=== PATIENT | female | born 1985 | race Caucasian/White ===

== ENCOUNTER 2022-03-19 14:58 | Emergency (ER) | payer BC, MEDICAID, SELFPAY ==
[2022-03-19 15:10] VITALS: BP 125/85; PULSE 89; RESP 18; TEMP 37.1; O2SAT 99; BMI 22.9
[2022-03-19 15:15] VITALS: BP 115/85
[2022-03-19 15:31] VITALS: BP 118/73
[2022-03-19 15:39] LABS: Appearance Urine Cloudy (Clear); Bilirubin Urine 1+ (Negative); Blood Urine 3+ (Negative); Color Urine Brown (Yellow); Glucose Urine Negative (Negative); Ketones Urine 1+ (Negative); Leukocyte Esterase Urine 3+ (Negative); Nitrite Urine Positive (Negative); Protein Urine 3+ (Negative); Specific Gravity Urine >= 1.030 (1.000-1.030)
[2022-03-19 15:59] LABS: RBC Urine >100 (0-2); WBC Urine >100 (0-5)
[2022-03-19 16:00] LABS: Bacteria Urine Few
[2022-03-19 16:01] VITALS: BP 114/78; PULSE 82; O2SAT 99
--- NOTE | 2022-03-19 16:11 | ED.GENADULT ---
HPI - General Adult General Date Seen: 03/19/22 Chief complaint: Urogenital Problems, Female Stated complaint: UTI Time Seen by Provider: 03/19/22 15:05 Source: patient Mode of arrival: ambulatory Limitations: no limitations History of Present Illness HPI narrative: Patient is a 36-year-old woman who reports a history of multiple UTIs previously, who presents with symptoms reminiscent of former UTI. She has had dysuria, frequency, urgency which started about a week and half ago. She has been treating herself symptomatically but symptoms have not improved. She denies new sexual partners or concerns about exposure to STIs. She has not had fever, vomiting, flank pain. No hematuria. Related Data Home Medications Medication Instructions Recorded Confirmed cholecalciferol (vitamin D3) 25 1,000 unit PO 12/09/21 01/18/22 mcg (1,000 unit) tablet clonidine HCl 0.1 mg tablet 0.1 mg PO 12/09/21 01/18/22 dextroamphetamine-amphetamine 20 10 mg PO 12/09/21 01/18/22 mg tablet fluticasone propionate 220 g inhalation 12/09/21 01/18/22 mcg/actuation HFA aerosol inhaler (Flovent HFA) ibuprofen 800 mg tablet 800 mg PO 12/09/21 01/18/22 lamotrigine 200 mg tablet 200 mg PO 12/09/21 01/18/22 tramadol 50 mg tablet 50 mg PO 12/09/21 01/18/22 trazodone 100 mg tablet 100 mg PO 12/09/21 01/18/22 ocrelizumab IV 03/19/22 pregabalin 100 mg capsule mg 03/19/22 Allergies Allergy/AdvReac Type Severity Reaction Status Date / Time glatiramer (copolymer 1) Allergy Severe Anaphylaxis Verified 03/19/22 15:29 [From Copaxone] Review of Systems Status of ROS: Reports: 6 or more systems reviewed and unremarkable except as noted in History and below PFSH PFSH Social History Smoking Status: Heavy tobacco smoker What tobacco products do you use: cigarettes Years smoked: 15 Do you use any of these nicotine containing products: None Second hand tobacco smoke exposure: No How often do you have a drink containing alcohol: 2-3 times a week AUDIT-C Alcohol total score: 3 Non-prescribed substance use: denies use Exam Narrative: Exam Narrative: Vital signs as noted above. In general, an alert, well-appearing patient. Head: Normocephalic, atraumatic. Eyes: Pupils are equal reactive. Extraocular movements are full. Conjunctivae are normal. ENT: Mucous membranes are moist. Neck: Supple Abdomen: Soft and nontender. Extremities: Well perfused. No edema. No calf tenderness. Pulses intact. Neurologic: Patient is alert and oriented to person and place. Speech is fluent. Face is symmetric. Moves all extremities equally. Affect: Normal. Skin: Warm and dry. Well perfused. Const: Vital Signs, click to edit/add: Vital Signs - 24 hr 03/19/22 15:10 03/19/22 15:15 03/19/22 15:31 Temperature 98.8 F Pulse Rate [Pulse Oximeter] 89 Respiratory Rate 18 Blood Pressure 115/85 118/73 Blood Pressure [Ri ght Upper Arm] 125/85 Pulse Oximetry 99 Oxygen Delivery Me thod Room Air Room Air Documenting provider has reviewed patient's vital signs: yes Course Course Hospital Course: Urinalysis is strongly suggestive of urinary tract infection with greater than 100 red cells, greater than 100 white cells, positive nitrites. Culture is pending. Will treat for now with Macrobid, Pyridium for symptoms. Return for worsening symptoms such as fever, vomiting, flank pain. Vital Signs Vital signs: Initial Vital Signs Temperature 98.8 F 03/19/22 15:10 Temperature Source Temporal Artery Scan 03/19/22 15:10 Pulse Rate 89 03/19/22 15:10 Respiratory Rate 18 03/19/22 15:10 Blood Pressure 125/85 03/19/22 15:10 Blood Pressure Mean 98 03/19/22 15:10 Blood Pressure Position Sitting 03/19/22 15:10 Pulse Oximetry 99 03/19/22 15:10 Oxygen Delivery Method 03/19/22 15:10 Vital Signs Temperature 98.8 F 03/19/22 15:10 Pulse Rate 89 03/19/22 15:10 Respiratory Rate 18 03/19/22 15:10 Blood Pressure 125/85 03/19/22 15:10 Pulse Oximetry 99 03/19/22 15:10 Oxygen Delivery Method 03/19/22 15:10 Temperature 98.8 F 03/19/22 15:10 Pulse Rate 89 03/19/22 15:10 Respiratory Rate 18 03/19/22 15:10 Blood Pressure 118/73 03/19/22 15:31 Pulse Oximetry 99 03/19/22 15:10 Oxygen Delivery Method 03/19/22 15:15 Medical Decision Making Lab Data Labs: Lab Results 03/19/22 Range/Units 15:20 Urine Color Brown A (Yellow) Urine Appearance Cloudy A (Clear) Urine pH 6.0 (5.0-8.5) Ur Specific [place] >= 1.030 (1.000-1.030) Urine Protein 3+ A (Negative) Urine Glucose (UA) Negative (Negative) Urine Ketones 1+ A (Negative) Urine Blood 3+ A (Negative) Urine Nitrite Positive A (Negative) Urine Bilirubin 1+ A (Negative) Urine Urobilinogen 1.0 (0.2-1.0) Ur Leukocyte Esterase 3+ A (Negative) Urine RBC >100 A (0-2) Urine WBC >100 A (0-5) Ur Squamous Epith Cells None (None-Few) Urine Bacteria Few A (None) Discharge Plan Discharge Clinical Impression: Urinary tract infection Patient Disposition: Home, Self-Care Condition: Stable Instructions: Urinary Tract Infection in Women (DC) Additional Instructions: Antibiotic as prescribed. Pyridium as needed to help with symptoms over the next 24 hours, after that antibiotics should have kicked in and you should be feeling better. Urine culture is pending, if we need to change your antibiotic based on sensitivities, we will call you. Return for worsening symptoms such as fever, vomiting, flank pain. Prescriptions: No Action clonidine HCl 0.1 mg tablet 0.1 mg PO trazodone 100 mg tablet 100 mg PO lamotrigine 200 mg tablet 200 mg PO ibuprofen 800 mg tablet 800 mg PO Label Comments: TAKE ONE TABLET EVERY 8 HOURS FOR PAIN fluticasone propionate [Flovent HFA] 220 mcg/actuation HFA aerosol inhaler inhalation tramadol 50 mg tablet 50 mg PO Label Comments: take 1-2 tablets by mouth every 6 hours as needed cholecalciferol (vitamin D3) 25 mcg (1,000 unit) tablet 1,000 unit PO Label Comments: Take 1 tablet (1,000 units) by mouth daily dextroamphetamine-amphetamine 20 mg tablet 10 mg PO Label Comments: TAKE 1 TABLET BY MOUTH IN THE MORNING AND AT NOON AND 1/2 OR 1 TABLET AT 4 PM. ocrelizumab [Ocrevus] IV pregabalin 100 mg capsule Follow Up/Referrals: Provider,Not a Local [Primary Care Provider] - Stand Alone Forms: [employer] Info Instructions
== END 2022-03-19 16:23 | disposition home or self-care (01) ==
PROVIDERS: Emergency Provider Emergency Medicine
DX: N39.0 Urinary tract infection, site not specified (principal)
CPT/HCPCS: 81001; 87086; 87186; 99283

== ENCOUNTER 2022-03-31 06:49 | Emergency (ER) | payer BC, MEDICAID, SELFPAY ==
[2022-03-31 06:58] VITALS: BP 122/80; PULSE 75; RESP 16; TEMP 36.2; O2SAT 100
--- NOTE | 2022-03-31 07:41 | CRLHL7_ITS ---
For Patients: As a result of the Century Cures Act, medical imaging exams and procedure reports are released immediately into your electronic medical record. You may view this report before your referring provider. If you have questions, please contact your health care provider. HISTORY: Back pain. TECHNIQUE: AP and lateral lumbosacral spine, 3 views. COMPARISON: None. FINDINGS: There are 5 lumbar type vertebrae. Alignment is normal. Vertebral body height is preserved. Disc space narrowing and vacuum phenomenon are present at L5-S1. There is endplate sclerosis mild vertebral spurring at L5 and S1. No spondylolysis is present. Pedicles are intact. IMPRESSION: Degenerative disc disease at L5-S1. Dictated by Miller Soler MD @ 03/31/2022 7:58:13 AM (Electronically Signed)
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
== END 2022-03-31 08:08 | disposition home or self-care (01) ==
LOC: ED 07:56
PROVIDERS: Emergency Provider Family Medicine; PCP Family Medicine
DX: S39.012A Strain of muscle, fascia and tendon of lower back, initial encounter (principal); V09.9XXA Pedestrian injured in unspecified transport accident, initial encounter; Y92.524 Gas station as the place of occurrence of the external cause
CPT/HCPCS: 72100; 99282; 99283; 99284

== ENCOUNTER 2022-07-20 22:35 | Outpatient (CLI) | payer MEDICAID, SELFPAY | END 2022-07-20 22:36 | disposition home or self-care (01) | LOC: AMB 07-26 09:43 | PROVIDERS: PCP Family Medicine; Visit Provider Family Medicine | DX: R05.9 Cough, unspecified (principal); R06.09 Other forms of dyspnea | CPT/HCPCS: A0425; A0429 ==

== ENCOUNTER 2022-07-20 23:02 | Emergency (ER) | payer MEDICAID, SELFPAY ==
[2022-07-20 23:05] VITALS: BP 108/72; PULSE 82; RESP 18; TEMP 36.6; O2SAT 95
--- NOTE | 2022-07-20 23:24 | CRLHL7_ITS ---
For Patients: As a result of the Cures Act, medical imaging exams and procedure reports are released immediately into your electronic medical record. You may view this report before your referring provider. If you have questions, please contact your health care provider. INDICATION: Dyspnea. COMPARISON: None available. FINDINGS: PA and lateral views of the chest were obtained. There is mild patchy infiltrate in the right medial lower lung, seen to be in the anterior basilar segment of the right lower lobe on the lateral view, consistent with mild right lower lobe pneumonia. There is mild linear density in the right superior perihilar lung, probably scarring from previous inflammatory disease. There is mild linear atelectasis in the posterior-medial retrocardiac left lower lobe. The rest of the chest is clear. The heart is normal in size. The mediastinum is normal in appearance. The osseous structures are normal in appearance for the patient`s age. IMPRESSION: Mild patchy pneumonia in the anterior basilar segment of the right lower lobe. Mild linear atelectasis versus scarring in the right superior perihilar right upper lobe and in the medial retrocardiac left lower lobe. Dictated by Cristhian Ramirez MD @ 07/21/2022 12:41:17 AM (Electronically Signed)
--- NOTE | 2022-07-20 23:27 | ED.SOB ---
HPI - SOB/Dyspnea General Chief Complaint: Shortness of Breath/Dyspnea Stated Complaint: Difficulty Breathing Time Seen by Provider: 07/20/22 23:14 Source: patient, family and EMS Mode of arrival: EMS History of Present Illness HPI Narrative: 36-year-old female with a history mold allergy presents to the emergency department with a 2 month history of ongoing shortness of breath. Sounds like she was evaluated in the emergency department at [place] [facility] 1 week ago, had a chest x-ray. Per her, it looked like there was a pneumonia and she was started on doxycycline. She says that it is causing some timing upset and increased sunburn. 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 Admits that her symptoms have worsened over the last couple of weeks. She says that it was likely started when she was working around some [employer] post. She has not been on steroids. She tried her inhaler this evening and did not help, she felt very short of breath so she called EMS. She reports that she was given an albuterol inhaler which did seem to temporarily help. She is feeling much better currently. She notes no fever. She has no history of DVT or PE. She does have a history of MS, denies any progressive type symptoms related to this. No hemoptysis, no cardiac changes. No new trauma or injury. Cough is nonproductive. Past medical history notable for ADHD, MS. Allergies are to Wellbutrin Copaxone and mold. Current home medications clonidine, Adderall, lamotrigine, trazodone. Reports no recent changes other than the new doxycycline. I reviewed this and see that she appropriately has about 3 days left. Socially, she is a smoker. ROS is notable for the respiratory symptoms as above, otherwise states that all other medical conditions and systems are stable times 12 systems. Related Data Home Medications Medication Instructions Recorded Confirmed cholecalciferol (vitamin D3) 25 1,000 unit PO 12/09/21 06/01/22 mcg (1,000 unit) tablet clonidine HCl 0.1 mg tablet 0.1 mg PO 12/09/21 06/01/22 dextroamphetamine-amphetamine 20 10 mg PO 12/09/21 06/01/22 mg tablet fluticasone propionate 220 g inhalation 12/09/21 06/01/22 mcg/actuation HFA aerosol inhaler (Flovent HFA) ibuprofen 800 mg tablet 800 mg PO 12/09/21 06/01/22 lamotrigine 200 mg tablet 200 mg PO 12/09/21 06/01/22 tramadol 50 mg tablet 50 mg PO 12/09/21 06/01/22 trazodone 100 mg tablet 100 mg PO 12/09/21 06/01/22 ocrelizumab IV 03/19/22 06/01/22 pregabalin 100 mg capsule mg 03/19/22 06/01/22 Previous Rx's Medication Instructions Recorded oxycodone 5 mg tablet 5 mg PO Q6H PRN pain #15 tabs 03/31/22 benzonatate 100 mg capsule 100 mg PO TID PRN cough #30 caps 06/01/22 montelukast 10 mg tablet 10 mg PO QHS #30 tabs 07/21/22 (Singulair) Allergies Allergy/AdvReac Type Severity Reaction Status Date / Time glatiramer (copolymer 1) Allergy Severe Anaphylaxis Verified 06/01/22 15:10 [From Copaxone] bupropion [From Wellbutrin] Allergy Verified 06/01/22 15:10 PFSH PFS Medical History (Updated 07/21/22 @ 00:21 by Yenny Scruggs MD) ADHD, predominantly inattentive type ?F90.0 - Attention-deficit hyperactivity disorder, predominantly inattentive type (ICD-10) Multiple sclerosis, primary progressive ?G35 - Multiple sclerosis (ICD-10) Social History (Updated 03/31/22 @ 07:46 by Cali Lemon MD) 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, 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 Smoking Status: Current some day smoker What tobacco products do you use: cigarettes Years smoked: 15 Do you use any of these nicotine containing products: None Second hand tobacco smoke exposure: No How often do you have a drink containing alcohol: 2-3 times a week How many standard drinks containing alcohol do you have on a typical day: 1 or 2 How often do you have six or more drinks on one occasion: Never AUDIT-C Alcohol total score: 3 Non-prescribed substance use: denies use Exam Const: Vital Signs, click to edit/add: Vital Signs - 24 hr 07/20/22 23:05 Temperature 97.9 F Pulse Rate [Left P ulse Oximeter] 82 Respiratory Rate 18 Blood Pressure [Le ft Upper Arm] 108/72 Pulse Oximetry 95 Oxygen Delivery Me thod Room Air Documenting provider has reviewed patient's vital signs: yes Common normals: no apparent distress General appearance: cooperative Other: Nonproductive cough noted. HENMT: Common normals: normocephalic and head/scalp atraumatic Head and scalp: normocephalic and atraumatic Face and sinus: normal facial exam Mouth: oral and palatal mucosa normal Throat: posterior oropharynx normal Eye: Common normals: conjunctivae normal General eye: normal appearance of both eyes Conjunctiva: conjunctiva(e) normal Neck & C-Spine: Common normals: full ROM and no lymphadenopathy Resp: Other: Mildly tachypneic. No wheeze. Overall poor air movement though. Expiration is not prolonged. No crackles. Cardio: Common normals: regular rate, regular rhythm, S1 normal heart sound, S2 normal heart sound and no murmurs Rate: regular rate Rhythm: regular rhythm Heart sounds: S1 normal and S2 normal GI: Common normals: Normal to inspection, nondistended, normoactive bowel sounds present and no masses Extremity: Common normals: normal to inspection, normal capillary refill and no pedal edema Neuro: Speech: speech normal Motor exam: no movement abnormalities noted Psych: Common normals: thought process normal Appearance: grossly normal Thought process: normal thought process Skin: Common normals: no rashes or lesions noted General skin exam: no rashes or lesions noted Course Course Hospital Course: Differential diagnosis including DVT, asthma, chronic lung disease, COPD, pneumonia, croup, among others. Poor air movement suggestive of inflammatory process. Recommended chest x-ray, basic labs including D-dimer. The albuterol was helpful, this is good to know. She is not currently wheezing so I do not think that more this will be more benefit at the moment. Will start with 40 mg of prednisone and some Singulair and re-evaluate after labs and x-ray are back. She was agreeable to this plan. Reevaluation(s) Time of Reevaluation #1: 00:21 Reevaluation #1: Reviewed findings with patient. She is moving air much better now, still no wheezing. She does feel quite a bit better. Discussed prednisone, starting some Singulair, use of the albuterol inhaler and completion of her antibiotics. Reviewed alarm symptoms that would warrant repeat ED presentation and she verbalizes understanding and agreement. Reassuring labs. Vital Signs Vital signs: Initial Vital Signs Temperature 97.9 F 07/20/22 23:05 Temperature Source Temporal Artery Scan 07/20/22 23:05 Pulse Rate 82 07/20/22 23:05 Pulse Rhythm Regular 07/20/22 23:05 Respiratory Rate 18 07/20/22 23:05 Blood Pressure 108/72 07/20/22 23:05 Blood Pressure Mean 84 07/20/22 23:05 Blood Pressure Position Semi-Fowlers 07/20/22 23:05 Pulse Oximetry 95 07/20/22 23:05 Oxygen Delivery Method Room Air 07/20/22 23:05 Vital Signs Temperature 97.9 F 07/20/22 23:05 Pulse Rate 82 07/20/22 23:05 Respiratory Rate 18 07/20/22 23:05 Blood Pressure 108/72 07/20/22 23:05 Pulse Oximetry 95 07/20/22 23:05 Oxygen Delivery Method Room Air 07/20/22 23:05 Temperature 97.9 F 07/20/22 23:05 Pulse Rate 82 07/20/22 23:05 Respiratory Rate 18 07/20/22 23:05 Blood Pressure 108/72 07/20/22 23:05 Pulse Oximetry 95 07/20/22 23:05 Oxygen Delivery Method Room Air 07/20/22 23:05 MDM - SOB/Dyspnea Lab Data Attestation: I reviewed the patient's lab results. Lab results narrative: Mildly elevated white blood cell count and CRP. Normal D-dimer. Normal electrolytes and kidney function. Labs: Lab Results 07/20/22 Range/Units 23:35 WBC 14.69 H (4.50-11.00) K/uL RBC 4.46 (4.00-5.20) m/uL Hgb 14.1 (12.0-16.0) gm/dL Hct 42.0 (33.0-51.0) % MCV 94 (80-100) fL MCH 32 (26-34) pg MCHC 34 (32-36) gm/dL RDW Coeff of Aditi 12.3 (11.5-15.5) % Plt Count 426 (140-440) K/uL Neut % (Auto) 74.1 H (42.0-72.0) % Lymph % (Auto) 15.5 L (20-44) % [place] % (Auto) 6.9 (0.0-11.0) % Eos % (Auto) 3.0 (0.0-7.0) % Baso % (Auto) 0.2 (0.0-3.0) % Neut # (Auto) 10.90 H (1.7-7.0) K/uL Lymph # (Auto) 2.30 (0.90-2.90) K/uL [place] # (Auto) 1.00 H (0.00-0.90) K/UL Eos # (Auto) 0.40 (0.00-0.50) K/uL Baso # (Auto) 0.00 (0.00-0.30) K/uL D-Dimer Quant (PE/DVT) 0.48 (0.00-0.50) ug/ml Sodium 141 (135-149) mmol/L Potassium 3.5 L (3.6-5.1) mmol/L Chloride 102 (96-114) mmol/L Carbon Dioxide 26 (20-32) mmol/L BUN 6 (5-24) mg/dL Creatinine 0.6 (0.5-1.5) mg/dL Estimated GFR 118 ml/min Glucose 87 (60-115) mg/dL Calcium 9.2 (8.4-10.6) mg/dL C-Reactive Protein 7.8 H (0.5-1.0) mg/dL Discharge Plan Discharge Clinical Impression: Pneumonitis Patient Disposition: Home w/ Parent or Adult Condition: Improved Additional Instructions: As we discussed, I think there is a combination of an inflammatory process and a pneumonia in your lungs. I agree with the antibiotic that was chosen by the other emergency department. I would like you to go ahead and finish your last few days of this. I am adding prednisone, a steroid. As we discussed, you will take this twice daily for the next 5 days. If you have significant side effects from it, you may decrease it to once daily after the 1st 2 days. Continue using her albuterol inhaler. As we discussed you can use thus far more often than it says on the packaging. But, if it is not working in you get as short of breath as you were tonight, you need to come back to the ED. I do think that your having a chronic inflammation in your lungs from occupational exposures. There are specialist that can test you for this but in the meantime, I would like to start you on some Singulair 1 pill daily preferably at bedtime. I would like for you to follow-up with primary care provider in 1-2 weeks to see how things are going with this and decide on long-term treatment and if referral to a track broom operator or nightclub manager would be useful. There are more advanced treatments than what I am proposing. Activity Level: Activity as Tolerated Discharge Diet: Regular Prescriptions: New montelukast [Singulair] 10 mg tablet 10 mg PO QHS Qty: 30 1RF No Action clonidine HCl 0.1 mg tablet 0.1 mg PO trazodone 100 mg tablet 100 mg PO lamotrigine 200 mg tablet 200 mg PO ibuprofen 800 mg tablet 800 mg PO Patient Comments: TAKE ONE TABLET EVERY 8 HOURS FOR PAIN fluticasone propionate [Flovent HFA] 220 mcg/actuation HFA aerosol inhaler inhalation tramadol 50 mg tablet 50 mg PO Patient Comments: take 1-2 tablets by mouth every 6 hours as needed cholecalciferol (vitamin D3) 25 mcg (1,000 unit) tablet 1,000 unit PO Patient Comments: Take 1 tablet (1,000 units) by mouth daily dextroamphetamine-amphetamine 20 mg tablet 10 mg PO Patient Comments: TAKE 1 TABLET BY MOUTH IN THE MORNING AND AT NOON AND 1/2 OR 1 TABLET AT 4 PM. benzonatate 100 mg capsule 100 mg PO TID PRN (Reason: cough) Qty: 30 1RF ocrelizumab [Ocrevus] IV pregabalin 100 mg capsule oxycodone 5 mg tablet 5 mg PO Q6H PRN (Reason: pain) Qty: 15 0RF Follow Up/Referrals: Willard Shahid MD [Primary Care Provider] - Stand Alone Forms: [employer] Info Instructions
[2022-07-20 23:44] LABS: Basophils Percent Auto 0.2 % (0.0-3.0); Hemoglobin* 14.1 gm/dL (12.0-16.0); Immature Granulocytes Pct Auto 0.3 %; Lymphocytes Percent Auto 15.5 % (20-44); Mean Corpuscular HGB Conc 34 gm/dL (32-36); Mean Corpuscular Hemoglobin 32 pg (26-34); Mean Corpuscular Volume 94 fL (80-100); Monocytes Percent Auto 6.9 % (0.0-11.0); Neutrophils Percent Auto 74.1 % (42.0-72.0); Platelet Count* 426 K/uL (140-440); RDW Coefficient of Variation % 12.3 % (11.5-15.5); Red Blood Count 4.46 m/uL (4.00-5.20); Slide Review Reflex No; White Blood Count* 14.69 K/uL (4.50-11.00)
[2022-07-20] MEDS: MONTELUKAST 10 MG TABLET PO (23:45)
[2022-07-20] MEDS: predniSONE 20 MG TABLET 40 MG PO (23:45)
[2022-07-20 23:55] LABS: Chloride* 102 mmol/L (96-114); Potassium* 3.5 mmol/L (3.6-5.1); Sodium* 141 mmol/L (135-149)
[2022-07-20 23:58] LABS: Creatinine* 0.6 mg/dL (0.5-1.5); Estimated Glomerular Filt Rate 118 ml/min
[2022-07-20 23:59] LABS: Blood Urea Nitrogen* 6 mg/dL (5-24); Calcium* 9.2 mg/dL (8.4-10.6); Carbon Dioxide* 26 mmol/L (20-32); Glucose* 87 mg/dL (60-115)
[2022-07-21 00:01] LABS: C Reactive Protein* 7.8 mg/dL (0.5-1.0); D Dimer Quantitative* 0.48 ug/ml (0.00-0.50)
== END 2022-07-21 00:25 | disposition home or self-care (01) ==
PROVIDERS: Emergency Provider Family Medicine; PCP Family Medicine
DX: J18.9 Pneumonia, unspecified organism (principal)
CPT/HCPCS: 36415; 71046; 80048; 85025; 85379; 86140; 99284; A9270; J7512

== ENCOUNTER 2022-08-31 16:53 | Emergency (ER) | payer MEDICAID, SELFPAY ==
[2022-08-31] VITALS (11 sets, daily range): BP systolic 106–108; BP diastolic 73–77; PULSE 92–98; RESP 18–24; TEMP 36.4; O2SAT 93–100; BMI 23.6
--- NOTE | 2022-08-31 17:27 | CRLHL7_ITS ---
For Patients: As a result of the Century Cures Act, medical imaging exams and procedure reports are released immediately into your electronic medical record. You may view this report before your referring provider. If you have questions, please contact your health care provider. INDICATION: Cough TECHNIQUE: CT chest without contrast. COMPARISON: None FINDINGS: Cardiovascular structures: Heart size is normal. Thoracic aorta and main pulmonary artery are normal in caliber. Mediastinum and allison: No sign of mass or adenopathy. Lungs: Diffuse right upper lobe is patchy centrilobular opacities and patchy consolidation in the right upper right middle lobe. Irregular centrilobular opacities in the lower lobes as well with bronchial wall thickening bilaterally. Pleura and pericardium: Small pericardial effusion. Chest wall and axilla: No mass or adenopathy. Bones: No significant findings. Upper abdomen: Unremarkable. IMPRESSION: 1. Right upper and middle lobe patchy centrilobular opacities and patchy consolidation . Irregular centrilobular opacities in the lower lobes as well with bronchial wall thickening. Findings probably infectious to include bronchopneumonia. Please note that all CT scans at this facility use dose modulation, iterative reconstruction, and/or weight-based dosing when appropriate to reduce radiation dose to as low as reasonably achievable. Dictated by Janice Bojorquez MD @ 08/31/2022 6:56:13 PM (Electronically Signed)
--- NOTE | 2022-08-31 17:36 | ED.GENADULT ---
HPI - General Adult General Time Seen by Provider: 17:36 Date Seen: 08/31/22 Chief complaint: Cough Stated complaint: Coughing, short of breath Time Seen by Provider: 08/31/22 16:54 Source: patient Mode of arrival: ambulatory Limitations: no limitations History of Present Illness HPI narrative: Patient is a 37-year-old female with a history of multiple sclerosis currently receiving transfusions, bronchitis presenting to the emergency department for a cough. She states the past 2 months he has been having this cough nonstop. She has been seen multiple times in the past for this scheduled to see a specialist for her cough next week. They state the cough seem to be getting worse today and she was having difficulty breathing because of the cough. She states when she isn't coughing she feels fine is in the eat and drink and breathe without any of the issues but states the cough is working her up multiple times throughout the night and she says these daily she will have posttussive emesis. She also states the cough feels like it is nonstop throughout the day. She does admit to smoking cigarettes and states she has cut down to only a fever today since the cough started and states she mostly just hold them of of habit. She believes her symptoms are related to mold. 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 She has had issues with mold in the past. She does not know if she is vaccinated for pertussis. Last time patient was here she was given albuterol inhaler which she says does not help but does state the albuterol breathing treatment she received did help. Steroids not seen improvement symptoms. She has been on 2 different antibiotics with most recent being doxycycline. Denies fevers, chills, chest pain, abdominal pain, diarrhea, constipation, headache, vision changes, weakness, numbness, nausea. Related Data Home Medications Medication Instructions Recorded Confirmed cholecalciferol (vitamin D3) 25 1,000 unit PO 12/09/21 06/01/22 mcg (1,000 unit) tablet clonidine HCl 0.1 mg tablet 0.1 mg PO 12/09/21 06/01/22 dextroamphetamine-amphetamine 20 10 mg PO 12/09/21 06/01/22 mg tablet fluticasone propionate 220 g inhalation 12/09/21 06/01/22 mcg/actuation HFA aerosol inhaler (Flovent HFA) ibuprofen 800 mg tablet 800 mg PO 12/09/21 06/01/22 lamotrigine 200 mg tablet 200 mg PO 12/09/21 06/01/22 tramadol 50 mg tablet 50 mg PO 12/09/21 06/01/22 trazodone 100 mg tablet 100 mg PO 12/09/21 06/01/22 ocrelizumab IV 03/19/22 06/01/22 pregabalin 100 mg capsule mg 03/19/22 06/01/22 Previous Rx's Medication Instructions Recorded oxycodone 5 mg tablet 5 mg PO Q6H PRN pain #15 tabs 03/31/22 benzonatate 100 mg capsule 100 mg PO TID PRN cough #30 caps 06/01/22 montelukast 10 mg tablet 10 mg PO QHS #30 tabs 07/21/22 (Singulair) albuterol sulfate 5 mg/mL(0.5 %) 2.5 mg (0.5 mL) inhalation Q4H 08/31/22 solution for nebulization #100 mL albuterol sulfate 90 mcg/actuation 2 puff inhalation Q6H PRN 08/31/22 aerosol inhaler (Ventolin HFA) shortness of breath or wheezing #6.7 grams amoxicillin 875 mg-potassium 1 tab PO Q12H #14 tabs 08/31/22 clavulanate 125 mg tablet azithromycin 250 mg tablet See Rx Instructions PO .COMPLEX #6 08/31/22 tabs Allergies Allergy/AdvReac Type Severity Reaction Status Date / Time glatiramer (copolymer 1) Allergy Severe Anaphylaxis Verified 06/01/22 15:10 [From Copaxone] mold Allergy Unknown Anaphylaxis Verified 08/31/22 17:03 bupropion [From Wellbutrin] Allergy Verified 06/01/22 15:10 Review of Systems Status of ROS: Reports: 10 or more systems reviewed and unremarkable except as noted in History and below [facility] Medical History (Updated 08/31/22 @ 19:19 by Ruslan Rodriguez DO) ADHD, predominantly inattentive type ?F90.0 - Attention-deficit hyperactivity disorder, predominantly inattentive type (ICD-10) Multiple sclerosis, primary progressive ?G35 - Multiple sclerosis (ICD-10) Social History (Updated 03/31/22 @ 07:46 by Cali Lemon MD) 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, 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 Smoking Status: Current some day smoker What tobacco products do you use: cigarettes Years smoked: 15 Do you use any of these nicotine containing products: None Second hand tobacco smoke exposure: No How often do you have a drink containing alcohol: 2-3 times a week How many standard drinks containing alcohol do you have on a typical day: 1 or 2 How often do you have six or more drinks on one occasion: Never AUDIT-C Alcohol total score: 3 Non-prescribed substance use: denies use Exam Narrative: Exam Narrative: Const: Well-nourished, Well-developed, in moderate distress Eyes: PERRL, no conjunctival injection, and symmetrical lids ENMT: Atraumatic external nose and ears. Moist mucous membranes. Neck: Symmetric, trachea midline, No thyromegaly. CVS: RRR, No murmurs or gallops. Peripheral pulses 2+ and equal in all extremities RESP: Clear to auscultation bilaterally, loud notable cough while at rest GI: Nontender/Nondistended, No rebound or guarding. MSK:Extremities w/o deformity, Normal Active ROM Skin: Warm, Dry. No rashes or lesions. Neuro: Normal Muscle tone, No focal neurological deficits. Psych: Awake, Alert, & Oriented x3. Appropriate mood and affect. Const: Vital Signs, click to edit/add: Vital Signs - 24 hr 08/31/22 16:58 08/31/22 17:08 08/31/22 17:30 Temperature 97.6 F Pulse Rate 92 94 Pulse Rate [Pulse Oximeter] 98 Respiratory Rate 22 24 Blood Pressure 108/77 Blood Pressure [Ri ght Upper Arm] 106/73 Pulse Oximetry 95 93 95 Oxygen Delivery Me thod Room Air 08/31/22 17:56 08/31/22 18:30 08/31/22 18:35 Temperature Pulse Rate 92 93 95 Pulse Rate [Pulse Oximeter] Respiratory Rate 18 Blood Pressure Blood Pressure [Ri ght Upper Arm] Pulse Oximetry 99 100 97 Oxygen Delivery Me thod 08/31/22 18:45 08/31/22 19:00 08/31/22 19:05 Temperature Pulse Rate 92 95 94 Pulse Rate [Pulse Oximeter] Respiratory Rate Blood Pressure Blood Pressure [Ri ght Upper Arm] Pulse Oximetry 97 97 [facility] 08[facility]22 19:15 08/31/22 19:29 Temperature 97.6 F Pulse Rate 93 Pulse Rate [Pulse Oximeter] 98 Respiratory Rate 18 Blood Pressure Blood Pressure [Ri ght Upper Arm] 106/73 Pulse Oximetry 97 Oxygen Delivery Me thod Course Vital Signs Vital signs: Initial Vital Signs Temperature 97.6 F 08/31/22 16:58 Temperature Source Temporal Artery Scan 08/31/22 16:58 Pulse Rate 98 08/31/22 16:58 Pulse Rhythm Regular 08/31/22 16:58 Respiratory Rate 22 08/31/22 16:58 Blood Pressure 106/73 08/31/22 16:58 Blood Pressure Mean 84 08/31/22 16:58 Blood Pressure Position Sitting 08/31/22 16:58 Pulse Oximetry 95 08/31/22 16:58 Oxygen Delivery Method Room Air 08/31/22 16:58 Vital Signs Temperature 97.6 F 08/31/22 16:58 Pulse Rate 98 08/31/22 16:58 Respiratory Rate 22 08/31/22 16:58 Blood Pressure 106/73 08/31/22 16:58 Pulse Oximetry 95 08/31/22 16:58 Oxygen Delivery Method Room Air 08/31/22 16:58 Temperature 97.6 F 08/31/22 19:29 Pulse Rate 98 08/31/22 19:29 Respiratory Rate 18 08/31/22 19:29 Blood Pressure 106/73 08/31/22 19:29 Pulse Oximetry 97 08/31/22 19:15 Oxygen Delivery Method Room Air 08/31/22 16:58 Medical Decision Making [facility] Narrative Medical decision making narrative: Patient is a 37-year-old female presenting emergency department for a chronic cough and a going on for over 2 months. She has been on doxycycline and amoxicillin in the past. She states the cough is not getting better and she is concerned could be mold related because the cough started soon after she was switched to the, post area of her job. She is scheduled to see a lung specialist next week. They are concerned because the cough is waking her up multiple times for nits and became worse department today to see if we could do anything to help her. Concern along symptoms have been going on she is having some post-tussive emesis I will check her for pertussis. She does not know her vaccinations status. Also do CT scan of the chest to better evaluation she has only had x-rays in the past. Cbc and and BMP were ordered. After the patient received an albuterol treatment her cough improved significantly. She states she does not have COPD or asthma she is aware of what of her inhaler she has been using are several years old and she is not using a spacer. This could be why they are not helping. She does have a white count 17. Unclear now this is infectious related or stress day of from all her coughing. She has had elevated white counts have asked couple visits according to the patient. CT scan results that show signs of pneumonia. This is unexpected considering she has been on 2 different antibiotics. While she is typically healthy we will give her Augmentin and azithromycin to treat her pneumonia due to how long it has been occurring. I gave the patient prescription for appear old treatments through a nebulizer and inhaler with a spacer. I informed going to try the inhaler 1st with the spacer. They state they understand. Patient be discharged home with a copy of her CT scan to bring to her lung specialist. Lab Data Labs: Lab Results 08/31/22 08/31/22 Range/Units 15:38 17:38 WBC 17.67 H (4.50-11.00) K/uL RBC 4.47 (4.00-5.20) m/uL Hgb 13.5 (12.0-16.0) gm/dL Hct 40.6 (33.0-51.0) % MCV 91 (80-100) fL MCH 30 (26-34) pg MCHC 33 (32-36) gm/dL RDW Coeff of Aditi 13.3 (11.5-15.5) % Plt Count 463 H (140-440) K/uL Neut % (Auto) 80.6 H (42.0-72.0) % Lymph % (Auto) 10.2 L (20-44) % Alfalfa % (Auto) 5.7 (0.0-11.0) % Eos % (Auto) 3.1 (0.0-7.0) % Baso % (Auto) 0.2 (0.0-3.0) % Neut # (Auto) 14.20 H (1.7-7.0) K/uL Lymph # (Auto) 1.80 (0.90-2.90) K/uL Alfalfa # (Auto) 1.00 H (0.00-0.90) K/UL Eos # (Auto) 0.50 (0.00-0.50) K/uL Baso # (Auto) 0.00 (0.00-0.30) K/uL Abs Immat Gran (auto) 0.00 (0.00-0.30) K/uL Imm/Tot Granulo (auto) 0.2 % Sodium 138 (135-149) mmol/L Potassium 4.0 (3.6-5.1) mmol/L Chloride 106 (96-114) mmol/L Carbon Dioxide 21 (20-32) mmol/L BUN 7 (5-24) mg/dL Creatinine 0.5 (0.5-1.5) mg/dL Estimated Creat Clear 157.87 Estimated GFR 122 ml/min Glucose 78 (60-115) mg/dL Calcium 8.9 (8.4-10.6) mg/dL HCG, Qual Negative (Negative) Lab Acknowledgement Test Added Discharge Plan Discharge Clinical Impression: Pneumonia Qualifiers: Pneumonia type: due to unspecified organism Laterality: right Lung location: unspecified part of lung Qualified Code(s): J18.9 - Pneumonia, unspecified organism Patient Disposition: Home, Self-Care Condition: Improved Instructions: Pneumonia (ED) Additional Instructions: Your CT scan shows you have pneumonia and due to this I started you on antibiotics. Keep your previously scheduled appointment with a lung specialist. We are sending a copy of your CT scan to bring to your appointment. I am also giving you an albuterol inhaler with the spacer. You can get a better spacer from the pharmacy and gave the written prescription for that. If this is not helping with the cough I also gave you a written prescription for a nebulizer and sent a nebulizer albuterol solution to your pharmacy. Return for new or worsening symptoms. Your pertussis test results will return in 1-4 days Prescriptions: New albuterol sulfate 5 mg/mL solution for nebulization 2.5 mg inhalation Q4H Qty: 100 3RF amoxicillin-pot clavulanate 875-125 mg tablet 1 tab PO Q12H Qty: 14 0RF azithromycin 250 mg tablet See Rx Instructions .ROUTE .COMPLEX Qty: 6 0RF Rx Instructions: For 250 mg dose pack: take 500 mg today (day 1), then 250 mg for 4 days (days 2-5) albuterol sulfate [Ventolin HFA] 90 mcg/actuation HFA aerosol inhaler 2 puff inhalation Q6H PRN (Reason: shortness of breath or wheezing) Qty: 6.7 0RF No Action clonidine HCl 0.1 mg tablet 0.1 mg PO trazodone 100 mg tablet 100 mg PO lamotrigine 200 mg tablet 200 mg PO ibuprofen 800 mg tablet 800 mg PO Patient Comments: TAKE ONE TABLET EVERY 8 HOURS FOR PAIN fluticasone propionate [Flovent HFA] 220 mcg/actuation HFA aerosol inhaler inhalation tramadol 50 mg tablet 50 mg PO Patient Comments: take 1-2 tablets by mouth every 6 hours as needed cholecalciferol (vitamin D3) 25 mcg (1,000 unit) tablet 1,000 unit PO Patient Comments: Take 1 tablet (1,000 units) by mouth daily dextroamphetamine-amphetamine 20 mg tablet 10 mg PO Patient Comments: TAKE 1 TABLET BY MOUTH IN THE MORNING AND AT NOON AND 1/2 OR 1 TABLET AT 4 PM. benzonatate 100 mg capsule 100 mg PO TID PRN (Reason: cough) Qty: 30 1RF ocrelizumab [Ocrevus] IV pregabalin 100 mg capsule oxycodone 5 mg tablet 5 mg PO Q6H PRN (Reason: pain) Qty: 15 0RF montelukast [Singulair] 10 mg tablet 10 mg PO QHS Qty: 30 1RF Follow Up/Referrals: Willard Shahid MD [Primary Care Provider] - Stand Alone Forms: [facility] ([facility]) Info Instructions
[2022-08-31 17:46] LABS: Basophils Percent Auto 0.2 % (0.0-3.0); Eosinophils Percent Auto 3.1 % (0.0-7.0); Hematocrit 40.6 % (33.0-51.0); Hemoglobin* 13.5 gm/dL (12.0-16.0); Immature Granulocytes Pct Auto 0.2 %; Lymphocytes Percent Auto 10.2 % (20-44); Mean Corpuscular HGB Conc 33 gm/dL (32-36); Mean Corpuscular Hemoglobin 30 pg (26-34); Mean Corpuscular Volume 91 fL (80-100); Monocytes Percent Auto 5.7 % (0.0-11.0); Neutrophils Percent Auto 80.6 % (42.0-72.0); Platelet Count* 463 K/uL (140-440); RDW Coefficient of Variation % 13.3 % (11.5-15.5); Red Blood Count 4.47 m/uL (4.00-5.20); White Blood Count* 17.67 K/uL (4.50-11.00)
[2022-08-31] MEDS: ALBUTEROL SULFATE 2.5 MG/3 ML VIAL.NEB NEB (17:46)
[2022-08-31 17:51] LABS: Slide Review Reflex No
[2022-08-31 17:58] LABS: Chloride* 106 mmol/L (96-114); Sodium* 138 mmol/L (135-149)
[2022-08-31 18:01] LABS: Blood Urea Nitrogen* 7 mg/dL (5-24); Carbon Dioxide* 21 mmol/L (20-32); Creatinine* 0.5 mg/dL (0.5-1.5); Est. Creatinine Clearance* 157.87; Estimated Glomerular Filt Rate 122 ml/min; Glucose* 78 mg/dL (60-115)
[2022-08-31 18:02] LABS: Calcium* 8.9 mg/dL (8.4-10.6)
[2022-08-31 18:16] LABS: HCG Qualitative Serum* Negative (Negative)
[2022-08-31] MEDS: AZITHROMYCIN 250 MG TABLET 500 MG PO (19:17)
[2022-08-31] MEDS: AMOXICILLIN/CLAVULANATE 875 mg/125 mg TABLET PO (19:17)
--- NOTE | 2022-08-31 19:20 | ED.NURSE ---
Spacer provided with education on inhaler and proper usage. ABX given, Pt tolerated well. Pt reports significant improvement after neb and Aerobika.
[2022-09-04 04:55] LABS: B. pertussis/parapertus Source Not Provided; Bordetella parapertussis PCR Not Detected; Bordetella pertussis by PCR Not Detected
== END 2022-08-31 19:31 | disposition home or self-care (01) ==
PROVIDERS: Emergency Provider Student in an Organized Health Care Education/Training Program; PCP Family Medicine
DX: J18.9 Pneumonia, unspecified organism (principal)
CPT/HCPCS: 36415; 71250; 80048; 84703; 85025; 87081; 94640; 99283; 99284; A9270

== ENCOUNTER 2023-01-16 14:30 | Outpatient (CLI) | payer BC, MEDICAID, SELFPAY ==
--- NOTE | 2023-01-16 15:00 | CRLHL7_ITS ---
For Patients: As a result of the Century Cures Act, medical imaging exams and procedure reports are released immediately into your electronic medical record. You may view this report before your referring provider. If you have questions, please contact your health care provider. Indication: Pneumonia Technique: Noncontrast enhanced CT chest Please note that all CT scans at this facility use dose modulation, iterative reconstruction, and/or weight-based dosing when appropriate to reduce radiation dose to as low as reasonably achievable. Comparison: 08/31/2022 Findings: A trace left pleural effusion is present. Bilateral breast implants are intact. Mildly prominent mediastinal lymph nodes have slightly decreased in size since the prior exam. Nodular density within the medial aspect of the right upper lobe measuring 5.9 millimeters, 04/30. Persistent consolidative densities within the right upper lobe inferiorly with associated air bronchograms. Increased subpleural density within the anterior right upper lobe. Improved appearance of the right upper lobe at the posterior lateral aspect compared to the prior study. Residual patchy ill-defined densities within the right lower lobe which have improved. Increased consolidation within the lingula containing air bronchograms. Increased airspace opacities within the posterior left lower lobe along with persistent densities along the left lower lobe bronchovascular bundle. Increased consolidative opacities within the left upper lobe with air bronchograms. Mild spurring in the upper thoracic spine. Interval development of a right lateral 7th rib fracture with partial healing. No vertebral body compression fracture. Impression: Bilateral infiltrates. Left-sided infiltrates have increased in the interim along with development of a small left pleural effusion. Improved infiltrates in the right upper lobe and right lower lobe although persistent densities within the right upper lobe anteriorly are present. New subpleural density anterior right upper lobe and new 5.9 millimeter nodule right upper lobe. Interval development of a nondisplaced subacute right lateral 7th rib fracture. Please note that all CT scans at this facility use dose modulation, iterative reconstruction, and/or weight-based dosing when appropriate to reduce radiation dose to as low as reasonably achievable. Dictated by Cali Galan MD @ 01/17/2023 12:45:22 PM (Electronically Signed)
== END 2023-01-16 14:31 | disposition home or self-care (01) ==
LOC: CT 14:31
PROVIDERS: PCP Family Medicine; Visit Provider Internal Medicine
DX: J18.9 Pneumonia, unspecified organism (principal); J90 Pleural effusion, not elsewhere classified; R91.8 Other nonspecific abnormal finding of lung field; S22.31XA Fracture of one rib, right side, initial encounter for closed fracture; Z77.120 Contact with and (suspected) exposure to mold (toxic)
CPT/HCPCS: 71250

== ENCOUNTER 2023-01-29 15:23 | Emergency (ER) | payer BC, MEDICAID, SELFPAY ==
[2023-01-29 15:45] VITALS: BP 106/70; PULSE 100; RESP 20; TEMP 37.4; O2SAT 97; BMI 21.4
--- NOTE | 2023-01-29 16:07 | CRLHL7_ITS ---
For Patients: As a result of the Century Cures Act, medical imaging exams and procedure reports are released immediately into your electronic medical record. You may view this report before your referring provider. If you have questions, please contact your health care provider. INDICATION: Left-sided chest wall pain. TECHNIQUE: Multiplanar CT examination of the chest was performed without intravenous contrast. COMPARISON: CT chest 01/16/2023. FINDINGS: Visualized lower neck: Unremarkable thyroid gland. Lungs: Persistent irregular tree-in-bud nodularity and airspace consolidation involving the bilateral upper, right middle and left lower lobes, as well as the lingular segment, not significantly changed since prior examination. Linear bandlike opacifications of the lung bases likely due to subsegmental atelectasis and/or scarring. Airways: Trachea remains patent and midline. Mild diffuse peribronchial wall thickening. Pleura: Trace left pleural effusion. No right pleural effusion or pneumothorax. Cardiovascular: Heart size is normal. Thoracic aorta and pulmonary artery are normal in caliber. Mediastinum: Evaluation of hilar lymphadenopathy is limited without the use of intravenous contrast. Prominent mediastinal lymph nodes, likely reactive. Chest wall: Bilateral breast prosthesis. Upper abdomen: Unremarkable. Bones: Recent right lateral 7th rib fracture with bony callus formation suggestive normal interval healing. No new fractures identified. IMPRESSION: 1. Grossly unchanged tree-in-bud nodularity and airspace consolidation involving the both lungs, likely infectious in etiology. 2. Trace left-sided pleural effusion. 3. Re-demonstrated recent right lateral 7th rib fracture. No new fractures identified. Please note that all CT scans at this facility use dose modulation, iterative reconstruction, and/or weight-based dosing when appropriate to reduce radiation dose to as low as reasonably achievable. Dictated by Franco Larsen MD @ 01/29/2023 5:02:37 PM (Electronically Signed)
--- NOTE | 2023-01-29 16:08 | ED.GENADULT ---
HPI - General Adult General Chief complaint: Rib Pain Stated complaint: Cough, rib pain Time Seen by Provider: 01/29/23 15:56 History of Present Illness HPI narrative: Patient is a 37-year-old woman who has chronic pneumonia dating back several months. She has had 2 [address] scan showing persistence of her pneumonia. Today she had severe coughing and now has pain in the anterior and mid axillary line on the left. She has no hemoptysis no fevers no chills no night sweats no shortness of breath. Her oxygen saturation upon arrival on room air is 97%. Case is complicated by chronic medical issues in the form of multiple sclerosis. Pain is 7/10 and sharp. No radiculopathy or radiation noted. Related Data Home Medications Medication Instructions Recorded Confirmed cholecalciferol (vitamin D3) 25 1,000 unit PO DAILY 12/09/21 01/29/23 mcg (1,000 unit) tablet fluticasone propionate 220 1 inh inhalation BID 12/21/22 01/29/23 mcg/actuation HFA aerosol inhaler (Flovent HFA) ocrelizumab 30 mg/mL intravenous 300 mg IV [id number] 12/21/22 01/29/23 solution Previous Rx's Medication Instructions Recorded montelukast 10 mg tablet 10 mg PO QHS #30 tabs 07/21/22 (Singulair) albuterol sulfate 5 mg/mL(0.5 %) 2.5 mg (0.5 mL) inhalation Q4H 08/31/22 solution for nebulization #100 mL albuterol sulfate 90 mcg/actuation 2 puff inhalation Q6H PRN 08/31/22 aerosol inhaler (Ventolin HFA) shortness of breath or wheezing #6.7 grams clonidine HCl 0.1 mg tablet 0.1 mg PO QHS #30 tabs 12/21/22 lamotrigine 200 mg tablet 200 mg PO QHS #30 tabs 12/21/22 pregabalin 100 mg capsule 100 mg PO QHS #30 caps 12/21/22 trazodone 100 mg tablet 100 mg PO QHS #30 tabs 12/21/22 dextroamphetamine-amphetamine 30 30 mg PO BID #60 tabs 01/03/23 mg tablet (Adderall) Allergies Allergy/AdvReac Type Severity Reaction Status Date / Time glatiramer (copolymer 1) Allergy Severe Anaphylaxis Verified 01/29/23 15:43 [From Copaxone] mannitol Allergy Severe Anaphylaxis Verified 01/29/23 15:43 azithromycin [From Zithromax] Allergy Mild Vomiting Verified 01/29/23 15:43 mold Allergy Unknown Hives, Verified 01/29/23 15:43 Congestion, Sneezing, Cough bupropion [From Wellbutrin] Allergy Verified 01/29/23 15:43 Review of Systems Status of ROS: Reports: 10 or more systems reviewed and unremarkable except as noted in History and below PFSH [facility] Medical History Ulcerative proctitis (2007) ?K51.20 - Ulcerative (chronic) proctitis without complications (ICD-10) Nocturnal enuresis ?N39.44 - Nocturnal enuresis (ICD-10) Cobalamin deficiency ?E53.8 - Deficiency of other specified B group vitamins (ICD-10) Accidental ingestion of potentially harmful entity Surgical History History of breast augmentation (07/2021) ?Z98.82 - Breast implant status (ICD-10) History of stem cell transplant ?Z94.84 - Stem cells transplant status (ICD-10) History of mastoidectomy ?Z90.89 - Acquired absence of other organs (ICD-10) History of hysterectomy (2008) ?Z90.710 - Acquired absence of both cervix and uterus (ICD-10) History of colonoscopy (04/03/15) ?Z98.890 - Other specified postprocedural states (ICD-10) Family History Father High blood pressure Mother Depression Alcohol dependence 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, 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 Smoking Status: Current some day smoker Do you use any of these nicotine containing products: Smokeless Tobacco Second hand tobacco smoke exposure: No How often do you have a drink containing alcohol: 2-4 times a month How many standard drinks containing alcohol do you have on a typical day: 1 or 2 How often do you have six or more drinks on one occasion: Never AUDIT-C Alcohol total score: 2 Non-prescribed substance use: denies use Little interest or pleasure in doing things: not at all Feeling down, depressed, or hopeless: several days service: No Exam Narrative: Exam Narrative: EXAM GENERAL: Patient appears comfortable and well. EYES: No scleral icterus. LYMPH: No supraclavicular or cervical lymphadenopathy. SKIN: Visible skin seen during exam normal or with benign process only. EXT: No dependent lower extremity pedal edema. HEART: Regular rate and rhythm with no murmurs, rubs, or gallops. LUNGS: Clear to auscultation bilaterally with no crackles or wheezes. Decreased breath sounds bilaterally. ABD: Soft, non tender, non distended. PSYCH: Good eye contact, speech is not pressured. Const: Vital Signs, click to edit/add: Vital Signs - 24 hr 01/29/23 15:45 Temperature 99.4 F Pulse Rate [Pulse Oximeter] 100 Respiratory Rate 20 Blood Pressure [Ri ght Upper Arm] 106/70 Pulse Oximetry 97 Oxygen Delivery Me thod Room Air Course Course ED Course: I am concerned about the chronicity of her symptoms in the severity of today symptoms. I will proceed initially with CT of her chest without contrast. Vital Signs Vital signs: Initial Vital Signs Temperature 99.4 F 01/29/23 15:45 Temperature Source Temporal Artery Scan 01/29/23 15:45 Pulse Rate 100 01/29/23 15:45 Pulse Rhythm Regular 01/29/23 15:45 Pulse Strength 3+ Normal 01/29/23 15:45 Respiratory Rate 20 01/29/23 15:45 Blood Pressure 106/70 01/29/23 15:45 Blood Pressure Mean 82 01/29/23 15:45 Blood Pressure Position Sitting 01/29/23 15:45 Pulse Oximetry 97 01/29/23 15:45 Oxygen Delivery Method Room Air 01/29/23 15:45 Vital Signs Temperature 99.4 F 01/29/23 15:45 Pulse Rate 100 01/29/23 15:45 Respiratory Rate 20 01/29/23 15:45 Blood Pressure 106/70 01/29/23 15:45 Pulse Oximetry 97 01/29/23 15:45 Oxygen Delivery Method Room Air 01/29/23 15:45 Temperature 99.4 F 01/29/23 15:45 Pulse Rate 100 01/29/23 15:45 Respiratory Rate 20 01/29/23 15:45 Blood Pressure 106/70 01/29/23 15:45 Pulse Oximetry 97 01/29/23 15:45 Oxygen Delivery Method Room Air 01/29/23 15:45 Medical Decision Making MDM Narrative Medical decision making narrative: Patient is a 37-year-old woman with a very complex respiratory history of chronic pneumonia as well as right lateral 7th rib fracture and small left pleural effusion who presents after excessive coughing today. I did review her previous 2 CT scans. I also reviewed her records overall. Repeat CT scan shows chronic consolidation unchanged from previous as well as left pleural effusion right lateral 7th rib fracture as previously seen. Reassurance is offered patient would like to continue her Naprosyn which I think is reasonable. Patient does see pulmonology will be having a bronchoscopy in approximately 4 days. Differential Diagnosis Differential Diagnosis: Pneumothorax pneumonia rib fracture vascular injury Medical Records Medical records reviewed: Yes I reviewed the patient's medical records Discharge Plan Discharge Clinical Impression: Chest wall pain Patient Disposition: Home, Self-Care Condition: Stable Instructions: Chest Wall Pain (ED) Additional Instructions: Ice Tylenol Motrin Aleve Rest Follow Up with your doctor as needed. Activity Level: No Restrictions Discharge Diet: Regular Prescriptions: No Action cholecalciferol (vitamin D3) 25 mcg (1,000 unit) tablet 1,000 unit PO DAILY Patient Comments: Take 1 tablet (1,000 units) by mouth daily fluticasone propionate [Flovent HFA] 220 mcg/actuation HFA aerosol inhaler 1 inh inhalation BID ocrelizumab 30 mg/mL solution 300 mg IV [id number] trazodone 100 mg tablet 100 mg PO QHS Qty: 30 0RF pregabalin 100 mg capsule 100 mg PO QHS Qty: 30 0RF clonidine HCl 0.1 mg tablet 0.1 mg PO QHS Qty: 30 0RF lamotrigine 200 mg tablet 200 mg PO QHS Qty: 30 0RF albuterol sulfate 5 mg/mL solution for nebulization 2.5 mg inhalation Q4H Qty: 100 3RF albuterol sulfate [Ventolin HFA] 90 mcg/actuation HFA aerosol inhaler 2 puff inhalation Q6H PRN (Reason: shortness of breath or wheezing) Qty: 6.7 0RF montelukast [Singulair] 10 mg tablet 10 mg PO QHS Qty: 30 1RF dextroamphetamine-amphetamine [Adderall] 30 mg tablet 30 mg PO BID Qty: 60 0RF Follow Up/Referrals: Willard Shahid MD [Primary Care Provider] - Stand Alone Forms: [employer] Info Instructions
[2023-01-29 17:41] VITALS: BP 116/82; PULSE 90; RESP 18; O2SAT 93
== END 2023-01-29 17:42 | disposition home or self-care (01) ==
PROVIDERS: Emergency Provider Internal Medicine; PCP Family Medicine
DX: R07.89 Other chest pain (principal)
CPT/HCPCS: 71250; 99283

== ENCOUNTER 2023-02-13 16:00 | Outpatient (CLI) | payer BC, SELFPAY ==
--- OUTSIDE RECORDS SUMMARY | 2023-02-13 16:04 | XMS_ITS | Clinical Summary ---
Author Name Unknown Organization [place] Address [facility] [place] [address] Care Team Providers Care Director Medicare Sales Name Role Phone [facility], [facility] Primary Care Provider [phone] Allergies Active Allergy Reactions Criticality Noted Date Comments Glatiramer Anaphylaxis,Unknown High 09/20/2016 Bupropion 07/28/2016 Medications Medication Sig Dispensed Refills Start Date End Date Status CLONAZEPAM PO Take 2 mg by mouth 0 Active amphetamine-dextroamp hetamine (ADDERALL XR) 10 MG per 24 hr capsule Take 10 mg by mouth daily 0 Active LAMOTRIGINE PO Take 100 mg by mouth 0 Active VENLAFAXINE HCL PO Take 425 mg by mouth 0 Active TRAZODONE HCL PO Take 200 mg by mouth 0 Active GABAPENTIN PO Take 300 mg by mouth 3 times daily 0 Active ETODOLAC PO Take 300 mg by mouth 0 Active OXYBUTYNIN CHLORIDE PO Take 5 mg by mouth 0 Active promethazine (PHENERGAN) 25 MG tablet Take 1 tablet (25 mg) by mouth every 6 hours as needed for nausea 15 tablet 0 08/26/2016 Active Social History Tobacco Use Types Packs/Day Years Used Date Smoking Tobacco: Every Day Smokeless Tobacco: Never Alcohol Use Standard Drinks/Week Comments Yes 0 (1 standard drink = 0.6 oz pur e alcohol) SOCIALLY Sex and Gender Information Value Date Recorded Sex Assigned at Not on file Gender Identity Not on file Sexual Orientation Not on file Last Filed Vital Signs Vital Sign Reading Time Taken Comments Blood Pressure 110/64 2018 9:19 AM CDT Pulse 78 2018 9:19 AM CDT Temperature 36.8 ??C (98.3 ??F) 2018 9:19 AM CD T Respiratory Rate 18 2018 9:19 AM CDT Oxygen Saturation 98% 2018 9:19 AM CDT Inhaled Oxygen Concentration - - Weight 83.9 kg (185 lb) 08/26/2016 9:38 AM CDT Height 175.3 cm (5' 9) 08/26/2016 9:38 AM CDT Body Mass Index 27.32 08/26/2016 9:38 AM CDT Plan of Treatment Not on file Care Teams Director Medicare Sales Relationship Specialty Start Date End Date [facility], [facility] [address] [place], [place] [id number] PCP - General 07/28/16
--- OUTSIDE RECORDS SUMMARY | 2023-02-13 16:04 | XMS_ITS | Clinical Summary ---
Author Name Unknown Organization [facility] Address [address] [place] [address] Care Team Providers Care Cnc Set Up Operator Name Role Phone Jamal Butt M.D. Primary Care Provider [phone] Source Comments Patient records contain information from all sites at [facility]. For routine questions regarding patient records, call [phone] during business hours, M-F 8:00 AM - 5:00 PM Central Time. Record requests for emergency care only can be directed to [phone] at any time.[facility] Allergies Active Allergy Reactions Criticality Noted Date Comments Glatiramer (Copolymer 1) Anaphylaxis High 03/04/2017 Glatiramer Acetate Anaphylaxis High 09/20/2016 Mold Anaphylaxis High 08/31/2022 Bupropion Hcl Other (see comments) Low 03/04/2017 Burning sensation. Intolerance. Medications Medication Sig Dispensed Refills Start Date End Date Status traZODone (for_DESYREL) 100 mg tablet Take 200 mg by mouth at bedtime. 0 Active riTUXimab in NaCl solution IVPB (for_RITUXAN) Infuse 1,000 mg into a venous catheter every 6 (six) months. 0 05/31/2016 Active METHYLPREDNISOLONE ACETATE INJ Inject as directed as directed. Dose: 125 mg IVP, premed for Rituxan infusion. Every 6-months 0 09/13/2016 Active diphenhydrAMINE (BENADRYL) 25 mg capsule Take 1 capsule by mouth as directed. Premed for Rituxan infusion. 0 09/13/2016 Active beclomethasone (for_QVAR) 40 mcg/actuation inhaler Inhale 2 puffs as needed. 0 11/02/2016 Active albuterol (for_PROVENTIL HFA,VENTOLIN HFA) 90 mcg/actuation inhaler Inhale 1-2 puffs every other day. 0 11/02/2016 Active dextroamphetamine-a mphetamine (ADDERALL) 30 mg tablet Take 1 tablet (30 mg total) by mouth daily. 30 tablet 0 07/04/2017 Active Additional Information Patient taking differently:30 mg oral Daily,30 mg in am, 15 mg in the afternoon and 15 mg at night, Informant: Self, Reported on 06/29/2022 clonazePAM (KlonoPIN) 1 mg tablet Take 1 mg by mouth 2 (two) times a day as needed for anxiety. States she takes it as needed. 0 Active acetaminophen (TYLENOL) 500 mg tablet Take 1,000 mg by mouth as directed. Premed for Rituxan. 0 Active cloNIDine (CATAPRES) 0.1 mg tablet Take 0.1 mg by mouth as needed. 3 11/27/2018 Active FLOVENT HFA 110 mcg/actuation inhaler Inhale 1 puff as needed. 3 11/27/2018 Active fluconazole (DIFLUCAN) 200 mg tablet Take 200 mg by mouth at bedtime. 0 01/14/2019 Active ketoconazole (NIZORAL) 2 % cream at bedtime. 0 01/14/2019 Acti ve montelukast (SINGULAIR) 10 mg tablet Take 10 mg by mouth at bedtime. 0 01/14/2019 Active B complex-vitamins (BALANCE B-50) tablet Take 1 tablet by mouth daily. 0 Active ascorbic acid, vitamin C, (VITAMIN C) 250 mg tablet Take 250 mg by mouth daily. 0 Active ferrous sulfate 325 mg (65 mg iron) DR tablet Take 65 mg of iron by mouth daily. Iron 0 Active zinc gluconate 50 mg tablet Take 50 mg by mouth daily with breakfast. Zinc 0 Active pregabalin (LYRICA) 100 mg capsule 2 (two) times a day. 0 07/25/2019 Active cyanocobalamin (VITAMIN B12) 1,000 mcg tablet Take 1,000 mcg by mouth daily. 0 06/09/2019 Active riTUXimab (RITUXAN) 10 mg/mL injection every 6 (six) months. 0 Active fluticasone propionate (FLONASE) 50 mcg/actuation nasal spray Administer 2 sprays into each nostril 2 (two) times a day. 0 Active dextroamphetamine-a mphetamine (ADDERALL) 20 mg tablet Take 3 tablets by mouth 3 (three) times a day. 0 10/13/2020 Active cholecalciferol, vitamin D3, 25 mcg (1,000 Unit) tablet Take 1 tablet (1,000 units) by mouth daily 0 02/28/2022 Active lamoTRIgine (LaMICtaL) 200 mg tablet 0 02/27/2022 Active lamoTRIgine (LaMICtaL) 25 mg tablet 0 02/27/2022 Active Active Problems Problem Noted Date Diagnosed Date Usp Current Use Of Immunosuppressive Biolo gic 09/26/2022 Chronic Migraine 03/09/2022 Insomnia 05/16/2017 Tobacco Use 05/09/2017 Attention Deficit With Hyperactivity Disorder Overview: Receiving Adderall from [facility]. Colitis Ulcerative Proctitis 05/09/2017 Overview: With consitpation Depression Major Recurrent 07/11/2016 Generalized anxiety disorder 07/11/2016 Deficiency Vitamin B12 07/11/2016 Multiple Sclerosis 05/26/2016 Overview: History of stem cell transplant. Currently on rituximab. Resolved Problems Problem Noted Date Diagnosed Date Resolved Date Depression Major Recurrent Moderate 08/07/2016 05/09/2017 Personal History Of Other Sp ecified Conditions 07/11/2016 05/09/2017 Overview: Sober for 10 years, ecstasy and cocaine Encounters Date Type Department Care Team Description 02/13/2023 Orders Only Department of Neurology in [address] [phone] Patel Martell M.B., Ch.B. 02/08/2023 Clinical Communication Department of Neurology in [address] [phone] Patel Martell M.B., Ch.B. 01/19/2023 9:45 AM CUSTOM STOCK MAKER Procedure visit Department of Neurology in [address] [phone] Genevieve Kingston APRN, C.N.P., M.S.N. Chronic Migraine Discharge Disposition: Home or Self Care 01/11/2023 1:45 PM CUSTOM STOCK MAKER Office Visit Department of Neurology in [address] [phone] Genevieve Kingston APRN, C.N.P., M.S.N. Chronic Migraine (Primary Dx) Discharge Disposition: Home or Self Care 11/28/2022 Nurse Triage Department of Family Medicine in [place], [place] [address] [place] [address] Anna Marie Samaniego RCasandra Shortness of Breath 11/27/2022 9:07 AM CDT - 11/27/2022 11:59 PM CDT Hospital Encounter Department of Radiology, [facility], in [address] [phone] Patel Martell M.B., Ch.B. Multiple Sclerosis (HCC) Discharge Disposition: Home or Self Care from Last 3 Months Immunizations Name Administration Dates Next Due Influenza Split 12/13/2015,12/13/2015 PPSV23 05/09/2017 SARS-COV-2 (COVID-19) - PFIZER (12 years or olde r) 07/14/2020,06/10/2020 Tdap 05/09/2017 Family History Medical History Relation Name Comments Lupus Father ADD Mother xavier zuniga Alcohol abuse Mother xavier zuniga Anxiety disorder Mother xavier zuniga Depression Mother xavier zuniga Migraines Mother xavier zuniga Psychiatric Mother xavier zuniga Seizures Mother xavier zuniga Suicide Attempts Mother xavier zuniga No Known Problems Sister Relation Name Status Comments Father Alive Mother xavier zuniga Alive Sister Alive Social History Tobacco Use Types Packs/Day Years Used Date Smoking Tobacco: Light Smoker Cigarettes 0.5 5 Started: 07/25/1998 Smokeless Tobacco: Never Tobacco Cessation:Ready to Q uit: Not Asked; Counseling Given: Not Answered Alcohol Use Standard Drinks/Week Comments Yes 3 (1 standard drink = 0.6 oz pur e alcohol) beer socially Social Connection and Isolat ion Panel [NHANES] Answer Date Recorded In a typical week, how many times do you talk on the phone with family, friends, or neighbors? More than three times a week 10/28/2020 How often do you get togethe r with friends or relatives? Patient declined 10/28/2020 How often do you attend chur or alevism services? Patient declined 10/28/2020 Do you belong to any clubs o r organizations such as mormon groups, unions, fraternal or athletic groups, or school groups? No 10/28/2020 How often do you attend meet ings of the clubs or organizations you belong to? Patient declined 10/28/2020 Are you , , di vorced, , never , or living with a partner? Living with partner 10/28/2020 AUDIT-C Answer Date Recorded Q1: How often do you have a drink containing alc ohol? Patient declined 10/28/2020 Average Number of Drinks Not on file 021 Frequency of Binge Drinking Not on file 10/07 Overall Financial Resource Strain (CARDIA) Answe r Date Recorded How hard is it for you to pa y for the very basics like food, housing, medical care, and heating? Hard 10/28/2020 PHQ-2 Answer Date Recorded PHQ-2 Score 1 [facility] - Occupational Stress Questionnaire Answer Date Recorded Do you feel stress - tense, restless, nervous, or anxious, or unable to sleep at night because your mind is troubled all the time - these days? Only a little 10/28/2020 Exercise Vital Sign Answer Date Recorde d On average, how many days pe r week do you engage in moderate to strenuous exercise (like a brisk walk)? 3 days 10/28/2020 On average, how many minutes do you engage in exercise at this level? 50 min 10/28/2020 Hunger Vital Sign Answer Date Recorded Within the past 12 months, y ou worried that your food would run out before you got the money to buy more. Patient declined Within the past 12 months, t he food you bought just didn't last and you didn't have money to get more. Patient declined PRAPARE - Transportation Answer Date Re corded In the past 12 months, has l ack of transportation kept you from medical appointments or from getting medications? No 10/07 In the past 12 months, has l ack of transportation kept you from meetings, work, or from getting things needed for daily living? No 10/28/2020 Housing Stability Vital Sign Answer Anup e Recorded In the last 12 months, was t here a time when you were not able to pay the mortgage or rent on time? No 10/28/2020 In the last 12 months, how many places have you lived? 1 10/28/2020 In the last 12 months, was t here a time when you did not have a steady place to sleep or slept in a detention (including now)? No 10/28/2020 Depression Answer Date Recor ded PHQ-9 Total Score (max 27) 2 11/30 Nutrition Answer Date Recorded Nutrition: EVOO Fat Source No 10/28 On average, how many serving s of fruits and vegetables do you eat per day (serving size is equal to 1 cup or approximately the size of a tennis ball)? 2-3 10/28/2020 Dental Answer Date Recorded Dental: Regular Dentist No 02/03/20 22 Employment Answer Date Recorded Employment status Unemployed/not in th e paid workforce but seeking employment 10/28/2020 Education Answer Date Recorded What is the highest level of school you have completed or the highest degree you have received? Associate degree: occupational, technical, or vocational program 12/01/2019 Sex and Gender Information Value Date Recorded Sex Assigned at Female 03/06/2017 10:16 AM CUSTOM STOCK MAKER Gender Identity Female 03/06/2017 10:16 AM CUSTOM STOCK MAKER Sexual Orientation Straight 03/06/2017 10 :16 AM CUSTOM STOCK MAKER Last Filed Vital Signs Vital Sign Reading Time Taken Comments Blood Pressure 98/65 01/11/2023 12:59 PM CUSTOM STOCK MAKER Pulse 111 01/11/2023 12:59 PM CUSTOM STOCK MAKER Temperature 36.6 ??C (97.9 ??F) 08/28/2022 9:03 AM CD T Respiratory Rate 16 08/28/2022 9:03 AM CDT Oxygen Saturation 96% 08/28/2022 9:03 AM CDT Inhaled Oxygen Concentration - - Weight 67 kg (147 lb 11.3 oz) 01/11/2023 12:59 P M CUSTOM STOCK MAKER Height 175.3 cm (5' 9) 07/06/2022 7:02 PM CDT Body Mass Index 21.81 07/06/2022 7:02 PM CDT Plan of Treatment Upcoming Encounters Date Type Department Care Team (Late st Contact Info) Description 04/26/2023 10:00 AM CDT Office Visit Department of Neurology in [place], [place] [address] [place] [phone] Patel Martell M.B., Ch.B. [address] [place] [phone] Discharge Disposition: Home or Self Care Health Maintenance Due Date Last Done Comments Depression Monitoring (PHQ-9) 1983 HIV Screening 1983 Hepatitis B Vaccines (1 of 3 - 3-dose series) 1983 Hepatitis C Screening 1983 Lipid (Cholesterol) Screening 1983 Tobacco Cessation counseling 1983 Zoster Vaccines (1 of 2) 08/04/2002 Pneumococcal vaccine (0-64 years) (2 of 2 - PCV) 05/09/2018 05/09/2017 COVID-19 Vaccine (3 - Pfizer risk series) 08/11/2020 07/14/2020, 06/10/2020 Influenza Vaccine (#1) 2022 9, 12/13/2015, 12/13/2015 DTaP,Tdap,and Td Vaccines (2 - Td or Tdap) 05/10/2027 05/09/2017, 07/17/2016 HPV Vaccines Aged Out No longer eligi ble based on patient's age to complete this topic Procedures Procedure Name Priority Date/Time Associated Diagnosis Comments LA CHEMODENERV FACIAL TRIGEM BARBARA Routine 01/19/2023 9:45 AM CUSTOM STOCK MAKER Chronic Migraine MR BRAIN WITHOUT AND WITH IV CONTRAST RAD - Routine (most inpatients and all outpatients) 11/27/2022 10:08 AM CDT Multiple Sclerosis (HCC) from Last 3 Months Results * LA CHEMODENERV FACIAL TRIGEM BARBARA (01/19/2023 9:45 AM CUSTOM STOCK MAKER) Narrative [facility] - 01/19/2023 9:45 AM CUSTOM STOCK MAKER Genevieve Kingston APRN, C.N.PMert, M.S.N. ? 01/19/2023 ??9:42 AM Botox for Chronic Migraine Performed by: Genevieve Kingston APRN, C.N.PMert, M.S.N. Authorized by: Genevieve Kingston APRN, C.N.PMert, M.S.N. ?? Care team members present 1. Genevieve Kingston APRN, C.N.P., M.S.N. 2. Yari Levy L.PAline. PROCEDURE DETAILS ?? Pre-procedure pain score: 8/10 Injection of: ??100 Units onabotulinumtoxinA 100 unit; 50 Units onabotulinumtoxinA 100 unit Needle gauge: 30 Needle length: 0.5 in Injection site details Medical Staff Assistant / Procerus muscle(s): 5 units into the left siphoner muscle, 5 units into the right siphoner muscle ??and 5 units into the procerus muscle ??(15 units total). Superior Frontalis muscle(s): 5 units into the left superior frontalis muscle and 5 units into the right superior frontalis muscle ?(2 injection sites per muscle) (10 units total). Temporalis muscle(s): 12.5 units into the left temporalis muscle and 12.5 units into the right temporalis muscle ?(2 injection sites per muscle) ?? (25 units total). Splenius Capitis muscle(s): 12.5 units into the left splenius capitis muscle and 12.5 units into the right splenius capitis muscle ?(2 injection sites per muscle) ??(25 units total). Occipitalis muscle(s): 12.5 units into the left occipitalis muscle and 12.5 units into the right occipitalis muscle ?? (2 injection sites per muscle) ??(25 units total). Trapezius muscle(s): 25 units into the left trapezius muscle and 25 units into the right trapezius muscle ?? (3 injection sites per muscle) ??(50 units total). Total units wasted: 0 Total units injected: 150 CONSENT Consent obtained: written (Risks, benefits and alternatives were discussed and a written Informed Consent was obtained. Please see Informed Consent form for further details.) UNIVERSAL PROTOCOL All relevant documentation and testing were reviewed and available. All required blood products, implants, devices and or special equipment were made available as applicable. Pre-procedure verification was conducted and the correct site was marked if required. A fire risk assessment was done as applicable. The procedural time-out to verify correct patient, correct side/site, and procedure was conducted prior to performing the procedure and confirmed in a procedural pause. PRE-PROCEDURE DETAILS ?? Reason for injections: chronic migraine Appropriate hand hygiene, gown, cap, mask, protective eyewear, sterile gloves, skin preparation, sterile drape, and strict aseptic technique were utilized as applicable for the procedure: yes Site preparation: alcohol Clinical history: Patient was made aware that they may be responsible for any and all costs associated with injection of Botulinum Toxin Type A that is not covered by a third alliance party. ?? Prior to treatment with Botox, the frequency of headaches was greater than 30 days per month and with significant impairment in the quality of life. ?? Please see the initial Botox injection note and Headache consultation note regarding specific details of the headache history prior to the start of treatment. Any other daily migraine prophylactic treatments taken over the last 3 months: ??None Headache frequency when Botox is most effective (middle month in between rounds). Current headache days per month: 0 days Current severe headache days per month: 0 days Wearing off phenomenon prior to this round of Botox: yes Duration: 3 weeks Patient finds Botox treatment helpful and wants to repeat the treatment? yes Patient had migraine headache frequency reduction by at least 30 days per month compared to pretreatment level. ?? POST-PROCEDURE DETAILS ?? Procedure completed successfully: yes ?? Complications: no apparent complications Comments Prior to Botox how many days per month did you miss work/school due to migraines? 5 Prior to Botox how many days per month did you miss out on family functions or home activities due to migraines? 15 Prior to Botox did severe migraines cause symptoms that impacted your quality of life and ability to care for yourself? If yes, what symptoms?yes vomiting sensitive to light/sound-dizzy spells With Botox how many days per month do you miss work/school due to migraines? 0 With Botox how many days per month do you miss out on family functions or home activities due to migraines? 0 How has Botox impacted your quality of life; are you able to do more at work/school or home? yes ?? What migraine symptoms have you noted an improvement on since starting Botox? All of the above ?? Malachi Christina APRNNBriseida, M.S.N. NEURO LOGY ORDERABLES MMODAL NA * MR Brain without and with IV Contrast (11/27/2022 10:08 AM CDT) Anatomical Region Laterality Modality Head, Brain, Neuroradiology RST LOS, Neuroradiology ARZ LOS, Neuroradiology FLA LOS N/A Magnetic Resonance 11/27/2022 10:4 1 AM CDT Impressions 11/27/2022 10:44 AM CDT Stable findings since a study of 07/12/2020. Narrative 11/27/2022 10:44 AM CDT EXAM: MR BRAIN WITHOUT AND WITH IV CONTRAST COMPARISON:10/12/2021, 07/12/2020 FINDINGS: Several T2 hyperintense lesions are again identified in the periventricular white matter bilaterally, consistent with the patient's known history of MS. These have not increased in size/number since studies dating back to 07/12/2020, and there is no enhancement of any of the lesions on post gadolinium imaging. The ventricles remain normal in size, shape and position for the patient's age, with no midline shift or other mass effect. The visualized aspects of the orbits including the optic nerves appear normal. There are normal flow-voids within the internal carotid and vertebral basilar arterial systems bilaterally. The midline structures are intact. Procedure Note Elijah Monsalve M.D. - 11/27/2022 EXAM: MR BRAIN WITHOUT AND WITH IV CONTRAST COMPARISON:10/12/2021, 07/12/2020 FINDINGS: Several T2 hyperintense lesions are again identified in theperiventricular white matter bilaterally, consistent with the patient's known history of MS. These havenot increased in size/number since studies dating back to 07/12/2020, and there is noenhancement of any of the lesions on post gadolinium imaging. The ventricles remain normal in size, shape and position for the patient'aj, with no midline shift or other mass effect. The visualized aspects of the orbits includingthe optic nerves appear normal. There are normal flow-voids within the internal carotid andvertebral basilar arterial systems bilaterally. The midline structures are intact. IMPRESSION: Stable findings since a study of 07/12/2020. Patel Pardon, Tiesha IMG MRI PROC EDURES from Last 3 Months Additional Health Concerns Infection Onset Date Last Indicated Protective Environment 06/07/2022 3 Advance Directives For more information, please contact: [phone] Documents on File Type Date Recorded Patient Gambreler Helper Expl anation Advance Directives 03/19/2019 4:22 PM [facility]al th Care Directive Latest Code Status on File Code Status Date Activated Date Inactivated Comments Full Code 03/05/2017 12:19 AM 03/05/2017 7:23 PM Question Answer Comments Full Code: Not Discussed Due to: Not medically appropriate Healthcare Agents on File Name [facility] Kofi Light Health Care Agent Kay Alexander Sister [facility] Car e Agent Care Teams Cnc Set Up Operator Relationship Specialty Start Date End Date Jamal [place] [phone] PCP - General Family Medicine 05/21/17
--- OUTSIDE RECORDS SUMMARY | 2023-02-13 16:04 | XMS_ITS | Encounter Summary ---
Author Name Unknown Organization [facility] Address [address] [place] [address] Care Team Providers Care Field Automobile Adjuster Name Role Phone Jamal Butt M.D. Primary Care Provider [phone] Reason for Visit * Reason Comments Botulinum Toxin Injection 150 units * Outpatient (Routine) - Authorized Specialty Diagnoses / Procedures Referred By Contac t Referred To Contact Diagnoses Chronic Migraine Procedures Botox for Chronic Migraine Genevieve Kingston APRN C.N.P., M.S.N. [address] [place] [phone] [facility] Region Referral ID Status Reason Start Date Expiration Date V isits Requested Visits Authorized [id number] Authorized 06/29/2022 06/29/2023 4 4 Encounter Details Date Type Department Care Team (Latest Contact Info) Description 01/19/2023 9:45 AM CHECK EXAMINER Procedure visit Department of Neurology in [place], [place] [address] [place] [phone] Genevieve Kingston APRN, C.N.P., M.S.N. [address] [place] [phone] Chronic Migraine Discharge Disposition: Home or Self Care Social History Tobacco Use Types Packs/Day Years Used Date Smoking Tobacco: Light Smoker Cigarettes 0.5 5 Started: 07/25/1998 Smokeless Tobacco: Never Alcohol Use Standard Drinks/Week Comments Yes 3 [...] How often do you attend chur or congregational services? Patient declined 10/28/2020 Do you belong to any clubs o r organizations such as jew groups, unions, fraternal or athletic groups, or [...] Answer Date Recorded PHQ-2 Score 1 12/01/2019 [facility] Occupat ional [facility] - Occupational Stress Questionnaire Answer Date Recorded [...] place to sleep or slept in a long term (including now)? No 10/28/2020 Depression Answer Date [...] Sex Assigned at Female 03/06/2017 10:16 AM CHECK EXAMINER Gender Identity Female 03/06/2017 10:16 AM CHECK EXAMINER Sexual Orientation Straight 03/06/2017 10 :16 AM CHECK EXAMINER documented as of this encounter Procedure Notes * Genevieve Kingston APRN, C.N.P., M.S.N. - 01/19/2023 9:45 AM CSTAssociated Order(s): Botox for Chronic Migraine Pre-Procedure Diagnose(s): Chronic Migraine Post-Procedure Diagnose(s): Chronic Migraine Botox for Chronic Migraine Performed by: Genevieve Kingston APRN, C.N.PMert, M.S.N. Authorized by: Genevieve Kingston APRN, C.N.PMert, M.S.N. Care team members present 1. Genevieve Kingston APRN, C.N.P., M.S.N. 2. Yari Levy L.P.N. PROCEDURE DETAILS Pre-procedure pain score: 8/10 Injection of: 100 Units onabotulinumtoxinA 100 unit; 50 Units onabotulinumtoxinA 100 unit Needle gauge: 30 Needle length: 0.5 in Injection site details Molding Fitter / Procerus muscle(s): 5 units into the left internal communications specialist muscle, 5 units into the right internal communications specialist muscle and 5 units into the procerus muscle (15 units total). Superior Frontalis muscle(s): 5 units into the left superior frontalis muscle and 5 units into the right superior frontalis muscle (2 injection sites per muscle) (10 units total). Temporalis muscle(s): 12.5 units into the left temporalis muscle and 12.5 units into the right temporalis muscle (2 injection sites per muscle) (25 units total). Splenius Capitis muscle(s): 12.5 units into the left splenius capitis muscle and 12.5 units into the right splenius capitis muscle (2 injection sites per muscle) (25 units total). Occipitalis muscle(s): 12.5 units into the left occipitalis muscle and 12.5 units into the right occipitalis muscle (2 injection sites per muscle) (25 units total). Trapezius muscle(s): 25 units into the left trapezius muscle and 25 units into the right trapezius muscle (3 injection sites per muscle) (50 units total). Total units wasted: 0 Total [...] confirmed in a procedural pause. PRE-PROCEDURE DETAILS Reason for injections: chronic migraine Appropriate hand [...] that is not covered by a third democrat. Prior to treatment with Botox, the frequency of headaches was greater than 30 days per month and with significant impairment in the quality of life. Please see the initial Botox injection note and Headache consultation note regarding specific details of the headache history prior to the start of treatment. Any other daily migraine prophylactic treatments taken over the last 3 months: None Headache frequency when Botox is most effective [...] days per month compared to pretreatment level. POST-PROCEDURE DETAILS Procedure completed successfully: yes Complications: no apparent complications Comments Prior to [...] do more at work/school or home? yes What migraine symptoms have you noted an improvement on since starting Botox? All of the above K EXAMINER documented in this encounter Plan of Treatment Upcoming Encounters Date Type Department Care Team (Late st Contact Info) Description 04/26/2023 10:00 AM CDT Office Visit Department of Neurology in [place], [place] [address] [place] [phone] Patel Martell M.B., .B. [address] [place] [phone] Discharge Disposition: Home or Self Care documented as of this encounter Procedures Procedure Name Priority Date/Time Associated Diagnosis Comments OR CHEMODENERV FACIAL TRIGEM BARBARA Routine 01/19/2023 9:45 AM CHECK EXAMINER Chronic Migraine documented in this encounter Results * OR CHEMODENERV FACIAL TRIGEM BARBARA (01/19/2023 9:45 AM CHECK EXAMINER) Narrative MMODAL - 01/19/2023 9:45 AM CHECK EXAMINER Genevieve Kingston APRN C.N.P., M.S.N. ? 01/19/2023 ??9:42 AM Botox for Chronic Migraine Performed by: Genevieve Kingston APRN C.N.P., M.S.N. Authorized by: Genevieve Kingston APRN, C.N.P., M.S.N. ?? Care team members present 1. Genevieve Kingston APRN, C.N.P., M.S.N. 2. Yari Levy L.PCasandra PROCEDURE DETAILS ?? Pre-procedure pain score: 8/10 Injection of: ??100 Units onabotulinumtoxinA 100 unit; 50 Units onabotulinumtoxinA 100 unit Needle gauge: 30 Needle length: 0.5 in Injection site details Molding Fitter / Procerus muscle(s): 5 units into the left internal communications specialist muscle, 5 units into the right internal communications specialist muscle ??and 5 units into the procerus [...] that is not covered by a third democrat. ?? Prior to treatment with Botox, the [...] starting Botox? All of the above ?? Genevieve Kingston APRN C.N.P., M.S.N. NEURO LOGY ORDERABLES MMODAL NA documented in this encounter Visit Diagnoses Diagnosis Chronic Migraine documented in this encounter Administered Medications Inactive Administered Medications - up to 3 most recent administrations Medication Order MAR Action Action Date Dose Rate Site onabotulinumtoxinA injection 100 Units (BOTOX) 100 Units, injection, One-Time Injection, Starting on Sun01/19/23 at 0945, For 1 dose Given 01/19/2023 9:45 AM CHECK EXAMINER 100 Units onabotulinumtoxinA injection 50 Units (BOTOX) 50 Units, injection, One-Time Injection, Starting on Sun01/19/23 at 0945, For 1 dose Given 01/19/2023 9:45 AM CHECK EXAMINER 50 Units documented in this encounter Additional Health Concerns Infection Onset Date Last Indicated Resolved Time Protective Environment 06/07/2022 06/07/2022 Assessment Noted Time PHQ-9 Depression Total Score: 2 12/01/19 20 6:54 AM CDT documented as of this encounter Care Teams Field Automobile Adjuster Relationship Specialty Start Date End Date Jamal Butt [place] [phone] PCP - General Family Medicine 05/21/17 documented as of this encounter
--- OUTSIDE RECORDS SUMMARY | 2023-02-13 16:04 | XMS_ITS | Clinical Summary ---
Author Name Unknown [facility] Address [address] [address] Care Team Providers Care General Utility Maintenance Repairer Name Role Phone Estella Kamara APRN, MAJOR ACCOUNT REPRESENTATIVE Primary Care Provider Source Comments You are receiving this document as you are listed as the primary care provider,follow-up provider, or the patient has been referred to you for consultation.This is in compliance with the Medicare and[facility] Health Systemcaid EHR Incentive Program,which states Providers who transition their patient to another setting of careor provider of care or refers their patient to another provider of care shouldprovide summary care record for each transition of care or referral. [facility] Allergies Active Allergy Reactions Criticality Noted Date Comments Glatiramer Acetate Anaphylaxis High 09/20/2016 Bupropion 07/11/2016 ineffective Medications Medication Sig Dispensed Refills Start Date End Date Status etodolac (LODINE) 300 MG capsule Take 300 mg by mouth every 8 hours. 0 Active riTUXimab (RITUXAN) injection Administer intravenously once. 0 Active oxybutynin (DITROPAN) 5 MG tablet Take 5 mg by mouth daily. 0 Active clonazePAM (KLONOPIN) 2 MG tabletIndications:G AD (generalized anxiety disorder) (HRC) Take 1 Tab by mouth two times daily as needed for Anxiety. 30 Tab 0 07/11/2016 Active lamoTRIgine (LAMICTAL) 100 MG tabletIndications:S evere single current episode of major depressive disorder, without psychotic features (HRC),TIM (generalized anxiety disorder) (HRC) Take 1 Tab by mouth daily. 30 Tab 11 07/11/2016 Active Additional Information Patient taking differently:100 mg OralBID, Reported on 10/04/2016 lamoTRIgine (LAMICTAL) 25 MG tabletIndications:Barbara frazier single current episode of major depressive disorder, without psychotic features (HRC),TIM (generalized anxiety disorder) (HRC) Take 2 pills daily for two weeks. This will be taken in addition to 100 mg tablet to total 150 mg daily. After two weeks, increase total daily dose to 200 mg daily, so patient will be taking four 25 mg tablets daily in addition to 100 mg tablet. 120 Tab 1 07/11/2016 Active gabapentin (NEURONTIN) 300 MG capsule Take 1 Cap by mouth three times a day. 270 Cap 3 09/11/2016 Active lamoTRIgine (LAMICTAL) 25 MG tabletIndications:Barbara frazier episode of recurrent major depressive disorder, without psychotic features (HRC) Weeks 1 and 2: 25 mg once daily; Weeks 3 and 4: 50 mg once daily; Week 5: 100 mg once daily; Week 6 and maintenance: 200 mg once daily 28 Tab 0 09/20/2016 Active amphetamine-dextroa mphetamine (ADDERALLXR) 30 MG 24 hour release capsuleIndications: Multiple sclerosis (HRC) Take 1 Cap by mouth daily. 30 Cap 0 10/18/2016 Active benzonatate (TESSALON) 200 MG capsuleIndications: Acute bronchitis, unspecified organism Take 1 Cap by mouth three times a day as needed for Cough. 30 Cap 0 11/02/2016 Active guaifenesin-codeine (ROBITUSSINAC) 100-10 MG/5ML solutionIndications :Acute bronchitis, unspecified organism Take 5 mL by mouth every 4 hours as needed. 120 mL 0 11/02/2016 Active beclomethasone (QVAR) 40 MCG/ACT inhalerIndications: Acute bronchitis, unspecified organism Inhale 2 Puffs two times a day for 14 days. Rinse mouth/gargle after use 8.7 g 0 11/02/2016 Active ALBUterol sulfate HFA 108 (90 BASE) MCG/ACT inhalerIndications: Acute bronchitis, unspecified organism Inhale 1-2 Puffs every 4 hours as needed for Wheezing. 8.5 g 0 11/02/2016 Active traZODone (DESYREL) 100 MG tabletIndications:C hronic insomnia Take 2 Tabs by mouth daily at bedtime. Taking 200 mg 180 Tab 3 11/14/2016 Active Active Problems Problem Noted Date Diagnosed Date Controlled substance agreement signed 09/20/2016 Overview: For adderall rx on 09/20/16 Depression, major, recurrent 07/11/2016 Overview: Manic depressive. No known history of bipolar disorder History of drug abuse 07/11/2016 Overview: Sober for 10 years, ecstasy and cocaine Multiple sclerosis 07/11/2016 Overview: Primary progressive. Formerly on Rituxan. Is seen at the [facility] by neurology TIM (generalized anxiety disorder) 07/11/2016 Vitamin B12 deficiency 07/11/2016 Resolved Problems Problem Noted Date Diagnosed Date Resolved Date Anxiety 07/11/2016 07/11/2016 Social History Tobacco Use Types Packs/Day Years Used Date Smoking Tobacco: Every Day Cigarettes Smokeless Tobacco: Former Chew Alcohol Use Standard Drinks/Week Comments Yes 3 (1 standard drink = 0.6 oz pur e alcohol) weekends Sex and Gender Information Value Date Recorded Sex Assigned at Not on file Gender Identity Not on file Sexual Orientation Not on file Last Filed Vital Signs Vital Sign Reading Time Taken Comments Blood Pressure 122/78 11/02/2016 12:55 PM CDT Pulse 88 11/02/2016 12:55 PM CDT Temperature 36.7 ??C (98 ??F) 11/02/2016 12:55 PM CDT Respiratory Rate 12 09/22/2016 8:24 AM CDT Oxygen Saturation - - Inhaled Oxygen Concentration - - Weight 81.2 kg (179 lb) 11/02/2016 12:55 PM CDT Height - - Body Mass Index - - Plan of Treatment Health Maintenance Due Date Last Done Comments Cervical Cancer Screening Due 1983 Hep C Screening (Preventive Services) 1985 HepB (1) 1983 COVID-19 Vaccine (#1) 02/04/1984 HIV Screening (Preventive Services) 1999 Adult Preventive Visit 08/04/2001 DTaP/Tdap/Td (1 - Tdap) 08/04/2002 Influenza (#1) 2022 Zoster/Shingles (1 of 2) 08/04/2033 HPV Vaccine Aged Out No longer eligi ble based on patient's age to complete this topic HepA Aged Out No longer eligi ble based on patient's age to complete this topic Hib Aged Out No longer eligi ble based on patient's age to complete this topic IPV (Polio) Aged Out No longer eligi ble based on patient's age to complete this topic MCV4 Aged Out No longer eligi ble based on patient's age to complete this topic Pneumococcal Aged Out No longer eligi ble based on patient's age to complete this topic Care Teams General Utility Maintenance Repairer Relationship Specialty Start Date End Date Estella Kamara, CURATOR, MAJOR ACCOUNT REPRESENTATIVE [id number] [place] [address] PCP - General Nurse Practitioner 09/07/16
--- OUTSIDE RECORDS SUMMARY | 2023-02-13 16:04 | XMS_ITS | Referral Summary ---
Author Name Unknown Organization [facility] Address [address] [place] [address] Care Team Providers Care Screen Printing Loader Unloader Name Role Phone Jamal Butt M.D. Primary Care Provider [phone] Source Comments Patient records contain information from all sites at [facility]. For routine questions regarding patient records, call [phone] during business hours, M-F 8:00 AM - 5:00 PM Central Time. Record requests for emergency care only can be directed to [phone] at any time.[facility] Encounters Date Type Department Care Team Description 02/13/2023 Orders Only Department of Neurology in [address] [phone] Patel Martell M.B., Ch.B. 02/08/2023 Clinical Communication Department of Neurology in [address] [phone] Patel Martell M.B., Ch.B. 01/19/2023 9:45 AM DIRECTOR OF ACQUISITIONS Procedure visit Department of Neurology in [address] [phone] Genevieve Kingston APRN, C.N.P., M.S.N. Chronic Migraine Discharge Disposition: Home or Self Care 01/11/2023 1:45 PM DIRECTOR OF ACQUISITIONS Office Visit Department of Neurology in [address] [phone] Genevieve Kingston, CRISTOPHER, C.N.P., M.S.N. Chronic Migraine (Primary Dx) Discharge Disposition: Home or Self Care 11/28/2022 Nurse Triage Department of Family Medicine in [place], [place] [address] [place] [address] Anna Marie Samaniego R.N. Shortness of Breath 11/27/2022 9:07 AM CDT - 11/27/2022 11:59 PM CDT Hospital Encounter Department of Radiology, [facility], in [address] [phone] Patel Martell M.B., Ch.B. 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 Patient declined 10/28/2020 Do you belong to any clubs o r organizations such as moravian groups, unions, fraternal or athletic groups, or [...] Answer Date Recorded PHQ-2 Score 1 12/01/2019 [facility] of Occupat ional Health - Occupational Stress [...] place to sleep or slept in a fpc (including now)? No 10/28/2020 Depression Answer Date [...] Sex Assigned at Female 03/06/2017 10:16 AM DIRECTOR OF ACQUISITIONS Gender Identity Female 03/06/2017 10:16 AM DIRECTOR OF ACQUISITIONS Sexual Orientation Straight 03/06/2017 10 :16 AM DIRECTOR OF ACQUISITIONS Last Filed Vital Signs Vital Sign Reading Time Taken Comments Blood Pressure 98/65 01/11/2023 12:59 PM DIRECTOR OF ACQUISITIONS Pulse 111 01/11/2023 12:59 PM DIRECTOR OF ACQUISITIONS Temperature 36.6 ??C (97.9 ??F) 08/28/2022 9:03 AM CD T Respiratory Rate 16 08/28/2022 9:03 AM CDT Oxygen Saturation 96% 08/28/2022 9:03 AM CDT Inhaled Oxygen Concentration - - Weight 67 kg (147 lb 11.3 oz) 01/11/2023 12:59 P M DIRECTOR OF ACQUISITIONS Height 175.3 cm (5' 9) 07/06/2022 7:02 PM CDT Body Mass Index 21.81 07/06/2022 7:02 PM CDT Plan of Treatment Upcoming Encounters Date Type Department Care Team (Late st Contact Info) Description 04/26/2023 10:00 AM CDT Office Visit Department of Neurology in [place], [place] [address] [place] [address] Patel Martell M.B., Ch.B. [address] [place] [phone] Discharge Disposition: Home or Self Care Procedures Procedure Name Priority Date/Time Associated Diagnosis Comments [place] CHEMODENERV FACIAL TRIGEM BARBARA Routine 01/19/2023 9:45 AM DIRECTOR OF ACQUISITIONS Chronic Migraine MR BRAIN WITHOUT AND WITH IV CONTRAST RAD - Routine (most inpatients and all outpatients) 11/27/2022 10:08 AM CDT Multiple Sclerosis (HCC) from Last 3 Months Results * [place] CHEMODENERV FACIAL TRIGEM BARBARA (01/19/2023 9:45 AM DIRECTOR OF ACQUISITIONS) Narrative MMODAL - 01/19/2023 9:45 AM DIRECTOR OF ACQUISITIONS Genevieve Kingston APRN C.N.P., M.S.N. ? 01/19/2023 ??9:42 AM Botox for Chronic Migraine Performed by: Genevieve Kingston APRN, C.N.P., M.S.N. Authorized by: Genevieve Kingston APRN, C.N.P., M.S.N. ?? Care team members present 1. Genevieve Kingston APRN C.N.P., M.S.N. 2. Yari Levy L.PCasandra PROCEDURE DETAILS ?? Pre-procedure pain score: 8/10 Injection of: ??100 Units onabotulinumtoxinA 100 unit; 50 Units onabotulinumtoxinA 100 unit Needle gauge: 30 Needle length: 0.5 in Injection site details Learning And Development Intern / Procerus muscle(s): 5 units into the left program research specialist muscle, 5 units into the right program research specialist muscle ??and 5 units into the [...] that is not covered by a third libertarian. ?? Prior to treatment with Botox, the [...] C.N.P., M.S.N. NEURO LOGY ORDERABLES MMODAL NA * [...] findings since a study of 07/12/2020. Patel Padron, BMert [facility] PROC EDURES from Last 3 Months Additional Health Concerns Infection Onset Date Last Indicated Protective Environment 06/07/2022 3 Advance Directives For more information, please contact: [phone] Documents on File Type Date Recorded Patient Plug Maker Expl anation Advance Directives 03/19/2019 4:22 PM [facility]al [facility] Care Directive Latest Code Status on File Code Status Date Activated Date Inactivated Comments Full Code 03/05/2017 12:19 AM 03/05/2017 7:23 PM Question Answer Comments Full Code: Not Discussed Due to: Not medically appropriate Healthcare Agents on File Name Relationship Healthcare Agent Relationshi p Communication Kofi Alexander Father Health Care Agent Kay Alexander Sister [employer] Alternate Health Car e Agent Care Teams Screen Printing Loader Unloader Relationship Specialty Start Date End Date Jamal Butt M.D. [address] [place] [phone] PCP - General Family Medicine 05/21/17
--- OUTSIDE RECORDS SUMMARY | 2023-02-13 16:04 | XMS_ITS ---
Author Name Unknown Organization [facility] Address [address] [place] [address] Care Team Providers Care Batching Operator Name Role Phone Unavailable Unavailable Unavailable Surgery Details Not on file Complications Check Surgery Details section. Procedure Estimated Blood Loss Check Surgery Details section. Procedure Findings Check Surgery Details section. Procedure Specimens Taken Check Surgery Details section.
--- OUTSIDE RECORDS SUMMARY | 2023-02-13 16:04 | XMS_ITS | Encounter Summary ---
Author Name Unknown Organization [facility] Address [address] [place] [address] Care Team Providers Care Safety Trainer Name Role Phone Jamal Butt M.D. Primary Care Provider [phone] Encounter Details Date Type Department Care Team (Late st Contact Info) Description 02/08/2023 Clinical Communication Department of Neurology in [place], [place] [address] [place] [phone] Patel Martell M.B., Ch.B. [address] [place] [phone] Social History Tobacco Use Types Packs/Day Years [...] declined 10/28/2020 How often do you attend [facility] or rastafari services? Patient declined 10/28/2020 Do you belong to any clubs o r organizations such as quaker groups, unions, fraternal or athletic groups, or [...] Answer Date Recorded PHQ-2 Score 1 12/01/2019 [facility] of Occupat ional Health - Occupational [...] place to sleep or slept in a [place] health care facility (including now)? No 10/28/2020 Depression Answer Date [...] Sex Assigned at Female 03/06/2017 10:16 AM CLERK GENERAL Gender Identity Female 03/06/2017 10:16 AM CLERK GENERAL Sexual Orientation Straight 03/06/2017 10 :16 AM CLERK GENERAL documented as of this encounter Miscellaneous Notes * Telephone Encounter - Patel Martell M.B., Ch.B. - 02/13/2023 8:34 AM CLERK GENERAL Had extensive discussion with her pulmonology, patient has severe Haemophilus influenzae pneumonia,and difficulty clearing her infections, would recommend off the Ocrevus for now, would re-evaluate before her next Ocrevus infusion, if stable, would hold off the Ocrevus infusion, and continue to observe, and restart disease modifying therapy, if she has any sign off recurrence or progression. Patient was called and case discussed, please schedule for follow- up visit in April K GENERAL * Telephone Encounter - Sally Moraes - 02/08/2023 9:[address] Cierra Lora, a Pulmonology doctor from [facility], is calling and requestingto have Dr Martell call her back. Her call back number is [phone] and states she can be reachedanytime on Sunday after 3pm. 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 Please call the provider back when able. Thank you! K GENERAL documented in this encounter Plan of Treatment Upcoming Encounters Date Type Department Care Team (Late st Contact Info) Description 04/26/2023 10:00 AM CDT Office Visit Department of Neurology in [address] [phone] Patel Martell M.B., Ch.B. [address] [place] [phone] Discharge Disposition: Home or Self Care documented as of this encounter Visit Diagnoses Not on filedocumented in this encounter Additional Health Concerns Infection Onset Date Last Indicated Resolved Time Protective Environment 06/07/2022 06/07/2022 Assessment Noted Time PHQ-9 Depression Total Score: 2 12/01/19 20 6:54 AM CDT documented as of this encounter Care Teams Safety Trainer Relationship Specialty Start Date End Date Jamal Butt M.D. [address] [place] [phone] PCP - General Family Medicine 05/21/17 documented as of this encounter
--- OUTSIDE RECORDS SUMMARY | 2023-02-13 16:04 | XMS_ITS | Encounter Summary ---
Author Name Unknown Organization [facility] Address [address] [place] [address] Care Team Providers Care Bottle Washer Name Role Phone Jamal Butt M.D. Primary Care Provider [phone] Reason for Referral * Outpatient (Routine) - Authorized Specialty Diagnoses / Procedures Referred By Campbell t Referred To Contact Neurology Patel Martell M.B., Ch.B. [address] [place] [phone] [facility] Referral ID Status Reason Start Date Expiration Date V isits Requested Visits Authorized [id number] Authorized 02/13/2023 02/12/2026 1 1 CAL DIRECTOR OCCUPATIONAL HEALTH Encounter Details Date Type Department Care Team (Late st Contact Info) Description 02/13/2023 Orders Only Department of Neurology in [place], [place] [address] [place] [phone] Patel Martell M.B., Ch.B. [address] [place] [phone] Social History Tobacco Use Types Packs/Day Years [...] How often do you attend chur or judaism services? Patient declined 10/28/2020 Do you belong to any clubs o r organizations such as islam groups, unions, fraternal or athletic groups, or [...] Answer Date Recorded PHQ-2 Score 1 [facility] Answer Date [...] place to sleep or slept in a mcc (including now)? No 10/28/2020 Depression Answer Date [...] Sex Assigned at Female 03/06/2017 10:16 AM MEDICAL DIRECTOR OCCUPATIONAL HEALTH Gender Identity Female 03/06/2017 10:16 AM MEDICAL DIRECTOR OCCUPATIONAL HEALTH Sexual Orientation Straight 03/06/2017 10 :16 AM MEDICAL DIRECTOR OCCUPATIONAL HEALTH documented as of this encounter Plan of Treatment Upcoming Encounters Date Type Department Care Team (Late st Contact Info) Description 04/26/2023 10:00 AM CDT Office Visit Department of Neurology in [address] [phone] Patel Martell M.B., Ch.B. [address] [place], [place] [phone] Discharge Disposition: Home or Self Care Scheduled Referrals Name Type Priority Associated Diagnoses Orde r Schedule Neurology office visit (clinic) Outpatient Referral Routine Expected: 04/25/2023 (Approximate), Expires: 05/14/2024 documented as of this encounter Visit Diagnoses Not on filedocumented in this encounter Additional Health Concerns Infection Onset Date Last Indicated Resolved Time Protective Environment 06/07/2022 06/07/2022 Assessment Noted Time PHQ-9 Depression Total Score: 2 12/01/19 20 6:54 AM CDT documented as of this encounter Care Teams Bottle Washer Relationship Specialty Start Date End [place] [phone] PCP - General Family Medicine 05/21/17 documented as of this encounter
--- OUTSIDE RECORDS SUMMARY | 2023-02-13 16:04 | XMS_ITS | Referral Summary ---
Author Name Unknown Organization [facility] Address [facility] [place] [address] Care Team Providers Care School Bus Driver/Teacher Assistant Name Role Phone [facility] Primary Care Provider [phone] Allergies Active Allergy Reactions Criticality Noted Date [...] of Treatment Not on file Care Teams School Bus Driver/Teacher Assistant Relationship Specialty Start Date End Date [facility], [facility] [address] [place], [place] [address] PCP - General 07/28/16
--- OUTSIDE RECORDS SUMMARY | 2023-02-13 16:04 | XMS_ITS | Referral Summary ---
Author Name Unknown Organization [facility] Address [address] [place] [address] Care Team Providers Care Brass Cleaner Name Role Phone Stanton, Primary Care Provider Unavailabl e None, Unavailable Unavailable Allergies Active Allergy Reactions Criticality Noted Date Comments Bupropion Hcl 03/04/2017 Other reaction(s): Other (see comments) Burning sensation. ??Intolerance. Other reaction(s): Intolerance-Can't Take Glatiramer Acetate Anaphylaxis High 09/20/2016 Medications Medication Sig Dispensed Refills Start Date End Date Status dextroamphetamine-a mphetamine (ADDERALL) 30 mg oral tablet Take 1 tablet (30 mg total) by mouth daily. 0 07/04/2017 Active acetaminophen (TYLENOL) 500 mg oral tablet Take 1,000 mg by mouth as directed. Premed for Rituxan. 0 Active traMADol (ULTRAM) 50 mg oral tablet Take 1-2 tablets (50-100 mg total) by mouth every 6 (six) hours as needed for pain. 0 09/07/2017 Active riTUXimab (RITUXAN) 10 mg/mL IV Conc Administer intravenously once. 0 Active clonazePAM (KLONOPIN) 1 mg oral tablet Take 1 mg by mouth 2 (two) times a day. States she takes it as needed. 0 Active gabapentin (NEURONTIN) 300 mg oral capsule Take 1 capsule (300 mg total) by mouth 3 (three) times a day. 0 06/15/2017 Active lamoTRIgine (LAMICTAL) 25 mg oral tablet Weeks 1 and 2: 25 mg once daily; Weeks 3 and 4: 50 mg once daily; Week 5: 100 mg once daily; Week 6 and maintenance: 200 mg once daily 0 09/20/2016 Active diphenhydrAMINE (BENADRYL) 25 mg oral capsule Take 1 capsule by mouth as directed. Premed for Rituxan infusion. 0 09/13/2016 Active albuterol HFA (PROVENTIL;VENTOLIN HFA) 90 mcg/actuation Inhl inhaler Inhale 1-2 puffs. 0 11/02/2016 Active beclomethasone dipropionate 40mcg/puff (QVAR) 40 mcg/actuation Inhl Aerosol inhaler Inhale 2 puffs. 0 11/02/2016 Active traZODone (DESYREL) 100 mg oral tablet Take 200 mg by mouth at bedtime. 0 Active venlafaxine (EFFEXOR) 37.5 mg oral tablet Take 37.5 mg by mouth daily. 0 Active METHYLPREDNISOLONE ACETATE INJECTION Inject as directed as directed. Dose: 125 mg IVP, premed for Rituxan infusion. 0 09/13/2016 Active cyclobenzaprine (FLEXERIL) 5 mg oral tabletIndications:T ear of right biceps muscle, initial encounter Take 1-2 tablets (5-10 mg) by mouth three times a day as needed. 30 tablet 0 11/11/2017 Active Social History Tobacco Use Types Packs/Day Years Used Date Smoking Tobacco: Every Day Cigarettes 0.5 Smokeless Tobacco: Never Alcohol Use Standard Drinks/Week Comments Yes 0 (1 standard drink = 0.6 oz pur e alcohol) Sex and Gender Information Value Date Recorded Sex Assigned at Not on file Gender Identity Not on file Sexual Orientation Not on file Last Filed Vital Signs Vital Sign Reading Time Taken Comments Blood Pressure 132/83 11/11/2017 6:59 PM CDT Pulse 86 11/11/2017 6:59 PM CDT Temperature 37 ??C (98.6 ??F) 11/11/2017 6:59 PM CDT Respiratory Rate 18 11/11/2017 6:59 PM CDT Oxygen Saturation 98% 11/11/2017 6:59 PM CDT Inhaled Oxygen Concentration - - Weight 72.6 kg (160 lb) 11/11/2017 6:59 PM CDT Height 170.2 cm (5' 7) 11/11/2017 6:59 PM CDT Body Mass Index 25.06 11/11/2017 6:59 PM CDT Plan of Treatment Not on file Care Teams Brass Cleaner Relationship Specialty Start Date End Date None, PCP - General 11/11/17 None, PCP - Primary Care Clinic 11/11/17
--- OUTSIDE RECORDS SUMMARY | 2023-02-13 16:04 | XMS_ITS | Clinical Summary ---
Author Name Unknown Organization [facility] Address [address] [place] [address] Care Team Providers Care Director Of Aviation Name Role Phone Stanton, Primary Care Provider [...] 11/11/2017 6:59 PM CDT Plan of Treatment Health Maintenance Due Date Last Done Comments Hepatitis C Screening 1985 Pap Smear 1983 COVID-19 Vaccine (#1) 02/04/1984 Anxiety Screening (TIM-2) 08/04/1984 Depression Assessment (PHQ-2) 08/04/1984 Influenza Vaccine (#1) 2022 12/13/2015 Adult Tetanus Booster 05/10/2027 05/09/2017 Pneumococcal <65 Aged Out 05/09/2017 No longer e ligible based on patient's age to complete this topic Care Teams Director Of Aviation Relationship Specialty Start Date End Date None, PCP - General 11/11/17 None, PCP - Primary Care Clinic 11/11/17
--- OUTSIDE RECORDS SUMMARY | 2023-02-13 16:05 | XMS_ITS | Encounter Summary ---
Author Name Unknown Organization [facility] Address [address] [place] [address] Care Team Providers Care Space Systems Operations Craftsman Name Role Phone Jamal Butt M.D. Primary Care Provider [phone] Reason for Referral * MRI/CAT/PET Scan (Routine) - Closed Specialty Diagnoses / Procedures Referred By Contac t Referred To Contact Radiology Diagnoses Multiple Sclerosis (HCC) Procedures MR Brain without and with IV Contrast Patel Martell M.B., Ch.B. [address] [place] [phone] [facility] Referral ID Status Reason Start Date Expiration Date Visits Re quested Visits Authorized [id number] Closed 09/26/2022 09/26/2023 1 1 Reason for Visit * MRI/CAT/PET Scan (Routine) - Closed Specialty Diagnoses / Procedures Referred By Contac t Referred To Contact Radiology Diagnoses Multiple Sclerosis (HCC) Procedures MR Brain without and with IV Contrast Patel Martell M.B., Ch.B. [address] [place] [phone] [facility] Referral ID Status Reason Start Date Expiration Date Visits Re quested Visits Authorized [id number] Closed 09/26/2022 09/26/2023 1 1 Encounter Details Date Type Department Care Team (Latest Contact Info) Description 11/27/2022 9:07 AM CDT - 11/27/2022 11:59 PM CDT Hospital Encounter Department of Radiology, [facility], in [place], [place] [address] [place] [phone] Patel Martell M.B., .B. [address] [place] [phone] Multiple Sclerosis (HCC) Discharge Disposition: Home or Self Care Social [...] any clubs o r organizations such as christian groups, unions, fraternal or athletic groups, or [...] Answer Date Recorded PHQ-2 Score 1 12/01/2019 [facility] - Occupational Stress Questionnaire Answer Date [...] place to sleep or slept in a fdc (including now)? No 10/28/2020 Depression Answer Date [...] Sex Assigned at Female 03/06/2017 10:16 AM HIP HOP DANCER Gender Identity Female 03/06/2017 10:16 AM HIP HOP DANCER Sexual Orientation Straight 03/06/2017 10 :16 AM HIP HOP DANCER documented as of this encounter Medications at Time of Discharge Medication Sig Dispensed Refills Start Date End Date acetaminophen (TYLENOL) 500 mg tablet Take 1,000 mg by mouth as directed. Premed for Rituxan. 0 albuterol (for_PROVENTIL HFA,VENTOLIN HFA) 90 mcg/actuation inhaler Inhale 1-2 puffs every other day. 0 11/02/2016 ascorbic acid, vitamin C, (VITAMIN C) 250 mg tablet Take 250 mg by mouth daily. 0 B complex-vitamins (BALANCE B-50) tablet Take 1 tablet by mouth daily. 0 beclomethasone (for_QVAR) 40 mcg/actuation inhaler Inhale 2 puffs as needed. 0 11/02/2016 cholecalciferol, vitamin D3, 25 mcg (1,000 Unit) tablet Take 1 tablet (1,000 units) by mouth daily 0 02/28/2022 clonazePAM (KlonoPIN) 1 mg tablet Take 1 mg by mouth 2 (two) times a day as needed for anxiety. States she takes it as needed. 0 cloNIDine (CATAPRES) 0.1 mg tablet Take 0.1 mg by mouth as needed. 3 11/27/2018 cyanocobalamin (VITAMIN B12) 1,000 mcg tablet Take 1,000 mcg by mouth daily. 0 06/09/2019 dextroamphetamine-amphe tamine (ADDERALL) 20 mg tablet Take 3 tablets by mouth 3 (three) times a day. 0 10/13/2020 dextroamphetamine-amphe tamine (ADDERALL) 30 mg tablet Take 1 tablet (30 mg total) by mouth daily. 30 tablet 0 07/04/2017 diphenhydrAMINE (BENADRYL) 25 mg capsule Take 1 capsule by mouth as directed. Premed for Rituxan infusion. 0 09/13/2016 ferrous sulfate 325 mg (65 mg iron) DR tablet Take 65 mg of iron by mouth daily. Iron 0 FLOVENT HFA 110 mcg/actuation inhaler Inhale 1 puff as needed. 3 11/27/2018 fluconazole (DIFLUCAN) 200 mg tablet Take 200 mg by mouth at bedtime. 0 01/14/2019 fluticasone propionate (FLONASE) 50 mcg/actuation nasal spray Administer 2 sprays into each nostril 2 (two) times a day. 0 ketoconazole (NIZORAL) 2 % cream at bedtime. 0 01/14/2019 lamoTRIgine (LaMICtaL) 200 mg tablet 0 02/27/2022 lamoTRIgine (LaMICtaL) 25 mg tablet 0 02/27/2022 montelukast (SINGULAIR) 10 mg tablet Take 10 mg by mouth at bedtime. 0 01/14/2019 pregabalin (LYRICA) 100 mg capsule 2 (two) times a day. 0 07/25/2019 traZODone (for_DESYREL) 100 mg tablet Take 200 mg by mouth at bedtime. 0 zinc gluconate 50 mg tablet Take 50 mg by mouth daily with breakfast. Zinc 0 METHYLPREDNISOLONE ACETATE INJ Inject as directed as directed. Dose: 125 mg IVP, premed for Rituxan infusion. Every 6-months 0 09/13/2016 riTUXimab (RITUXAN) 10 mg/mL injection every 6 (six) months. 0 riTUXimab in NaCl solution IVPB (for_RITUXAN) Infuse 1,000 mg into a venous catheter every 6 (six) months. 0 05/31/2016 documented as of this encounter Plan of Treatment Upcoming Encounters Date Type Department Care Team (Late st Contact Info) Description 04/26/2023 10:00 AM CDT Office Visit Department of Neurology in [place], [place] [address] [place] [phone] Patel Martell M.B., Ch.B. [address] [place] [phone] Discharge Disposition: Home or Self Care documented as of this encounter Procedures Procedure Name Priority Date/Time Associated Diagnosis Comments MR BRAIN WITHOUT AND WITH IV CONTRAST RAD - Routine (most inpatients and all outpatients) 11/27/2022 10:08 AM CDT Multiple Sclerosis (HCC) documented in this encounter Results * MR Brain without and with IV [...] findings since a study of 07/12/2020. Patel Padron Ch.B. IM MRI PROC EDURES documented in this encounter Visit Diagnoses Diagnosis Multiple Sclerosis (HCC) documented in this encounter Administered Medications Inactive Administered Medications - up to 3 most recent administrations Medication Order MAR Action Action Date Dose Rate Site gadobutrol injection 0.01-30 mL (GADAVIST) 0.01-30 mL, intravenous, Once in imaging, contrast, Starting on 11/27/22 at 1010, For 1 dose, Imaging Protocol Orders, Dose per Radiant Medication Guidelines Intrathecal doses greater than 0.25 mL not recommended. Given 11/27/2022 10:10 AM CDT 7 mL documented in this encounter Additional Health Concerns Infection Onset Date Last Indicated Resolved Time Protective Environment 06/07/2022 06/07/2022 Assessment Noted Time PHQ-9 Depression Total Score: 2 12/01/19 20 6:54 AM CDT documented as of this encounter Care Teams Space Systems Operations Craftsman Relationship Specialty Start Date End Date Jamal Butt M.D. [address] [place] [phone] PCP - General Family Medicine 05/21/17 documented as of this encounter
--- OUTSIDE RECORDS SUMMARY | 2023-02-13 16:05 | XMS_ITS | Encounter Summary ---
Author Name Unknown Organization [facility] Address [address] [place] [address] Care Team Providers Care Supervisory Examiner Name Role Phone Jamal Butt M.D. Primary Care Provider [phone] Reason for Referral * Outpatient (Routine) - Authorized Specialty Diagnoses / Procedures Referred By Campbell estrada Referred To Contact Diagnoses Chronic Migraine Procedures Botox for Chronic Migraine Genevieve Kingston APRN, C.N.Randi., M.S.N. [address] [place] [address] [facility] Referral ID Status Reason Start Date Expiration Date V isits Requested Visits Authorized [id number] Authorized 06/29/2022 06/29/2023 4 4 Reason for Visit * Reason Comments Procedure Botox 150 units * Outpatient (Routine) - Closed Specialty Diagnoses / Procedures Referred By Contac t Referred To Contact Diagnoses Chronic Migraine Procedures Botox for Chronic Migraine SC CHEMODENERV FACIAL TRIGEM BARBARA SC INJECTION,ONABOTULINUMTOXINA Justin Lovell M.D., M.P.H. [address] [place] [address] [facility] [place] [facility] Referral ID Status Reason Start Date Expiration Date Visits Re quested Visits Authorized [id number] Closed 06/26/2022 06/26/2023 1 1 Encounter Details Date Type Department Care Team (Latest Contact Info) Description 06/29/2022 3:45 PM CDT Procedure visit Department of Neurology in [place], [place] [address] [place] [phone] Genevieve Kingston APRN, C.N.P., M.S.N. [address] [place] [phone] Chronic Migraine Discharge Disposition: Home or Self [...] often do you attend chur ch or orthodox services? Patient declined 10/28/2020 Do you belong to any clubs o r organizations such as episcopalian groups, unions, fraternal or athletic groups, or [...] Answer Date Recorded PHQ-2 Score 1 12/01/2019 [facility] - Occupational Stress Questionnaire Answer Date [...] place to sleep or slept in a correction (including now)? No 10/28/2020 Depression Answer Date [...] Date Recorded Dental: Regular Dentist No 02/03/20 Employment Answer Date Recorded Employment status Unemployed/not in th e paid workforce but seeking employment 10/28/2020 Education Answer Date Recorded What is the highest level of school you have completed or the highest degree you have received? Associate degree: occupational, technical, or vocational program 12/01/2019 Sex and Gender Information Value Date Recorded Sex Assigned at Female 03/06/2017 10:16 AM DIVER PUMPER Gender Identity Female 03/06/2017 10:16 AM DIVER PUMPER Sexual Orientation Straight 03/06/2017 10 :16 AM DIVER PUMPER documented as of this encounter Procedure Notes * Genevieve Kingston APRN, C.N.P., M.S.N. - 06/29/2022 3:45 PM CDTAssociated Order(s): Botox for Chronic Migraine Pre-Procedure Diagnose(s): Chronic Migraine Post-Procedure Diagnose(s): Chronic Migraine Botox for Chronic Migraine Performed by: Genevieve Kingston APRN, C.N.P., M.S.N. Authorized by: Justin Lovell M.D., M.P.H. Care team members present 1. Genevieve Kingston APRN, C.N.P., M.S.N. 2. Cecily Ascencio RCasandra PROCEDURE DETAILS Pre-procedure pain score: 7/10 Injection of: 100 Units onabotulinumtoxinA 100 unit; 50 Units onabotulinumtoxinA 100 unit Needle gauge: 30 Needle length: 0.5 in Injection site details Spinner Hydraulic / Procerus muscle(s): 5 units into the left art objects salesperson muscle, 5 units into the right art objects salesperson muscle and 5 units into the procerus [...] the frequency of headaches was greater than 14 days per month and with significant impairment in the quality of life. Please see the initial Botox injection note and Headache consultation note regarding specific details of the headache history prior to the start of treatment. Any other daily migraine prophylactic treatments taken over the last 3 months: Pregabalin (Lyrica) Headache frequency when Botox is most effective (middle month in between rounds). Current headache days per month: 0 days Current severe headache days per month: 0 days Wearing off phenomenon prior to this round of Botox: no Patient finds Botox treatment helpful and wants to repeat the treatment? yes Patient had migraine headache frequency reduction by at least 14 days per month compared to pretreatment level. POST-PROCEDURE DETAILS Procedure completed successfully: yes Complications: no apparent complications documented in this encounter Plan of Treatment Upcoming Encounters Date Type Department Care Team (Late st Contact Info) Description 04/26/2023 10:00 AM CDT Office Visit Department of Neurology in [place], [place] [address] [place] [phone] Patel Martell M.B., .B. [address] [place] [phone] Discharge Disposition: Home or Self Care Scheduled Orders Name Type Priority Associated Diagnoses Orde r Schedule Botox for Chronic Migraine Procedures Routine Migraine Headache Chronic 12 for 4 Occurrences starting 06/29/2022 until 09/30/2023, 2 completed documented as of this encounter Procedures Procedure Name Priority Date/Time Associated Diagnosis Comments SC CHEMODENERV FACIAL TRIGEM BARBARA Routine 06/29/2022 3:45 PM CDT Chronic Migraine documented in this encounter Results * SC CHEMODENERV FACIAL TRIGEM BARBARA (01/19/2023 9:45 AM DIVER PUMPER) Narrative [facility] - 01/19/2023 9:45 AM DIVER PUMPER Genevieve Kingston APRN C.N.P., M.S.N. ? 01/19/2023 ??9:42 AM Botox for Chronic Migraine Performed by: Genevieve Kingston APRN, C.N.P., M.S.N. Authorized by: Genevieve Kingston APRN C.N.P., M.S.N. ?? Care team members present 1. Genevieve Kingston APRN C.N.P., M.S.N. 2. Yari Levy L.PCasandra PROCEDURE DETAILS ?? Pre-procedure pain score: 8/10 Injection of: ??100 Units onabotulinumtoxinA 100 unit; 50 Units onabotulinumtoxinA 100 unit Needle gauge: 30 Needle length: 0.5 in Injection site details Spinner Hydraulic / Procerus muscle(s): 5 units into the left art objects salesperson muscle, 5 units into the right art objects salesperson muscle ??and 5 units into the procerus [...] All of the above ?? Genevieve Kingston APRN, C.N.P., M.S.N. NEURO LOGY ORDERABLES Performing Organization Address City/State/[facility] Co mi Phone Number [facility] NA * SC CHEMODENERV FACIAL TRIGEM BARBARA (09/26/2022 9:30 AM CDT) Narrative [facility] - 09/26/2022 9:30 AM CDT Patel Martell M.B., Ch.B. ? 09/26/2022 10:16 AM Botox for Chronic Migraine Performed by: Patel Martell M.B., Ch.B. Authorized by: Genevieve Kingston APRN C.N.P., M.S.N. ?? Care team members present 1. Patel Martell M.B., Ch.B. 2. Maria R Maynard L.P.N. PROCEDURE DETAILS ?? Pre-procedure pain score: 0/10 Injection of: ??100 Units onabotulinumtoxinA 100 unit; 50 Units onabotulinumtoxinA 100 unit Needle gauge: 30 Needle length: 0.5 in Injection site details Spinner Hydraulic / Procerus muscle(s): 5 units into the left art objects salesperson muscle, 5 units into the right art objects salesperson muscle ??and 5 units into the procerus [...] the frequency of headaches was greater than 15 days per month and with significant impairment [...] to this round of Botox: yes Duration: 1 weeks Patient finds Botox treatment helpful and wants to repeat the treatment? yes Patient had migraine headache frequency reduction by at least 15 days per month compared to pretreatment level. ?? POST-PROCEDURE DETAILS ?? Procedure completed successfully: yes ?? Complications: no apparent complications Genevieve Kingston APRN, C.N.P., M.S.N. NEURO LOGY ORDERABLES Performing Organization Address City/State/[facility] Co de Phone Number [facility] NA * SC CHEMODENERV FACIAL TRIGEM BARBARA (06/29/2022 3:45 PM CDT) Narrative [facility] - 06/29/2022 3:45 PM CDT Genevieve Kingston APRN, C.N.PMert, M.S.N. ? 06/29/2022 ??3:38 PM Botox for Chronic Migraine Performed by: Genevieve Kingston APRN, C.N.PMert, M.S.N. Authorized by: Justin Lovell M.D., M.P.H. ?? Care team members present 1. Genevieve Kingston APRN, C.N.PMert, M.S.N. 2. Cecily Ascencio R.N. PROCEDURE DETAILS ?? Pre-procedure pain score: 7/10 Injection of: ??100 Units onabotulinumtoxinA 100 unit; 50 Units onabotulinumtoxinA 100 unit Needle gauge: 30 Needle length: 0.5 in Injection site details Spinner Hydraulic / Procerus muscle(s): 5 units into the left art objects salesperson muscle, 5 units into the right art objects salesperson muscle ??and 5 units into the procerus [...] the frequency of headaches was greater than 14 days per month and with significant impairment in the quality of life. ?? Please see the initial Botox injection note and Headache consultation note regarding specific details of the headache history prior to the start of treatment. Any other daily migraine prophylactic treatments taken over the last 3 months: ??Pregabalin (Lyrica) Headache frequency when Botox is most effective (middle month in between rounds). Current headache days per month: 0 days Current severe headache days per month: 0 days Wearing off phenomenon prior to this round of Botox: no Patient finds Botox treatment helpful and wants to repeat the treatment? yes Patient had migraine headache frequency reduction by at least 14 days per month compared to pretreatment level. ?? POST-PROCEDURE DETAILS ?? Procedure completed successfully: yes ?? Complications: no apparent complications Justin Lovell M.D., M.P.H. NEUROLOGY ORDERABL ES [facility] NA documented in this encounter Visit Diagnoses Diagnosis Chronic Migraine Chronic Migraine Chronic Migraine documented in this encounter Administered Medications Inactive Administered Medications - up to 3 most recent administrations Medication Order MAR Action Action Date Dose Rate Site onabotulinumtoxinA injection 100 Units (BOTOX) 100 Units, injection, One-Time Injection, Starting on Angelique 06/29/22 at 1545, For 1 dose Given 06/29/2022 3:45 PM CDT 100 Units onabotulinumtoxinA injection 50 Units (BOTOX) 50 Units, injection, One-Time Injection, Starting on Angelique 06/29/22 at 1545, For 1 dose Given 06/29/2022 3:45 PM CDT 50 Units documented in this encounter Additional Health Concerns Infection Onset Date Last Indicated Resolved Time Protective Environment 06/07/2022 06/07/2022 Assessment Noted Time PHQ-9 Depression Total Score: 2 12/01/19 20 6:54 AM CDT documented as of this encounter Care Teams Supervisory Examiner Relationship Specialty Start Date End Date Jam[place] [phone] PCP - General Family Medicine 05/21/17 documented as of this encounter
--- OUTSIDE RECORDS SUMMARY | 2023-02-13 16:05 | XMS_ITS | Encounter Summary ---
Author Name Unknown Organization [facility] Address [address] [place] [address] Care Team Providers Care Jig Bore Tool Maker Name Role Phone Jamal Butt M.D. Primary Care Provider [phone] Reason for Referral * Outpatient (Routine) - Closed Specialty Diagnoses / Procedures Referred By Campbell estrada Referred To Contact Diagnoses Chronic Migraine Procedures Botox for Chronic Migraine MS CHEMODENERV FACIAL TRIGEM BARBARA MS INJECTION,ONABOTULINUMTOXINA Justin Lovell M.D., M.P.H. [address] [place] [phone] [facility] Region Referral ID Status Reason Start Date Expiration Date Visits Re quested Visits Authorized [id number] Closed 06/26/2022 06/26/2023 1 1 Encounter Details Date Type Department Care Team (Late st Contact Info) Description 06/26/2022 Orders Only Department of Neurology in [place], [place] [address] [place] [phone] Justin Lovell M.D., M.P.H. [address] [place] [phone] Chronic Migraine (Primary Dx) Social History Tobacco Use Types Packs/Day Years [...] often do you attend chur ch or episcopalian services? Patient declined 10/28/2020 Do you belong to any clubs o r organizations such as yarsani groups, unions, fraternal or athletic groups, or [...] Average Number of Drinks Not on file Frequency of Binge Drinking Not on file 10/07 Overall Financial Resource Strain (CARDIA) Answe r Date Recorded How hard is it for you to pa y for the very basics like food, housing, medical care, and heating? Hard 10/28/2020 PHQ-2 Answer Date Recorded PHQ-2 Score 1 12/01/2019 [facility] - Occupational [...] place to sleep or slept in a assisted (including now)? No 10/28/2020 Depression Answer Date [...] Sex Assigned at Female 03/06/2017 10:16 AM PROMOTION WRITER Gender Identity Female 03/06/2017 10:16 AM PROMOTION WRITER Sexual Orientation Straight 03/06/2017 10 :16 AM PROMOTION WRITER documented as of this encounter Plan of Treatment Upcoming Encounters Date Type Department Care Team (Late st Contact Info) Description 04/26/2023 10:00 AM CDT Office Visit Department of Neurology in [address] [phone] Patel Martell M.B., .B. [address] [place] [phone] Discharge Disposition: Home or Self Care documented as of this encounter Results * MS CHEMODENERV FACIAL TRIGEM BARBARA (06/29/2022 3:45 PM CDT) Narrative [facility] - 06/29/2022 3:45 PM CDT Genevieve Kingston APRN, C.N.P., M.S.N. ? 06/29/2022 ??3:38 PM Botox for Chronic Migraine Performed by: Genevieve Kingston APRN, C.N.Randi., M.S.N. Authorized by: Justin Lovell M.D., M.P.H. ?? Care team members present 1. Genevieve Kingston APRN, C.NBriseida, M.S.N. 2. Cecily Ascencio RCasandra PROCEDURE DETAILS ?? Pre-procedure pain score: 7/10 Injection of: ??100 Units onabotulinumtoxinA 100 unit; 50 Units onabotulinumtoxinA 100 unit Needle gauge: 30 Needle length: 0.5 in Injection site details Bloom Conveyor Operator / Procerus muscle(s): 5 units into the left service station helper muscle, 5 units into the right service station helper muscle ??and 5 units into the procerus [...] that is not covered by a third republican. ?? Prior to treatment with Botox, the [...] in this encounter Visit Diagnoses Diagnosis Chronic Migraine- Primary Chronic Migraine documented in this encounter Additional Health Concerns Infection Onset Date Last Indicated Resolved Time Protective Environment 06/07/2022 06/07/2022 Assessment Noted Time PHQ-9 Depression Total Score: 2 12/01/19 20 6:54 AM CDT documented as of this encounter Care Teams Jig Bore Tool Maker Relationship Specialty Start Date End Date Jamal Butt M.D. NPJunior: [phone] [address] [place] [phone] PCP - General Family Medicine 05/21/17 documented as of this encounter
--- OUTSIDE RECORDS SUMMARY | 2023-02-13 16:05 | XMS_ITS | Encounter Summary ---
Author Name Unknown Organization [facility] Address [address] [place] [address] Care Team Providers Care Stator Tester Name Role Phone Jamal Butt M.D. Primary Care Provider [phone] Reason for Visit * Reason Onset Date Comments Shortness of Breath 11/28/2022 Encounter Details Date Type Department Care Team (Late st Contact Info) Description 11/28/2022 Nurse Triage Department of Family Medicine in [place], [place] [address] [place] [phone] Anna Marie Samaniego RCasandra [address] [place] [phone] Shortness of Breath Social History Tobacco Use Types Packs/Day Years [...] declined 10/28/2020 How often do you attend [facility] or temple services? Patient declined 10/28/2020 Do you belong to any clubs o r organizations such as religious groups, unions, fraternal or athletic groups, or [...] Answer Date Recorded PHQ-2 Score 1 12/01/2019 [facility] - Occupational Stress Questionnaire Answer Date [...] Sex Assigned at Female 03/06/2017 10:16 AM IRRIGATION FLUME LAYER Gender Identity Female 03/06/2017 10:16 AM IRRIGATION FLUME LAYER Sexual Orientation Straight 03/06/2017 10 :16 AM IRRIGATION FLUME LAYER documented as of this encounter Miscellaneous Notes * Telephone Encounter - Anna Marie Samaniego R.N. - 11/28/2022 12:08 AM CDT Chief Complaint / Reason for Call Patient is a 37 y.o. female calling regarding Shortness of Breath. Assessment Concern: Patient is frustrated because she has had a cough and URI symptoms for several months. Shehas had several scans, procedures, and medications prescribed and she doesn't feel like they are helping. Patient is focused on all the things that have not helped in her treatment plan, tried multiple time to initiate triage, patient disconnected. documented in this encounter Plan of Treatment Upcoming Encounters Date Type Department Care Team (Late st Contact Info) Description 04/26/2023 10:00 AM CDT Office Visit Department of Neurology in [place], [place] [address] [place] [phone] Patel Martell M.B., Ch.B. [address] [place] [phone] Discharge Disposition: Home or Self Care documented as of this encounter Visit Diagnoses Not on filedocumented in this encounter Additional Health Concerns Infection Onset Date Last Indicated Resolved Time Protective Environment 06/07/2022 06/07/2022 Assessment Noted Time PHQ-9 Depression Total Score: 2 12/01/19 20 6:54 AM CDT documented as of this encounter Care Teams Stator Tester Relationship Specialty Start Date End Date Jamal Butt M.D. [address] [place] [phone] PCP - General Family Medicine 05/21/17 documented as of this encounter
--- OUTSIDE RECORDS SUMMARY | 2023-02-13 16:05 | XMS_ITS | Encounter Summary ---
Author Name Unknown Organization [facility] Address [address] [place] [address] Care Team Providers Care Manager Paper Name Role Phone Jamal Butt M.D. Primary Care Provider [phone] Reason for Visit * Reason Comments Allergic Reaction Patient is coming in for allergies to mold. She started a new job roughly 4 months ago and has been exposed to mold and in the last couple days has developed this congestion, troubles breathing and body aches. Has attempted taking allergy medications but no relief. Encounter Details Date Type Department Care Team ([facility] st Contact Info) Description 07/06/2022 7:25 PM CDT - 07/06/2022 9:40 PM CDT Emergency [place] [address] [place] [phone] Joan Swanson D.O. [address] [place] [phone] Pneumonia (Primary Dx) Discharge Disposition: Home or Self Care Social [...] often do you attend chur ch or moravian services? Patient declined 10/28/2020 Do you belong to any clubs o r organizations such as gnosticism groups, unions, fraternal or athletic groups, or [...] Answer Date Recorded PHQ-2 Score 1 12/01/2019 [facility] - Occupational Stress Questionnaire Answer Date [...] place to sleep or slept in a prison (including now)? 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 - 07/06/2022 9:25 PM CDT Take the doxycycline twice a day for 10 days. Take your Tessalon every 8 hours, if needed for cough. Follow up with primary care in 7-10 days for reevaluation of your symptoms. You will need a repeat chest xray to ensure your chest XR is normal after treatment. * Attachments The following attachments cannot be sent through Care Everywhere. * Community-Acquired Pneumonia Adult [id number] (Luxembourger) documented in this encounter Medications at Time of Discharge [...] 1,000 mcg by mouth daily. 0 06/09/2019 dextroamphetamine-amph etamine (ADDERALL) 20 mg tablet Take 3 tablets by mouth 3 (three) times a day. 0 10/13/2020 dextroamphetamine-amph etamine (ADDERALL) 30 mg tablet Take 1 tablet [...] catheter every 6 (six) months. 0 05/31/2016 doxycycline monohydrate (MONODOX) 100 mg capsule Take 1 capsule (100 mg total) by mouth 2 (two) times a day for 10 days. 20 capsule 0 07/06/2022 07/16/2022 documented as of this encounter ED Notes * Joan Swanson D.O. - 07/06/2022 9:28 PM CDT [facility] EMERGENCY DEPARTMENT ENCOUNTER Patient Name: Jessy Vega Birthdate 1985 Date of evaluation: 07/06/2022 Provider: Joan Swanson D.O. PCP: Jamal Butt M.D. SUBJECTIVE CHIEF COMPLAINT/REASON FOR VISIT Allergic Reaction (Patient is coming in for allergies to mold. She started a new job roughly 4 months ago and has been exposed to mold and in the last couple days has developed this congestion, troubles breathing and body aches. Has attempted taking allergy medications but no relief.) HISTORY OF PRESENT ILLNESS Jessy Vega is a 36 y.o. female with a history of anxiety, tobacco abuse, multiple sclerosiswho presents to the emergency department for evaluation of cough and body aches. Patient reports 2 months of URI symptoms, but they have been worse the last 4 days. 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 She saw her imposer last week and reports she was prescribed an EpiPen for her symptoms. She is not currently on steroids. She has triedBenadryl, Claritin, Afrin without significant improvement. She takes albuterol and Flovent. She does smoke but has not smoked in about a week. No noted fevers, but she has had severe myalgias for thelast 4 days, so she comes to the ED for re-evaluation. 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 PHYSICAL EXAMINATION: Constitutional: Nursing note and vitals reviewed. Vital signs are normal. She is active. She does not have a sickly appearance. She appears ill. No distress. Eyes: Conjunctivae are normal. Neck: Neck supple. Cardiovascular: Normal rate, regular rhythm and normal heart sounds. Capillary refill: takes less than 3 seconds Pulmonary/Chest: Effort normal and breath sounds normal. There is normal air entry. No tachypnea. No respiratory distress. Musculoskeletal: General: No edema. Cervical back: Neck supple. Neurological: Alert and oriented to person, place, and time. Skin: Skin is warm and dry. Psychiatric: She has a normal mood and affect. Behavior is normal. DIAGNOSTICS LABS: Labs Reviewed CBC WITH DIFFERENTIAL, B - Abnormal Result Value Hemoglobin 13.2 Hematocrit 40.0 Erythrocytes 4.20 MCV 95.2 RBC Distrib Width 13.0 Platelet Count 400 (*) Leukocytes 19.3 (*) Neutrophils 16.15 (*) Lymphocytes 1.40 Monocytes 1.47 (*) Eosinophils 0.22 Basophils 0.03 COMPREHENSIVE METABOLIC PANEL, S/P - Abnormal Potassium, P 4.3 Sodium, P 136 Chloride, P 99 Bicarbonate, P 24 Anion Gap, P 13 BUN (Blood Urea Nitrogen), P 5 (*) Creatinine 0.60 Estimated GFR (eGFR) >90 Calcium, Total, P 9.4 Glucose, P 91 Protein, Total, P 7.0 Albumin, P 4.3 Aspartate Aminotransferase (AST), P 27 Alkaline Phosphatase, P 113 (*) Alanine Aminotransferase (ALT), P 17 Bilirubin, Total, P 0.4 SARS CORONAVIRUS 2, PCR RAPID, V SARS CoV-2, PCR, Rapid, V Undetected CREATINE KINASE (CK), S Creatine Kinase, P 126 INFLUENZA A, B, RSV, PCR, POCT Influenza A, POCT Negative Influenza B, POCT Negative Resp Syncytial Virus, POCT Negative RADIOLOGY: DX Chest AP or PA and Lateral 2 Views Final Result Comparison chest x-ray 10/03/2017. New moderate sized area of dense masslike opacity likely related to consolidation and dense infiltrate involving the anterior right upper lobe in the perihilar region measures 6.2 x 2.8 cm. New ill-defined dense and somewhat platelike areas of infiltrate and/or atelectasis has developed in the lower lobes bilaterally and medially. Findings consistent with pneumonia especially in the perihilar right upper lobe. Recommend follow-up chest x-ray after treatment to ensure complete resolution of the areas of opacity without residual mass. Platelike atelectasis or scarring in the right mid and upper lung. Mild peribronchial cuffing in the infrahilar regions bilaterally likely related to bronchial inflammation. Heart size normal. Chest otherwise negative. EMERGENCY DEPARTMENT COURSE and DIFFERENTIAL DIAGNOSIS/MDM: Patient was given the following medications: Medications doxycycline monohydrate tablet 100 mg (ADOXA) (100 mg oral Given 07/06/222130) MDM: IMPRESSION AND PLAN Patient preference with 4 days of severe body aches conjunction with URI symptoms which she reportshas been ongoing for months. Her vital signs are normal. She is slightly ill-appearing, but nontoxic. Her lungs are normal to auscultation. Very rare cough noted in the ED. With patient's prolonged symptoms we discussed further workup, she has not had a chest x-ray or labs since it started. She wason amoxicillin 2 weeks ago for sinusitis, but her respiratory symptoms did not improve. Patient's labs are remarkable for a significant leukocytosis with a neutrophil predominance, raising confirm for an underlying bacterial infection causing her symptoms. CPK ordered due to myalgias toevaluate for a myositis, which is normal. COVID, RSV, and influenza are negative. Patient's chest x-ray shows a new moderate size area of dense masslike opacity, likely due to pneumonia. Also atelectasis or infiltrate in the bilateral lower lobes. I discussed with patient that she is a very definedarea of infection, likely why it was not auscultated by myself or previous providers. With her recent amoxicillin use, I will start her on 10 days of doxycycline. We discussed that she will need close follow-up with primary care and should have repeat chest imaging after resolution of her symptoms to ensure the right upper lung density resolves with antibiotic therapy, as she is a smoker and underlying malignancy can not be completely excluded. Patient voiced understanding. She has Tessalon at home to take for the cough. I personally reviewed the lab result(s) and my interpretation is documented in ED Course and abnormal. I personally reviewed the radiology image(s) and reviewed the radiology report(s). The Radiology exam interpretation(s) is/are abnormal. FINAL IMPRESSION: Final diagnoses: [J18.9] Pneumonia ED DISCHARGE MEDS: ED Prescriptions Medication Sig Dispense Start Date End Date Auth. Provider doxycycline monohydrate (MONODOX) 100 mg capsule Take 1 capsule (100 mg total) by mouth 2 (two) times a day for 10 days. 20 capsule 07/06/2022 07/16/2022 Joan Swanson D.O. FOLLOW UP: Contact Information for Follow-ups Jamal Butt M.D. Specialty: Family Medicine, Emergency Medicine Relationship: PCP - General [address] [place] [phone] Next Steps: Follow up Instructions: Follow up in 7-10 days for reevaluation. Yovana Covarrubias Sarah, D.O. 07/07/22 0037 documented in this encounter Plan of Treatment Upcoming Encounters Date Type Department Care Team (Late st Contact Info) Description 04/26/2023 10:00 AM CDT Office Visit Department of Neurology in [address] [phone] Patel Martell M.B., [facility] [place] [phone] Discharge Disposition: Home or Self Care documented as of this encounter Procedures Procedure Name Priority Date/Time Associated Diagnosis Comments DX CHEST AP OR PA AND LATERAL 2 VIEWS RAD - Semiurgent (Fast; most ED patients; some inpatients) 07/06/2022 8:32 PM CDT INFLUENZA A, B, RSV, PCR, POCT Routine 07/06/2022 8:09 PM CDT SARS CORONAVIRUS 2, PCR RAPID, V STAT 07/06/2022 7:53 PM CDT INFLUENZA A, B, RSV, PCR, POCT STAT 07/06/2022 7:53 PM CDT CBC WITH DIFFERENTIAL, B STAT 07/06/2022 7:23 PM CDT CREATINE KINASE (CK), S STAT 07/06/2022 7:23 PM CDT COMPREHENSIVE METABOLIC PANEL, S/P STAT 07/06/2022 7:23 PM CDT documented in this encounter Results * DX Chest AP or PA and Lateral 2 Views (07/06/2022 8:32 PM CDT) Anatomical Region Laterality Modality Chest, Thoracic RST LOS, Tho racic ARZ LOS, Thoracic FLA LOS N/A Digital Radiography 07/06/2022 8:40 PM CDT Impressions 07/06/2022 8:44 PM CDT Comparison chest x-ray 10/03/2017. New moderate sized area of dense masslike opacity likely related to consolidation and dense infiltrate involving the anterior right upper lobe in the perihilar region measures 6.2 x 2.8 cm. New ill-defined dense and somewhat platelike areas of infiltrate and/or atelectasis has developed in the lower lobes bilaterally and medially. Findings consistent with pneumonia especially in the perihilar right upper lobe. Recommend follow-up chest x-ray after treatment to ensure complete resolution of the areas of opacity without residual mass. Platelike atelectasis or scarring in the right mid and upper lung. Mild peribronchial cuffing in the infrahilar regions bilaterally likely related to bronchial inflammation. Heart size normal. Chest otherwise negative. Narrative 07/06/2022 8:44 PM CDT EXAM: DX CHEST AP OR PA AND LATERAL 2 VIEWS Procedure Note Johnnie Wallace M.D. - 07/06/2022 EXAM: DX CHEST AP OR PA AND LATERAL 2 VIEWS IMPRESSION: Comparison chest x-ray 10/03/2017. New moderate sized area of densemasslike opacity likely related to consolidation and dense infiltrate involving theanterior right upper lobe in the perihilar region measures 6.2 x 2.8 cm. New ill-defined dense and somewhatplatelike areas of infiltrate and/or atelectasis has developed in the lower lobes bilaterallyand medially. Findings consistent with pneumonia especially in the perihilar right upper lobe.Recommend follow-up chest x-ray after treatment to ensure complete resolution of the areas ofopacity without residual mass. Platelike atelectasis or scarring in the right mid and upper lung. Mildperibronchial cuffing in the infrahilar regions bilaterally likely related to bronchial inflammation.Heart size normal. Chest otherwise negative. Joan Swanson D.O. IMG DIAGNOSTIC IMAGI NG PROCEDURES * Influenza A/B and RSV, PCR, Point of Care (07/06/2022 8:09 PM CDT) Influenza A, POCT Negative Negative 07/06/2022 8:09 PM CDT [facility] Influenza B, POCT Negative Negative 07/06/2022 8:09 PM CDT [facility] Resp Syncytial Virus, POCT Negative Negative 07/06/2022 8:09 PM CDT [facility] 07/06/2022 8:09 PM CDT 07/06/2022 8:29 PM CDT [facility] POCT ORDERABLES - DEVICE Performing Organization Address City/[facility]/ZIP Co de Phone Number [facility] [address] [place] [id number], [facility] NPRG [address] [address] * Influenza A/B and RSV, PCR, Point of Care (07/06/2022 7:53 PM CDT) Influenza A, B, RSV, PCR, POCT Collected DEFAULT 07/06/2022 8:04 PM CDT [facility] Swab (Nasopharynx) 07/06/2022 7:53 PM CDT 07/06/2022 8:04 PM CDT Joan Swanson D.O. LAB POCT ORDERABLES - DEVICE Performing Organization Address City/[facility]/ZIP Co de Phone Number [facility] [address] [place] [address], [facility] NPRG [address] [address] * SARS Coronavirus 2, PCR Rapid, V Symptomatic (07/06/2022 7:53 PM CDT) SARS CoV-2, PCR, Rapid, V Undetected Undetected 07/06/2022 8:28 PM CDT [facility] Comment: ----ADDITIONAL INFORMATION---- This RT-PCR test was performed using the [employer] SARS-CoV-2 and Influenza A/B Reagent assay from [employer], which has received Emergency Use Authorization(EUA) by the U.S. Food and Drug Administration. Fact sheets for this Emergency Use Authorization (EUA) assay can be found at the following links: For Healthcare Providers: https://www.fda.gov/media/634476/download For Patients: https://www.fda.gov/media/189565/download SARS Coronavirus 2, Source, Rapid Swab, Nasopharynx 07/06/2022 8:04 PM CDT [facility] Swab (Nasopharynx) 07/06/2022 7:53 PM CDT 07/06/2022 8:04 PM CDT Joan Swanson D.O. LAB MICROBIOLOGY - G ENERAL ORDERABLES [facility] [address] [place] [address], [facility] [address] [address] * CK (Creatine Kinase) (07/06/2022 7:23 PM CDT) Creatine Kinase, P 126 26 - 192 U/L 07/06/2022 8:06 PM CDT [facility] Blood (Blood, Venous) 07/06/2022 7:23 PM CDT 07/06/2022 7:42 PM CDT Joan Swanson D.O. LAB BLOOD ADD-ON [facility] [address] [place] [address], [facility] [address] [place] [address] * (ABNORMAL) Comprehensive Metabolic Panel (07/06/2022 7:23 PM CDT) Potassium, P 4.3 3.6 - 5.2 mmol/L 07/06/2022 8:06 PM CDT [facility] Sodium, P 136 135 - 145 mmol/L 07/06/2022 8:06 PM CDT [facility] Chloride, P 99 98 - 107 mmol/L 07/06/2022 8:06 PM CDT [facility] Bicarbonate, P 24 22 - 29 mmol/L 07/06/2022 8:06 PM CDT [facility] Anion Gap, P 13 7 - 15 07/06/2022 8:06 PM CDT [facility] BUN (Blood Urea Nitrogen), P 5(L) 6 - 21 mg/dL 07/06/2022 8:06 PM CDT [facility] Creatinine 0.60 0.59 - 1.04 mg/dL 07/06/2022 8:06 PM CDT [facility] Estimated GFR (eGFR) >90 >=60 mL/min/BS A 07/06/2022 8:06 PM CDT [facility] Comment: Estimated GFR calculated using the 2020 CKD_EPI creatinine equation. Calcium, Total, P 9.4 8.6 - 10.0 mg/dL 07/06/2022 8:06 PM CDT [facility] Glucose, P 91 70 - 140 mg/dL 07/06/2022 8:06 PM CDT [facility] Protein, Total, P 7.0 6.3 - 7.9 g/dL 07/06/2022 8:06 PM CDT [facility] Albumin, P 4.3 3.5 - 5.0 g/dL 07/06/2022 8:06 PM CDT [facility] Aspartate Aminotransferase (AST), P 27 8 - 43 U/L 07/06/2022 8:06 PM CDT [facility] Alkaline Phosphatase, P 113(H) 35 - 104 U/L 07/06/2022 8:06 PM CDT [facility] Alanine Aminotransferase (ALT), P 17 7 - 45 U/L 07/06/2022 8:06 PM CDT [facility] Bilirubin, Total, P 0.4 <=1.2 mg/dL 07/06/2022 8:06 PM CDT [facility] Blood (Blood, Venous) 07/06/2022 7:23 PM CDT 07/06/2022 7:42 PM CDT Joan Swanson D.O. LAB BLOOD ADD-ON [facility] [address] [place] [address], [facility] NPRG [facility] [address] [place] [address] * (ABNORMAL) CBC with Differential, Blood (07/06/2022 7:23 PM CDT) Hemoglobin 13.2 11.6 - 15.0 g/dL 07/06/2022 7:50 PM CDT [facility] Hematocrit 40.0 35.5 - 44.9 % 07/06/2022 7:50 PM CDT [facility] Erythrocytes 4.20 3.92 - 5.13 x10(12)/L 07/06/2022 7:50 PM CDT [facility] MCV 95.2 78.2 - 97.9 fL 07/06/2022 7:50 PM CDT [facility] RBC Distrib Width 13.0 12.2 - 16.1 % 07/06/2022 7:50 PM CDT [facility] Platelet Count 400(H) 157 - 371 x10(9)/L 07/06/2022 7:50 PM CDT [facility] Leukocytes 19.3(H) 3.4 - 9.6 x10(9)/L 07/06/2022 7:50 PM CDT [facility] Neutrophils 16.15(H) 1.56 - 6.45 x10(9)/L 07/06/2022 7:50 PM CDT [facility] Lymphocytes 1.40 0.95 - 3.07 x10(9)/L 07/06/2022 7:50 PM CDT [facility] Monocytes 1.47(H) 0.26 - 0.81 x10(9)/L 07/06/2022 7:50 PM CDT [facility] Eosinophils 0.22 0.03 - 0.48 x10(9)/L 07/06/2022 7:50 PM CDT [facility] Basophils 0.03 0.01 - 0.08 x10(9)/L 07/06/2022 7:50 PM CDT [facility] Blood (Blood, Venous) 07/06/2022 7:23 PM CDT 07/06/2022 7:42 PM CDT Joan Swanson D.O. LAB BLOOD ADD-ON [facility] [address] [place] [address], [facility] NPRG [facility] [address] [place] [address] documented in this encounter Visit Diagnoses Diagnosis Pneumonia- Primary documented in this encounter Administered Medications Inactive Administered Medications - up to 3 most recent administrations Medication Order MAR Action Action Date Dose Rate Site doxycycline monohydrate tablet 100 mg (ADOXA) 100 mg, oral, Once, On Angelique 07/06/22 at 2125, For 1 dose, Administer 2 hours before or 6 hours after taking magnesium, aluminum (antacids, laxatives) or calcium and iron supplements (multivitamins). Ensure patient remains upright for 30 minutes post-dose., Indications: Respiratory tract infection, community acquired Given 07/06/2022 9:31 PM CDT 100 mg documented in this encounter Active and Recently Administered Medications Times are shown in CDT. Scheduled Medication Order 07/04/2022 07/05/2022 07/06/2022 doxycycline monohydrate tablet 100 mg (ADOXA) (COMPLETED) 100 mg, oral, Once, On Angelique 07/06/22 at 2125, For 1 dose, Administer 2 hours before or 6 hours after taking magnesium, aluminum (antacids, laxatives) or calcium and iron supplements (multivitamins). Ensure patient remains upright for 30 minutes post-dose., Indications: Respiratory tract infection, community acquired 2130 (Given - Provid er: Joan Amador R.N.) documented in this encounter Additional Health Concerns Infection Onset Date Last Indicated Resolved Time Protective Environment 06/07/2022 06/07/2022 COVID19 Pending 07/06/2022 07/06/2022 07/06/2022 8 :28 PM CDT Assessment Noted Time PHQ-9 Depression Total Score: 2 12/01/19 20 6:54 AM CDT documented as of this encounter Care Teams Manager Paper Relationship Specialty Start Date End Date Jamal Butt M.D. [facility] [phone] PCP - General Family Medicine 05/21/17 documented as of this encounter
--- OUTSIDE RECORDS SUMMARY | 2023-02-13 16:05 | XMS_ITS | Encounter Summary ---
Author Name Unknown Organization [facility] Address [address] [place] [address] Care Team Providers Care Executive Search Consultant Name Role Phone Jamal Butt M.D. Primary Care Provider [phone] Reason for Visit * Reason Comments Headache * Outpatient (Routine) - Authorized Specialty Diagnoses / Procedures Referred By Contac t Referred To Contact Diagnoses Chronic Migraine Procedures Botox for Chronic Migraine Genevieve Kingston APRN C.N.P., M.S.N. [address] [place] [phone] [facility] Region Referral ID Status Reason Start Date Expiration Date V isits Requested Visits Authorized [id number] Authorized 06/29/2022 06/29/2023 4 4 Encounter Details Date Type Department Care Team (Latest Contact Info) Description 09/26/2022 9:30 AM CDT Procedure visit Department of Neurology in [place], [place] [address] [place] [phone] Patel Martell M.B., Ch.B. [address] [place] [phone] Chronic Migraine Discharge Disposition: Home or [...] How often do you attend chur or baptism services? Patient declined 10/28/2020 Do you belong to any clubs o r organizations such as congregation groups, unions, fraternal or athletic groups, or [...] Answer Date Recorded PHQ-2 Score 1 12/01/2019 [facility] - Occupational Stress Questionnaire Answer Date Recorded [...] place to sleep or slept in a half-way (including now)? No 10/28/2020 Depression Answer Date [...] Sex Assigned at Female 03/06/2017 10:16 AM GLOVE FINISHER Gender Identity Female 03/06/2017 10:16 AM GLOVE FINISHER Sexual Orientation Straight 03/06/2017 10 :16 AM GLOVE FINISHER documented as of this encounter Procedure Notes * Patel Martell M.B., Ch.B. - 09/26/2022 9:30 AM CDTAssociated Order(s): Botox for Chronic Migraine Pre-Procedure Diagnose(s): Chronic Migraine Post-Procedure Diagnose(s): Chronic Migraine Botox for Chronic Migraine Performed by: Patel Martell M.B., ChMertB. Authorized by: Genevieve Kingston APRN, C.N.P., M.S.N. Care team members present 1. Patel Martell M.B., Ch.B. 2. Maria R Maynard L.P.N. PROCEDURE DETAILS Pre-procedure pain score: 0/10 Injection of: 100 Units onabotulinumtoxinA 100 unit; 50 Units onabotulinumtoxinA 100 unit Needle gauge: 30 Needle length: 0.5 in Injection site details Coil Cutter / Procerus muscle(s): 5 units into the left endoscope technician muscle, 5 units into the right endoscope technician muscle and 5 units into the procerus [...] not covered by a third alliance party. Prior to treatment with Botox, the frequency [...] completed successfully: yes Complications: no apparent complications Nereida Hernandez, Ch.B. Board Certified Neurologist Neuro-Polisher Apprentice 09/26/22 10:15 AM CDT documented in this encounter Plan of Treatment Upcoming Encounters Date Type Department Care Team (Late st Contact Info) Description 04/26/2023 10:00 AM CDT Office Visit Department of Neurology in [address] [phone] Patel Martell M.B., Ch.B. [address] [place] [phone] Discharge Disposition: Home or Self Care documented as of this encounter Procedures Procedure Name Priority Date/Time Associated Diagnosis Comments UT CHEMODENERV FACIAL TRIGEM BARBARA Routine 09/26/2022 9:30 AM CDT Chronic Migraine documented in this encounter Results * UT CHEMODENERV FACIAL TRIGEM BARBARA (09/26/2022 9:30 AM CDT) Narrative MMODAL - 09/26/2022 9:30 AM CDT Patel Martell M.B., Ch.B. ? 09/26/2022 10:16 AM Botox for Chronic Migraine Performed by: Patel Martell M.B., Ch.B. Authorized by: Genevieve Kingston APRN, C.N.P., M.S.N. ?? Care team members present 1. Patel Martell M.B., Ch.B. 2. Maria R Maynard L.PCasandra PROCEDURE DETAILS ?? Pre-procedure pain score: 0/10 Injection of: ??100 Units onabotulinumtoxinA 100 unit; 50 Units onabotulinumtoxinA 100 unit Needle gauge: 30 Needle length: 0.5 in Injection site details Coil Cutter / Procerus muscle(s): 5 units into the left endoscope technician muscle, 5 units into the right endoscope technician muscle ??and 5 units into the procerus [...] Kingston APRN, C.N.P., M.S.N. NEURO LOGY ORDERABLES MMODAL NA documented in this encounter Visit Diagnoses Diagnosis Chronic Migraine documented in this encounter Administered Medications Inactive Administered Medications - up to 3 most recent administrations Medication Order MAR Action Action Date Dose Rate Site onabotulinumtoxinA injection 100 Units (BOTOX) 100 Units, injection, One-Time Injection, Starting on Sun09/26/22 at 0930, For 1 dose Given 09/26/2022 9:30 AM CDT 100 Units onabotulinumtoxinA injection 50 Units (BOTOX) 50 Units, injection, One-Time Injection, Starting on Sun09/26/22 at 0930, For 1 dose Given 09/26/2022 9:30 AM CDT 50 Units documented in this encounter Additional Health Concerns Infection Onset Date Last Indicated Resolved Time Protective Environment 06/07/2022 06/07/2022 Assessment Noted Time PHQ-9 Depression Total Score: 2 12/01/19 20 6:54 AM CDT documented as of this encounter Care Teams Executive Search Consultant Relationship Specialty Start Date End Date Jamal Butt M.D. NPJunior: [id number] [place] [facility] [place] [phone] PCP - General Family Medicine 05/21/17 documented as of this encounter
--- OUTSIDE RECORDS SUMMARY | 2023-02-13 16:05 | XMS_ITS | Encounter Summary ---
Author Name Unknown Organization [facility] Address [address] [place] [address] Care Team Providers Care Spinning Mule Tender Name Role Phone Jamal Butt M.D. Primary Care Provider [phone] Reason for Visit * Reason Comments Outpatient Infusion * Episode Based Medications (Routine) - Authorized Specialty Diagnoses / Procedures Referred By Contac t Referred To Contact Diagnoses Multiple Sclerosis (HCC) Procedures MO OCRELIZUMAB 1 MG INJ Patel Martell M.B., Ch.B. [address] [place] [phone] [facility] Region Referral ID Status Reason Start Date Expiration Date V isits Requested Visits Authorized [id number] Authorized 02/16/2022 08/24/2023 3 3 Encounter Details Date Type Department Care Team (Late st Contact Info) Description 08/28/2022 9:00 AM CDT Infusion Department of Infusion Therapy in [place], [place] [address] [place] [phone] Patel Martell M.B., Ch.B. [address] [place] [phone] Multiple Sclerosis (HCC) (Primary Dx) Social History Tobacco Use Types [...] How often do you attend chur or sikhism services? Patient declined 10/28/2020 Do you belong to any clubs o r organizations such as anabaptist groups, unions, fraternal or athletic groups, or [...] Answer Date Recorded PHQ-2 Score 1 12/01/2019 [facility] - Occupational [...] place to sleep or slept in a chcf (including now)? 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 Gender Identity Female 03/06/2017 10:16 AM SPENT GRAIN DRYER Sexual Orientation Straight 03/06/2017 10 :16 AM SPENT GRAIN DRYER documented as of this encounter Last Filed Vital Signs Vital Sign Reading Time Taken Comments Blood Pressure 108/76 08/28/2022 9:03 AM CDT Pulse 78 08/28/2022 9:03 AM CDT Temperature 36.6 ??C (97.9 ??F) 08/28/2022 9:03 AM CD T Respiratory Rate 16 08/28/2022 9:03 AM CDT Oxygen Saturation 96% 08/28/2022 9:03 AM CDT Inhaled Oxygen Concentration - - Weight - - Height - - Body Mass Index - - documented in this encounter Plan of Treatment Upcoming Encounters Date Type Department Care Team (Late st Janessa Pires) Description 04/26/2023 10:00 AM CDT Office Visit Department of Neurology in [place], [place] [address] [place] [phone] Patel Martell M.B., Ch.B. [address] [place] [phone] Discharge Disposition: Home or Self Care documented as of this encounter Visit Diagnoses Diagnosis Multiple Sclerosis (HCC)- Primary documented in this encounter Administered Medications Inactive Administered Medications - up to 3 most recent administrations Medication Order MAR Action Action Date Dose Rate Site acetaminophen tablet 650 mg (TYLENOL) 650 mg, oral, Once, On Sun08/28/22 at 0900, For 1 dose Given 08/28/2022 8:58 AM CDT 650 mg diphenhydrAMINE capsule 25 mg (BENADRYL) 25 mg, oral, Once, On Sun08/28/22 at 0900, For 1 dose Given 08/28/2022 8:58 AM CDT 25 mg methylPREDNISolone sod succinate (PF) injection 100 mg (SOLU-Medrol) 100 mg, intravenous, Once, On Sun08/28/22 at 0900, For 1 dose, Activate vial to a final concentration of 62.5 mg/mL Given 08/28/2022 8:58 AM CDT 100 mg ocrelizumab 600 mg in NaCl 0.9% IVPB (OCREVUS) 600 mg, intravenous, Once, On Sun08/28/22 at 0900, For 1 dose, Accelerated Infusion (NO previous serious infusion reactions to ocrelizumab): Begin infusion at 100 mL/hour for first 15 minutes; increase to 200 mL/hour for the next 15 minutes; increase to 250 mL/hour for the next 30 minutes; increase to 300 mL/hour for the remaining 60 minutes. ?? Conventional Infusion (history of previous serious infusion reactions to ocrelizumab): Begin infusion at 40 mL/hour; increase by 40 mL/hour every 30 minutes to a maximum rate of 200 mL/hour. Handle with care. Do not shake or tube. Administer via 0.2 micron in-line filter., Infusion rate adjustment: If patient has NO previous serious infusion reactions, accelerated infusion authorized. Rate/Dose Change 08/28/2022 10:25 AM CDT 300 mL/hr Rate/Dose Change 08/28/2022 9:55 AM CDT 250 mL/ hr Rate/Dose Change 08/28/2022 9:40 AM CDT 200 mL/ hr documented in this encounter Additional Health Concerns Infection Onset Date Last Indicated Resolved Time Protective Environment 06/07/2022 06/07/2022 Assessment Noted Time PHQ-9 Depression Total Score: 2 12/01/19 20 6:54 AM CDT documented as of this encounter Care Teams Spinning Mule Tender Relationship Specialty Start Date End Date Jamal Butt M.D. [address] [place] [phone] PCP - General Family Medicine 05/21/17 documented as of this encounter
--- OUTSIDE RECORDS SUMMARY | 2023-02-13 16:05 | XMS_ITS | Encounter Summary ---
Author Name Unknown Organization [facility] Address [address] [place] [address] Care Team Providers Care Leather Staker Name Role Phone Jamal Butt M.D. Primary Care Provider [phone] Reason for Visit * Reason Comments Multiple Sclerosis Migraine F/U Encounter Details Date Type Department Care Team (Late st Contact Info) Description 01/11/2023 1:45 PM BINDER CUTTER Office Visit Department of Neurology in [place], [place] [address] [place] [phone] Genevieve Kingston, CRISTOPHER, C.N.P., M.S.N. [address] [place] [phone] Chronic Migraine (Primary Dx) Discharge Disposition: Home [...] often do you attend chur ch or anabaptism services? Patient declined 10/28/2020 Do you belong to any clubs o r organizations such as scientologist groups, unions, fraternal or athletic groups, or [...] Answer Date Recorded PHQ-2 Score 1 12/01/2019 [facility] - Occupational [...] Sex Assigned at Female 03/06/2017 10:16 AM BINDER CUTTER Gender Identity Female 03/06/2017 10:16 AM BINDER CUTTER Sexual Orientation Straight 03/06/2017 10 :16 AM BINDER CUTTER documented as of this encounter Last Filed Vital Signs Vital Sign Reading Time Taken Comments Blood Pressure 98/65 01/11/2023 12:59 PM BINDER CUTTER Pulse 111 01/11/2023 12:59 PM BINDER CUTTER Temperature - - Respiratory Rate - - Oxygen Saturation - - Inhaled Oxygen Concentration - - Weight 67 kg (147 lb 11.3 oz) 01/11/2023 12:59 P M BINDER CUTTER Height - - Body Mass Index 21.81 07/06/2022 7:02 PM CDT documented in this encounter Progress Notes * Genevieve Kingston APRN, C.N.P., M.S.N. - 01/11/2023 1:45 PM CST SUBJECTIVE REFERRAL No ref. provider found CHIEF COMPLAINT / REASON FOR VISIT: Ms. Vega presents today in follow-up of chronic migraines and associated care plan. HISTORY OF PRESENT ILLNESS: Ms. Vega is a 37 y.o. female with past medical history of multiple sclerosis (follows with Dr. Martell) and migraines. Ms. Vega returns today for subsequent evaluation and assessment of the effectiveness of treatments suggested at her previous visit on 09/26/22. Ms. Vega was last seen and evaluated by Dr. Martell. At the time of her last evaluation she was maintained on the preventative therapy of Botox injections, 150 units every 12 weeks -- her last round of injections were completed on 09/26/22. On presentation today Ms. Vega reports an increase in the frequency and intensity of headaches since last evaluation. Since last evaluation Ms. Vega has been maintained on the prophylactic therapy of Botox, 150 units every 12 weeks. Patient states that over the past 2 weeks, her migraines have increased in both the frequency and intensity. Currently, she is treating her migraines with naproxen which has minimal benefit for her. As noted, she is about 3-4 weeks behind on her Botox injections. Patient was hoping to be able to get her injections completed today, unfortunately, we will have her schedule out a couple of weeks to ensure that her insurance approves the injections. Usually, Botox injections have been very helpful for both the frequency and intensity of her migraines. We will not make changes to her plan of care at this time. Current headache regimen: - Botox, 150 units every 12 weeks Past headache medications (reason for discontinuation): - Propranolol - Metoprolol - Gabapentin - Topiramate - Amitriptyline - Nortriptyline - Verapamil - Divalproex OBJECTIVE Vitals: 01/11/23 1259 BP: 98/65 Pulse: (!) 111 Results for orders placed or performed during the hospital encounter of 11/27/22 MR Brain without and with IV Contrast Narrative EXAM: MR BRAIN WITHOUT AND WITH IV [...] systems bilaterally. The midline structures are intact. Impression Stable findings since a study of 07/12/2020. ASSESSMENT #1 Chronic migraine #2 Multiple Sclerosis PLAN Continue with Botox, 150 units every 12 weeks for migraine prophylaxis -- can schedule your next appointment today DISCUSSION Ms. Vega is a 37-year-old, female who is presenting to the neurology clinic today for follow-up in regard to established diagnosis of chronic migraines and associated care plan. As noted above, patient will continue with Botox injections. I did encourage her to stay on an every 12 week basis with her injections to prevent overall worsening migraines that are not responsive to the use of medication. She will come back to the neurology clinic with her next round of Botox injections. However, if thepatient has any questions or concerns before then she can reach me via the portal, by calling the clinic, or by coming back into the neurology clinic to be evaluated. Patient verbalizes understandingand is in agreement with this plan. RECOMMENDATIONS 1. Preventive therapy: Botox, 150 units every 12 weeks 2. For acute treatment of severe headaches or headache that are unresponsive to the above treatment, I recommend naproxen as needed, but limit the use to no more than 9 days per month. A successful preventive will be one that decreases the headache frequency by at least 50%. Recommend lifestyle modifications including the SEEDS for success in headache management. Includingsleep hygiene, exercising regularly, eating healthy and regular meals, drinking water maintaining aheadache diary, and stress reduction. Patient education: The patient was ready to learn and had no apparent learning barriers. Their learning preferences includes listening. The diagnosis and treatment plans were explained and the patient expressed understanding of the content. ER CUTTER documented in this encounter Plan of Treatment Upcoming Encounters Date Type Department Care Team (Late st Contact Info) Description 04/26/2023 10:00 AM CDT Office Visit Department of Neurology in [address] [phone] Patel Matrell M.B., .B. [address] [place] [phone] Discharge Disposition: Home or Self Care documented as of this encounter Visit Diagnoses Diagnosis Chronic Migraine- Primary documented in this encounter Additional Health Concerns Infection Onset Date Last Indicated Resolved Time Protective Environment 06/07/2022 06/07/2022 Assessment Noted Time PHQ-9 Depression Total Score: 2 12/01/19 20 6:54 AM CDT documented as of this encounter Care Teams Leather Staker Relationship Specialty Start Date End Date Jamal Butt M.D. [address] [place] [phone] PCP - General Family Medicine 05/21/17 documented as of this encounter
--- OUTSIDE RECORDS SUMMARY | 2023-02-13 16:05 | XMS_ITS | Encounter Summary ---
Author Name Unknown Organization [facility] Address [address] [place] [address] Care Team Providers Care Veterinary Anatomist Name Role Phone Jamal Butt M.D. Primary Care Provider [phone] Reason for Referral * Outpatient (Routine) - Authorized Specialty Diagnoses / Procedures Referred By Contac t Referred To Contact Neurology Patel Martell M.B., Ch.B. [facility] [place] [address] [facility] Referral ID Status Reason Start Date Expiration Date V isits Requested Visits Authorized [id number] Authorized 09/26/2022 09/25/2025 1 1 * MRI/CAT/PET Scan (Routine) - Closed Specialty Diagnoses / Procedures Referred By Contayla t Referred To Contact Radiology Diagnoses Multiple Sclerosis (HCC) Procedures MR Brain without and with IV Contrast Patel Martell M.B., Ch.B. [address] [place] [address] [facility] Region Referral ID Status Reason Start Date Expiration Date Visits Re quested Visits Authorized [id number] Closed 09/26/2022 09/26/2023 1 1 Reason for Visit * Reason Comments Headache * Appointment Request (Routine) - Closed Specialty Diagnoses / Procedures Referred By Campbell estrada Referred To Contact Neurology Referral ID Status Reason Start Date Expiration Date Visits Re quested Visits Authorized [id number] Closed 06/21/2022 06/21/2023 1 1 Encounter Details Date Type Department Care Team (Latest Contact Info) Description 09/26/2022 10:00 AM CDT Office Visit Department of Neurology in [address] [address] Patel Martell M.B., Ch.B. [address] [place] [phone] Multiple Sclerosis (HCC) (Primary Dx); Chronic Migraine; Senior Living Current Use Of Immunosuppressive Biologic Social History Tobacco Use Types Packs/Day Years [...] declined 10/28/2020 How often do you attend [facility] or congregational services? Patient declined 10/28/2020 Do [...] Answer Date Recorded PHQ-2 Score 1 12/01/2019 [facility] - Occupational Stress [...] place to sleep or slept in a fci (including now)? No 10/28/2020 Depression Answer Date [...] Sex Assigned at Female 03/06/2017 10:16 AM BATCHING OPERATOR Gender Identity Female 03/06/2017 10:16 AM BATCHING OPERATOR Sexual Orientation Straight 03/06/2017 10 :16 AM BATCHING OPERATOR documented as of this encounter Last Filed Vital Signs Vital Sign Reading Time Taken Comments Blood Pressure 113/70 09/26/2022 9:27 AM CDT Pulse 85 09/26/2022 9:27 AM CDT Temperature - - Respiratory Rate - - Oxygen Saturation - - Inhaled Oxygen Concentration - - Weight 67 kg (147 lb 11.3 oz) 09/26/2022 9:27 AM CDT Height - - Body Mass Index 21.81 07/06/2022 7:02 PM CDT documented in this encounter Consult Notes * Patel Martell M.B., Ch.B. - 09/26/2022 10:00 AM CDT SUBJECTIVE Referring Provider: No ref. provider found CHIEF COMPLAINT / REASON FOR VISIT Jessy Vega is a 37 y.o. female who presents for evaluation of Consults HISTORY OF PRESENT ILLNESS Jessy Vega is a 37 y.o. female with medical history significant for multiple sclerosis, andchronic migraine headaches who, presented at the [facility] on 09/26/2022 for neurological evaluation. Jessy presents as a follow-up evaluation for multiple sclerosis, and chronic migraine headaches, since her last visit she has remained stable, she has no new signs or symptoms concerning for MS relapse, or exacerbation, her last infusion was in August 2022, this was well tolerated with no concerns. With regards to headaches these have been adequately well controlled with her Botox injections, sheis presently getting only about 1-2 headaches per month, this usually responds well to her naproxen. MRI brain 10/12/2021: No change when compared to previous 2020 study: Multiple bilateral unchanged [id number] lesions within the periventricular white matter consistent with the patient's known MS. The brainstem, cerebellum and visualized optic nerves remain free of disease process, and there are no newly identified lesions. There is no enhancement of any of the lesions on the current study. Prior history: Initial evaluation 11/04/2020, Jessy presented for establishment of care with [place] [facility], she was initially seen by [place] [facility], she carries a diagnosis of multiple sclerosis diagnosed 01/31/2012, after bout of optic neuritis involving the right eye, she was diagnosed in [place], and chronic headaches. She states she was diagnosed with multiple sclerosis after she developed optic neuritis involving the right eye, at that time she had steroids and subsequently recovered, she was then started on Rebif, but states she was still getting relapses which she has difficulty walking for a few days, she was switched to Copaxone and the had relapses with it, it was also associated with fainting spells. She states symptoms were mainly that of fatigue. She switched to Copaxone in 2013 and remained on that for two months, but this apparently caused some type of allergic reaction. She would become short of breath and nauseous within minutes of each injection. She discontinued this medication in 2014 and began rituximab, which she used to receive every 6 months, this was later changed to Ocrevus in 2019, when she transferred her care from [place] to [place]. In 2013 she underwent a stem cell transplant. In terms of symptomatology, she describes episodic lower extremity weakness. She generally gets intravenous methylprednisolone or steroid injections for this, and generally, these help within one day. She underwent evaluation in July of 2015 for weak legs. She thinks that this was her last attack. She has multiple panic attacks and multiple visits to the emergency room. She also gets weekly panic attacks but only attends the emergency room on approximately a once monthly basis. Her panic attacks are characterized by crying, shaking, and vomiting. She has been tried on a multitude of medications. She does see a psychiatrist. Generally, when these attacks get worse, he increases her Effexor and clonazepam. This is presently being controlled by psychiatry. She does not have any limitations in her walking ability; however, due to significant problems due to her MS?, she states that this limits her activities. She states that she generally has very little energy nearly every day. She states that these symptoms make it very difficult for her to work. 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 She also has a longstanding history of migraine headaches onset n her early 20s. These initially were about 5-6 days per month. These gradually worsened over time. Although they are under fairly goodcontrol between 2005 and 2006 about 1-2 days per month with headache. Shortly after her diagnosis of multiple sclerosis in 2012 and after starting treatments her headaches seemed to worsen and she was having essentially daily headache Her headaches tend to initiate over the bilateral frontal region and may progress in a holocephalicnature. Her average intensity of pain currently is about a 7-8/10 with her most severe headaches being rated 10/10 in intensity. She does endorse some visual blurriness which comes and goes throughout her severe headaches that last minutes per episode. She was has been on several medications in the past for headaches, including Propranolol, Metoprolol, Amitriptyline, Nortriptyline, Verapamil, Divalproex, Gabapentin, Topiramate, Fluoxetine, and Sertraline, which were not helpful, until she started the Botox. She was then started on Botox was having very good control of her headaches with essentially no headaches while on Botox, this was started mid 2013 which she has been on ever since. She is on Botox 150 units every 12 weeks which helped with her migraine attacks, when she is on theBotox she does not get any headaches. She states when she is off the Botox the headaches come back,and it did not respond to any treatment, including [id number]-[id number] pain med and triptans. On today's presentation, she is reestablishing care, she was initially seen as [place] but due toproximity effect would preferred to seen in [place], she is due for her Botox injections, she is also due for Ocrevus infusion, of note she is having difficulty with having the Ocrevus approved by insurance company, this is been worked out with her previous neurologist in [place] who has sent in a n appeal. Since her last visit she has had no symptoms concerning for relapse, she presently has a 7/10 headache which have been ongoing since she is due for her next Botox injection, states the headache is generalized, pounding, with some sensitivity to light and sound and has had typical migraine headache. Prior imaging: MRI brain with and without is 07/12/2020: No significant interval change since 04/03/19 MRI brain & c-spine with and without 04/03/2019: No significant change when compared to 10/23/2018 MRI scan from March 2016, and comparison was made with the previous MRI scans going back as far as 2011. Historical review of the head MRIs between January 2012 and March 2016 showed that the T2 plaque burden had been slowly progressively increasing, with enhancing lesions on several of the studies. The T2 plaque burden has been stable between March 2016 and June 2016. There was no enhancement to suggest active demyelination in 2017. Cervical spine MRI dated the 12 Jun 2016 revealed evidence of a small demyelinating lesion in the right ventral cord at C2-C3 with faint associated enhancement. The lesion was felt to be present in March 2016 but was new compared to August 2012. There was also evidence of a small nonenhancing demyel inating lesion in the thoracic cord at T7, T8, and T10 which was unchanged compared to 2016 scan. Overall, there was relative stability of disease, which is reassuring. I have personally reviewed records relevant for this visit. I have directly reviewed imaging studies for this visit. The following portions of the patient's history were reviewed and updated as appropriate: Allergies, current medications, family history, medical history, social history, surgical history and problem list. MEDICAL HISTORY Past Medical History: Diagnosis Date [...] Sober for 10 years, ecstasy and cocaine SURGICAL HISTORY Past Surgical History: Procedure Laterality Date INNER EAR SURGERY Left 1996 Mastoiditis surgery REFRACTIVE SURGERY TOTAL HYSTERECTOMY 2014 Endometriosis SOCIAL HISTORY Social History Tobacco Use Smoking status: Light Smoker Packs/day: 0.50 Years: 5.00 Pack years: 2.50 Types: Cigarettes Start date: 07/25/1998 Smokeless tobacco: Never Substance Use Topics Alcohol use: Yes Alcohol/week: 3.0 standard drinks of alcohol Types: 3 Cans of beer per week Comment: beer socially Social History Substance and Sexual Activity Drug Use No FAMILY HISTORY Family History Problem Relation Age of Onset Alcohol abuse Mother Depression Mother Seizures Mother Migraines Mother Anxiety disorder Mother Suicide Attempts Mother Psychiatric Mother ADD Mother Lupus Father No Known Problems Sister CURRENT MEDICATIONS Current Outpatient Medications on File Prior to Visit Medication Sig Dispense Refill acetaminophen (TYLENOL) 500 mg tablet Take 1,000 mg by mouth as directed. Premed for Rituxan. albuterol (for_PROVENTIL HFA,VENTOLIN HFA) 90 mcg/actuation inhaler Inhale 1-2 puffs every other day. ascorbic acid, vitamin C, (VITAMIN C) 250 mg tablet Take 250 mg by mouth daily. B complex-vitamins (BALANCE B-50) tablet Take 1 tablet by mouth daily. beclomethasone (for_QVAR) 40 mcg/actuation inhaler Inhale 2 puffs as needed. cholecalciferol, vitamin D3, 25 mcg (1,000 Unit) tablet Take 1 tablet (1,000 units) by mouth daily clonazePAM (KlonoPIN) 1 mg tablet Take 1 mg by mouth 2 (two) times a day as needed for anxiety. States she takes it as needed. cloNIDine (CATAPRES) 0.1 mg tablet Take 0.1 mg by mouth as needed. 3 cyanocobalamin (VITAMIN B12) 1,000 mcg tablet Take 1,000 mcg by mouth daily. dextroamphetamine-amphetamine (ADDERALL) 20 mg tablet Take 3 tablets by mouth 3 (three) times a day. dextroamphetamine-amphetamine (ADDERALL) 30 mg tablet Take 1 tablet (30 mg total) by mouth daily. (Patient taking differently: Take 30 mg by mouth daily. 30 mg in am, 15 mg in the afternoon and 15 mgat night) 30 tablet 0 diphenhydrAMINE (BENADRYL) 25 mg capsule Take 1 capsule by mouth as directed. Premed for Rituxan infusion. ferrous sulfate 325 mg (65 mg iron) DR tablet Take 65 mg of iron by mouth daily. Iron FLOVENT HFA 110 mcg/actuation inhaler Inhale 1 puff as needed. 3 fluconazole (DIFLUCAN) 200 mg tablet Take 200 mg by mouth at bedtime. fluticasone propionate (FLONASE) 50 mcg/actuation nasal spray Administer 2 sprays into each nostril2 (two) times a day. ketoconazole (NIZORAL) 2 % cream at bedtime. lamoTRIgine (LaMICtaL) 200 mg tablet lamoTRIgine (LaMICtaL) 25 mg tablet METHYLPREDNISOLONE ACETATE INJ Inject as directed as directed. Dose: 125 mg IVP, premed for Rituxaninfusion. montelukast (SINGULAIR) 10 mg tablet Take 10 mg by mouth at bedtime. pregabalin (LYRICA) 100 mg capsule 2 (two) times a day. riTUXimab (RITUXAN) 10 mg/mL injection every 6 (six) months. riTUXimab in NaCl solution IVPB (for_RITUXAN) Infuse 1,000 mg into a venous catheter every 6 (six) months. traZODone (for_DESYREL) 100 mg tablet Take 200 mg by mouth at bedtime. zinc gluconate 50 mg tablet Take 50 mg by mouth daily with breakfast. Zinc No current facility-administered medications on file prior to visit. REVIEW OF SYSTEMS Ten-point review of systems completed; pertinent positives noted in HPI. REVIEW OF SYSTEMS OBJECTIVE I have reviewed vital signs as recorded in the EPIC record. PHYSICAL EXAMINATION Physical Exam General: Well-developed, no acute distress. Head: Normocephalic, atraumatic. ENT: Mucous membranes pink and moist. Respiratory: Breathing non-labored. Cardiovascular: Regular rate and rhythm. Abdomen: Soft, nontender. Musculoskeletal: No cyanosis or edema appreciated. Psychiatric: Does not appear anxious. Dermatologic: Skin warm and dry. Mental Status: Memory: Intact immediate short and long-term memory. Attention/Concentration: Intact attention on bedside test. Fund of knowledge: Intact Orientation: Person, place and time. Language: Normal fluency, comprehension, repetition. Speech: Is fluent, no dysarthria. Cranial Nerves: Pupils: OD 4 mm to 2 mm; OS 4 mm to 2 mm (no RAPD). Visual Vega: (R) visual field full to confrontation; (L) visual field full to confrontation. Optic Discs: (R/L) disc appears normal; no heme. CN III: CN IV, CN (Extraocular movements): extraocular eye movements intact. CN V: Normal pin and touch sensation in all three divisions of the trigeminal nerves, bilaterally. CN VII: Normal facial muscle strength bilaterally. CN VIII: Auditory acuity intact to bedside testing. CN IX/CN X: Normal palate elevation. CN XI: Normal strength of trapezius and SCM muscles, bilaterally. CN XII: Tongue protrudes in the midline. No atrophy or fasciculations. Motor Exam (MRC scale): Muscle Bulk: No atrophy or fasciculations. Muscle Tone: Physiologic tone in upper and lower extremities. Involuntary movements: None. Strength: 5/5 all extremities. Reflexes (NINDS scale): Normal equal and symmetrical negative Molly. Sensory: Light touch: Intact in all 4 extremities. Pain: Intact in all 4 extremities. Coordination: Normal rapid alternating movements without dysmetria. Romberg: Intact without sway. Gait: Arises independently; normal posture; gait stable and normal for age. DIAGNOSTICS I have reviewed relevant laboratory, imaging, and other diagnostics as applicable to this consult. Radiology: DX Chest AP or PA and Lateral 2 Views Result Date: 07/06/2022 EXAM: DX CHEST AP OR PA AND LATERAL 2 VIEWS Comparison chest x-ray 10/03/2017. New moderate sized [...] Mild peribronchial cuffing in the infrahilar regions bilater ally likely related to bronchial inflammation. Heart size normal. Chest otherwise negative. ASSESSMENT / PLAN Impression: Multiple sclerosis stable. History of right optic neuritis. Chronic migraine headache. Long-term immunosuppressive therapy - Ocrevus Discussion: Patient presents as a follow-up evaluation with Neurology, since last visit remained stable no evidence of progression of MS, headaches adequately controlled with Botox presently getting about 1-2 headaches per month which is well controlled with abortive medications, at this time would recommend co ntinuing with treatment regimen with no change for now, and follow-up in 1 year Recommendations/Plan: MRI brain w/wo to assess progression Plan continue with Botox 150 units every 12 weeks. Continue with Ocrevus as scheduled. For acute headaches okay to take naproxen/Aleve not more than 2 doses a day not more than 3 times aweek to prevent rebound headaches. Follow up 1 year. All other conditions being managed by Jamal Butt M.D. and others which contribute to medical complexity: Patient Active Problem List Diagnosis Multiple Sclerosis (HCC) Depression Major Recurrent (HCC) Generalized anxiety disorder Deficiency Vitamin B12 Tobacco Use Attention Deficit With Hyperactivity Disorder Colitis Ulcerative Proctitis (HCC) Insomnia Chronic Migraine Time spent: 45 minutes this include both face to face and non [id number]-nx-cxqs time, of this about 15 minutes or so were spent in education, counseling and coordinating future care across multiple specialties. The decision-making was highly complex. Advance Care Planning : On file PATIENT EDUCATION Ready to learn, no apparent learning barriers were identified; learning preferences include listening. Explained diagnosis and treatment plan; patient expressed understanding of the content. Nereida Hernandez, Ch.B. Board Certified Neurologist Neuro-Tank Washer 09/26/22 10:00 AM CDT documented in this encounter Miscellaneous Notes * Addendum Note - Patel Martell M.B., Ch.B. - 09/26/2022 10:00 AM CDT Addended by: PATEL MARTELL on: 09/26/2022 10:52 AM Modules accepted: Level of Service documented in this encounter Plan of Treatment Upcoming Encounters Date Type Department Care Team (Late st Contact Info) Description 04/26/2023 10:00 AM CDT Office Visit Department of Neurology in [address] [phone] Patel Martell M.B., Ch.B. [address] [place] [phone] Discharge Disposition: Home or Self Care Scheduled Referrals Name Type Priority Associated Diagnoses Orde r Schedule Neurology office visit (clinic) Outpatient Referral Routine Expected: 09/27/2023 (Approximate), Expires: 12/28/2023 documented as of this encounter Results * MR Brain without [...] a study of 07/12/2020. Patel Padron Ch.B. [facility] [place] EDURES documented in this encounter Visit Diagnoses Diagnosis Multiple Sclerosis (HCC)- Primary Chronic Migraine Senior Living Current Use Of Immunosuppressive Biologic Multiple Sclerosis (HCC) documented in this encounter Additional Health Concerns Infection Onset Date Last Indicated Resolved Time Protective Environment 06/07/2022 06/07/2022 Assessment Noted Time PHQ-9 Depression Total Score: 2 12/01/19 20 6:54 AM CDT documented as of this encounter Care Teams Veterinary Anatomist Relationship Specialty Start Date End Date Jamal Butt M.D. [address] [place] [phone] PCP - General Family Medicine 05/21/17 documented as of this encounter
--- OUTSIDE RECORDS SUMMARY | 2023-02-13 16:06 | XMS_ITS | Encounter Summary ---
Author Name Unknown Organization [facility] Address [address] [place] [address] Care Team Providers Care Child Support Specialist Name Role Phone Jamal uBtt M.D. Primary Care Provider [phone] Encounter Details Date Type Department Care Team (Late st Contact Info) Description 08/09/2017 [facility] [address] [place] [address] Willard Shahid M.D. [id number], [place] [phone] Pain Elbow Right (Primary Dx); Neuropathy Ulnar Right Social History Tobacco Use Types Packs/Day Years Used Date Smoking Tobacco: Every Day Cigarettes 0.8 5 Started: 07/25/1998 Smokeless Tobacco: Never Alcohol Use Standard Drinks/Week Comments Yes 0 (1 standard drink = 0.6 oz pur e alcohol) beer socially Sex and Gender Information Value Date Recorded Sex Assigned at Female 03/06/2017 10:16 AM [employer] Gender Identity Female 03/06/2017 10:16 AM [employer] Sexual Orientation Straight 03/06/2017 10 :16 AM [employer] documented as of this encounter Plan of Treatment Upcoming Encounters Date Type Department Care Team (Late st Contact Info) Description 04/26/2023 10:00 AM CDT Office Visit Department of Neurology in [address] [phone] Patel Martell M.B., .B. [address] [place] [address] Discharge Disposition: Home or Self Care documented as of this encounter Visit Diagnoses Diagnosis Pain Elbow Right- Primary Neuropathy Ulnar Right documented in this encounter Additional Health Concerns Infection Onset Date Last Indicated Resolved Time COVID19 Pending 09/11/2019 09/11/2019 09/12/2019 4 :17 AM CDT COVID19 Pending 11/18/2019 11/18/2019 11/19/2019 1 2:28 PM CDT COVID19 Pending 11/20/2019 11/20/2019 11/20/2019 1 0:17 PM CDT COVID19 Pending 01/12/2020 01/12/2020 01/13/2020 4 :11 AM [employer] COVID19 Pending 02/13/2020 02/13/2020 02/14/2020 1 :05 AM [employer] COVID19 Pending 03/31/2020 03/31/2020 03/31/2020 1 2:19 PM [employer] COVID19 Pending 03/31/2020 03/31/2020 04/01/2020 1 2:22 AM [employer] Protective Environment 06/07/2022 06/07/2022 COVID19 Pending 07/06/2022 07/06/2022 07/06/2022 8 :28 PM CDT Assessment Noted Time PHQ-9 Depression Total Score: 17 04 018 10:52 AM CDT documented as of this encounter Care Teams Child Support Specialist Relationship Specialty Start Date End Date Jamal Butt M.D. [address] [place] [phone] PCP - General Family Medicine 05/21/17 documented as of this encounter
--- OUTSIDE RECORDS SUMMARY | 2023-02-13 16:06 | XMS_ITS | Encounter Summary ---
Author Name Unknown Organization [facility] Address [address] [place] [address] Care Team Providers Care Sewing Trimmer Name Role Phone Jamal Butt M.D. Primary Care Provider [phone] Encounter Details Date Type Department Care Team (Late st Contact Info) Description 05/31/2016 Historical Ophthalmology RST OPH Eileen Alicia M.D. Social History Tobacco Use Types Packs/Day Years Used Date Smoking Tobacco: Never Assessed Sex and Gender Information Value Date Recorded Sex Assigned at Female 03/06/2017 10:16 AM KILN PULLER Gender Identity Female 03/06/2017 10:16 AM KILN PULLER Sexual Orientation Straight 03/06/2017 10 :16 AM KILN PULLER documented as of this encounter Progress Notes * Eileen Alicia M.D. - 05/31/2016 12:28 PM CDT Eye General CHIEF COMPLAINT Testing for Multiple Sclerosis HISTORY OF PRESENT ILLNESS Patient is here for visual field testing and photos. IMPRESSION / REPORT / PLAN #1 Visual field report, Normal visual field right eye, few paracentral defects left eye. Foveal threshold normal @ 40 OD, 39 OS. She has appointments in early July for [facility] OCTs and to see me for her neuroophthalmic exam. DIAGNOSIS #1 Visual field report, Normal visual field right eye, few paracentral defects left eye. CD Reports - EYEGEN Id: [id number] Status: Fnl documented in this encounter Plan of Treatment Upcoming Encounters Date Type Department Care Team (Late st Contact Info) Description 04/26/2023 10:00 AM CDT Office Visit Department of Neurology in [place], [place] [address] [place] [phone] Patel Martell M.B., Ch.B. [address] [place] [phone] Discharge Disposition: Home or Self Care documented [...] Pending 01/12/2020 01/12/2020 01/13/2020 4 :11 AM KILN PULLER COVID19 Pending 02/13/2020 02/13/2020 02/14/2020 1 :05 AM KILN PULLER COVID19 Pending 03/31/2020 03/31/2020 03/31/2020 1 2:19 PM KILN PULLER COVID19 Pending 03/31/2020 03/31/2020 04/01/2020 1 2:22 AM KILN PULLER Protective Environment 06/07/2022 06/07/2022 COVID19 Pending 07/06/2022 07/06/2022 07/06/2022 8 :28 PM CDT documented as of this encounter Care Teams Sewing Trimmer Relationship Specialty Start Date End Date Jamal Butt M.D. [address] [place] [address] PCP - General Family Medicine 05/21/17 documented as of this encounter
--- OUTSIDE RECORDS SUMMARY | 2023-02-13 16:06 | XMS_ITS | Encounter Summary ---
Author Name Unknown Organization [facility] Address [address] [place] [address] Care Team Providers Care Dispensary Attendant Name Role Phone Jamal Butt M.D. Primary Care Provider [phone] Reason for Visit * Reason Comments Outpatient Infusion Ocrevus * Episode Based Medications (Routine) - Authorized Specialty Diagnoses / Procedures Referred By Contayla t Referred To Contact Diagnoses Multiple Sclerosis (HCC) Procedures NE OCRELIZUMAB 1 MG INJ Patel Martell M.B., Ch.B. [address] [place] [address] [facility] Region Referral ID Status Reason Start Date Expiration Date V isits Requested Visits Authorized [id number] Authorized 02/16/2022 08/24/2023 3 3 Encounter Details Date Type Department Care Team (Late st Contact Info) Description 02/24/2022 8:30 AM MELT SUPERVISOR Infusion Department of Infusion Therapy in [place], [place] [address] [place] [phone] Patel Martell M.B., Ch.B. [address] [place] [phone] Multiple Sclerosis (HCC) (Primary Dx) Social History [...] How often do you attend chur or yarsani services? Patient declined 10/28/2020 Do you belong to any clubs o r organizations such as samaritan groups, unions, fraternal or athletic groups, or [...] Answer Date Recorded PHQ-2 Score 1 12/01/2019 [facility] [...] place to sleep or slept in a senior living (including now)? No 10/28/2020 Depression Answer Date [...] Sex Assigned at Female 03/06/2017 10:16 AM MELT SUPERVISOR Gender Identity Female 03/06/2017 10:16 AM MELT SUPERVISOR Sexual Orientation Straight 03/06/2017 10 :16 AM MELT SUPERVISOR documented as of this encounter Last Filed Vital Signs Vital Sign Reading Time Taken Comments Blood Pressure 120/70 02/24/2022 10:06 AM MELT SUPERVISOR Pulse 88 02/24/2022 10:06 AM MELT SUPERVISOR Temperature 36.6 ??C (97.9 ??F) 02/24/2022 10:[address] Respiratory Rate 14 02/24/2022 10:06 AM MELT SUPERVISOR Oxygen Saturation 97% 02/24/2022 10:06 AM MELT SUPERVISOR Inhaled Oxygen Concentration - - Weight - - Height - - Body Mass Index - - documented in this encounter Plan of Treatment Upcoming Encounters Date Type Department Care Team (Late st Contact Info) Description 04/26/2023 10:00 AM CDT Office Visit Department of Neurology in [place], [place] [address] [place] [phone] Patel Martell M.B., Ch.B. [address] [place] [phone] Discharge Disposition: Home or Self Care documented as of this encounter Visit Diagnoses Diagnosis Multiple Sclerosis (HCC)- Primary documented in this encounter Administered Medications Inactive Administered Medications - up to 3 most recent administrations Medication Order MAR Action Action Date Dose Rate Site acetaminophen tablet 650 mg (TYLENOL) 650 mg, oral, Once, On Sun02/24/22 at 0845, For 1 dose Given 02/24/2022 8:50 AM MELT SUPERVISOR 650 mg diphenhydrAMINE capsule 25 mg (BENADRYL) 25 mg, oral, Once, On Sun02/24/22 at 0845, For 1 dose Given 02/24/2022 8:50 AM MELT SUPERVISOR 25 mg methylPREDNISolone sod succinate (PF) injection 100 mg (SOLU-Medrol) 100 mg, intravenous, Once, On Sun02/24/22 at 0845, For 1 dose, Activate vial to a final concentration of 62.5 mg/mL Given 02/24/2022 8:50 AM MELT SUPERVISOR 100 mg ocrelizumab 600 mg in NaCl 0.9% IVPB (OCREVUS) 600 mg, intravenous, Once, On Sun02/24/22 at 0845, For 1 dose, Accelerated Infusion (NO previous [...] infusion reactions, accelerated infusion authorized. Rate/Dose Change 02/24/2022 10:06 AM MELT SUPERVISOR 300 mL/hr Rate/Dose Change 02/24/2022 9:36 AM MELT SUPERVISOR 250 mL/ hr Rate/Dose Change 02/24/2022 9:20 AM MELT SUPERVISOR 200 mL/ hr documented in this encounter Additional Health Concerns Assessment Noted Time PHQ-9 Depression Total Score: 2 12/01/19 6:54 AM CDT documented as of this encounter Care Teams Dispensary Attendant Relationship Specialty Start Date End Date Jamal Butt M.D. NPJunior: [id number] [place] [phone] PCP - General Family Medicine 05/21/17 documented as of this encounter
--- OUTSIDE RECORDS SUMMARY | 2023-02-13 16:06 | XMS_ITS | Clinical Summary ---
Author Name Unknown Organization [facility] Address [place], [place] [address] Care Team Providers Care Order Filler Name Role Phone Willard Shahid MD Primary Care Provider [phone] Allergies Active Allergy Reactions Criticality Noted Date Comments Glatiramer (Copolymer 1) Vomiting,Anaphylaxis High 0 03/04/2017 Mold Shortness Of Breath 01/31/2023 Bupropion Hcl Intolerance-Can't Take 07/27/2017 Medications Medication Sig Dispensed Refills Start Date End Date Status Amphetamine-Dext roamphetamine (ADDERALL) 30 mg tablet Take 30 mg by mouth before breakfast. 0 8 Active etodolac (LODINE) 300 mg capsule Take 300 mg by mouth once daily. 0 Active METHYLPREDNISOLO NE ACETATE INJ by Continuous Infusion route EVERY 6 MONTHS. 0 7 Active clonazePAM (KLONOPIN) 1 mg tablet Take 1 tablet by mouth 2 times daily. 0 0 Active VITAMIN B COMPLEX ORAL Take 1 Tab by mouth once daily. 0 Active traZODone (DESYREL) 100 mg tablet Take 2 tablets by mouth once daily. 0 0 Active montelukast (SINGULAIR) 10 mg tablet Take 10 mg by mouth once daily. 0 0 Active minocycline (MINOCIN) 100 mg capsule Take 100 mg by mouth once daily. 0 9 Active lamoTRIgine (LAMICTAL) 100 mg tablet Take 225 mg by mouth once daily. 0 0 Active ferrous sulfate 325 mg delayed release tablet Take 1 tablet by mouth once daily. 0 Active albuterol HFA 90 mcg/actuation inhaler Inhale 2 Puffs by mouth every 4 hours if needed. 0 7 Active cyanocobalamin 1,000 mcg tablet Take 1 tablet by mouth once daily. 0 0 Active PREGABALIN ORAL Take 100 mg by mouth two times daily. 0 Active benzonatate (TESSALON) 200 mg capsuleIndicatio ns:Chronic cough Take 1 Capsule (200 mg) by mouth 3 times daily if needed for Cough. 90 Capsule 1 3 Active alteplase (ACTIVASE; CATHFLO) injectionIndicat ions:Pulmonary infiltrate 2 mg by Intra-Catheter route each time if needed for Catheter Clearance. Instill 2 mg into catheter and allow to dwell for 30 minutes. If unable to aspirate blood, allow to dwell for a total of 120 minutes. 0 4 Active cefTRIAXone (ROCEPHIN) 1 gram injectionIndicat ions:Pulmonary infiltrate Inject 2,000 mg intravenous every 24 hours for 15 days. 30 g 0 4 02/23/19 24 Active amoxicillin-clav ulanate 875-125 mg tablet (AUGMENTIN)Indic ations:Pulmonary infiltrate Take 1 Tablet by mouth two times daily with meals for 21 days. 42 Tablet 0 4 03/01/19 24 Active guaiFENesin 100 mg/5 mL liquidIndication s:Cough, unspecified type Take 5 mL (100 mg) by mouth every 4 hours if needed for Expectoration. 236 mL 0 4 Active nystatin powder (MYCOSTATIN) powderIndication s:Cutaneous candidiasis Apply topically to affected area(s) three times daily. 60 g 0 4 Active oxyCODONE (ROXICODONE) 5 mg immediate release tabletIndication s:Pain Take 1 Tablet (5 mg) by mouth every 4 hours if needed for moderate to severe pain. 15 Tablet 0 4 Active sodium chloride (OCEAN) 0.65 % nasal solutionIndicati ons:Dry nose Inhale 2 Sprays into affected nostril(s) two times daily. 44 mL 0 4 Active albuterol (PROVENTIL) 0.083 % neb solutionIndicati ons:Pneumonia of both lower lobes due to Haemophilus influenzae (HC) Inhale 3 mL (2.5 mg) via a nebulizer two times daily. 75 mL 0 4 Active sodium chloride 3% nebulization 3 % nebulizer solutionIndicati ons:Pulmonary infiltrate Use one vial via neb twice daily 400 mL 0 4 Active NebulizerIndicat ions:Pulmonary infiltrate,Hypox ia,Cough, unspecified type,Pneumonia of both lower lobes due to Haemophilus influenzae (HC) Nebulizer, disposable neb kit x 4, reuseable neb kit x 1, mask x 1, filters x 1. Frequency of use: daily; Medication: albuterol and hypertonic saline, Length of need: 24 months 1 Each 0 4 Active nebulizer and compressor (DeVilbiss PulmoNeb LT Comp-Neb) Nebulizer, disposable neb kit x 4, reuseable neb kit x 1, mask x 1, filters x 1. Frequency of use: daily; Medication: albuterol and hypertonic saline, Length of need: 24 months 1 Each 0 4 Active riTUXimab (RITUXAN) 10 mg/mL injection Every 6 months 0 02/09/19 24 Discontinued(*IP Discontinued) gabapentin (NEURONTIN) 300 mg capsule Take 1 capsule by mouth 3 times daily. 0 0 02/04/20 23 Discontinued(Pha rmacist change per medication history (E-cancel not sent)) fluticasone propionate (Flovent HFA) 44 mcg/Actuation inhaler Inhale 2 Puffs by mouth. 0 02/09/19 24 Discontinued(*IP Discontinued) NebulizerIndicat ions:Pulmonary infiltrate,Hypox ia,Cough, unspecified type,Pneumonia of both lower lobes due to Haemophilus influenzae (HC) Nebulizer, disposable neb kit x 4, reuseable neb kit x 1, mask x 1, filters x 1. Frequency of use: daily; Medication: albuterol and hypertonic saline, Length of need: 24 months 1 Each 0 4 02/09/19 24 Discontinued Active Problems Problem Noted Date Diagnosed Date Immunosuppression 02/09/2023 Pneumonia 02/03/2023 Hypoxia 02/03/2023 Multiple sclerosis 02/03/2023 Depression 02/03/2023 Anxiety 02/03/2023 ACP (advance care planning) 02/03/2023 Overview: Patient has identified Health Care Agent(s): Yes Add Health Care Agents: Patient has Advance Care Plan Documents (Health Care Directive, POLST): no Patient has identified Specific Treatment Preferences: Yes How have preferences been verified: verbal Specific Treatment Preferences: a.) Code Status: CPR/Attempt Resuscitation Adhesive capsulitis of right shoulder 03/12/2018 Right biceps muscle strain 03/12/2018 Numbness and tingling in right hand 03/12/2018 Encounters Date Type Department Care Team Description 02/03/2023 11:19 AM TARPER - 02/09/2023 2:54 PM TARPER Hospital Encounter [address] [address] Bee Quiros MD [facility], Hospitalist Cate Montes De Oca MD Pulmonary infiltrate (Primary Dx); Hypoxia; Cough, unspecified type; Cutaneous candidiasis; Pain; Dry nose; Pneumonia of both lower lobes due to Haemophilus influenzae (HC); Immunosuppression (HC) Discharge Disposition: Home Self Care 02/03/2023 Travel 02/01/2023 10:39 AM TARPER Anesthesia Event [facility] [address] [address] Daphne Victor MD 02/01/2023 10:35 AM TARPER - 02/01/2023 11:35 AM TARPER Surgery [facility] [address], [place] [address] Checo Lujan MD BRONCHOSCOPY W BAL, BX AND BRUSH 02/01/2023 9:42 AM TARPER - 02/01/2023 1:15 PM TARPER Hospital Encounter [facility] [address] [address] Checo Lujan MD Chronic cough (Primary Dx); Pulmonary infiltrate Discharge Disposition: Home Self Care 01/31/2023 Travel from Last 3 Months Family History Medical History Relation Name Comments Lupus Father Relation Name Status Comments Father Social History Tobacco Use Types Packs/Day Years Used Date Smoking Tobacco: Former Cigarettes Smokeless Tobacco: Former Tobacco Cessation:Counseling Given: Not Answered Comments:Quit 12/01/22 Alcohol Use Standard Drinks/Week Comments Yes 0 (1 standard drink = 0.6 oz pur e alcohol) 2-3 drinks/week Social Connections Answer Date Recorded Frequency of Communication with Friends and Fami ly 0 02/04/2023 Financial Resource Strain Answer Date R ecorded Difficulty of Paying Living Expenses 1 02/04/2023 Difficulty of Paying Living Expenses 2 02/04/2023 Food Insecurity Answer Date Recorded Worried About Running Out of Food in the Last Ye ar 2 02/04/2023 Transportation Needs Answer Date Record ed Lack of Transportation (Medical) 1 02/04/2023 Housing Stability Answer Date Recorded Unable to Pay for Housing in the Last Year 1 02/04/2023 Sex and Gender Information Value Date Recorded Sex Assigned at Not on file Gender Identity Not on file Sexual Orientation Not on file Obstetrics History Last Filed Vital Signs Vital Sign Reading Time Taken Comments Blood Pressure 98/57 02/09/2023 9:17 AM TARPER Pulse 85 02/09/2023 9:17 AM TARPER Temperature 36.6 ??C (97.8 ??F) 02/09/2023 9:17 AM CS T Respiratory Rate 16 02/09/2023 9:17 AM TARPER Oxygen Saturation 91% 02/09/2023 9:17 AM TARPER Inhaled Oxygen Concentration - - Weight 63.5 kg (140 lb 1.6 oz) 02/06/2023 5:11 P M TARPER Height 175.3 cm (5' 9) 02/03/2023 7:58 AM TARPER Body Mass Index 20.69 02/03/2023 7:58 AM TARPER Plan of Treatment Upcoming Encounters Date Type Department Care Team (Late st Contact Info) Description 03/15/2023 10:20 AM TARPER Office Visit [facility] [address] [facility] [address] [facility] [address] [place] [address] Nena Gil MD [address] [facility] [address] [facility] [address] [place] [address] Health Maintenance Due Date Last Done Comments Tdap 08/04/1994 Depression screening for age 12+ 1995 HIV for age 15-65 08/04/1998 Hepatitis C screening for ag e 18-79 08/04/2001 Tetanus booster 2003 Pap test for age 21-65 08/04/2004 BMI (ht and wt on same day) for age 18+ 07/27/2018 07/27/2017 COVID-19 vaccine series ( season) 2022 07/14/2020, 06/10/2020 Influenza for age 9-49 10/06/2022 Pneumococcal series for age 6-64 Aged Out No longer eligible b ased on patient's age to complete this topic Procedures Procedure Name Priority Date/Time Associated Diagnosis Comments WHITE BLOOD COUNT Early AM 02/05/2023 8:5 4 AM TARPER HEPATIC FUNCTION PANEL RODDY 02/04/2023 5:54 AM TARPER WHITE BLOOD COUNT Early AM 02/04/2023 5:5 4 AM TARPER CREATININE Early AM 02/04/2023 5:54 AM TARPER SODIUM Early AM 02/04/2023 5:54 AM TARPER IGG SUBCLASSES(1-4) Early AM 02/04/2023 5 :54 AM TARPER IMMUNOGLOBULIN E,IGE Early AM 02/04/2023 5:54 AM TARPER IGM Early AM 02/04/2023 5:54 AM TARPER IGG Early AM 02/04/2023 5:54 AM TARPER IGA Early AM 02/04/2023 5:54 AM TARPER SPUTUM CULTURE, STAIN STAT 02/03/2023 5:14 PM TARPER MRSA/SA PCR STAT 02/03/2023 5:14 PM TARPER BLOOD CULTURE STAT 02/03/2023 1:33 PM TARPER BLOOD CULTURE STAT 02/03/2023 1:[address] CHEST PE STUDY STAT 02/03/2023 11: 44 AM TARPER TROPONIN T (HS) ONE TIME Timed 02/03/2023 10:55 AM TARPER PROCALCITONIN STAT 02/03/2023 10:55 AM TARPER LACTATE SCREEN VENOUS ISTAT W RICHARDSON STAT 02/03/2023 8:37 AM TARPER XR CHEST 2 VIEWS PA AND LATERAL STAT 02/03/2023 8:36 AM TARPER EKG 12 LEAD STAT 02/03/2023 8:28 AM TARPER EXTRA TUBE BLUE Today 02/03/2023 8:26 AM TARPER EXTRA TUBE RICHARDSON ON ICE STAT 02/03/2023 8:26 AM TARPER CBC WITH AUTO DIFFERENTIAL STAT 02/03/2023 8:26 AM TARPER ISTAT LACTATE SCREEN VENOUS STAT 02/03/2023 8:26 AM TARPER PRO-BNP STAT 02/03/2023 8:26 AM TARPER TROPONIN T (HS) ACUTE W/2HR REFLEX STAT 02/03/2023 8:26 AM TARPER BASIC METABOLIC PANEL STAT 02/03/2023 8:26 AM TARPER CBC WITH AUTO DIFFERENTIAL STAT 02/03/2023 8:26 AM TARPER INFLUENZA A/B PCR STAT 02/03/2023 8:1 4 AM TARPER COVID-19 MOLECULAR Today 02/03/2023 8: 14 AM TARPER XR CHEST 1 VIEW PORTABLE RODDY 02/01/2023 12:02 PM TARPER XR FLUORO BRONCHOSCOPY Routine 02/01/2023 11:20 AM TARPER Pulmonary infiltrate PATH TISSUE EXAM Today 02/01/2023 11:1 1 AM TARPER AFB CULTURE, STAIN Today 02/01/2023 11 :05 AM TARPER BRONCHIAL CULTURE, STAIN Today 02/01/2023 11:05 AM TARPER CARMEN PREP, OTHER SOURCE Today 02/01/2023 11:05 AM TARPER CHLAMYDIA PNEUMONIAE PCR Today 02/01/2023 11:03 AM TARPER VIRAL CULTURE GENERAL Today 02/01/2023 11:03 AM TARPER LEGIONELLA SPECIES BY RAPID PCR Today 02/01/2023 11:03 AM TARPER AFB CULTURE, STAIN Today 02/01/2023 11 :03 AM TARPER BRONCHIAL CULTURE, STAIN Today 02/01/2023 11:03 AM TARPER BAL COUNT AND DIFF Today 02/01/2023 11 :03 AM TARPER CARMEN PREP, OTHER SOURCE Today 02/01/2023 11:03 AM TARPER MYCOPLASMA PNEUMONIAE PCR Today 02/01/2023 11:01 AM TARPER CHLAMYDIA PNEUMONIAE PCR Today 02/01/2023 11:01 AM TARPER VIRAL CULTURE GENERAL Today 02/01/2023 11:01 AM TARPER LEGIONELLA SPECIES BY RAPID PCR Today 02/01/2023 11:01 AM TARPER AFB CULTURE, STAIN Today 02/01/2023 11 :01 AM TARPER BRONCHIAL CULTURE, STAIN Today 02/01/2023 11:01 AM TARPER CARMEN PREP, OTHER SOURCE Today 02/01/2023 11:01 AM TARPER MYCOPLASMA PNEUMONIAE PCR Today 02/01/2023 10:59 AM TARPER VIRAL CULTURE GENERAL Today 02/01/2023 10:59 AM TARPER LEGIONELLA SPECIES BY RAPID PCR Today 02/01/2023 10:59 AM TARPER AFB CULTURE, STAIN Today 02/01/2023 10 :59 AM TARPER BRONCHIAL CULTURE, STAIN Today 02/01/2023 10:59 AM TARPER BAL COUNT AND DIFF Today 02/01/2023 10 :59 AM TARPER CARMEN PREP, OTHER SOURCE Today 02/01/2023 10:59 AM TARPER PATH NON RECEIVABLE EXECUTIVE CYTOLOGY Today 02/01/2023 10:57 AM TARPER MYCOPLASMA PNEUMONIAE PCR Today 02/01/2023 10:57 AM TARPER CHLAMYDIA PNEUMONIAE PCR Today 02/01/2023 10:57 AM TARPER VIRAL CULTURE GENERAL Today 02/01/2023 10:57 AM TARPER LEGIONELLA SPECIES BY RAPID PCR Today 02/01/2023 10:57 AM TARPER AFB CULTURE, STAIN Today 02/01/2023 10 :57 AM TARPER BRONCHIAL CULTURE, STAIN Today 02/01/2023 10:57 AM TARPER BAL COUNT AND DIFF Today 02/01/2023 10 :57 AM TARPER CARMEN PREP, OTHER SOURCE Today 02/01/2023 10:57 AM TARPER ENDOTRACHEAL TUBE Routine 02/01/2023 10: 55 AM TARPER ENDOTRACHEAL TUBE Routine 02/01/2023 10: 55 AM TARPER ENDOTRACHEAL TUBE Routine 02/01/2023 10: 55 AM TARPER BRONCHOSCOPY WITH BIOPSY Class E Urgent 02/01/2023 10:29 AM TARPER see MD kwan BRONCHOSCOPY 02/01/2023 10:09 AM TARPER from Last 3 Months Results * (ABNORMAL) WHITE BLOOD COUNT (02/05/2023 8:54 AM TARPER) Only the most recent of2 resultswithin the time period is included. WHITE BLOOD COUNT 12.4(H) 4.5 - 11.0 thou/cu mm 02/05/2023 9:07 AM TARPER [facility] NRBC 0.0 % 02/05/2023 9:07 AM TARPER [facility] ABS NRBC 0.0 thou /cu mm 02/05/2023 9:07 AM TARPER [facility] Blood BLOOD SPECIMEN / Unknown Butterfly / Unknown 02/05/2023 8:54 AM TARPER 02/05/2023 8:58 AM TARPER Cate Lamb MD HEMATOLOGY [facility] SENDOUT [place]NAL [address]IP [id number] [address] [place] [address] * (ABNORMAL) IGG SUBCLASSES(1-4) (02/04/2023 5:54 AM TARPER) Pathologist [facility] IgG 513(L) 586 - 1602 mg/dL 02/07/2023 10:09 AM [facility] IgG Subclass 1 254 248 - 810 mg/dL 02/07/2023 10:09 AM [facility] ([facility]) IgG Subclass 2 161 130 - 555 mg/dL 02/07/2023 10:09 AM [facility] IgG Subclass 3 39 15 - 102 mg/dL 02/07/2023 10:09 AM [facility] ([facility] IgG Subclass 4 3 2 - 96 mg/dL 02/07/2023 10:09 AM [facility] ([facility] Blood BLOOD SPECIMEN / Unknown Non-Lab Venipuncture / Unknown 02/04/2023 5:54 AM TARPER 02/04/2023 6:02 AM TARPER Narrative [facility] ([facility]) - 02/07/2023 10:09 AM TARPER Performed at: ??01 - [address] ??[id number] Barman: John Mart MD, Phone: ??[phone] Performed at: ??02 - [address] ??[id number] Barman: Jessa Nunez MD, Phone: ??[phone] Cierra Lora MD SEND OUTS [facility] ([facility]) [address] [place] [address], [place] * SODIUM (02/04/2023 5:54 AM TARPER) SODIUM 141 136 - 145 mmol/L 02/04/2023 6:24 AM TARPER [facility] Blood BLOOD SPECIMEN / Unknown Non-Lab Venipuncture / Unknown 02/04/2023 5:54 AM TARPER 02/04/2023 6:02 AM TARPER Cate Lamb MD CHEMISTRY [facility] SENDOUT INTERNAL ZIP [phone] [place] [address] * IGA (02/04/2023 5:54 AM TARPER) IGA 109.86 84.50 - 499.00 mg/dL 02/06/2023 11:02 AM TARPER [facility] Blood BLOOD SPECIMEN / Unknown Non-Lab Venipuncture / Unknown 02/04/2023 5:54 AM TARPER 02/04/2023 6:02 AM TARPER Cierra Lora MD CHEMISTRY [facility] [address] [place] [address], * (ABNORMAL) IGM (02/04/2023 5:54 AM TARPER) IGM 19.56(L) 35.00 - 242.00 mg/dL 02/06/2023 11:02 AM TARPER [facility] Blood BLOOD SPECIMEN / Unknown Non-Lab Venipuncture / Unknown 02/04/2023 5:54 AM TARPER 02/04/2023 6:02 AM TARPER Cierra Lora MD CHEMISTRY [facility] [address] [place] [address], [place] * (ABNORMAL) IGG (02/04/2023 5:54 AM TARPER) IGG 481.69(L) 610.30 - 1,616.00 mg/dL 02/06/2023 11:02 AM TARPER [facility] Blood BLOOD SPECIMEN / Unknown Non-Lab Venipuncture / Unknown 02/04/2023 5:54 AM TARPER 02/04/2023 6:02 AM TARPER Cierra Lora MD CHEMISTRY Performing Organization Address [facility] Co de Phone Number [facility] [address] [address], [place] * (ABNORMAL) CREATININE (02/04/2023 5:54 AM TARPER) eGFR >90 >90 mL/min/1.7 3m2 02/04/2023 6:24 AM TARPER [facility] Comment:As of 2021, eG FR is calculated by the CKD-EPI creatinine equation without race adjustment. ??eGFR can be influenced by muscle mass, exercise, and diet. ??The reported eGFR is an estimation only and is only applicable if the renal function is stable. CREATININE 0.49(L) 0.50 - 0.90 mg/dL 02/04/2023 6:24 AM TARPER [facility] Blood BLOOD SPECIMEN / Unknown Non-Lab Venipuncture / Unknown 02/04/2023 5:54 AM TARPER 02/04/2023 6:02 AM TARPER Cate Lamb MD CHEMISTRY [facility] SENDOUT INTERNAL ZIP [id number] [place] [address] * (ABNORMAL) IMMUNOGLOBULIN E,IGE (02/04/2023 5:54 AM TARPER) IMMUNOGLOBULIN E (IGE) 2.2(L) 22.0 - 107.0 kU/L 02/05/2023 2:44 PM TARPER [facility] Blood BLOOD SPECIMEN / Unknown Non-Lab Venipuncture / Unknown 02/04/2023 5:54 AM TARPER 02/04/2023 6:02 AM TARPER Cierra Lora MD CHEMISTRY [facility] [address] [place] [address], * (ABNORMAL) HEPATIC FUNCTION PANEL (02/04/2023 5:54 AM TARPER) Pathologist [facility] ALBUMIN 3.6(L) 4.0 - 4.9 g/dL 02/04/2023 1:00 PM TARPER [facility] PROTEIN,TOTAL 5.5(L) 6.0 - 8.0 g/dL 02/04/2023 1:00 PM TARPER [facility] BILIRUBIN,TOTAL <0.2 0.0 - 1.2 mg/dL 02/04/2023 1:00 PM TARPER [facility] BILIRUBIN,DIRECT <0.2 0.0 - 0.3 mg/dL 02/04/2023 1:00 PM TARPER [facility] BILIRUBIN,INDIRE CT 02/04/2023 1:00 PM TARPER [facility] Comment:Unable to calculate, Direct Bili <0.2 ALK PHOSPHATASE 122(H) 35 - 104 IU/L 02/04/2023 1:00 PM TARPER [facility] ALT (SGPT) 11 10 - 35 IU/L 02/04/2023 1:00 PM TARPER [facility] AST (SGOT) 14 10 - 35 IU/L 02/04/2023 1:00 PM TARPER [facility] Blood BLOOD SPECIMEN / Unknown Non-Lab Venipuncture / Unknown 02/04/2023 5:54 AM TARPER 02/04/2023 6:02 AM TARPER Nena Gil MD CHEMISTRY Performing Organization Address [facility]/ZIP Co de Phone Number [facility] [address] [place] [address], * MRSA/SA PCR (02/03/2023 5:14 PM TARPER) MRSA DNA PCR Negative Negative 02/03/2023 11:53 PM TARPER [facility] STAPHYLOCOCCUS AUREUS PCR Negative Negative 02/03/2023 11:53 PM TARPER [facility] Other SPECIMEN FROM INTERNAL NOSE / Unknown Non-Blood / Unknown 02/03/2023 5:14 PM TARPER 02/03/2023 5:53 PM TARPER Narrative [facility] - 02/03/2023 11:53 PM TARPER Test result does not preclude MRSA or SA nasal colonization. Bee Quiros MD MICROBIOLOGY Performing Organization Address [facility] Co de Phone Number [facility] [address] [place] [address], * (ABNORMAL) SPUTUM CULTURE, STAIN (02/03/2023 5:14 PM TARPER) CULTURE RESULT(A) 02/05/2023 9:27 AM TARPER [facility] CULTURE 3+ Haemophilus influenzae 02/05/2023 9:27 AM TARPER [facility] Comment: Beta-lactamase negative. Negative beta-lactamase testing does not guarantee beta-lactam (e.g. ampicillin or amoxicillin) susceptibility, although [id number], ampicillin- resistant isolates are uncommon. CULTURE 2+ Usual Peace 02/05/2023 9:27 AM TARPER [facility] GRAM STAIN 2+ PMNs 02/05/2023 9:27 AM TARPER [facility] GRAM STAIN 1+ Epithelial cells 02/05/2023 9:27 AM TARPER [facility] GRAM STAIN No RBCs 02/05/2023 9:27 AM TARPER [facility] GRAM STAIN 1+ Gram Positive Cocci 02/05/2023 9:27 AM TARPER [facility] GRAM STAIN Gram stain performed by [place], [place] 02/05/2023 9:27 AM TARPER [facility] Sputum SPUTUM SPECIMEN / Unknown Non-Blood / Unknown 02/03/2023 5:14 PM TARPER 02/03/2023 5:53 PM TARPER Bee Quiros MD MICROBIOLOGY [facility] [address] [address], [facility] SENDOUT INTERNAL ZIP [phone] [place] [address] * BLOOD CULTURE (02/03/2023 1:33 PM TARPER) Only the most recent of2 resultswithin the time period is included. CULTURE No Growth. 02/07/2023 4:29 PM TARPER [facility] Blood BLOOD SPECIMEN / Unknown Non-Lab Venipuncture / Unknown 02/03/2023 1:33 PM TARPER 02/03/2023 1:40 PM TARPER Bee Quiros MD MICROBIOLOGY [facility] [address] [place] [address], * CT CHEST PE STUDY (02/03/2023 11:44 AM TARPER) Anatomical Region Laterality Modality CHEST, THORAX, HEART Computed To mography 02/03/2023 11:4 4 AM TARPER Impressions 02/03/2023 12:23 PM TARPER 1. ??No pulmonary embolism. 2. ??Focal consolidation in the right lower lobe with fairly extensive infiltrates throughout both lungs, more marked on the left consistent with infectious/inflammatory process. Bronchial inflammation with mucous plugging, most marked in the lower lobes. 3. ??Dilatation of the right and left ventricle. Narrative 02/03/2023 12:23 PM TARPER For Patients: As a result of the Century Cures Act, medical imaging exams and procedure reports are released immediately into your electronic medical record. You may view this report before your referring provider. If you have questions, please contact your health care provider. EXAM: CT CHEST PE STUDY LOCATION: [facility] MEDICAL IMAGING DATE: 02/03/2023 INDICATION: Shortness of breath, chest pain, abnormal chest x-ray. COMPARISON: None. TECHNIQUE: CT chest pulmonary angiogram during arterial phase injection of IV contrast. Multiplanar reformats and MIP reconstructions were performed. Dose reduction techniques were used. CONTRAST: Omnipaque 350, 50 mL. FINDINGS: ANGIOGRAM CHEST: Pulmonary arteries are normal caliber and negative for pulmonary emboli. Thoracic aorta is negative for dissection. Dilatation of the right and left ventricle. LUNGS AND PLEURA: Focal atelectasis in the medial aspect of the right upper lobe. Focal consolidation in the right lower lobe. Fairly extensive somewhat nodular infiltrates in both lungs with diffuse bronchial inflammation and some mucus plugging, more marked in the lower lobes. No effusions. MEDIASTINUM/AXILLAE: No mediastinal or hilar adenopathy. CORONARY ARTERY CALCIFICATION: None. UPPER ABDOMEN: Normal. MUSCULOSKELETAL: Normal. Bilateral breast implants. Procedure Note Alexsander Bentley MD - 02/03/2023 For Patients: As a result of the Cures Act, medical imagingexams and procedure reports are released immediately into your electronicmedical record. You may view this report before your referring provider.If you have questions, please contact your health care provider. EXAM: CT CHEST PE STUDY LOCATION: [facility] MEDICAL IMAGING DATE: 02/03/2023 INDICATION: Shortness of breath, chest pain, abnormal chest x-ray. COMPARISON: None. TECHNIQUE: CT chest pulmonary angiogram during arterial phase injection ofIV contrast. Multiplanar reformats and MIP reconstructions were performed.Dose reduction techniques were used. CONTRAST: Omnipaque 350, 50 mL. FINDINGS: ANGIOGRAM CHEST: Pulmonary arteries are normal caliber and negative forpulmonary emboli. Thoracic aorta is negative for dissection. Dilatation ofthe right and left ventricle. LUNGS AND PLEURA: Focal atelectasis in the medial aspect of the rightupper lobe. Focal consolidation in the right lower lobe. Fairly extensivesomewhat nodular infiltrates in both lungs with diffuse bronchialinflammation and some mucus plugging, more marked in the lower lobes. Noeffusions. MEDIASTINUM/AXILLAE: No mediastinal or hilar adenopathy. CORONARY ARTERY CALCIFICATION: None. UPPER ABDOMEN: Normal. MUSCULOSKELETAL: Normal. Bilateral breast implants. IMPRESSION: 1. No pulmonary embolism. 2. Focal consolidation in the right lower lobe with fairly extensiveinfiltrates throughout both lungs, more marked on the left consistent withinfectious/inflammatory process. Bronchial inflammation with mucousplugging, most marked in the lower lobes. 3. Dilatation of the right and left ventricle. Bee Quiros MD CT * TROPONIN T (HS) ONE TIME (02/03/2023 10:55 AM TARPER) TROPONIN T HS 7 6-10 ng/L ng/L 02/03/2023 11:19 AM TARPER [facility] Blood BLOOD SPECIMEN / Unknown Non-Lab Venipuncture / Unknown 02/03/2023 10:55 AM TARPER 02/03/2023 10:59 AM TARPER Bee Quiros MD CHEMISTRY [facility] SENDOUT INTERNAL ZIP [phone] [place] [address] * PROCALCITONIN (02/03/2023 10:55 AM TARPER) PROCALCITONIN 0.08 ng/ml 02/03/2023 11:31 AM TARPER [facility] Blood BLOOD SPECIMEN / Unknown Non-Lab Venipuncture / Unknown 02/03/2023 10:55 AM TARPER 02/03/2023 10:59 AM TARPER Narrative [facility] - 02/03/2023 11:31 AM TARPER Procalcitonin for initial assessment of Lower Respiratory Tract Infection: Results Interpretation <0.10 ng/mL Antibiotic therapy strongly discoraged. ??Indicates absent of bacterial infection. * 0.10 - 0.25 ng/mL Antibiotic therapy discouraged. ??Bacterial infection unlikely. * 0.26 - 0.50 ng/mL Antibiotic therapy encouraged. ??Bacterial infection possible. >0.50 ng/mL Antibiotic therapy strongly encouraged. ??Suggestive of presence of bacterial infection. *Antibiotic therapy should be considered regardless of PCT result if the patient is clinically unstable, is at high risk for adverse outcome, has strong evidence of bacterial pathogen, or the clinical context indicates antibiotic therapy is warranted. ??If antibiotics are withheld, reassess if symptoms persist/worsen and/or repeat PCT measurement within 6-24 hours. ? In order to assess treatment success and to support a decision to discontinue antibiotic therapy, follow up samples should be tested once every 1-2 days, based upon physician discretion taking into account patient's evolution and progress. Procalcitonin for initial assessment of severe sepsis risk: Results Interpretation <0.5 ng/ml A PCT level below 0.5 ng/ml on the first day of ICU admission is associated with a low risk for progression to severe sepsis and/or septic shock. > 2.0 ng/mL A PCT level above 2.0 ng/mL on the first day of ICU admission is associated with a high risk for progression to severe sepsis and/or septic shock. Note: Concentrations < 0.5 ng/mL do not exclude an infection, on account of localized infections (without systemic signs) which can be associated with such low concentrations, or a systemic infection in its initial stages(< 6 hours). Furthermore, increased procalcitonin can occur without infection. PCT concentrations between 0.5 and 2.0 ng/mL should be interpreted taking into account the patient's history. It is recommended to retest PCT within 6-24 hours if any concentrations < 2 ng/mL are obtained. Bee Quiros MD SEND OUTS [facility] SENDOUT INTERNAL [facility] [id number] [address] [place] [address] * LACTATE SCREEN VENOUS ISTAT W RICHARDSON (02/03/2023 8:37 AM TARPER) [facility] LACTATE VENOUS SCREEN ISTAT <1.8 <=2.0 02/03/2023 8:41 AM TARPER [facility] LACTATE SCREEN VENOUS POCT 0.8 <=2.0 02/03/2023 8:41 AM TARPER [facility] Blood BLOOD SPECIMEN / Unknown 02/03/2023 8:37 AM TARPER 02/03/2023 8:41 AM TARPER Bee Quiros MD LABORATORY [facility] SENDOUT INTERNAL ZIP [phone] [place] [address] * XR CHEST 2 VIEWS PA AND LATERAL (02/03/2023 8:36 AM TARPER) Anatomical Region Laterality Modality CHEST, THORAX, Lung, HEART Compu melissa Radiography 02/03/2023 8:36 AM TARPER Impressions 02/03/2023 8:48 AM TARPER Linear fibrosis or atelectasis in the right upper lung, stable. Patchy infiltrates in the left mid and lower lung, mildly improved. No new infiltrates or effusion. Narrative 02/03/2023 8:48 AM TARPER For Patients: As a result of the Cures Act, medical imaging exams and procedure reports are released immediately into your electronic medical record. You may view this report before your referring provider. If you have questions, please contact your health care provider. EXAM: XR CHEST 2 VIEWS PA AND LATERAL LOCATION: [facility] DATE: 02/03/2023 INDICATION: Chest pain. Shortness of breath. COMPARISON: 02/01/2023. Procedure Note Alexsander Bentley MD - 02/03/2023 For Patients: As a result of the Cures Act, medical imagingexams and procedure reports are released immediately into your electronicmedical record. You may view this report before your referring provider.If you have questions, please contact your health care provider. EXAM: XR CHEST 2 VIEWS PA AND LATERAL LOCATION: [facility] DATE: 02/03/2023 INDICATION: Chest pain. Shortness of breath. COMPARISON: 02/01/2023. IMPRESSION: Linear fibrosis or atelectasis in the right upper lung, stable. Patchyinfiltrates in the left mid and lower lung, mildly improved. No newinfiltrates or effusion. Bee Quiros MD GENERAL IMAGING * EKG 12 LEAD (02/03/2023 8:28 AM TARPER) Interpretation Sinus tachycardia Possible Left atrial enlargement Rightward axis Possible Anterior infarct , age undetermined Abnormal ECG No previous ECGs available BEYOND NOW Ventricular Rate 122 BPM BEYOND NOW Atrial Rate 122 BPM BEYOND NOW P-R Interval 150 ms BEYOND NOW QRS Duration 88 ms BEYOND NOW QT 308 ms BEYOND NOW QTc 438 ms BEYOND NOW P [place] 71 degrees BEYOND NOW R [place] 90 degrees BEYOND NOW T [place] 78 degrees BEYOND NOW 02/03/2023 8:28 AM TARPER 02/06/2023 2:13 PM TARPER Bee Quiros MD EKG ORD BEYOND NOW [place], [place] * TROPONIN T (HS) ACUTE W/2HR REFLEX (02/03/2023 8:26 AM TARPER) Pathologist [facility] TROPONIN T HS 7 6-10 ng/L ng/L 02/03/2023 9:13 AM TARPER [facility] Blood BLOOD SPECIMEN / Unknown Non-Lab Venipuncture / Unknown 02/03/2023 8:26 AM TARPER 02/03/2023 8:36 AM TARPER Narrative [facility] - 02/03/2023 9:13 AM TARPER hs-cTnT (Elecsys Troponin T Gen 5) concentration (s) above the sex-specific 99th percentile (16 ng/L or greater for males or 11 ng/L or greater for females) are indicative of myocardial injury. If initial hs-cTnT <=100 ng/L at presentation, a 0h/2h ABSOLUTE (ng/L) delta change (rising or falling) of >=10 ng/L suggests a significant change, whereas a 0h/2h delta change <=3 ng/L suggests no significant change. If initial hs-cTnT >100 ng/L at presentation, a 0h/2h/ RELATIVE (percent, %) delta change of 20% is suggested to distinguish patients with acute vs. chronic myocardial injury. There are multiple etiologies that can cause hs-cTnT increases above the 99th percentile (myocardial injury) other than acute myocardial infarction. Clinical context and careful clinical evaluation are critical for diagnosis and risk-stratification. The diagnosis of acute myocardial infarction requires a rising and/or falling pattern in hs-cTnT concentrations with at least one value above the sex-specific 99th percentile PLUS at least one of the following clinical criteria: ischemic symptoms, new or presumed new significant ST-T wave changes or new LBBB, development of pathological Q waves, imaging evidence of new loss of viable myocardium or new regional wall motion abnormality, or identification of intracoronary atherothrombosis or an acute angiographic culprit on coronary angiography. In appropriate low-risk patients with a non-ischemic electrocardiogram without active chest pain with a symptom onset >3-hours without recurrence, a single initial hs-cTnT<6 ng/L identifies patient with a very low risk in emergency department patient population. Bee Quiros MD CHEMISTRY Performing Organization Address [facility]/ZIP Co de Phone Number [facility] SENDOUT INTERNAL [facility] [id number] [place] [id number] * EXTRA TUBE RICHARDSON ON ICE (02/03/2023 8:26 AM TARPER) Blood BLOOD SPECIMEN / Unknown Non-Lab Venipuncture / Unknown 02/03/2023 8:26 AM TARPER 02/03/2023 8:36 AM TARPER Bee Quiros MD LABORATORY Performing Organization Address [facility]/ZIP Co de Phone Number [facility] SENDOUT INTERNAL [facility] [id number] [place] [address] * (ABNORMAL) CBC WITH AUTO DIFFERENTIAL (02/03/2023 8:26 AM TARPER) [facility] WHITE BLOOD COUNT 18.2(H) 4.5 - 11.0 thou/cu mm 02/03/2023 8:40 AM [facility] RED BLOOD COUNT 4.58 4.00 - 5.20 mil/cu mm 02/03/2023 8:40 AM [facility] HEMOGLOBIN 13.3 12.0 - 16.0 g/dL 02/03/2023 8:40 AM [facility] HEMATOCRIT 40.6 33.0 - 51.0 % 02/03/2023 8:40 AM [facility] MCV 89 80 - 100 fL 02/03/2023 8:40 AM [facility] MCH 29.0 26.0 - 34.0 pg 02/03/2023 8:40 AM [facility] MCHC 32.8 32.0 - 36.0 g/dL 02/03/2023 8:40 AM [facility] RDW 13.5 11.5 - 15.5 % 02/03/2023 8:40 AM [facility] PLATELET COUNT 436 140 - 440 thou/cu mm 02/03/2023 8:40 AM [facility] MPV 7.7 6.5 - 11.0 fL 02/03/2023 8:40 AM [facility] NRBC 0.0 % 02/03/2023 8:40 AM [facility] ABS NRBC 0.0 thou /cu mm 02/03/2023 8:40 AM [facility] % NEUT 91.7 % 02/03/2023 8:40 AM [facility] % LYMPH 3.2 % 02/03/2023 8:40 AM [facility] % MONO 4.3 % 02/03/2023 8:40 AM [facility] % EOS 0.2 % 02/03/2023 8:40 AM [facility] % BASO 0.3 % 02/03/2023 8:40 AM [facility] % IMMATURE GRAN (METAS,MYELOS,WV OS) 0.3 % 02/03/2023 8:40 AM [facility] ABSOLUTE NEUTROPHILS 16.7(H) 1.7 - 7.0 thou/cu mm 02/03/2023 8:40 AM [facility] ABSOLUTE LYMPHOCYTES 0.6(L) 0.9 - 2.9 thou/cu mm 02/03/2023 8:40 AM [facility] ABSOLUTE MONOCYTES 0.8 <0.9 thou/cu mm 02/03/2023 8:40 AM [facility] ABSOLUTE EOSINOPHILS 0.0 <0.5 thou/cu mm 02/03/2023 8:40 AM [facility] ABSOLUTE BASOPHILS 0.1 <0.3 thou/cu mm 02/03/2023 8:40 AM [facility] ABSOLUTE IMMATURE GRANULOCYTES(MET ,MYELOS,PROS) 0.1 <0.3 thou/cu mm 02/03/2023 8:40 AM [facility] Blood BLOOD SPECIMEN / Unknown Non-Lab Venipuncture / Unknown 02/03/2023 8:26 AM TARPER 02/03/2023 8:36 AM TARPER Bee Quiros MD HEMATOLOGY Performing Organization Address City/[facility]/ZIP Co de Phone Number [facility] SENDOUT INTERNAL ZIP [phone] [place] [address] * EXTRA TUBE BLUE (02/03/2023 8:26 AM TARPER) Blood BLOOD SPECIMEN / Unknown Non-Lab Venipuncture / Unknown 02/03/2023 8:26 AM TARPER 02/03/2023 9:53 AM TARPER Doctor Unknown LABORATORY Performing Organization Address City/[facility]/ZIP Co de Phone Number [facility] SENDOUT INTERNAL ZIP [phone] [place] [address] * (ABNORMAL) PRO-BNP (02/03/2023 8:26 AM TARPER) PRO-BNP 611(H) <125 pg/mL 02/03/2023 9:15 AM TARPER [facility] Blood BLOOD SPECIMEN / Unknown Non-Lab Venipuncture / Unknown 02/03/2023 8:26 AM TARPER 02/03/2023 8:36 AM TARPER Narrative [facility] - 02/03/2023 9:15 AM TARPER The following cut-points have been suggested for the use of proBNP for the diagnostic evaluation of heart failure (HF) in patient with acute dyspnea. Patients with eGFR >= 60 Diagnosis (rule in CHF) ? <50 Years Old ?450 pg/mL 50 - 75 Years Old ?900 pg/mL >75 Years Old ? 1800 pg/mL Exclusion (rule out CHF) Age Independent ?300 pg/mL A cutoff of 1200 pg/mL for patients with an eGFR <60 yields a diagnostic sensitivity of 89% and specificity of 72% for acute congestive heart failure. ? Bee Quiros MD SEND OUTS [facility] SENDOUT INTERNAL ZIP [phone] [place] [address] * (ABNORMAL) BASIC METABOLIC PANEL (02/03/2023 8:26 AM [facility]) SODIUM 134(L) 136 - 145 mmol/L 02/03/2023 9:13 AM [facility] POTASSIUM 3.9 3.5 - 5.1 mmol/L 02/03/2023 9:13 AM [facility] CHLORIDE 96(L) 98 - 107 mmol/L 02/03/2023 9:13 AM [facility] CO2,TOTAL 25 22 - 29 mmol/L 02/03/2023 9:13 AM [facility] ANION GAP 13 5 - 18 02/03/2023 9:13 AM [facility] GLUCOSE 112(H) 70 - 99 mg/dL 02/03/2023 9:13 AM [facility] CALCIUM 9.3 8.6 - 10.0 mg/dL 02/03/2023 9:13 AM [facility] BUN 4(L) 6 - 20 mg/dL 02/03/2023 9:13 AM [facility] CREATININE 0.55 0.50 - 0.90 mg/dL 02/03/2023 9:13 AM [facility] BUN/CREAT RATIO 7(L) 10 - 20 9:13 AM [facility] eGFR >90 >90 mL/min/1.7 3m2 02/03/2023 9:13 AM [facility] Comment:As of 2021, eG FR is calculated by the CKD-EPI creatinine equation without race adjustment. ??eGFR can be influenced by muscle mass, exercise, and diet. ??The reported eGFR is an estimation only and is only applicable if the renal function is stable. Blood BLOOD SPECIMEN / Unknown Non-Lab Venipuncture / Unknown 02/03/2023 8:26 AM TARPER 02/03/2023 8:36 AM TARPER Bee Quiros MD CHEMISTRY [facility] SENDOUT INTERNAL ZIP [phone] [place] [address] * COVID-19 MOLECULAR (02/03/2023 8:14 AM TARPER) COVID 19 [place] MOLECULAR Negative Negative 02/03/2023 9:13 AM TARPER [facility] Comment:All PCR tests are narayan bject to false negative result due to variability in viral load and collection technique. A negative result does not rule out a SARS-CoV-2 infection. Clinical correlation required. TESTING LABORATORY [facility] 02/03/2023 9:13 AM TARPER [facility] Comment:Specimen submitted t o [facility] for testing. Other SPECIMEN FROM NASOPHARYNGEAL STRUCTURE / Unknown Non-Blood / Unknown 02/03/2023 8:14 AM TARPER 02/03/2023 8:20 AM TARPER Narrative [facility] - 02/03/2023 9:13 AM TARPER This test has been authorized by FDA under an Emergency Use Authorization (EUA). This test is only authorized for the duration of time the declaration that circumstances exist justifying the authorization of the emergency use of in vitro diagnostic tests for detection of SARS-CoV-2 virus and/or diagnosis of COVID-19 infection under section 564(b)(1) of the Act, 21 U.S.C. 360bbb-3(b) (1), unless the authorization is terminated or revoked sooner. Bee Quiros MD MICROBIOLOGY Performing Organization Address City/[facility]/ZIP Co de Phone Number [facility] SENDOUT INTERNAL ZIP [phone] [place] [address] * INFLUENZA A/B PCR (02/03/2023 8:14 AM TARPER) INFLUENZA A PCR Negative 02/03/2023 9:13 AM TARPER [facility] INFLUENZA B PCR Negative 02/03/2023 9:13 AM TARPER [facility] Other SPECIMEN FROM NASOPHARYNGEAL STRUCTURE / Unknown Non-Blood / Unknown 02/03/2023 8:14 AM TARPER 02/03/2023 8:20 AM TARPER Bee Quiros MD MICROBIOLOGY [facility] SENDOUT INTERNAL ZIP [phone] [place] [address] * XR CHEST 1 VIEW PORTABLE (02/01/2023 12:02 PM TARPER) Anatomical Region Laterality Modality HEART, THORAX, CHEST Digital Rad iography 02/01/2023 12:2 6 PM TARPER Impressions 02/01/2023 12:26 PM TARPER There is new linear atelectasis and patchy opacity in the right upper lobe perihilar region. There is new patchy alveolar opacity in the left lung base. No pneumothorax. Sclerotic callus is suggested associated with healing fracture of the right 7th rib. Dictated by Danny Morrow MD @ Feb 01 2023 12:26PM (Electronically Signed) [email or web address] ?? Narrative 02/01/2023 12:26 PM TARPER For Patients: ??As a result of the Cures Act, medical imaging exams and procedure reports are released immediately into your electronic medical record. ??You may view this report before your referring provider. ??If you have questions, please contact your health care provider. INDICATION: Bronchoscopy. TECHNIQUE: Chest. Semi-upright portable. COMPARISON: October 04, 2022. Procedure Note Danny Morrow MD - 02/01/2023 For Patients: As a result of the Cures Act, medical imagingexams and procedure reports are released immediately into your electronicmedical record. You may view this report before your referring provider.If you have questions, please contact your health care provider. INDICATION: Bronchoscopy. TECHNIQUE: Chest. Semi-upright portable. COMPARISON: October 04, 2022. IMPRESSION: There is new linear atelectasis and patchy opacity in the right upper lobeperihilar region. There is new patchy alveolar opacity in the left lung base. No pneumothorax. Sclerotic callus is suggested associated with healing fracture of theright 7th rib. Dictated by Danny Morrow MD @ Feb 01 2023 12:26PM (Electronically Signed) [email or web address] Checo Lujan MD GENERAL IMAGING * XR FLUORO BRONCHOSCOPY (02/01/2023 11:20 AM TARPER) Anatomical Region Laterality Modality CHEST Other Narrative 02/01/2023 10:42 AM TARPER 1 minute 43 seconds fluoroscopy time was provided. ??See operative/procedure report for further information. Checo Lujan MD FLUOROSCOPY * PATH TISSUE EXAM (02/01/2023 11:11 AM TARPER) Case Report Pathology Report ?Case: [id number] ? Authorizing Provider: ??Checo Lujan MD ?? Collected: ? 02/01/2023 1111 ? Ordering Location: ? [facility] ?Received: ?02/01/2023 1239 ? Hospital ? Pathologist: ? Gregoria Reese, ? Specimen: ?Left Upper Lobe Lung Biopsy ? 3 2:36 PM [facility] Final Diagnosis A) LUNG, LEFT UPPER LOBE, TRANSBRONCHIAL BIOPSY: 1. A single alveolated space with foamy intra-alveolar macrophages 2. Specimen consists predominantly of stripped bronchial epithelial cells ?? and acute inflammation 3. GMS stain is negative for fungal organisms 4. AFB stain is negative for acid-fast bacilli 5. Negative for polarizable material 6. Negative for organizing pneumonia or granulomas; however, specimen is suboptimal ?? for interpretation given the limited alveolar tissue present 3 2:36 PM [facility] Comment Given the presence o f abundant acute inflammation, correlation with the pending bronchial culture studies is recommended. Case seen in consultation with Dr. Bullard. 3 2:36 PM [facility] Clinical Information The patient is a 37-year-old with a history of dyspnea and shortness of breath. The patient also has a history of multiple sclerosis who is on immunosuppressive therapy. Per the clinical notes, CT scan showed extensive bilateral right greater than left dense infiltrates of unclear etiology. Per report, she has shown some transient improvement in cough but cough persists despite medical therapy and is productive. 3 2:36 PM [facility] Gross Description A) Received in formalin, labeled with the patient's name and left upper lobe lung biopsy, is a 0.4 x 0.3 x 0.1 cm aggregate of garcía, ragged tissue fragments. ??The specimen is entirely submitted in 2 cassettes. The specimen was removed from the patient at 1111 and the specimen was placed in 10% neutral buffered formalin at 1115 on 02/01/2023. The specimen was fixed in formalin for a minimum of 6 hours and not longer than 72 hours. JOVANNI 02/01/2023 3 2:36 PM TARPER [facility] Microscopic Description The final diagnosis is based on microscopic examination of appropriate sections of all specimens. Immunohistochemical stains were performed on block A2, including a multiplex immunohistochemistry antibody stain procedure which contains antibodies to P40 (red chromogen) and TTF-1 (brown chromogen). The results are summarized below: p40:Highlights basal layer of benign bronchial wall TTF-1:Highlights normal size of a crushed alveolar space CD68:Highlights a focus of intra-alveolar histiocytes AFB and GMS histochemical stains were performed on block A2. The results are summarized in the final diagnosis. Support for the interpretation of this case may have included the use of immunohistochemistry and/or in situ hybridization tests that were performed by [facility] and whose performance characteristics were evaluated by pathologists from [facility]. These tests have not been cleared or approved by the U.S. Food and Drug Administration. The FDA has determined that such clearance or approval is not necessary. These tests are used for clinical purposes and should not be regarded as investigational or for research. This laboratory is certified under the Clinical Laboratory Improvement Amendments of 1988 (CLIA) as qualified to perform high complexity clinical laboratory testing. 3 2:36 PM TARPER [facility] Additional Information Interpreted at [facility] - [address], [place] [address] 3 2:36 PM TARPER [facility] Biopsy (Left Upper Lobe Lung Biopsy) 02/01/2023 11:11 AM TARPER 02/01/2023 12:39 PM TARPER Checo Lujan MD PATHOLOGY/CYTOLOG Y [facility] [address] [place] [address], * (ABNORMAL) BRONCHIAL CULTURE, STAIN (02/01/2023 11:05 AM TARPER) Only the most recent of5 resultswithin the time period is included. CULTURE RESULT(A) 02/03/2023 12:44 PM TARPER [facility] CULTURE 1+ Haemophilus influenzae 02/03/2023 12:44 PM TARPER [facility] GRAM STAIN 1+ Epithelial cells 02/03/2023 12:44 PM TARPER [facility] GRAM STAIN 2+ RBCs 02/03/2023 12:44 PM TARPER [facility] GRAM STAIN 1+ PMNs 02/03/2023 12:44 PM TARPER [facility] GRAM STAIN No organisms seen 02/03/2023 12:44 PM TARPER [facility] Bronchial Brushing (Left Upper Lobe Lung Bronchial Brushing) Non-Blood / Unknown 02/01/2023 11:05 AM TARPER 02/01/2023 12:44 PM TARPER Checo Lujan MD MICROBIOLOGY Performing Organization Address City/[facility]/ZIP Co de Phone Number [facility] [address] [place] [address], * CARMEN PREP, OTHER SOURCE (02/01/2023 11:05 AM TARPER) Only the most recent of5 resultswithin the time period is included. Pathologist [facility] OBSERVATION No fungal elements seen 02/01/2023 1:40 PM TARPER [facility] Bronchial Brushing (Left Upper Lobe Lung Bronchial Brushing) Non-Blood / Unknown 02/01/2023 11:05 AM TARPER 02/01/2023 12:44 PM TARPER Checo Lujan MD MICROBIOLOGY [facility] [address] [place] [address], * CHLAMYDIA PNEUMONIAE PCR (02/01/2023 11:03 AM TARPER) Only the most recent of3 resultswithin the time period is included. Chlamydia pneumoniae, PCR Negative Negative 02/06/2023 2:[address] [facility] (CET) Comment: No Chlamydia pneumoniae DNA detected. This test was developed and its performance characteristics determined by [facility] ??It has not been cleared or approved by the Food and Drug Administration. ??The FDA has determined that such clearance or approval is not necessary. Bronchoalveolar Lavage (Left Upper Lobe Lung Bronchoalveolar Lavage) Non-Blood / Unknown 02/01/2023 11:03 AM TARPER 02/01/2023 1:08 PM TARPER Narrative [facility] ES[facility]IC TESTING (CET) - 02/06/2023 2:07 PM TARPER Performed at: ??[address] ??[id number] [place]: Jessa Nunez MD, Phone: ??[phone] Checo Lujan MD SEND OUTS Performing Organization Address [facility] de Phone Number [facility] ESOTERIC TESTING (CET) [address] [place] [address] * VIRAL CULTURE GENERAL (02/01/2023 11:03 AM TARPER) Only the most recent of4 resultswithin the time period is included. Viral Culture Gen No virus isolated. 02/09/2023 1:09 PM TARPER [facility]IC TESTING (CET) Bronchoalveolar Lavage (Left Upper Lobe Lung Bronchoalveolar Lavage) Non-Blood / Unknown 02/01/2023 11:03 AM TARPER 02/01/2023 1:08 PM TARPER Narrative [facility] TESTING (CET) - 02/09/2023 1:09 PM TARPER Performed at: ??[address] ??[id number] [place]: Jessa Nunez MD, Phone: ??[phone] Checo Lujan MD SEND OUTS Performing Organization Address [facility] de Phone Number [facility] ESOT[facility]IC TESTING (CET) [address] [place] [address], * LEGIONELLA SPECIES BY RAPID PCR (02/01/2023 11:03 AM TARPER) Only the most recent of4 resultswithin the time period is included. LEGIONELLA PCR SOURCE Left Upper Lobe BAL 02/03/2023 8:40 AM TARPER [facility] LEGIONELLA SP BY RAPID PCR Negative Not Applicable 02/03/2023 8:40 AM TARPER [facility] Comment: This test was developed and its performance characteristics determined by [facility] in a manner consistent with CLIA requirements. This test has not been cleared or approved by the U.S. Food and Drug Administration. Test Performed by: [facility] [address] [place] [address] Barman: Malick Varela M.D. Ph.D.; CLIA# [id number] Bronchoalveolar Lavage (Left Upper Lobe Lung Bronchoalveolar Lavage) Non-Blood / Unknown 02/01/2023 11:03 AM TARPER 02/01/2023 1:08 PM TARPER Checo Lujan MD SEND OUTS [place] [address] [place] [address], [place] [phone] * BAL COUNT AND DIFF (02/01/2023 11:03 AM TARPER) Only the most recent of3 resultswithin the time period is included. BODY FLUID SOURCE Bronchoalveolar Lavage 02/01/2023 8:10 PM TARPER [facility]- NTRAL LABORATORY Comment:Left Upper Lobe BAL COLOR Colorless 02/01/2023 8:10 PM [facility]PER [facility] N[facility]AL LABORATORY BAL CLARITY Turbid 02/01/2023 8:10 PM [facility]PER [facility]- NTRAL LABORATORY TOTAL NUCLEATED CELLS, BF 9,410 /cu mm 02/01/2023 8:10 PM TARPER [facility] [employer] [facility]- NTRAL LABORATORY % NEUTROPHILS, BODY FLUID 76 % 02/01/2023 8:10 PM TARPER [facility]- NTRAL LABORATORY % LYMPHOCYTES, BODY FLUID 8 % 02/01/2023 8:10 PM TARPER [facility] LABORATORY- NTRAL LABORATORY % MONO/MACRO, BAL 11 % 02/01/2023 8:10 PM TARPER [facility] % EOSINOPHILS, BODY FLUID 5 % 02/01/2023 8:10 PM TARPER [facility] BRONCH EPITHELIAL None 02/01/2023 8:10 PM TARPER [facility] Bronchoalveolar Lavage (Left Upper Lobe Lung Bronchoalveolar Lavage) Non-Blood / Unknown 02/01/2023 11:03 AM TARPER 02/01/2023 1:08 PM TARPER Checo Lujan MD BODY FLUID Performing Organization Address City/[facility]/ZIP Co de Phone Number [facility] [address] [place] [address], [place] * MYCOPLASMA PNEUMONIAE PCR (02/01/2023 11:01 AM TARPER) Only the most recent of3 resultswithin the time period is included. Pathologist [facility] M pneumo PCR Negative Negative 02/09/2023 3:09 PM TARPER [facility] TEST[facility] (CET) Comment: No Mycoplasma pneumoniae DNA detected. This test was developed and its performance characteristics determined by [employer]. ??It has not been cleared or approved by the Food and Drug Administration. ??The FDA has determined that such clearance or approval is not necessary. Bronchoalveolar Lavage (Right Upper Lobe Lung Bronchoalveolar Lavage) Non-Blood / Unknown 02/01/2023 11:01 AM TARPER 02/01/2023 1:03 PM TARPER Narrative [facility] TEST[facility] (CET) - 02/09/2023 3:09 PM TARPER Performed at: ??[address] ??[id number] [place]: Jessa Nunez MD, Phone: ??[phone] Checo Lujan MD BODY FLUID Performing Organization Address City/[facility]/ZIP Co de Phone Number [facility] TESTING (CET) [address] [place] [address], [place] * PATH NON RECEIVABLE EXECUTIVE CYTOLOGY (02/01/2023 10:57 AM TARPER) Case Report Medical Cytology Report ? Case: [id number] ? Authorizing Provider: ??Checo Lujan MD ?? Collected: ? 02/01/2023 1057 ? Ordering Location: ? [facility] ?Received: ?02/01/2023 1250 ? Hospital ? Pathologist: ? Gregoria Reese, DO ? Specimens: ?? A) - Left Upper Lobe Lung Bronchoalveolar Lavage, JACKY Lingula BAL ? B) - Left Lower Lobe Lung Bronchoalveolar Lavage, Left Lower Lobe BAL ? C) - Right Upper Lobe Lung Bronchoalveolar Lavage, Right Upper Lobe BAL ? D) - Left Upper Lobe Lung Bronchoalveolar Lavage, Left Upper Lobe BAL ? E) - Left Upper Lobe Lung Bronchial Brushing, JACKY Brushing ? 02/06/2023 10:35 AM [facility] [employer] LABORATORY-C ENTRAL LABORATORY Final Diagnosis A) LUNG, LEFT UPPER LOBE, LINGULA, BRONCHOALVEOLAR LAVAGE, CYTOLOGIC MATERIAL: 1. Negative for malignancy; acute inflammation is present 2. Negative for viral inclusions 3. GMS stain is negative for yeast, fungal hyphae, and Pneumocystis organisms B) LUNG, LEFT LOWER LOBE, BRONCHOALVEOLAR LAVAGE, CYTOLOGIC MATERIAL: 1. Rare atypical pneumocytes, favor reactive; abundant acute inflammation is present 2. Negative for viral inclusions 3. GMS stain is negative for yeast, fungal hyphae, and Pneumocystis organisms 4. Scant pulmonary alveolar macrophages C) LUNG, RIGHT UPPER LOBE, BRONCHOALVEOLAR LAVAGE, CYTOLOGIC MATERIAL: 1. Rare atypical pneumocytes, favor reactive; abundant acute inflammation is present 2. Negative for viral inclusions 3. GMS stain is negative for yeast, fungal hyphae, and Pneumocystis organisms 4. Scant pulmonary alveolar macrophages D) LUNG, LEFT UPPER LOBE, BRONCHOALVEOLAR LAVAGE, CYTOLOGIC MATERIAL: 1. Negative for malignancy; acute inflammation is present 2. Negative for viral inclusions E) LUNG, LEFT UPPER LOBE, BRONCHIAL BRUSHING, CYTOLOGIC MATERIAL: 1. Negative for malignancy; benign bronchial cells and alveolar macrophages 2. Acute inflammation is present 3. Negative for viral inclusions 02/06/2023 10:35 AM [facility] ENTRAL LABORATORY Comment B & C) Rare atypical pneumocytes are seen which are favored to be reactive given the presence of acute inflammation and radiologic findings of extensive bilateral infiltrates. Dr. Bullard interpreted the GMS histochemical stains. Dr. Reese interpreted the remainder of the case. 02/06/2023 10:35 AM [facility] [employer] LABORATORY-C ENTRAL LABORATORY Clinical Information The patient is a 37-year-old with a history of dyspnea and shortness of breath. The patient also has a history of multiple sclerosis who is on immunosuppressive therapy. Per the clinical notes, CT scan showed extensive bilateral right greater than left dense infiltrates of unclear etiology. Per report, she has shown some transient improvement in cough but cough persists despite medical therapy and is productive. 02/06/2023 10:35 AM TARPER [employer] LABORATORY-C ENTRAL LABORATORY Gross Description A) SOURCE: Bronchoalveolar Lavage, Left Upper Lobe Lung The specimen consists of 10 cc of light yellow cloudy fluid from which the following is prepared: ? -1 DiffQuik stained slide ? -1 ThinPrep slide for Papanicolaou Stain ? -1 GMS stained ThinPrep slides B) SOURCE: Bronchoalveolar Lavage, Left Lower Lobe Lung The specimen consists of 15 cc of light yellow cloudy fluid from which the following is prepared: ? -1 DiffQuik stained slide ? -1 ThinPrep slide for Papanicolaou Stain ? -1 GMS stained ThinPrep slides C) SOURCE: Bronchoalveolar Lavage, Right Upper Lobe Lung The specimen consists of 5 cc of light yellow cloudy fluid from which the following is prepared: ? -1 DiffQuik stained slide ? -1 ThinPrep slide for Papanicolaou Stain ? -1 GMS stained ThinPrep slides D) SOURCE: Bronchoalveolar Lavage, Left Upper Lobe Lung Bronchoalveolar Lavage The specimen consists of 10 cc of light yellow cloudy fluid from which the following is prepared: ? -1 DiffQuik stained slide ? -1 ThinPrep slide for Papanicolaou Stain ? -0 GMS stained ThinPrep slides E) SOURCE: Bronchial Brushing, Left Upper Lobe Lung Bronchial Brushing The specimen consists of a brush in 4 cc of fluid from which the following is prepared: ? - 1 Papanicolaou stained ThinPrep slide ? - 0 GMS stained ThinPrep slides 02/06/2023 10:35 AM TARPER [employer] LABORATORY-C ENTRAL LABORATORY Microscopic Description Specimen adequacy: Adequate for interpretation. All slides were reviewed. The microscopic appearance substantiates the diagnosis. 02/06/2023 10:35 AM [facility] [employer] LABORATORY-C ENTRAL LABORATORY Additional Information Cytology is screened at [facility], Central Laboratory - [address] [place] [address] and [facility] - [address], [place] [address] and [facility] - [address] [place] [address] Interpreted at [facility], Central Laboratory - [address], [place] [address] 02/06/2023 10:35 AM TARPER [facility] LABORATORY-C ENTRAL LABORATORY Bronchoalveolar Lavage (Left Upper Lobe Lung Bronchoalveolar Lavage) 02/01/2023 10:57 AM TARPER 02/01/2023 12:50 PM TARPER Bronchoalveolar lavage fluid specimen (specimen) (Left Lower Lobe Lung Bronchoalveolar Lavage) 02/01/2023 10:59 AM TARPER 02/01/2023 12:54 PM TARPER Bronchoalveolar lavage fluid specimen (specimen) (Right Upper Lobe Lung Bronchoalveolar Lavage) 02/01/2023 11:01 AM TARPER 02/01/2023 1:02 PM TARPER Bronchoalveolar lavage fluid specimen (specimen) (Left Upper Lobe Lung Bronchoalveolar Lavage) 02/01/2023 11:03 AM TARPER 02/01/2023 1:07 PM TARPER Bronchial brushings specimen (specimen) (Left Upper Lobe Lung Bronchial Brushing) 02/01/2023 11:05 AM TARPER 02/01/2023 12:43 PM TARPER Checo Lujan MD PATHOLOGY/CYTOLOG Y Performing Organization Address City/State/[facility] Co de Phone Number [facility] LAB[facility]ORY [address] [place] [address], * HCHG TUBE PR1, HCHG STYLET PR1, HCHG MOUTHPIECE PR1 (02/01/2023 10:55 AM TARPER) Narrative Jamal Vivar CRNA - 02/01/2023 10:55 AM TARPER Jamal Vivar CRNA ? 02/01/2023 10:55 AM Procedure: ETT Patient location during procedure: OR ETT Properties Mask Ventilation: easy and oral airway Type: straight Location: oral Cuffed: yes Tube Size: 8.5 mm Stylet: yes Laryngoscope Blade: Mac Blade Size: 3 Cormack-Lehane Grade View: 1 Insertion Attempts: 1 Placement Verification: auscultation, end tidal CO2 and symmetrical chest wall movement Assessment: pharynx clear, atraumatic and dentition unchanged Secured at: 22 Measured From: lips Tooth guard used and removed: yes Difficulty: 0 (not difficult) Daphne Victor MD ANESTHESIA PX N OTE ORDERABLES * BRONCHOSCOPY (02/01/2023 10:09 AM TARPER) 02/01/2023 10:0 9 AM TARPER Narrative Transcriptions Checo Lujan MD - 02/01/2023 11:29 AM CST [facility] Patient Name: Jessy Vega Procedure Date: 02/01/2023 Gender: Female Date of : 1985 Admit Type: Ambulatory Instrument Name: BRONCH [id number] Procedure: Bronchoscopy Proceduralist: Checo Lujan Indications/Pre-Op Diagnosis: Diffuse infiltrate Procedure Description: Flexible bronchoscopy with therapeutic aspiration, BAL, brushing, transbronchial biopsy. The endoscope [id number] was used. Estimated Blood Loss & Specimen: Estimated blood loss was minimal. Specimen collected: Yes and sent to Laboratory Findings: Procedure description: Indication(s): Pneumonia unspec J18.9 Bronchoscopist: Checo Lujan MD Sedation: General anesthesia Informed consent for the procedure was obtained. Timeout wasperformed and universal protocol was followed. Patient was sedated via general anesthesia and intubated with ETT. Bronchoscope was advanced via ETT adaptor. Airway exam was performed. Copious purulent secretions were seen throughout all airways. Extensive therapeutic aspiration was performed. BAL of the lingula was performed with instillation of 75ccof sterile saline and return of approximately 25cc of purulent fluidwith mucus plugs. BAL of the LLL was performed with instillation of 50ccof sterile saline and return of approximately 30cc of purulent fluidwith mucus plugs. BAL of the RUL was performed with instillation of 50ccof sterile saline and return of approximately 15cc of purulent fluidwith mucus plugs. BAL of the JACKY was performed with instillation of 50ccof sterile saline and return of approximately 25cc of purulent fluidwith mucus plugs. Brushing of the JACKY was performed under fluoroscopic guidance x2 passes. Transbronchial biopsy of the JACKY was performedunder fluoroscopic guidance x2 passes. Hemostasis was confirmed andpulmonary toilet was repeated with extensive therapeutic aspiration ofremaining purulent secretions. Bronchoscope was withdrawn. Patient toleratedthe procedure well with no immediate complications. Anesthesia reversed. Transferred to endoscopy holding in stable condition. CXR ordered. PreOp Diagnosis: As above PostOp Diagnosis: Same Estimated Blood Loss: Less than 50cc Impression/Post-Op Diagonsis: - Diffuse infiltrate Recommendation: - Await BAL, biopsy, brushing and culture results. Checo Lujan, 02/01/2023 11:29:49 AM This report has been signed electronically. Note Initiated On: 02/01/2023 10:09 AM Checo Lujan MD PROCEDURE ORD from Last 3 Months Advance Directives Latest Code Status on File Code Status Date Activated Date Inactivated Comments Full Code 02/03/2023 4:27 PM 02/09/2023 5:05 PM Question Answer Comments Code Status Discussion: Reviewed Preferences Code Status History Code Status Date Activated Date Inactivated Comments Full Code 02/01/2023 10:00 AM 02/01/2023 3:21 PM Question Answer Comments Code Status Discussion: Unable to Assess Preferences, Provider to review later Full Code 10/04/2022 12:45 PM 10/05/2022 2:30 AM Question Answer Comments Code Status Discussion: Reviewed Preferences Care Teams Order Filler Relationship Specialty Start Date End Date Willard Shahid MD [address] [place] [address] PCP - General Family Practice 10/18/17
--- OUTSIDE RECORDS SUMMARY | 2023-02-13 16:06 | XMS_ITS | Encounter Summary ---
Author Name Unknown Organization [facility] Address [address] [place] [address] Care Team Providers Care Supervisor [place] Name Role Phone Jamal Butt M.D. Primary Care Provider [phone] Reason for Visit * Reason Onset Date Comments Communication 03/27/2022 Encounter Details Date Type Department Care Team (Late st Contact Info) Description 03/27/2022 Clinical Communication Department of Neurology in [address] [phone] Patel Martell M.B., Ch.B. [address] [place] [phone] Communication Social History Tobacco Use Types Packs/Day Years [...] declined 10/28/2020 How often do you attend [facility] or denominational services? Patient declined 10/28/2020 Do you belong [...] Score 1 12/01/2019 [facility] - Occupational Stress Questionnaire Answer Date [...] place to sleep or slept in a jail (including now)? No 10/28/2020 Depression Answer Date [...] Sex Assigned at Female 03/06/2017 10:16 AM ORDER PLANNER Gender Identity Female 03/06/2017 10:16 AM ORDER PLANNER Sexual Orientation Straight 03/06/2017 10 :16 AM ORDER PLANNER documented as of this encounter Miscellaneous Notes * Telephone Encounter - Cecily Ascencio RMertN. - 04/04/2022 9:11 AM CST RN contacted Jessy and informed her about the Ocrevus being denied to be given at [facility]. Shehas the options to go to [facility], [facility] or [facility]. She is due for her infusion in August 2022. Jessy will contact us in July 2022 to let us know where she would like the Ocrevusinfusion. Number left to call [phone]. R PLANNER * Telephone Encounter - Cecily Ascencio R.N. - 03/28/2022 11:00 AM ORDER PLANNER LVM for Jessy.. Left number [phone] to return call R PLANNER * Telephone Encounter - Cecily Ascencio R.N. - 03/27/2022 12:11 PM ORDER PLANNER Images from the original note were not included. Angelika Leigh George S, M.B., Ch.B.; [facility] Nurse Cc: [facility] is not denying patients Ocrevus, however, as of 04/10/22, they will no longer let her have it in a hospital setting, which is how [facility] bills. (So does [facility]) Please assist patient in finding a new site of care for her next dose. [facility] & [facility] [place] will both bill as a clinic - or [facility] ([facility] in [place] will also bill as a clinic. The other option would be home infusion. A copy of the SOC denial will be uploaded to the media tab in patients chart. Thanks, Angelika Allred Auth Called and [facility] byalee Jiménez to contact Neurology about the denial for the Ocrevus to be done at [facility] and left number [phone] to return call. R PLANNER documented in this encounter Plan of Treatment Upcoming Encounters Date Type Department Care Team ([facility] st Contact Info) Description 04/26/2023 10:00 AM CDT Office Visit Department of Neurology in [place], [place] [address] [place] [phone] Patel Martell M.B., Ch.B. [address] [place] [phone] Discharge Disposition: Home or Self Care documented as of this encounter Visit Diagnoses Not on filedocumented in this encounter Additional Health Concerns Assessment Noted Time PHQ-9 Depression Total Score: 2 12/01/19 20 6:54 AM CDT documented as of this encounter Care Teams Supervisor [place] Relationship Specialty Start Date End Date Jamal Butt M.D. [address] [place] [phone] PCP - General Family Medicine 05/21/17 documented as of this encounter
--- OUTSIDE RECORDS SUMMARY | 2023-02-13 16:06 | XMS_ITS | Encounter Summary ---
Author Name Unknown Organization [facility] Address [address] [place] [address] Care Team Providers Care Precision Printing Worker Name Role Phone Jamal Butt M.D. Primary Care Provider [phone] Encounter Details Date Type Department Care Team (Latest Contact Info) Description 02/25/2018 [facility] [address] [place] [address] Willard Shahid M.D. [address], [place] [phone] Fasciculation (Primary Dx) Social History Tobacco Use Types Packs/Day Years Used Date Smoking Tobacco: Every Day Cigarettes 0.8 5 Started: 07/25/1998 Smokeless Tobacco: Never Alcohol Use Standard Drinks/Week Comments Yes 0 (1 standard drink = 0.6 oz pur e alcohol) beer socially Sex and Gender Information Value Date Recorded Sex Assigned at Female 03/06/2017 10:16 AM BOOK AGENT Gender Identity Female 03/06/2017 10:16 AM BOOK AGENT Sexual Orientation Straight 03/06/2017 10 :16 AM BOOK AGENT documented as of this encounter Plan of Treatment Upcoming Encounters Date Type Department Care Team (Late st Contact Info) Description 04/26/2023 10:00 AM CDT Office Visit Department of Neurology in [address] [phone] Patel Martell M.B., .B. [address] [place] [phone] Discharge Disposition: Home or Self Care documented as of this encounter Visit Diagnoses Diagnosis Fasciculation- Primary documented in this encounter Additional Health Concerns Infection Onset Date Last Indicated Resolved Time COVID19 Pending 09/11/2019 09/11/2019 09/12/2019 4 :17 AM CDT COVID19 Pending 11/18/2019 11/18/2019 11/19/2019 1 2:28 PM CDT COVID19 Pending 11/20/2019 11/20/2019 11/20/2019 1 0:17 PM CDT COVID19 Pending 01/12/2020 01/12/2020 01/13/2020 4 :11 AM BOOK AGENT COVID19 Pending 02/13/2020 02/13/2020 02/14/2020 1 :05 AM BOOK AGENT COVID19 Pending 03/31/2020 03/31/2020 03/31/2020 1 2:19 PM BOOK AGENT COVID19 Pending 03/31/2020 03/31/2020 04/01/2020 1 2:22 AM BOOK AGENT Protective Environment 06/07/2022 06/07/2022 COVID19 Pending 07/06/2022 07/06/2022 07/06/2022 8 :28 PM CDT Assessment Noted Time PHQ-9 Depression Total Score: 2 12/22/19 18 2:04 PM BOOK AGENT documented as of this encounter Care Teams Precision Printing Worker Relationship Specialty Start Date End Date Jamal Butt M.D. [address] [place], [place] [address] [place] [phone] PCP - General Family Medicine 05/21/17 documented as of this encounter
--- OUTSIDE RECORDS SUMMARY | 2023-02-13 16:06 | XMS_ITS | Encounter Summary ---
Author Name Unknown Organization [facility] Address [address] [place] [address] Care Team Providers Care Stewardess Supervisor Name Role Phone Jamal Butt M.D. Primary Care Provider [phone] Reason for Visit * Reason Comments Botulinum Toxin Injection 150 UNITS * Outpatient (Routine) - Closed Specialty Diagnoses / Procedures Referred By Contac t Referred To Contact Diagnoses Chronic Migraine Procedures Botox for Chronic Migraine Bety Chauhan APRN, MAILING CLERK, M.S., M.S.N. [address] [place] [phone] [facility] Region Referral ID Status Reason Start Date Expiration Date Visits Re quested Visits Authorized [id number] Closed 09/22/2021 09/22/2022 1 1 Encounter Details Date Type Department Care Team (Latest Contact Info) Description 03/09/2022 3:30 PM BAKERY DEMONSTRATOR Procedure visit Department of Neurology in [place], [place] [address] [place] [phone] Patel Martell M.B., Ch.B. [address] [place] [phone] Migraine Headache Chronic Discharge Disposition: Home or Self Care Social [...] How often do you attend chur or yazdanism services? Patient declined 10/28/2020 Do you belong to any clubs o r organizations such as hindu groups, unions, fraternal or athletic groups, or [...] PHQ-2 Score 1 12/01/2019 [facility] - Occupational [...] place to sleep or slept in a nursing home (including now)? No 10/28/2020 Depression Answer Date [...] Sex Assigned at Female 03/06/2017 10:16 AM BAKERY DEMONSTRATOR Gender Identity Female 03/06/2017 10:16 AM BAKERY DEMONSTRATOR Sexual Orientation Straight 03/06/2017 10 :16 AM BAKERY DEMONSTRATOR documented as of this encounter Procedure Notes * Patel Martell M.B., Ch.B. - 03/09/2022 3:30 PM CSTAssociated Order(s): Botox for Chronic Migraine Pre-Procedure Diagnose(s): Chronic Migraine Post-Procedure Diagnose(s): Chronic Migraine Botox for Chronic Migraine Performed by: Patel Martell M.B., Ch.B. Authorized by: Bety Chauhan APRN, MAILING CLERK, M.S., M.S.N. Care team members present 1. Patel Martell M.B., Ch.B. 2. Joan Brock RCasandra PROCEDURE DETAILS Pre-procedure pain score: 8/10 Injection of: 100 Units onabotulinumtoxinA 100 unit; 50 Units onabotulinumtoxinA 100 unit Needle gauge: 30 Needle length: 0.5 in Injection site details Executive Relations Specialist / Procerus muscle(s): 5 units into the left maintenance welder muscle, 5 units into the right maintenance welder muscle and 5 units into the procerus [...] units injected: 150 CONSENT Consent obtained: written UNIVERSAL PROTOCOL All relevant documentation and testing [...] is not covered by a third republican. Prior to treatment with Botox, the frequency of headaches was greater than 15 days per month and with significant impairment in the quality of life. Please see the initial Botox injection note and Headache consultation note regarding specific details of the headache history prior to the start of treatment. Any other daily migraine prophylactic treatments taken over the last 3 months: Gabapentin and pregabalin (Lyrica) Headache frequency when Botox is most effective (middle month in between rounds). Headache days per month: 0 days Severe headache days per month: 0 days Wearing off phenomenon prior to this round of Botox: yes Duration: 1 weeks Patient finds Botox treatment helpful and wants to repeat the treatment? yes Patient had migraine headache frequency reduction by at least 7 days per month compared to pretreatment level, or migraine headache duration reduction of at least 100 hours per month compared to pretreatment level? yes POST-PROCEDURE DETAILS Procedure completed successfully: yes Complications: no apparent complications Nereida Hernandez, Ch.B. Board Certified Neurologist Neuro-Ship/Rec/Doc Control 03/09/22 3:59 PM BAKERY DEMONSTRATOR RY DEMONSTRATOR documented in this encounter Plan of Treatment Upcoming Encounters Date Type Department Care Team (Late st Contact Info) Description 04/26/2023 10:00 AM CDT Office Visit Department of Neurology in [address] [phone] Patel Martell M.B., Ch.B. [address] [place] [phone] Discharge Disposition: Home or Self Care documented as of this encounter Procedures Procedure Name Priority Date/Time Associated Diagnosis Comments ME CHEMODENERV FACIAL TRIGEM BARBARA Routine 03/09/2022 3:30 PM BAKERY DEMONSTRATOR Migraine Headache Chronic documented in this encounter Results * ME CHEMODENERV FACIAL TRIGEM BARBARA (03/09/2022 3:30 PM BAKERY DEMONSTRATOR) Narrative MMODAL - 03/09/2022 3:30 PM BAKERY DEMONSTRATOR Patel Martell M.B., Ch.B. ? 03/09/2022 ??4:00 PM Botox for Chronic Migraine Performed by: Patel Martell M.B., Ch.B. Authorized by: Bety Chauhan APRN, MAILING CLERK, M.S., M.S.N. Care team members present 1. Patel Martell M.B., Ch.B. 2. Joan Brock RMertN. PROCEDURE DETAILS ?? Pre-procedure pain score: 8/10 Injection of: ??100 Units onabotulinumtoxinA 100 unit; 50 Units onabotulinumtoxinA 100 unit Needle gauge: 30 Needle length: 0.5 in Injection site details Executive Relations Specialist / Procerus muscle(s): 5 units into the left maintenance welder muscle, 5 units into the right maintenance welder muscle ??and 5 units into the procerus [...] units injected: 150 CONSENT Consent obtained: written UNIVERSAL PROTOCOL All relevant documentation and testing [...] treatments taken over the last 3 months: ??Gabapentin and pregabalin (Lyrica) Headache frequency when Botox is most effective (middle month in between rounds). Headache days per month: 0 days Severe headache days per month: 0 days Wearing off phenomenon prior to this round of Botox: yes Duration: 1 weeks Patient finds Botox treatment helpful and wants to repeat the treatment? yes Patient had migraine headache frequency reduction by at least 7 days per month compared to pretreatment level, or migraine headache duration reduction of at least 100 hours per month compared to pretreatment level? yes POST-PROCEDURE DETAILS ?? Procedure completed successfully: yes ?? Complications: no apparent complications YOLANDA Paniagua APRN, M.S., M .S.N. NEUROLOGY ORDERABLES MMODAL NA documented in this encounter Visit Diagnoses Diagnosis Chronic Migraine documented in this encounter Administered Medications Inactive Administered Medications - up to 3 most recent administrations Medication Order MAR Action Action Date Dose Rate Site onabotulinumtoxinA injection 100 Units (BOTOX) 100 Units, injection, One-Time Injection, Starting on Angelique 03/09/22 at 1527, For 1 dose Given 03/09/2022 3:27 PM BAKERY DEMONSTRATOR 100 Units onabotulinumtoxinA injection 50 Units (BOTOX) 50 Units, injection, One-Time Injection, Starting on Angelique 03/09/22 at 1527, For 1 dose Given 03/09/2022 3:27 PM BAKERY DEMONSTRATOR 50 Units documented in this encounter Additional Health Concerns Assessment Noted Time PHQ-9 Depression Total Score: 2 12/01/19 20 6:54 AM CDT documented as of this encounter Care Teams Stewardess Supervisor Relationship Specialty Start Date End Date Jamal Butt M.D. [address] [place] [phone] PCP - General Family Medicine 05/21/17 documented as of this encounter
--- OUTSIDE RECORDS SUMMARY | 2023-02-13 16:06 | XMS_ITS | Encounter Summary ---
Author Name Unknown Organization [facility] Address [address] [place] [address] Care Team Providers Care Compliance Officer Name Role Phone Jamal Butt M.D. Primary Care Provider [phone] Reason for Visit * Reason Comments Communication Paper work from [facility] Encounter Details Date Type Department Care Team (Latest Contact Info) Description 03/01/2022 Clinical Communication Department of Neurology in [address] [phone] Patel Martell M.B., Ch.B. [address] [place] [phone] Communication (Paper work from [facility]) Social History Tobacco Use Types Packs/Day Years [...] declined 10/28/2020 [facility] or [facility] services? Patient declined 10/28/2020 Do you belong [...] Date Recorded PHQ-2 Score 1 12/01/2019 [facility] Questionnaire Answer Date [...] Sex Assigned at Female 03/06/2017 10:16 AM BOWLING ALLEY OPERATOR Gender Identity Female 03/06/2017 10:16 AM BOWLING ALLEY OPERATOR Sexual Orientation Straight 03/06/2017 10 :16 AM BOWLING ALLEY OPERATOR documented as of this encounter Miscellaneous Notes * Telephone Encounter - Cecily Ascencio R.N. - 03/15/2022 8:35 AM CST RN had Dr. Martell sign the letter for Jm Chu. For the site of care for IVIG to be reveiwed for patient to keep her site at [place]. Faxed to [phone] Scanned paperwork to chart ING ALLEY OPERATOR * Telephone Encounter - Cecily Ascencio R.N. - 03/13/2022 1:34 PM CST RN called and spoke with Jessy. RN explained that Jm Chu is wanting to know if it is medically necessary for this member to continue to receiving infusion at the hospital based infusion center. Jessy stated she would go wherever they need her to go or have home infusion. Contacted Barry at [facility] to let him know that Dr. Martell would write a letter first to see if she could continue having the Ocrevus at [facility]. ING ALLEY OPERATOR * Telephone Encounter - Cecily Ascencio R.N. - 03/01/2022 10:41 AM BOWLING ALLEY OPERATOR Received paperwork from [facility] [phone] Asking necessary for this member ro continue receiving infusions at the [facility] infusion center. Paperwork placed on Dr. Martell's desk. ING ALLEY OPERATOR documented in this encounter Plan of Treatment Upcoming Encounters Date Type Department Care Team (Late st Contact Info) Description 04/26/2023 10:00 AM CDT Office Visit Department of Neurology in [address] [phone] Patel Martell M.B., Ch.B. [address] [place] [phone] Discharge Disposition: Home or Self Care documented as of this encounter Visit Diagnoses Not on filedocumented in this encounter Additional Health Concerns Assessment Noted Time PHQ-9 Depression Total Score: 2 12/01/19 20 6:54 AM CDT documented as of this encounter Care Teams Compliance Officer Relationship Specialty Start Date End Date Jamal Butt M.D. [address] [place] [phone] PCP - General Family Medicine 05/21/17 documented as of this encounter
--- OUTSIDE RECORDS SUMMARY | 2023-02-13 16:06 | XMS_ITS | Encounter Summary ---
Author Name Unknown Organization [facility] Address [address] [place] [address] Care Team Providers Care Toddler Teacher Name Role Phone Jamal Butt M.D. Primary Care Provider [phone] Encounter Details Date Type Department Care Team (Late st Contact Info) Description 02/22/2018 [facility] [address] [place] [address] Willard Shahid M.D. [address], [place] [phone] Social History Tobacco Use Types Packs/Day Years Used Date Smoking Tobacco: Every Day Cigarettes 0.8 5 Started: 07/25/1998 Smokeless Tobacco: Never Alcohol Use Standard Drinks/Week Comments Yes 0 (1 standard drink = 0.6 oz pur e alcohol) beer socially Sex and Gender Information Value Date Recorded Sex Assigned at Female 03/06/2017 10:16 AM FIBERGLASS ROLLER Gender Identity Female 03/06/2017 10:16 AM FIBERGLASS ROLLER Sexual Orientation Straight 03/06/2017 10 :16 AM FIBERGLASS ROLLER documented as of this encounter Plan of Treatment Upcoming Encounters Date Type Department Care Team (Late st Contact Info) Description 04/26/2023 10:00 AM CDT Office Visit Department of Neurology in [address] [phone] Patel Martell M.B., .B. [address] [place] [phone] Discharge Disposition: Home or Self Care documented [...] Pending 01/12/2020 01/12/2020 01/13/2020 4 :11 AM FIBERGLASS ROLLER COVID19 Pending 02/13/2020 02/13/2020 02/14/2020 1 :05 AM FIBERGLASS ROLLER COVID19 Pending 03/31/2020 03/31/2020 03/31/2020 1 2:19 PM FIBERGLASS ROLLER COVID19 Pending 03/31/2020 03/31/2020 04/01/2020 1 2:22 AM FIBERGLASS ROLLER Protective Environment 06/07/2022 06/07/2022 COVID19 Pending 07/06/2022 07/06/2022 07/06/2022 8 :28 PM CDT Assessment Noted Time PHQ-9 Depression Total Score: 2 12/22/19 18 2:04 PM FIBERGLASS ROLLER documented as of this encounter Care Teams Toddler Teacher Relationship Specialty Start Date End Date Jamal Butt M.D. [address] [place] [phone] PCP - General Family Medicine 05/21/17 documented as of this encounter
--- OUTSIDE RECORDS SUMMARY | 2023-02-13 16:06 | XMS_ITS | Encounter Summary ---
Author Name Unknown Organization [facility] Address [address] [place] [address] Care Team Providers Care Barrel Coater Name Role Phone Jamal Butt M.D. Primary Care Provider [phone] Reason for Referral * Outpatient (Routine) - Authorized Specialty Diagnoses / Procedures Referred By Contac t Referred To Contact Neurology Patel Martell M.B., Ch.B. [address] [place] [phone] [facility] Referral ID Status Reason Start Date Expiration Date V isits Requested Visits Authorized [id number] Authorized 03/09/2022 03/08/2025 1 1 TION MAKER Reason for Visit * Reason Comments Follow-up Migraines * Outpatient (Routine) - Closed Specialty Diagnoses / Procedures Referred By Contac t Referred To Contact Neurology Patel Martell M.B., Ch.B. [address] [place] [address] [facility] Referral ID Status Reason Start Date Expiration Date Visits Re quested Visits Authorized [id number] Closed 04/27/2021 04/27/2022 1 1 Encounter Details Date Type Department Care Team ([facility] st Contact Info) Description 03/08/2022 1:45 PM JUNCTION MAKER Office Visit Department of Neurology in [place], [place] [address] [place] [phone] Patel Martell M.B., Ch.B. [address] [place] [phone] Multiple Sclerosis (HCC) (Primary Dx); Migraine Headache Chronic Discharge Disposition: Home or [...] 10/28/2020 How often do you attend [facility] or bahai services? Patient declined 10/28/2020 Do you belong to any clubs o r organizations such as religion groups, unions, fraternal or athletic groups, or [...] Answer Date Recorded PHQ-2 Score 1 12/01/2019 [facility] Occupat ional Health - Occupational Stress [...] place to sleep or slept in a care home (including now)? No 10/28/2020 Depression Answer [...] Sex Assigned at Female 03/06/2017 10:16 AM JUNCTION MAKER Gender Identity Female 03/06/2017 10:16 AM JUNCTION MAKER Sexual Orientation Straight 03/06/2017 10 :16 AM JUNCTION MAKER documented as of this encounter Last Filed Vital Signs Vital Sign Reading Time Taken Comments Blood Pressure 129/80 03/08/2022 1:25 PM JUNCTION MAKER Pulse 97 03/08/2022 1:25 PM JUNCTION MAKER Temperature - - Respiratory Rate - - Oxygen Saturation - - Inhaled Oxygen Concentration - - Weight 70.3 kg (155 lb) 03/08/2022 1:25 PM JUNCTION MAKER Height 175.3 cm (5' 9) 03/08/2022 1:25 PM JUNCTION MAKER Body Mass Index 22.89 03/08/2022 1:25 PM JUNCTION MAKER documented in this encounter Consult Notes * Patel Martell M.B., Ch.B. - 03/08/2022 1:45 PM CST SUBJECTIVE Referring Provider: Patel Martell M.B., Ch.B. CHIEF COMPLAINT / REASON FOR VISIT Jessy Vega is a 36 y.o. female who presents for evaluation of Consults HISTORY OF PRESENT ILLNESS Jessy Vega is a 36 y.o. female with medical history significant for multiple sclerosis, andchronic migraine headaches who presented at the [facility] on 03/08/2022 as a follow-up evaluation with Neurology. Jessy presents as a follow-up evaluation for multiple sclerosis and chronic migraine headaches, since her last visit she is remained relatively stable, as she has had no symptoms concerning for MS relapse, her last infusion was in February 2022, she is presently due for her Botox injections, and has noted a slight uptake in her headaches. MRI brain 10/12/2021: No change when compared to previous 2019 study: Multiple bilateral unchanged [id number] lesions within the periventricular white matter consistent with the patient's known MS. The brainstem, cerebellum and visualized optic nerves remain free of disease process, and there are no newly identified lesions. There is no enhancement of any of the lesions on the current study. Prior history: Initial evaluation 11/04/2020, Jessy presented for establishment of care with [place] [facility], she was initially seen by [place] [facility], she carries a diagnosis of multiple sclerosis diagnosed 01/31/2012, after bout of optic neuritis involving the right eye, she was diagnosed in [place], and chronic headaches. She states she was [...] 2019, when she transferred her care from [place] to [place]. In 2013 she underwent a stem cell [...] Nortriptyline, Verapamil, Divalproex, Gabapentin, Topiramate, Fluoxetine, and Sertaline, which were not helpful, until she started the botox. She was then started on Botox was havingvery good control of her headaches with essentially [...] did not respond to any treatment, including [id number] pain med and triptans. On today's presentation, she is reestablishing care, she was initially seen as [place] but due toproximity effect would preferred to seen in [place], she is due for her Botox injections, she is also due for Ocrevus infusion, of note she is having difficulty with having the Ocrevus approved by insurance company, this is been worked out with her previous neurologist in [place] who has sent in a n appeal. [...] HISTORY Past Surgical History: Procedure Laterality Date HYSTERECTOMY 2013 Endometriosis INNER EAR SURGERY Left 1996 Mastoiditis surgery REFRACTIVE SURGERY SOCIAL HISTORY Social History Tobacco Use Smoking status: Light Smoker Packs/day: 0.50 Years: 5.00 Pack years: 2.50 Types: Cigarettes Start date: 07/25/1998 Smokeless tobacco: Never Substance Use Topics Alcohol use: Yes Alcohol/week: 3.0 standard drinks Types: 3 Cans of beer per week [...] total) by mouth daily. 30 tablet 0 diphenhydrAMINE (BENADRYL) 25 mg capsule Take 1 capsule by mouth as directed. Premed for Rituxan infusion. FLOVENT HFA 110 mcg/actuation inhaler Inhale 1 [...] Dose: 125 mg IVP, premed for Rituxaninfusion. pregabalin (LYRICA) 100 mg capsule 2 (two) times a day. traZODone (for_DESYREL) 100 mg tablet Take 200 mg by mouth at bedtime. zinc gluconate 50 mg tablet Take 50 mg by mouth daily with breakfast. Zinc doxycycline monohydrate (MONODOX) 100 mg capsule Take 100 mg by mouth 2 (two) times a day. for 10 days ferrous sulfate 325 mg (65 mg iron) DR tablet Take 65 mg of iron by mouth daily. Iron minocycline (MINOCIN,DYNACIN) 100 mg capsule Take 100 mg by mouth daily. montelukast (SINGULAIR) 10 mg tablet Take 10 mg by mouth at bedtime. riTUXimab (RITUXAN) 10 mg/mL injection every 6 (six) months. riTUXimab in NaCl solution IVPB (for_RITUXAN) Infuse 1,000 mg into a venous catheter every 6 (six) months. sulfamethoxazole-trimethoprim (BACTRIM DS) 800-160 mg per tablet daily. [DISCONTINUED] cholecalciferol (VITAMIN D3) 50 mcg (2,000 Unit) tablet Take 2,000 Units by mouth daily. [DISCONTINUED] gabapentin (NEURONTIN) 300 mg capsule Take 1 capsule (300 mg total) by mouth 3 (three) times a day. (Patient taking differently: Take 600 mg by mouth 3 (three) times a day. ) 270 capsule 0 [DISCONTINUED] gabapentin (NEURONTIN) 600 mg tablet Take 600 mg by mouth 3 (three) times a day. [DISCONTINUED] lamoTRIgine (for_LaMICtal) 150 mg tablet Take 150 mg by mouth 2 (two) times a day. Has been taking 200mg once a day at bedtime No current facility-administered medications on file prior [...] diagnostics as applicable to this consult. Radiology: No results found. ASSESSMENT / PLAN Impression: Multiple sclerosis stable. History of right optic neuritis. Chronic migraine headache. Discussion: Patient presents as a follow-up evaluation with Neurology, since last visit remained stable no evidence of progression of MS, headaches adequately controlled with Botox, at this time would recommend continuing with treatment regimen with no change for now, and follow-up in 1 year Recommendations/Plan: Plan continue with Botox 150 units every 12 weeks. Continue with Ocrevus as scheduled. For acute headaches okay to take naproxen/Aleve not more than 2 doses a day not more than 3 times aweek to prevent rebound headaches. Follow up 1 year. Patient Active Problem List Diagnosis Multiple Sclerosis (HCC) Depression Major Recurrent (HCC) Generalized anxiety disorder Deficiency Vitamin B12 Tobacco Use Attention Deficit With Hyperactivity Disorder Colitis Ulcerative Proctitis (HCC) Insomnia Time spent: 45 minutes this include both face to face and non dbgr-dt-esni time, of this about 15 minutes or so were spent in education, counseling and coordinating future care. PATIENT EDUCATION Ready to learn, no apparent learning barriers were identified; learning preferences include listening. Explained diagnosis and treatment plan; patient expressed understanding of the content. Arabella Hernandez., Ch.B. Board Certified Neurologist Neuro-Records Management Specialist 03/08/22 1:45 PM JUNCTION MAKER TION MAKER documented in this encounter Miscellaneous Notes * Addendum Note - Patel Martell M.B., Ch.B. - 03/08/2022 1:45 PM CSTAddended by: PATEL MARTELL on: 03/09/2022 08:46 AM Modules accepted: Level of Service TION MAKER documented in this encounter Plan of Treatment Upcoming Encounters Date Type Department Care Team (Late st Contact Info) Description 04/26/2023 10:00 AM CDT Office Visit Department of Neurology in [address] [phone] Patel Martell M.B., Ch.B. [address] [place] [phone] Discharge Disposition: Home or Self Care Scheduled Referrals Name Type Priority Associated Diagnoses Orde r Schedule Neurology office visit (clinic) Outpatient Referral Routine Expected: 03/09/2023 (Approximate), Expires: 06/07/2023 documented as of this encounter Visit Diagnoses Diagnosis Multiple Sclerosis (HCC)- Primary Chronic Migraine documented in this encounter Additional Health Concerns Assessment Noted Time PHQ-9 Depression Total Score: 2 12/01/19 20 6:54 AM CDT documented as of this encounter Care Teams Barrel Coater Relationship Specialty Start Date End Date Jamal Butt M.D. [address] [place] [phone] PCP - General Family Medicine 05/21/17 documented as of this encounter
== END 2023-02-13 16:01 | disposition home or self-care (01) ==
LOC: NFLDREF 16:01
PROVIDERS: PCP Family Medicine; Visit Provider Family Medicine
DX: J18.9 Pneumonia, unspecified organism (principal)
CPT/HCPCS: 80053

== ENCOUNTER 2023-02-14 21:20 | Emergency (ER) | payer BC, SELFPAY ==
--- NOTE | 2023-02-14 21:36 | ED.NURSE ---
PICC line flushes great, she was concerned about slight leakage around the insertion site. Notified her that the almost unobservable amount of blood is okay and to return if there is enough leakage to create a pool and start removing the dressing. Will leave at this time without seeing provider.
--- OUTSIDE RECORDS SUMMARY | 2023-02-14 21:41 | XMS_ITS | Clinical Summary ---
Author Name Unknown Organization [facility] Address [address] [place] [address] Care Team Providers Care Health Economist Name Role Phone Stanton, Primary Care Provider [...] age to complete this topic Care Teams Health Economist Relationship Specialty Start Date End Date None, PCP - General 11/11/17 None, PCP - Primary Care Clinic 11/11/17
--- OUTSIDE RECORDS SUMMARY | 2023-02-14 21:41 | XMS_ITS | Referral Summary ---
Author Name Unknown Organization [facility] Address [address] [place] [address] Care Team Providers Care Silver Steward Name Role Phone Stanton, Primary Care Provider [...] of Treatment Not on file Care Teams Silver Steward Relationship Specialty Start Date End Date None, PCP - General 11/11/17 None, PCP - Primary Care Clinic 11/11/17
--- OUTSIDE RECORDS SUMMARY | 2023-02-14 21:41 | XMS_ITS | Referral Summary ---
Author Name Unknown Organization [place] Address [facility] [place] [address] Care Team Providers Care Sub Master Name Role Phone [facility] Primary Care Provider [phone] Allergies Active Allergy Reactions Criticality Noted Date [...] of Treatment Not on file Care Teams Sub Master Relationship Specialty Start Date End Date [facility] [address] [place], [place] [address] PCP - General 07/28/16
--- OUTSIDE RECORDS SUMMARY | 2023-02-14 21:41 | XMS_ITS | Clinical Summary ---
Author Name Unknown Organization [facility] Address [address] [place] [address] Care Team Providers Care Commodity Supervisor Name Role Phone Estella Kamara APRN, PAPER CONE DRYING MACHINE OPERATOR Primary Care Provider Source Comments You are receiving this document as you are listed as the primary care provider,follow-up provider, or the patient has been referred to you for consultation.This is in compliance with the Medicare and[facility] EHR Incentive Program,which states Providers who transition their patient to another setting of careor provider of care or refers their patient to another provider of care shouldprovide summary care record for each transition of care or referral. [facility] Allergies Active Allergy Reactions Criticality Noted Date [...] Formerly on Rituxan. Is seen at the [facility] by neurology TIM (generalized anxiety disorder) 07/11/2016 [...] age to complete this topic Care Teams Commodity Supervisor Relationship Specialty Start Date End Date Estella Kamara, MANAGER ACCOUNT MANAGEMENT, PAPER CONE DRYING MACHINE OPERATOR [address] [place] Gupta [address] PCP - General Nurse Practitioner 09/07/16
--- OUTSIDE RECORDS SUMMARY | 2023-02-14 21:41 | XMS_ITS | Clinical Summary ---
Author Name Unknown Organization [place] Address [facility] [place] [address] Care Team Providers Care Security System Sales Consultant Name Role Phone [facility], [facility] Primary Care Provider [phone] Allergies Active Allergy Reactions Criticality Noted Date [...] of Treatment Not on file Care Teams Security System Sales Consultant Relationship Specialty Start Date End Date [facility], [facility] [address] [place], [place] [phone] PCP - General 07/28/16
--- OUTSIDE RECORDS SUMMARY | 2023-02-14 21:42 | XMS_ITS | Encounter Summary ---
Author Name Unknown Organization [facility] Address [address] [place] [address] Care Team Providers Care Platform Inspector Name Role Phone Jamal Butt M.D. Primary Care Provider [phone] Reason for Visit * Reason Comments Botulinum Toxin Injection 150 units * Outpatient (Routine) - Authorized Specialty Diagnoses / Procedures Referred By Contac t Referred To Contact Diagnoses Chronic Migraine Procedures Botox for Chronic Migraine Genevieve Kingston APRN C.N.P., M.S.N. [address] [place] [phone] [facility] Region Referral ID Status Reason Start Date Expiration Date V isits Requested Visits Authorized [id number] Authorized 06/29/2022 06/29/2023 4 4 Encounter Details Date Type Department Care Team (Latest Contact Info) Description 01/19/2023 9:45 AM ETHYLENE OXIDE PANELBOARD OPERATOR Procedure visit Department of Neurology in [place], [place] [address] [place] [phone] Genevieve Kingston APRN, C.N.P., M.S.N. [address] [place] [phone] Chronic Migraine Discharge Disposition: Home or [...] How often do you attend chur or religion services? Patient declined 10/28/2020 Do you belong to any clubs o r organizations such as adventist groups, unions, fraternal or athletic groups, or [...] Answer Date Recorded PHQ-2 Score 1 12/01/2019 [facility] of Occupat ional Health - Occupational Stress [...] place to sleep or slept in a usp (including now)? No 10/28/2020 Depression Answer Date [...] Sex Assigned at Female 03/06/2017 10:16 AM ETHYLENE OXIDE PANELBOARD OPERATOR Gender Identity Female 03/06/2017 10:16 AM ETHYLENE OXIDE PANELBOARD OPERATOR Sexual Orientation Straight 03/06/2017 10 :16 AM ETHYLENE OXIDE PANELBOARD OPERATOR documented as of this encounter Procedure Notes [...] Needle length: 0.5 in Injection site details Claims Associate / Procerus muscle(s): 5 units into the left service porter muscle, 5 units into the right service porter muscle and 5 units into the procerus [...] that is not covered by a third green party. Prior to treatment with Botox, the [...] since starting Botox? All of the above LENE OXIDE PANELBOARD OPERATOR documented in this encounter Plan of Treatment Upcoming Encounters Date Type Department Care Team (Late st Contact Info) Description 04/26/2023 10:00 AM CDT Office Visit Department of Neurology in [place], [place] [address] [place] [address] Patel Martell M.B., .B. [address] [place] [phone] Discharge Disposition: Home or Self Care documented as of this encounter Procedures Procedure Name Priority Date/Time Associated Diagnosis Comments MA CHEMODENERV FACIAL TRIGEM BARBARA Routine 01/19/2023 9:45 AM ETHYLENE OXIDE PANELBOARD OPERATOR Chronic Migraine documented in this encounter Results * MA CHEMODENERV FACIAL TRIGEM BARBARA (01/19/2023 9:45 AM ETHYLENE OXIDE PANELBOARD OPERATOR) Narrative MMODAL - 01/19/2023 9:45 AM ETHYLENE OXIDE PANELBOARD OPERATOR Genevieve Kingston APRN C.N.P., M.S.N. ? 01/19/2023 [...] Needle length: 0.5 in Injection site details Claims Associate / Procerus muscle(s): 5 units into the left service porter muscle, 5 units into the right service porter muscle ??and 5 units into the procerus [...] that is not covered by a third green party. ?? Prior to treatment with Botox, [...] For 1 dose Given 01/19/2023 9:45 AM ETHYLENE OXIDE PANELBOARD OPERATOR 100 Units onabotulinumtoxinA injection 50 Units (BOTOX) 50 Units, injection, One-Time Injection, Starting on Sun01/19/23 at 0945, For 1 dose Given 01/19/2023 9:45 AM ETHYLENE OXIDE PANELBOARD OPERATOR 50 Units documented in this encounter Additional Health Concerns Infection Onset Date Last Indicated Resolved Time Protective Environment 06/07/2022 06/07/2022 Assessment Noted Time PHQ-9 Depression Total Score: 2 12/01/19 20 6:54 AM CDT documented as of this encounter Care Teams Platform Inspector Relationship Specialty Start Date End Date Jamal Butt [place] [phone] PCP - General Family Medicine 05/21/17 documented as of this encounter
--- OUTSIDE RECORDS SUMMARY | 2023-02-14 21:42 | XMS_ITS | Encounter Summary ---
Author Name Unknown Organization [facility] Address [address] [place] [address] Care Team Providers Care Steward/Stewardess Smoke Room Name Role Phone Jamal Butt M.D. Primary Care Provider [phone] Reason for Referral * Outpatient (Routine) - Authorized Specialty Diagnoses / Procedures Referred By Campbell t Referred To Contact Neurology Patel Martell M.B., Ch.B. [address] [place] [phone] [facility] Referral ID Status Reason Start Date Expiration Date V isits Requested Visits Authorized [id number] Authorized 02/13/2023 02/12/2026 1 1 AGING SUPERVISOR Encounter Details Date Type Department Care Team (Late st Contact Info) Description 02/13/2023 Orders Only Department of Neurology in [place], [place] [address] [place] [phone] Patel Martell M.B., Ch.B. [address] [place] [phone] Social History Tobacco Use Types Packs/Day [...] How often do you attend chur or roman catholic services? Patient declined 10/28/2020 Do you belong to any clubs o r organizations such as mormonism groups, unions, fraternal or athletic groups, or [...] Answer Date Recorded PHQ-2 Score 1 12/01/2019 [facility] Answer Date Recorded [...] Sex Assigned at Female 03/06/2017 10:16 AM PACKAGING SUPERVISOR Gender Identity Female 03/06/2017 10:16 AM PACKAGING SUPERVISOR Sexual Orientation Straight 03/06/2017 10 :16 AM PACKAGING SUPERVISOR documented as of this encounter Plan of Treatment Upcoming Encounters Date Type Department Care Team (Late st Contact Info) Description 04/26/2023 10:00 AM CDT Office Visit Department of Neurology in [address] [phone] Patel Martell M.B., Ch.B. [address] [place], [place] [phone] Discharge Disposition: Home or Self Care Scheduled [...] documented as of this encounter Care Teams Steward/Stewardess Smoke Room Relationship Specialty Start Date End Date [place] [address] PCP - General Family Medicine 05/21/17 documented as of this encounter
--- OUTSIDE RECORDS SUMMARY | 2023-02-14 21:42 | XMS_ITS | Encounter Summary ---
Author Name Unknown Organization [facility] Address [address] [place] [address] Care Team Providers Care Road Test Examiner Name Role Phone Jamal Butt M.D. Primary Care Provider [phone] Reason for Referral * MRI/CAT/PET Scan (Routine) - Closed Specialty Diagnoses / Procedures Referred By Contac t Referred To Contact Radiology Diagnoses Multiple Sclerosis (HCC) Procedures MR Brain without and with IV Contrast Patel Martell M.B., Ch.B. [address] [place] [phone] [facility] Region Referral ID Status Reason Start Date Expiration Date Visits Re quested Visits Authorized [id number] Closed 09/26/2022 09/26/2023 1 1 Reason for Visit * MRI/CAT/PET Scan (Routine) - Closed Specialty Diagnoses / Procedures Referred By Contac t Referred To Contact Radiology Diagnoses Multiple Sclerosis (HCC) Procedures MR Brain without and with IV Contrast Patel Martell M.B., Ch.B. [address] [place] [phone] [facility] Region Referral ID Status Reason Start Date Expiration Date Visits Re quested Visits Authorized [id number] Closed 09/26/2022 09/26/2023 1 1 Encounter Details Date Type Department Care Team (Latest Contact Info) Description 11/27/2022 9:07 AM CDT - 11/27/2022 11:59 PM CDT Hospital Encounter Department of Radiology, [facility], in [place], [place] [address] [place] [address] Patel aMrtell M.B., .B. [address] [place] [address] Multiple Sclerosis (HCC) Discharge Disposition: [...] often do you attend chur ch or confucianist services? Patient declined 10/28/2020 Do you belong to any clubs o r organizations such as lutheran groups, unions, fraternal or athletic groups, or [...] Answer Date Recorded PHQ-2 Score 1 12/01/2019 [facility] of Occupat ional [facility] - Occupational Stress Questionnaire Answer Date Recorded [...] Sex Assigned at Female 03/06/2017 10:16 AM COUNTER SALES REPRESENTATIVE Gender Identity Female 03/06/2017 10:16 AM COUNTER SALES REPRESENTATIVE Sexual Orientation Straight 03/06/2017 10 :16 AM COUNTER SALES REPRESENTATIVE documented as of this encounter Medications at [...] lamoTRIgine (LaMICtaL) 25 mg tablet 0 02/27/2022 METHYLPREDNISOLONE ACETATE INJ Inject as directed as directed. Dose: 125 mg IVP, premed for Rituxan infusion. Every 6-months 0 09/13/2016 montelukast (SINGULAIR) 10 mg tablet Take 10 mg by mouth at bedtime. 0 01/14/2019 pregabalin (LYRICA) 100 mg capsule 2 (two) times a day. 0 07/25/2019 riTUXimab (RITUXAN) 10 mg/mL injection every 6 (six) months. 0 riTUXimab in NaCl solution IVPB (for_RITUXAN) Infuse 1,000 mg into a venous catheter every 6 (six) months. 0 05/31/2016 traZODone (for_DESYREL) 100 mg tablet Take 200 mg by mouth at bedtime. 0 zinc gluconate 50 mg tablet Take 50 mg by mouth daily with breakfast. Zinc 0 documented as of this encounter Plan of Treatment Upcoming Encounters Date Type Department Care Team (Late st Contact Info) Description 04/26/2023 10:00 AM CDT Office Visit Department of Neurology in [place], [place] [address] [place] [phone] Patel Martell M.B., Ch.B. [address] [place] [phone] Discharge Disposition: Home or Self Care documented [...] documented as of this encounter Care Teams Road Test Examiner Relationship Specialty Start Date End Date Jamal Butt M.D. [address] [place] [phone] PCP - General Family Medicine 05/21/17 documented as of this encounter
--- OUTSIDE RECORDS SUMMARY | 2023-02-14 21:42 | XMS_ITS | Encounter Summary ---
Author Name Unknown Organization [facility] Address [address] [place] [address] Care Team Providers Care Photo Tech Name Role Phone Jamal Butt M.D. Primary Care Provider [phone] Reason for Referral * Outpatient (Routine) - Authorized Specialty Diagnoses / Procedures Referred By Contac t Referred To Contact Neurology Patel Martell M.B., Ch.B. [facility] [place] [address] [facility] Referral ID Status Reason Start Date Expiration Date V isits Requested Visits Authorized [id number] Authorized 09/26/2022 09/25/2025 1 1 * MRI/CAT/PET Scan (Routine) - Closed Specialty Diagnoses / Procedures Referred By Contayla t Referred To Contact Radiology Diagnoses Multiple Sclerosis (HCC) Procedures MR Brain without and with IV Contrast Patel Martell M.B., Ch.B. [address] [place] [address] [facility] Region Referral ID Status Reason Start Date Expiration Date Visits Re quested Visits Authorized [id number] Closed 09/26/2022 09/26/2023 1 1 Reason for Visit * Reason Comments Headache * Appointment Request (Routine) - Closed Specialty Diagnoses / Procedures Referred By Campbell estrada Referred To Contact Neurology Referral ID Status Reason Start Date Expiration Date Visits Re quested Visits Authorized [id number] Closed 06/21/2022 06/21/2023 1 1 Encounter Details Date Type Department Care Team (Latest Contact Info) Description 09/26/2022 10:00 AM CDT Office Visit Department of Neurology in [address] [phone] Patel Martell M.B., Ch.B. [address] [place] [phone] Multiple Sclerosis (HCC) (Primary Dx); Chronic Migraine; Correction Current Use Of Immunosuppressive Biologic Social History [...] declined 10/28/2020 How often do you attend [facility] or tenriism services? Patient declined 10/28/2020 Do you belong to any clubs o r organizations such as orthodox groups, unions, fraternal or athletic groups, or [...] Answer Date Recorded PHQ-2 Score 1 12/01/2019 [facility] of Occupat ional Health - Occupational [...] Sex Assigned at Female 03/06/2017 10:16 AM OPHTHALMOLOGY SURGICAL TECHNICIAN Gender Identity Female 03/06/2017 10:16 AM OPHTHALMOLOGY SURGICAL TECHNICIAN Sexual Orientation Straight 03/06/2017 10 :16 AM OPHTHALMOLOGY SURGICAL TECHNICIAN documented as of this encounter Last Filed [...] andchronic migraine headaches who, presented at the [facility] on 09/26/2022 for neurological [...] to previous 2020 study: Multiple bilateral unchanged [id number] lesions within the periventricular white matter consistent with the patient's known MS. The brainstem, cerebellum and visualized optic nerves remain free of disease process, and there are no newly identified lesions. There is no enhancement of any of the lesions on the current study. Prior history: Initial evaluation 11/04/2020, Jessy presented for establishment of care with [place] [facility], she was initially seen by [place] [facility], she carries a diagnosis of multiple [...] transferred her care from [place] to [place]. In 2013 she underwent a stem cell [...] did not respond to any treatment, including [id number] pain med and triptans. On today's presentation, she is reestablishing care, she was initially seen as [place] but due toproximity effect would preferred to seen in [place], she is due for her Botox injections, she is also due for Ocrevus infusion, of note she is having difficulty with having the Ocrevus approved by insurance company, this is been worked out with her previous neurologist in [place] who has sent in a n appeal. [...] include both face to face and non fban-ac-lurl time, of this about 15 minutes or so were spent in education, counseling and coordinating future care across multiple specialties. The decision-making was highly complex. Advance Care Planning : On file PATIENT EDUCATION Ready to learn, no apparent learning barriers were identified; learning preferences include listening. Explained diagnosis and treatment plan; patient expressed understanding of the content. Nereida Hernandez, Ch.B. Board Certified Neurologist Neuro-Cat Scan Technologist 09/26/22 10:00 AM CDT documented in this [...] CDT Office Visit Department of Neurology in [address] [phone] Patel Martell M.B., Ch.B. [address] [place] [phone] Discharge Disposition: Home or Self Care Scheduled [...] a study of 07/12/2020. Patel Padron Ch.B. [facility] MRI PROC EDURES documented in this encounter Visit Diagnoses Diagnosis Multiple Sclerosis (HCC)- Primary Chronic Migraine Correction Current Use Of Immunosuppressive Biologic Multiple Sclerosis (HCC) documented in this encounter Additional Health Concerns Infection Onset Date Last Indicated Resolved Time Protective Environment 06/07/2022 06/07/2022 Assessment Noted Time PHQ-9 Depression Total Score: 2 12/01/19 20 6:54 AM CDT documented as of this encounter Care Teams Photo Tech Relationship Specialty Start Date End Date Jamal Butt M.D. [address] [place] [phone] PCP - General Family Medicine 05/21/17 documented as of this encounter
--- OUTSIDE RECORDS SUMMARY | 2023-02-14 21:42 | XMS_ITS | Encounter Summary ---
Author Name Unknown Organization [facility] Address [address] [place] [address] Care Team Providers Care Foreign Language Professor Name Role Phone Jamal Butt M.D. Primary Care Provider [phone] Reason for Visit * Reason Comments Outpatient Infusion * Episode Based Medications (Routine) - Authorized Specialty Diagnoses / Procedures Referred By Contac t Referred To Contact Diagnoses Multiple Sclerosis (HCC) Procedures AR OCRELIZUMAB 1 MG INJ Patel Martell M.B., Ch.B. [address] [place] [phone] [facility] Region Referral ID Status Reason Start Date Expiration Date V isits Requested Visits Authorized [id number] Authorized 02/16/2022 08/24/2023 3 3 Encounter Details Date Type Department Care Team (Late st Contact Info) Description 08/28/2022 9:00 AM CDT Infusion Department of Infusion Therapy in [place], [place] [address] [place] [phone] Patel Martell M.B., Ch.B. [address] [place] [phone] Multiple Sclerosis (HCC) (Primary Dx) Social History [...] How often do you attend chur or gnosticist services? Patient declined 10/28/2020 Do you belong to any clubs o r organizations such as restoration groups, unions, fraternal or athletic groups, or [...] Answer Date Recorded PHQ-2 Score 1 12/01/2019 [facility] of Occupat ional Health - Occupational [...] Sex Assigned at Female 03/06/2017 10:16 AM RADIO ARTIST Gender Identity Female 03/06/2017 10:16 AM RADIO ARTIST Sexual Orientation Straight 03/06/2017 10 :16 AM RADIO ARTIST documented as of this encounter Last Filed [...] CDT Office Visit Department of Neurology in [place], [place] [address] [place] [phone] Patel Martell M.B., Ch.B. [address] [place] [phone] Discharge Disposition: Home or Self [...] documented as of this encounter Care Teams Foreign Language Professor Relationship Specialty Start Date End Date Jamal Butt M.D. [address] [place] [phone] PCP - General Family Medicine 05/21/17 documented as of this encounter
--- OUTSIDE RECORDS SUMMARY | 2023-02-14 21:42 | XMS_ITS ---
Author Name Unknown Organization [facility] Address [address] [place] [address] Care Team Providers Care Studio Model Name Role Phone Unavailable Unavailable Unavailable Surgery Details Not on file Complications Check Surgery Details section. Procedure Estimated Blood Loss Check Surgery Details section. Procedure Findings Check Surgery Details section. Procedure Specimens Taken Check Surgery Details section.
--- OUTSIDE RECORDS SUMMARY | 2023-02-14 21:42 | XMS_ITS | Encounter Summary ---
Author Name Unknown Organization [facility] Address [address] [place] [address] Care Team Providers Care Fountain Jerk Name Role Phone Jamal Butt M.D. Primary Care Provider [phone] Reason for Visit * Reason Comments Headache * Outpatient (Routine) - Authorized Specialty Diagnoses / Procedures Referred By Contac t Referred To Contact Diagnoses Chronic Migraine Procedures Botox for Chronic Migraine Genevieve Kingston APRN C.N.P., M.S.N. [address] [place] [phone] [facility] Region Referral ID Status Reason Start Date Expiration Date V isits Requested Visits Authorized [id number] Authorized 06/29/2022 06/29/2023 4 4 Encounter Details Date Type Department Care Team (Latest Contact Info) Description 09/26/2022 9:30 AM CDT Procedure visit Department of Neurology in [place], [place] [address] [place] [phone] Patel Martell M.B., Ch.B. [address] [place] [phone] Chronic Migraine Discharge Disposition: Home or [...] any clubs o r organizations such as congregational groups, unions, fraternal or athletic groups, or [...] Answer Date Recorded PHQ-2 Score 1 12/01/2019 [facility] of Occupat ional [facility] - Occupational Stress Questionnaire Answer Date Recorded [...] place to sleep or slept in a halfway (including now)? No 10/28/2020 Depression Answer Date [...] Sex Assigned at Female 03/06/2017 10:16 AM PASTRY ARTIST Gender Identity Female 03/06/2017 10:16 AM PASTRY ARTIST Sexual Orientation Straight 03/06/2017 10 :16 AM PASTRY ARTIST documented as of this encounter Procedure Notes [...] Needle length: 0.5 in Injection site details Fireman / Procerus muscle(s): 5 units into the left health education aide muscle, 5 units into the right health education aide muscle and 5 units into the procerus [...] complications Nereida Hernandez, Ch.B. Board Certified Neurologist Neuro-Online Content Editor 09/26/22 10:15 AM CDT documented in this encounter Plan of Treatment Upcoming Encounters Date Type Department Care Team (Late st Contact Info) Description 04/26/2023 10:00 AM CDT Office Visit Department of Neurology in [address] [phone] Patel Martell M.B., Ch.B. [address] [place] [phone] Discharge Disposition: Home or Self Care documented as of this encounter Procedures Procedure Name Priority Date/Time Associated Diagnosis Comments IN CHEMODENERV FACIAL TRIGEM BARBARA Routine 09/26/2022 9:30 AM CDT Chronic Migraine documented in this encounter Results * IN CHEMODENERV FACIAL TRIGEM BARBARA (09/26/2022 9:30 AM [...] Needle length: 0.5 in Injection site details Fireman / Procerus muscle(s): 5 units into the left health education aide muscle, 5 units into the right health education aide muscle ??and 5 units into the procerus [...] documented as of this encounter Care Teams Fountain Jerk Relationship Specialty Start Date End Date Jamal Butt M.D. NPJunior: [phone] [place] [phone] PCP - General Family Medicine 05/21/17 documented as of this encounter
--- OUTSIDE RECORDS SUMMARY | 2023-02-14 21:42 | XMS_ITS | Referral Summary ---
Author Name Unknown Organization [facility] Address [address] [place] [address] Care Team Providers Care Media Buyer Name Role Phone Jamal Butt M.D. Primary Care Provider [phone] Source Comments Patient records contain information from all sites at [facility]. For routine questions regarding patient records, call [phone] during business hours, M-F 8:00 AM - 5:00 PM Central Time. Record requests for emergency care only can be directed to [phone] at any time.[facility] Encounters Date Type Department Care Team Description 02/13/2023 Orders Only Department of Neurology in [address] [phone] Patel Martell M.B., Ch.B. 02/08/2023 Clinical Communication Department of Neurology in [address] [phone] Patel Martell M.B., Ch.B. 01/19/2023 9:45 AM WELDING EQUIPMENT REPAIRER Procedure visit Department of Neurology in [address] [phone] Genevieve Kingston APRN, C.N.P., M.S.N. Chronic Migraine Discharge Disposition: Home or Self Care 01/11/2023 1:45 PM WELDING EQUIPMENT REPAIRER Office Visit Department of Neurology in [address] [address] Genevieve Kingston, CRISTOPHER, C.N.P., M.S.N. Chronic Migraine (Primary Dx) Discharge Disposition: Home or Self Care 11/28/2022 Nurse Triage Department of Family Medicine in [place], [place] [address] [place] [address] Anna Marie Samaniego R.N. Shortness of Breath 11/27/2022 9:07 AM CDT - 11/27/2022 11:59 PM CDT Hospital Encounter Department of Radiology, [facility], in [address] [address] Patel Martell M.B., Ch.B. 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 Patient declined 10/28/2020 Do you belong to any clubs o r organizations such as confucianism groups, unions, fraternal or athletic groups, or [...] Answer Date Recorded PHQ-2 Score 1 12/01/2019 [facility] of Occupat ional Health - Occupational Stress [...] Sex Assigned at Female 03/06/2017 10:16 AM WELDING EQUIPMENT REPAIRER Gender Identity Female 03/06/2017 10:16 AM WELDING EQUIPMENT REPAIRER Sexual Orientation Straight 03/06/2017 10 :16 AM WELDING EQUIPMENT REPAIRER Last Filed Vital Signs Vital Sign Reading Time Taken Comments Blood Pressure 98/65 01/11/2023 12:59 PM WELDING EQUIPMENT REPAIRER Pulse 111 01/11/2023 12:59 PM WELDING EQUIPMENT REPAIRER Temperature 36.6 ??C (97.9 ??F) 08/28/2022 9:03 AM CD T Respiratory Rate 16 08/28/2022 9:03 AM CDT Oxygen Saturation 96% 08/28/2022 9:03 AM CDT Inhaled Oxygen Concentration - - Weight 67 kg (147 lb 11.3 oz) 01/11/2023 12:59 P M WELDING EQUIPMENT REPAIRER Height 175.3 cm (5' 9) 07/06/2022 7:02 PM CDT Body Mass Index 21.81 07/06/2022 7:02 PM CDT Plan of Treatment Upcoming Encounters Date Type Department Care Team (Late st Contact Info) Description 04/26/2023 10:00 AM CDT Office Visit Department of Neurology in [place], [place] [address] [place] [address] Patel Martell M.B., Ch.B. [address] [place] [phone] Discharge Disposition: Home or Self Care Procedures Procedure Name Priority Date/Time Associated Diagnosis Comments CT CHEMODENERV FACIAL TRIGEM BARBARA Routine 01/19/2023 9:45 AM WELDING EQUIPMENT REPAIRER Chronic Migraine MR BRAIN WITHOUT AND WITH IV CONTRAST RAD - Routine (most inpatients and all outpatients) 11/27/2022 10:08 AM CDT Multiple Sclerosis (HCC) from Last 3 Months Results * CT CHEMODENERV FACIAL TRIGEM BARBARA (01/19/2023 9:45 AM WELDING EQUIPMENT REPAIRER) Narrative MMODAL - 01/19/2023 9:45 AM WELDING EQUIPMENT REPAIRER Genevieve Kingston APRN C.N.P., M.S.N. ? 01/19/2023 [...] Needle length: 0.5 in Injection site details Hr Generalist / Procerus muscle(s): 5 units into the left correctional supervisor lieutenant muscle, 5 units into the right correctional supervisor lieutenant muscle ??and 5 units into the procerus [...] a study of 07/12/2020. Patel Padron, BMert [facility] MRI PROC EDURES from Last 3 Months Additional Health Concerns Infection Onset Date Last Indicated Protective Environment 06/07/2022 3 Advance Directives For more information, please contact: [phone] Documents on File Type Date Recorded Patient Rag Cutting Machine Operator Expl anation Advance Directives 03/19/2019 4:22 PM [...] Alternate Health Car e Agent Care Teams Media Buyer Relationship Specialty Start Date End Date Jamal Butt M.D. [address] [place] [phone] PCP - General Family Medicine 05/21/17
--- OUTSIDE RECORDS SUMMARY | 2023-02-14 21:42 | XMS_ITS | Encounter Summary ---
Author Name Unknown Organization [facility] Address [address] [place] [address] Care Team Providers Care Supervisor Carpenters Name Role Phone Jamal Butt M.D. Primary Care Provider [phone] Encounter Details Date Type Department Care Team (Late st Contact Info) Description 02/08/2023 Clinical Communication Department of Neurology in [place], [place] [address] [place] [phone] Patel Martell M.B., Ch.B. [address] [place] [phone] Social History Tobacco Use Types Packs/Day Years [...] declined 10/28/2020 How often do you attend [facility] or religion services? Patient declined [...] Answer Date Recorded PHQ-2 Score 1 12/01/2019 [facility] of Occupat ional Health - Occupational Stress [...] place to sleep or slept in a snf (including now)? No 10/28/2020 Depression Answer Date [...] Sex Assigned at Female 03/06/2017 10:16 AM FISH FRYER Gender Identity Female 03/06/2017 10:16 AM FISH FRYER Sexual Orientation Straight 03/06/2017 10 :16 AM FISH FRYER documented as of this encounter Miscellaneous Notes * Telephone Encounter - Patel Martell M.B., Ch.B. - 02/13/2023 8:34 AM FISH FRYER Had extensive discussion with her pulmonology, patient [...] schedule for follow- up visit in April FRYER * Telephone Encounter - Sally Moraes - 02/08/2023 9:[address] Cierra Lora, a Pulmonology doctor from [facility], is calling and requestingto have Dr Martell call her back. Her call back number is [phone] and states she can be reachedanytime on Sunday after 3pm. 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 Please call the provider back when able. Thank you! FRYER documented in this encounter Plan of Treatment Upcoming Encounters Date Type Department Care Team (Late st Contact Info) Description 04/26/2023 10:00 AM CDT Office Visit Department of Neurology in [address] [phone] Patel Martell M.B., Ch.B. [address] [place] [phone] Discharge Disposition: Home or Self Care documented as of this encounter Visit Diagnoses Not on filedocumented in this encounter Additional Health Concerns Infection Onset Date Last Indicated Resolved Time Protective Environment 06/07/2022 06/07/2022 Assessment Noted Time PHQ-9 Depression Total Score: 2 12/01/19 20 6:54 AM CDT documented as of this encounter Care Teams Supervisor Carpenters Relationship Specialty Start Date End Date Jamal Butt M.D. [address] [place] [address] PCP - General Family Medicine 05/21/17 documented as of this encounter
--- OUTSIDE RECORDS SUMMARY | 2023-02-14 21:42 | XMS_ITS | Encounter Summary ---
Author Name Unknown Organization [facility] Address [address] [place] [address] Care Team Providers Care Network Planner Name Role Phone Jamal Butt M.D. Primary Care Provider [phone] Reason for Visit * Reason Comments Multiple Sclerosis Migraine F/U Encounter Details Date Type Department Care Team (Late st Contact Info) Description 01/11/2023 1:45 PM SANDBLASTER STONE Office Visit Department of Neurology in [place], [place] [address] [place] [phone] Genevieve Kingston, CRISTOPHER, C.N.P., M.S.N. [address] [place] [phone] Chronic Migraine (Primary Dx) Discharge Disposition: Home [...] often do you attend chur ch or druze services? Patient declined 10/28/2020 Do you belong to any clubs o r organizations such as anglican groups, unions, fraternal or athletic groups, or [...] Answer Date Recorded PHQ-2 Score 1 12/01/2019 [facility] of Occupat ional Health - [...] Sex Assigned at Female 03/06/2017 10:16 AM SANDBLASTER STONE Gender Identity Female 03/06/2017 10:16 AM SANDBLASTER STONE Sexual Orientation Straight 03/06/2017 10 :16 AM SANDBLASTER STONE documented as of this encounter Last Filed Vital Signs Vital Sign Reading Time Taken Comments Blood Pressure 98/65 01/11/2023 12:59 PM SANDBLASTER STONE Pulse 111 01/11/2023 12:59 PM SANDBLASTER STONE Temperature - - Respiratory Rate - - Oxygen Saturation - - Inhaled Oxygen Concentration - - Weight 67 kg (147 lb 11.3 oz) 01/11/2023 12:59 P M SANDBLASTER STONE Height - - Body Mass Index 21.81 [...] the patient expressed understanding of the content. BLASTER STONE documented in this encounter Plan of Treatment Upcoming Encounters Date Type Department Care Team (Late st Contact Info) Description 04/26/2023 10:00 AM CDT Office Visit Department of Neurology in [address] [phone] Patel Martell M.B., .B. [address] [place] [phone] Discharge Disposition: Home or Self Care documented as of this encounter Visit Diagnoses Diagnosis Chronic Migraine- Primary documented in this encounter Additional Health Concerns Infection Onset Date Last Indicated Resolved Time Protective Environment 06/07/2022 06/07/2022 Assessment Noted Time PHQ-9 Depression Total Score: 2 12/01/19 20 6:54 AM CDT documented as of this encounter Care Teams Network Planner Relationship Specialty Start Date End Date Jamal Butt M.D. [address] [place] [phone] PCP - General Family Medicine 05/21/17 documented as of this encounter
--- OUTSIDE RECORDS SUMMARY | 2023-02-14 21:42 | XMS_ITS | Encounter Summary ---
Author Name Unknown Organization [facility] Address [address] [place] [address] Care Team Providers Care Remedial Masseur Name Role Phone Jamal Butt M.D. Primary Care Provider [phone] Reason for Visit * Reason Onset Date Comments Shortness of Breath 11/28/2022 Encounter Details Date Type Department Care Team (Late st Contact Info) Description 11/28/2022 Nurse Triage Department of Family Medicine in [place], [place] [address] [place] [phone] Anna Marie Samaniego RCasandra [address] [place] [phone] Shortness of Breath Social History Tobacco Use [...] declined 10/28/2020 How often do you attend [facility] or episcopalian services? Patient declined 10/28/2020 Do you belong to any clubs o r organizations such as jain groups, unions, fraternal or athletic groups, or [...] Answer Date Recorded PHQ-2 Score 1 12/01/2019 [facility] - Occupational Stress Questionnaire Answer Date [...] Sex Assigned at Female 03/06/2017 10:16 AM SLAT BASKET TOP MAKER Gender Identity Female 03/06/2017 10:16 AM SLAT BASKET TOP MAKER Sexual Orientation Straight 03/06/2017 10 :16 AM SLAT BASKET TOP MAKER documented as of this encounter Miscellaneous Notes [...] CDT Office Visit Department of Neurology in [place], [place] [address] [place] [phone] Patel Martell M.B., Ch.B. [address] [place] [phone] Discharge Disposition: Home or Self Care documented as of this encounter Visit Diagnoses Not on filedocumented in this encounter Additional Health Concerns Infection Onset Date Last Indicated Resolved Time Protective Environment 06/07/2022 06/07/2022 Assessment Noted Time PHQ-9 Depression Total Score: 2 12/01/19 20 6:54 AM CDT documented as of this encounter Care Teams Remedial Masseur Relationship Specialty Start Date End Date Jamal Butt M.D. [address] [place] [address] PCP - General Family Medicine 05/21/17 documented as of this encounter
--- OUTSIDE RECORDS SUMMARY | 2023-02-14 21:42 | XMS_ITS | Clinical Summary ---
Author Name Unknown Organization [facility] Address [address] [place] [address] Care Team Providers Care Superintendent Water And Sewer Systems Name Role Phone Jamal Butt M.D. Primary Care Provider [phone] Source Comments Patient records contain information from all sites at [facility]. For routine questions regarding patient records, call [phone] during business hours, M-F 8:00 AM - 5:00 PM Central Time. Record requests for emergency care only can be directed to [phone] at any time.[facility] Allergies Active Allergy Reactions Criticality Noted [...] Active Problems Problem Noted Date Diagnosed Date Mcfp Current Use Of Immunosuppressive Biolo gic 09/26/2022 [...] 02/13/2023 Orders Only Department of Neurology in [address] [phone] Patel Martell M.B., Ch.B. 02/08/2023 Clinical Communication Department of Neurology in [address] [phone] Patel Martell M.B., Ch.B. 01/19/2023 9:45 AM BRAILLE TEACHER Procedure visit Department of Neurology in [address] [phone] Genevieve Kingston APRN, C.N.P., M.S.N. Chronic Migraine Discharge Disposition: Home or Self Care 01/11/2023 1:45 PM BRAILLE TEACHER Office Visit Department of Neurology in [address] [phone] Genevieve Kingston APRN, C.N.P., M.S.N. Chronic Migraine (Primary Dx) Discharge Disposition: Home or Self Care 11/28/2022 Nurse Triage Department of Family Medicine in [place], [place] [address] [place] [address] Anna Marie Samaniego RCasandra Shortness of Breath 11/27/2022 9:07 AM CDT - 11/27/2022 11:59 PM CDT Hospital Encounter Department of Radiology, [facility], in [address] [phone] Patel Martell M.B., Ch.B. Multiple Sclerosis (HCC) [...] How often do you attend chur or jain services? Patient declined 10/28/2020 Do you belong [...] Answer Date Recorded PHQ-2 Score 1 [facility] - Occupational Stress Questionnaire Answer Date Recorded [...] Sex Assigned at Female 03/06/2017 10:16 AM BRAILLE TEACHER Gender Identity Female 03/06/2017 10:16 AM BRAILLE TEACHER Sexual Orientation Straight 03/06/2017 10 :16 AM BRAILLE TEACHER Last Filed Vital Signs Vital Sign Reading Time Taken Comments Blood Pressure 98/65 01/11/2023 12:59 PM BRAILLE TEACHER Pulse 111 01/11/2023 12:59 PM BRAILLE TEACHER Temperature 36.6 ??C (97.9 ??F) 08/28/2022 9:03 AM CD T Respiratory Rate 16 08/28/2022 9:03 AM CDT Oxygen Saturation 96% 08/28/2022 9:03 AM CDT Inhaled Oxygen Concentration - - Weight 67 kg (147 lb 11.3 oz) 01/11/2023 12:59 P M BRAILLE TEACHER Height 175.3 cm (5' 9) 07/06/2022 7:02 PM CDT Body Mass Index 21.81 07/06/2022 7:02 PM CDT Plan of Treatment Upcoming Encounters Date Type Department Care Team (Late st Contact Info) Description 04/26/2023 10:00 AM CDT Office Visit Department of Neurology in [place], [place] [address] [place] [phone] Patel Martell M.B., Ch.B. [address] [place] [phone] Discharge Disposition: Home or Self Care [...] Procedure Name Priority Date/Time Associated Diagnosis Comments [place] CHEMODENERV FACIAL TRIGEM BARBARA Routine 01/19/2023 9:45 AM BRAILLE TEACHER Chronic Migraine MR BRAIN WITHOUT AND WITH IV CONTRAST RAD - Routine (most inpatients and all outpatients) 11/27/2022 10:08 AM CDT Multiple Sclerosis (HCC) from Last 3 Months Results * MO CHEMODENERV FACIAL TRIGEM BARBARA (01/19/2023 9:45 AM BRAILLE TEACHER) Narrative MMODAL - 01/19/2023 9:45 AM BRAILLE TEACHER Genevieve Kingston APRN, C.N.PMert, M.S.N. ? 01/19/2023 [...] Needle length: 0.5 in Injection site details Audio Visual Specialist / Procerus muscle(s): 5 units into the left recyclable products sorter muscle, 5 units into the right recyclable products sorter muscle ??and 5 units into the procerus [...] that is not covered by a third constitution party. ?? Prior to treatment with Botox, [...] since a study of 07/12/2020. Patel Padron, Tiesha IMG MRI PROC EDURES from Last 3 Months Additional Health Concerns Infection Onset Date Last Indicated Protective Environment 06/07/2022 3 Advance Directives For more information, please contact: [phone] Documents on File Type Date Recorded Patient Custom Frame Assembler Expl anation Advance Directives 03/19/2019 4:22 PM Heal th Care Directive Latest Code Status on File Code Status Date Activated Date Inactivated Comments Full Code 03/05/2017 12:19 AM 03/05/2017 7:23 PM Question Answer Comments Full Code: Not Discussed Due to: Not medically appropriate Healthcare Agents on File Name Relationship [facility] Kofi [facility] Health Care Agent Kay Alexander Sister First Alternate Health Car e Agent Care Teams Superintendent Water And Sewer Systems Relationship Specialty Start Date End Date Jamal Butt [place] [phone] PCP - General Family Medicine 05/21/17
--- OUTSIDE RECORDS SUMMARY | 2023-02-14 21:43 | XMS_ITS | Encounter Summary ---
Author Name Unknown Organization [facility] Address [address] [place] [address] Care Team Providers Care Physics Instructor Name Role Phone Jamal Butt M.D. Primary Care Provider [phone] Reason for Visit * Reason Comments Outpatient Infusion Ocrevus * Episode Based Medications (Routine) - Authorized Specialty Diagnoses / Procedures Referred By Contayla t Referred To Contact Diagnoses Multiple Sclerosis (HCC) Procedures [place] OCRELIZUMAB 1 MG INJ Patel Martell M.B., Ch.B. [address] [place] [address] [facility] Region Referral ID Status Reason Start Date Expiration Date V isits Requested Visits Authorized [id number] Authorized 02/16/2022 08/24/2023 3 3 Encounter Details Date Type Department Care Team (Late st Contact Info) Description 02/24/2022 8:30 AM DOUGH MIXER OPERATOR Infusion Department of Infusion Therapy in [place], [place] [address] [place] [phone] Patel Martell M.B., Ch.B. [address] [place] [phone] Multiple Sclerosis (HCC) (Primary Dx) Social History [...] Answer Date Recorded PHQ-2 Score 1 12/01/2019 [facility] of Occupat ional Health - Occupational [...] Sex Assigned at Female 03/06/2017 10:16 AM DOUGH MIXER OPERATOR Gender Identity Female 03/06/2017 10:16 AM DOUGH MIXER OPERATOR Sexual Orientation Straight 03/06/2017 10 :16 AM DOUGH MIXER OPERATOR documented as of this encounter Last Filed Vital Signs Vital Sign Reading Time Taken Comments Blood Pressure 120/70 02/24/2022 10:06 AM DOUGH MIXER OPERATOR Pulse 88 02/24/2022 10:06 AM DOUGH MIXER OPERATOR Temperature 36.6 ??C (97.9 ??F) 02/24/2022 10:[address] Respiratory Rate 14 02/24/2022 10:06 AM DOUGH MIXER OPERATOR Oxygen Saturation 97% 02/24/2022 10:06 AM DOUGH MIXER OPERATOR Inhaled Oxygen Concentration - - Weight - - Height - - Body Mass Index - - documented in this encounter Plan of Treatment Upcoming Encounters Date Type Department Care Team (Late st Contact Info) Description 04/26/2023 10:00 AM CDT Office Visit Department of Neurology in [place], [place] [address] [place] [phone] Patel Martell M.B., Ch.B. [address] [place] [phone] Discharge Disposition: Home or Self [...] For 1 dose Given 02/24/2022 8:50 AM DOUGH MIXER OPERATOR 650 mg diphenhydrAMINE capsule 25 mg (BENADRYL) 25 mg, oral, Once, On Sun02/24/22 at 0845, For 1 dose Given 02/24/2022 8:50 AM DOUGH MIXER OPERATOR 25 mg methylPREDNISolone sod succinate (PF) injection 100 mg (SOLU-Medrol) 100 mg, intravenous, Once, On Sun02/24/22 at 0845, For 1 dose, Activate vial to a final concentration of 62.5 mg/mL Given 02/24/2022 8:50 AM DOUGH MIXER OPERATOR 100 mg ocrelizumab 600 mg in NaCl [...] infusion authorized. Rate/Dose Change 02/24/2022 10:06 AM DOUGH MIXER OPERATOR 300 mL/hr Rate/Dose Change 02/24/2022 9:36 AM DOUGH MIXER OPERATOR 250 mL/ hr Rate/Dose Change 02/24/2022 9:20 AM DOUGH MIXER OPERATOR 200 mL/ hr documented in this encounter Additional Health Concerns Assessment Noted Time PHQ-9 Depression Total Score: 2 12/01/19 6:54 AM CDT documented as of this encounter Care Teams Physics Instructor Relationship Specialty Start Date End Date Jamal Butt M.D. NPJunior: [phone] [place] [address] PCP - General Family Medicine 05/21/17 documented as of this encounter
--- OUTSIDE RECORDS SUMMARY | 2023-02-14 21:43 | XMS_ITS | Encounter Summary ---
Author Name Unknown Organization [facility] Address [address] [place] [address] Care Team Providers Care Clinical Research Scientist Name Role Phone Jamal Butt M.D. Primary Care Provider [phone] Encounter Details Date Type Department Care Team (Late st Contact Info) Description 08/09/2017 [facility] [address] [place] [address] Willard Shahid M.D. [address], [place] [phone] Pain Elbow Right (Primary Dx); Neuropathy Ulnar Right Social History Tobacco Use Types Packs/Day Years Used Date Smoking Tobacco: Every Day Cigarettes 0.8 5 Started: 07/25/1998 Smokeless Tobacco: Never Alcohol Use Standard Drinks/Week Comments Yes 0 (1 standard drink = 0.6 oz pur e alcohol) beer socially Sex and Gender Information Value Date Recorded Sex Assigned at Female 03/06/2017 10:16 AM SPRING MACHINE OPERATOR Gender Identity Female 03/06/2017 10:16 AM SPRING MACHINE OPERATOR Sexual Orientation Straight 03/06/2017 10 :16 AM SPRING MACHINE OPERATOR documented as of this encounter Plan of Treatment Upcoming Encounters Date Type Department Care Team (Late st Contact Info) Description 04/26/2023 10:00 AM CDT Office Visit Department of Neurology in [address] [phone] Patel Martell M.B., .B. [address] [place] [phone] Discharge Disposition: Home or Self Care documented [...] Pending 01/12/2020 01/12/2020 01/13/2020 4 :11 AM SPRING MACHINE OPERATOR COVID19 Pending 02/13/2020 02/13/2020 02/14/2020 1 :05 AM SPRING MACHINE OPERATOR COVID19 Pending 03/31/2020 03/31/2020 03/31/2020 1 2:19 PM SPRING MACHINE OPERATOR COVID19 Pending 03/31/2020 03/31/2020 04/01/2020 1 2:22 AM SPRING MACHINE OPERATOR Protective Environment 06/07/2022 06/07/2022 COVID19 Pending 07/06/2022 07/06/2022 07/06/2022 8 :28 PM CDT Assessment Noted Time PHQ-9 Depression Total Score: 17 04 018 10:52 AM CDT documented as of this encounter Care Teams Clinical Research Scientist Relationship Specialty Start Date End Date Jamal Butt M.D. [address] [place] [address] PCP - General Family Medicine 05/21/17 documented as of this encounter
--- OUTSIDE RECORDS SUMMARY | 2023-02-14 21:43 | XMS_ITS | Encounter Summary ---
Author Name Unknown Organization [facility] Address [address] [place] [address] Care Team Providers Care Spindle Plumber Name Role Phone Jamal Butt M.D. Primary Care Provider [phone] Encounter Details Date Type Department Care Team (Latest Contact Info) Description 02/25/2018 [facility] [address] [place] [address] Willard Shahid M.D. [address] [place] [phone] Fasciculation (Primary Dx) Social History Tobacco Use Types Packs/Day Years Used Date Smoking Tobacco: Every Day Cigarettes 0.8 5 Started: 07/25/1998 Smokeless Tobacco: Never Alcohol Use Standard Drinks/Week Comments Yes 0 (1 standard drink = 0.6 oz pur e alcohol) beer socially Sex and Gender Information Value Date Recorded Sex Assigned at Female 03/06/2017 10:16 AM GREENHOUSE INSTRUCTOR Gender Identity Female 03/06/2017 10:16 AM GREENHOUSE INSTRUCTOR Sexual Orientation Straight 03/06/2017 10 :16 AM GREENHOUSE INSTRUCTOR documented as of this encounter Plan of Treatment Upcoming Encounters Date Type Department Care Team (Late st Contact Info) Description 04/26/2023 10:00 AM CDT Office Visit Department of Neurology in [address] [phone] Patel Martell M.B., .B. [address] [place] [phone] Discharge Disposition: Home or Self Care documented [...] Pending 01/12/2020 01/12/2020 01/13/2020 4 :11 AM GREENHOUSE INSTRUCTOR COVID19 Pending 02/13/2020 02/13/2020 02/14/2020 1 :05 AM GREENHOUSE INSTRUCTOR COVID19 Pending 03/31/2020 03/31/2020 03/31/2020 1 2:19 PM GREENHOUSE INSTRUCTOR COVID19 Pending 03/31/2020 03/31/2020 04/01/2020 1 2:22 AM GREENHOUSE INSTRUCTOR Protective Environment 06/07/2022 06/07/2022 COVID19 Pending 07/06/2022 07/06/2022 07/06/2022 8 :28 PM CDT Assessment Noted Time PHQ-9 Depression Total Score: 2 12/22/19 18 2:04 PM GREENHOUSE INSTRUCTOR documented as of this encounter Care Teams Spindle Plumber Relationship Specialty Start Date End Date Jamal Butt M.D. [address] [place], [place] [address] [place] [address] PCP - General Family Medicine 05/21/17 documented as of this encounter
--- OUTSIDE RECORDS SUMMARY | 2023-02-14 21:43 | XMS_ITS | Encounter Summary ---
Author Name Unknown Organization [facility] Address [address] [place] [address] Care Team Providers Care Boomswing Operator Name Role Phone Jamal Butt M.D. Primary Care Provider [phone] Reason for Visit * Reason Comments Communication Paper work from [facility] Encounter Details Date Type Department Care Team (Latest Contact Info) Description 03/01/2022 Clinical Communication Department of Neurology in [address] [phone] Patel Martell M.B., Ch.B. [address] [place] [phone] Communication (Paper work from [facility]) Social History Tobacco Use Types Packs/Day Years [...] declined 10/28/2020 How often do you attend [facility] or zoroastrian services? Patient declined 10/28/2020 Do you belong to any clubs o r organizations such as holiness groups, unions, fraternal or athletic groups, or [...] Answer Date Recorded PHQ-2 Score 1 12/01/2019 [facility] - Occupational Stress Questionnaire Answer [...] Sex Assigned at Female 03/06/2017 10:16 AM MEAT SALES AND STORAGE MANAGER Gender Identity Female 03/06/2017 10:16 AM MEAT SALES AND STORAGE MANAGER Sexual Orientation Straight 03/06/2017 10 :16 AM MEAT SALES AND STORAGE MANAGER documented as of this encounter Miscellaneous Notes * Telephone Encounter - Cecily Ascencio R.N. - 03/15/2022 8:35 AM CST RN had Dr. Martell sign the letter for Jm Chu. For the site of care for IVIG to be reveiwed for patient to keep her site at [place]. Faxed to [phone] Scanned paperwork to chart SALES AND STORAGE MANAGER * Telephone Encounter - Cecily Ascencio R.N. [...] or have home infusion. Contacted Barry at [facility] to let him know that Dr. Martell would write a letter first to see if she could continue having the Ocrevus at [facility]. SALES AND STORAGE MANAGER * Telephone Encounter - Cecily Ascencio R.N. - 03/01/2022 10:41 AM MEAT SALES AND STORAGE MANAGER Received paperwork from [facility] [phone] Asking necessary for this member ro continue receiving infusions at the [facility] infusion center. Paperwork placed on Dr. Martell's desk. SALES AND STORAGE MANAGER documented in this encounter Plan of Treatment Upcoming Encounters Date Type Department Care Team (Late st Contact Info) Description 04/26/2023 10:00 AM CDT Office Visit Department of Neurology in [address] [phone] Patel Martell M.B., Ch.B. [address] [place] [phone] Discharge Disposition: Home or Self Care documented as of this encounter Visit Diagnoses Not on filedocumented in this encounter Additional Health Concerns Assessment Noted Time PHQ-9 Depression Total Score: 2 12/01/19 20 6:54 AM CDT documented as of this encounter Care Teams Boomswing Operator Relationship Specialty Start Date End Date Jamal Butt M.D. [address] [place] [address] PCP - General Family Medicine 05/21/17 documented as of this encounter
--- OUTSIDE RECORDS SUMMARY | 2023-02-14 21:43 | XMS_ITS | Encounter Summary ---
Author Name Unknown Organization [facility] Address [address] [place] [address] Care Team Providers Care Chemist Steroids Name Role Phone Jamal Butt M.D. Primary Care Provider [phone] Reason for Visit * Reason Onset Date Comments Communication 03/27/2022 Encounter Details Date Type Department Care Team (Late st Contact Info) Description 03/27/2022 Clinical Communication Department of Neurology in [address] [phone] Patel Martell M.B., Ch.B. [address] [place] [phone] Communication Social History Tobacco Use Types Packs/Day [...] declined 10/28/2020 How often do you attend [facility] or yazdanism services? Patient declined 10/28/2020 Do you belong to any clubs o r organizations such as baptist groups, unions, fraternal or athletic groups, or [...] 1 12/01/2019 [facility] - Occupational Stress Questionnaire Answer Date [...] Sex Assigned at Female 03/06/2017 10:16 AM SHIFT SUPERINTENDENT Gender Identity Female 03/06/2017 10:16 AM SHIFT SUPERINTENDENT Sexual Orientation Straight 03/06/2017 10 :16 AM SHIFT SUPERINTENDENT documented as of this encounter Miscellaneous Notes * Telephone Encounter - Cecily Ascencio RMertN. - 04/04/2022 9:11 AM CST RN contacted Jessy and informed her about the Ocrevus being denied to be given at [facility]. Shehas the options to go to [facility], [facility] or [facility]. She is due for her infusion in August 2022. Jessy will contact us in July 2022 to let us know where she would like the Ocrevusinfusion. Number left to call [phone]. T SUPERINTENDENT * Telephone Encounter - Cecily Ascencio R.N. - 03/28/2022 11:00 AM SHIFT SUPERINTENDENT LVM for Jessy.. Left number [phone] to return call T SUPERINTENDENT * Telephone Encounter - Cecily Ascencio R.N. - 03/27/2022 12:11 PM SHIFT SUPERINTENDENT Images from the original note were not included. Angelika Leigh George S, M.B., Ch.B.; P [facility] Nurse Cc: Lionel Harrison [facility] is not denying patients Ocrevus, however, as of 04/10/22, they will no longer let her have it in a hospital setting, which is how [facility] bills. (So does [facility]) Please assist patient in finding a new site of care for her next dose. [facility] [place] will both bill as a clinic - or [facility] ([facility] in [place] will also bill as a clinic. The other option would be home infusion. A copy of the SOC denial will be uploaded to the media tab in patients chart. Thanks, Angelika Allred Auth Called and [facility] baylee Jiménez to contact Neurology about the denial for the Ocrevus to be done at [facility] and left number [phone] to return call. T SUPERINTENDENT documented in this encounter Plan of Treatment Upcoming Encounters Date Type Department Care Team ([facility] st Contact Info) Description 04/26/2023 10:00 AM CDT Office Visit Department of Neurology in [place], [place] [address] [place] [phone] Patel Martell M.B., Ch.B. [address] [place] [phone] Discharge Disposition: Home or Self Care documented as of this encounter Visit Diagnoses Not on filedocumented in this encounter Additional Health Concerns Assessment Noted Time PHQ-9 Depression Total Score: 2 12/01/19 20 6:54 AM CDT documented as of this encounter Care Teams Chemist Steroids Relationship Specialty Start Date End Date Jamal Butt M.D. [address] [place] [phone] PCP - General Family Medicine 05/21/17 documented as of this encounter
--- OUTSIDE RECORDS SUMMARY | 2023-02-14 21:43 | XMS_ITS | Encounter Summary ---
Author Name Unknown Organization [facility] Address [address] [place] [address] Care Team Providers Care Technical Solution Architect Name Role Phone Jamal Butt M.D. Primary Care Provider [phone] Reason for Visit * Reason Comments Allergic Reaction Patient is coming in for allergies to mold. She started a new job roughly 4 months ago and has been exposed to mold and in the last couple days has developed this congestion, troubles breathing and body aches. Has attempted taking allergy medications but no relief. Encounter Details Date Type Department Care Team ([facility] st Contact Info) Description 07/06/2022 7:25 PM CDT - 07/06/2022 9:40 PM CDT Emergency [facility] [address] [place] [phone] Joan Swanson D.O. [address] [place] [phone] Pneumonia (Primary Dx) Discharge Disposition: Home or [...] often do you attend chur ch or zoroastrianism services? Patient declined 10/28/2020 Do you belong to any clubs o r organizations such as alevism groups, unions, fraternal or athletic groups, or [...] Answer Date Recorded PHQ-2 Score 1 12/01/2019 [facility] - Occupational Stress Questionnaire Answer Date [...] Sex Assigned at Female 03/06/2017 10:16 AM PROTECTIVE SIGNAL INSTALLER HELPER Gender Identity Female 03/06/2017 10:16 AM PROTECTIVE SIGNAL INSTALLER HELPER Sexual Orientation Straight 03/06/2017 10 :16 AM PROTECTIVE SIGNAL INSTALLER HELPER documented as of this encounter Last Filed [...] through Care Everywhere. * Community-Acquired Pneumonia Adult Cpuo-jy-Iqod (Vietnamese) documented in this encounter Medications at Time [...] by mouth daily with breakfast. Zinc 0 doxycycline monohydrate (MONODOX) 100 mg capsule Take 1 capsule (100 mg total) by mouth 2 (two) times a day for 10 days. 20 capsule 0 07/06/2022 07/16/2022 documented as of this encounter ED Notes * Joan Swanson D.O. 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 She saw her tobacco classer last week and reports she was prescribed [...] General [address] [place] [address] Next Steps: Follow up Instructions: Follow up in 7-10 days for reevaluation. Yovana Covarrubias Sarah, D.O. 07/07/22 0037 documented in this encounter Plan of Treatment Upcoming Encounters Date Type Department Care Team (Late st Contact Info) Description 04/26/2023 10:00 AM CDT Office Visit Department of Neurology in [address] [phone] Patel Martell M.B., Ch.B. [facility] [place] [address] Discharge Disposition: Home or Self Care documented [...] 8:09 PM CDT 07/06/2022 8:29 PM CDT [facility] POCT ORDERABLES - DEVICE Performing Organization Address City/[facility]/ZIP Co de Phone Number [facility] [address] [place] [address], [facility] NPRG [address] [address] * Influenza A/B and RSV, PCR, Point of Care (07/06/2022 7:53 PM CDT) Influenza A, B, RSV, PCR, POCT Collected DEFAULT 07/06/2022 8:04 PM CDT [facility] Swab (Nasopharynx) 07/06/2022 7:53 PM CDT 07/06/2022 8:04 PM CDT Joan Swanson D.O. LAB POCT ORDERABLES - DEVICE Performing Organization Address City/[facility]/ZIP Co de Phone Number [facility] [address] [place] [address], [facility] [address] [address] * SARS Coronavirus 2, PCR Rapid, V [...] at the following links: For Healthcare Providers: https://www.fda.gov/media/354303/download For Patients: https://www.fda.gov/media/913855/download SARS Coronavirus 2, Source, Rapid Swab, Nasopharynx 07/06/2022 8:04 PM CDT [facility] Swab (Nasopharynx) 07/06/2022 7:53 PM CDT 07/06/2022 8:04 PM CDT Joan Swanson D.O. LAB MICROBIOLOGY - G ENERAL ORDERABLES [facility] [address] [place] [address], [facility] [address] [address] * CK (Creatine Kinase) (07/06/2022 7:23 PM CDT) Creatine Kinase, P 126 26 - 192 U/L 07/06/2022 8:06 PM CDT [facility] Blood (Blood, Venous) 07/06/2022 7:23 PM CDT 07/06/2022 7:42 PM CDT Joan Swanson D.O. LAB BLOOD ADD-ON [facility] [address] [place] [address], [facility] [address] [place] [address] * (ABNORMAL) Comprehensive Metabolic Panel (07/06/2022 7:23 [...] CDT Joan Swanson D.O. LAB BLOOD ADD-ON [facility] [address] [place] [address], [facility] NPRG [facility] [address] [place] [address] * (ABNORMAL) CBC with Differential, Blood (07/06/2022 [...] CDT Joan Swanson D.O. LAB BLOOD ADD-ON [facility] [address] [place] [address], [facility] NPRG [facility] [address] [place] [address] documented in this encounter Visit Diagnoses Diagnosis [...] documented as of this encounter Care Teams Technical Solution Architect Relationship Specialty Start Date End Date Jamal Butt M.D. [address] [facility] [place] [phone] PCP - General Family Medicine 05/21/17 documented as of this encounter
--- OUTSIDE RECORDS SUMMARY | 2023-02-14 21:43 | XMS_ITS | Encounter Summary ---
Author Name Unknown Organization [facility] Address [address] [place] [address] Care Team Providers Care Ship Ceiler Name Role Phone Jamal Butt M.D. Primary Care Provider [phone] Reason for Referral * Outpatient (Routine) - Authorized Specialty Diagnoses / Procedures Referred By Contac t Referred To Contact Neurology Patel Martell M.B., Ch.B. [address] [place] [phone] [facility] Referral ID Status Reason Start Date Expiration Date V isits Requested Visits Authorized [id number] Authorized 03/09/2022 03/08/2025 1 1 OLE PARAFFINER Reason for Visit * Reason Comments Follow-up Migraines * Outpatient (Routine) - Closed Specialty Diagnoses / Procedures Referred By Contac t Referred To Contact Neurology Patel Martell M.B., Ch.B. [address] [place] [phone] [facility] Referral ID Status Reason Start Date Expiration Date Visits Re quested Visits Authorized [id number] Closed 04/27/2021 04/27/2022 1 1 Encounter Details Date Type Department Care Team ([facility] st Contact Info) Description 03/08/2022 1:45 PM OUTSOLE PARAFFINER Office Visit Department of Neurology in [place], [place] [address] [place] [phone] Patel Martell M.B., Ch.B. [address] [place] [phone] Multiple Sclerosis (HCC) (Primary Dx); [...] declined 10/28/2020 How often do you attend [facility] or taoism services? Patient declined 10/28/2020 Do you belong to any clubs o r organizations such as caodaism groups, unions, fraternal or athletic groups, or [...] Answer Date Recorded PHQ-2 Score 1 12/01/2019 [facility] [place] [facility] Occupat ional Health - Occupational Stress [...] Sex Assigned at Female 03/06/2017 10:16 AM OUTSOLE PARAFFINER Gender Identity Female 03/06/2017 10:16 AM OUTSOLE PARAFFINER Sexual Orientation Straight 03/06/2017 10 :16 AM OUTSOLE PARAFFINER documented as of this encounter Last Filed Vital Signs Vital Sign Reading Time Taken Comments Blood Pressure 129/80 03/08/2022 1:25 PM OUTSOLE PARAFFINER Pulse 97 03/08/2022 1:25 PM OUTSOLE PARAFFINER Temperature - - Respiratory Rate - - Oxygen Saturation - - Inhaled Oxygen Concentration - - Weight 70.3 kg (155 lb) 03/08/2022 1:25 PM OUTSOLE PARAFFINER Height 175.3 cm (5' 9) 03/08/2022 1:25 PM OUTSOLE PARAFFINER Body Mass Index 22.89 03/08/2022 1:25 PM OUTSOLE PARAFFINER documented in this encounter Consult Notes * [...] andchronic migraine headaches who presented at the [facility] on 03/08/2022 as a [...] to previous 2019 study: Multiple bilateral unchanged [id number] lesions within the periventricular white matter consistent with the patient's known MS. The brainstem, cerebellum and visualized optic nerves remain free of disease process, and there are no newly identified lesions. There is no enhancement of any of the lesions on the current study. Prior history: Initial evaluation 11/04/2020, Jessy presented for establishment of care with [facility], she was initially seen by [place] [facility], she carries a diagnosis of multiple sclerosis diagnosed 01/31/2012, after bout of optic neuritis involving the right eye, she was diagnosed in [place], and chronic headaches. She states she was [...] when she transferred her care from [place] to [place]. In 2013 she underwent a stem cell [...] did not respond to any treatment, including gqpt-qob-sqybggk pain med and triptans. On today's presentation, she is reestablishing care, she was initially seen as [place] but due toproximity effect would preferred to seen in [place], she is due for her Botox injections, she is also due for Ocrevus infusion, of note she is having difficulty with having the Ocrevus approved by insurance company, this is been worked out with her previous neurologist in [place] who has sent in a n appeal. [...] include both face to face and non tmod-ks-havk time, of this about 15 minutes or so were spent in education, counseling and coordinating future care. PATIENT EDUCATION Ready to learn, no apparent learning barriers were identified; learning preferences include listening. Explained diagnosis and treatment plan; patient expressed understanding of the content. Arabella Hernandez., Ch.B. Board Certified Neurologist Neuro-Logging Truck Driver 03/08/22 1:45 PM OUTSOLE PARAFFINER OLE PARAFFINER documented in this encounter Miscellaneous Notes * Addendum Note - Patel Martell M.B., Ch.B. - 03/08/2022 1:45 PM CSTAddended by: PATEL MARTELL on: 03/09/2022 08:46 AM Modules accepted: Level of Service OLE PARAFFINER documented in this encounter Plan of Treatment Upcoming Encounters Date Type Department Care Team (Late st Contact Info) Description 04/26/2023 10:00 AM CDT Office Visit Department of Neurology in [address] [phone] Patel Martell M.B., Ch.B. [address] [place] [phone] Discharge Disposition: Home or Self Care Scheduled [...] documented as of this encounter Care Teams Ship Ceiler Relationship Specialty Start Date End Date Jamal Butt M.D. [address] [place] [phone] PCP - General Family Medicine 05/21/17 documented as of this encounter
--- OUTSIDE RECORDS SUMMARY | 2023-02-14 21:43 | XMS_ITS | Encounter Summary ---
Author Name Unknown Organization [facility] Address [address] [place] [address] Care Team Providers Care Meeting Manager Name Role Phone Jamal Butt M.D. Primary Care Provider [phone] Encounter Details Date Type Department Care Team (Late st Contact Info) Description 05/31/2016 Historical Ophthalmology RST OPH Eileen Alicia M.D. Social History Tobacco Use Types Packs/Day Years Used Date Smoking Tobacco: Never Assessed Sex and Gender Information Value Date Recorded Sex Assigned at Female 03/06/2017 10:16 AM SSDS MK 2 ADVANCED OPERATOR Gender Identity Female 03/06/2017 10:16 AM SSDS MK 2 ADVANCED OPERATOR Sexual Orientation Straight 03/06/2017 10 :16 AM SSDS MK 2 ADVANCED OPERATOR documented as of this encounter Progress Notes [...] left eye. CD Reports - EYEGEN Id: [id number] Status: Fnl documented in this encounter Plan of Treatment Upcoming Encounters Date Type Department Care Team (Late st Contact Info) Description 04/26/2023 10:00 AM CDT Office Visit Department of Neurology in [place], [place] [address] [place] [phone] Patel Martell M.B., Ch.B. [address] [place] [phone] Discharge Disposition: Home or Self Care documented [...] Pending 01/12/2020 01/12/2020 01/13/2020 4 :11 AM SSDS MK 2 ADVANCED OPERATOR COVID19 Pending 02/13/2020 02/13/2020 02/14/2020 1 :05 AM SSDS MK 2 ADVANCED OPERATOR COVID19 Pending 03/31/2020 03/31/2020 03/31/2020 1 2:19 PM SSDS MK 2 ADVANCED OPERATOR COVID19 Pending 03/31/2020 03/31/2020 04/01/2020 1 2:22 AM SSDS MK 2 ADVANCED OPERATOR Protective Environment 06/07/2022 06/07/2022 COVID19 Pending 07/06/2022 07/06/2022 07/06/2022 8 :28 PM CDT documented as of this encounter Care Teams Meeting Manager Relationship Specialty Start Date End Date Jamal Butt M.D. [address] [place] [phone] PCP - General Family Medicine 05/21/17 documented as of this encounter
--- OUTSIDE RECORDS SUMMARY | 2023-02-14 21:43 | XMS_ITS | Encounter Summary ---
Author Name Unknown Organization [facility] Address [address] [place] [address] Care Team Providers Care Route Carrier Name Role Phone Jamal Butt M.D. Primary Care Provider Reason for Referral * Outpatient (Routine) - Authorized Specialty Diagnoses / Procedures Referred By Campbell estrada Referred To Contact Diagnoses Chronic Migraine Procedures Botox for Chronic Migraine Genevieve Kingston APRN, C.N.Randi., M.S.N. [address] [place] [phone] [facility] Referral ID Status Reason Start Date Expiration Date V isits Requested Visits Authorized [id number] Authorized 06/29/2022 06/29/2023 4 4 Reason for Visit * Reason Comments Procedure Botox 150 units * Outpatient (Routine) - Closed Specialty Diagnoses / Procedures Referred By Contac t Referred To Contact Diagnoses Chronic Migraine Procedures Botox for Chronic Migraine [place] CHEMODENERV FACIAL TRIGEM BARBARA [place] INJECTION,ONABOTULINUMTOXINA Justin Lovell M.D., M.P.H. [address] [place] [address] [facility] [place] [facility] Referral ID Status Reason Start Date Expiration Date Visits Re quested Visits Authorized [id number] Closed 06/26/2022 06/26/2023 1 1 Encounter Details Date Type Department Care Team (Latest Contact Info) Description 06/29/2022 3:45 PM CDT Procedure visit Department of Neurology in [place], [place] [address] [place] [phone] Genevieve Kingston APRN, C.N.P., M.S.N. [address] [place] [phone] Chronic Migraine Discharge Disposition: Home or Self [...] often do you attend chur ch or mu-ism services? Patient declined 10/28/2020 Do you belong to any clubs o r organizations such as bahai groups, unions, fraternal or athletic groups, or [...] Answer Date Recorded PHQ-2 Score 1 12/01/2019 [facility] - Occupational Stress Questionnaire Answer [...] place to sleep or slept in a long-term (including now)? No 10/28/2020 Depression Answer Date [...] Sex Assigned at Female 03/06/2017 10:16 AM FULLING MACHINE OPERATOR Gender Identity Female 03/06/2017 10:16 AM FULLING MACHINE OPERATOR Sexual Orientation Straight 03/06/2017 10 :16 AM FULLING MACHINE OPERATOR documented as of this encounter Procedure [...] Needle length: 0.5 in Injection site details Retail Administrative Assistant / Procerus muscle(s): 5 units into the left racing car driver muscle, 5 units into the right racing car driver muscle and 5 units into the procerus [...] CDT Office Visit Department of Neurology in [place], [place] [address] [place] [phone] Patel Martell M.B., .B. [address] [place] [phone] Discharge Disposition: Home or Self Care Scheduled Orders Name Type Priority Associated Diagnoses Orde r Schedule Botox for Chronic Migraine Procedures Routine Migraine Headache Chronic 12 for 4 Occurrences starting 06/29/2022 until 09/30/2023, 2 completed documented as of this encounter Procedures Procedure Name Priority Date/Time Associated Diagnosis Comments [place] CHEMODENERV FACIAL TRIGEM BARBARA Routine 06/29/2022 3:45 PM CDT Chronic Migraine documented in this encounter Results * [place] CHEMODENERV FACIAL TRIGEM BARBARA (01/19/2023 9:45 AM FULLING MACHINE OPERATOR) Narrative [facility] - 01/19/2023 9:45 AM FULLING MACHINE OPERATOR Genevieve Kingston APRN C.N.P., M.S.N. ? [...] Needle length: 0.5 in Injection site details Retail Administrative Assistant / Procerus muscle(s): 5 units into the left racing car driver muscle, 5 units into the right racing car driver muscle ??and 5 units into the procerus [...] M.S.N. NEURO LOGY ORDERABLES Performing Organization Address City/State/[facility] Co wa Phone Number [facility] NA * [place] CHEMODENERV FACIAL TRIGEM BARBARA (09/26/2022 9:30 AM [...] Needle length: 0.5 in Injection site details Retail Administrative Assistant / Procerus muscle(s): 5 units into the left racing car driver muscle, 5 units into the right racing car driver muscle ??and 5 units into the procerus [...] M.S.N. NEURO LOGY ORDERABLES Performing Organization Address City/State/[facility] Co de Phone Number [facility] NA * [place] CHEMODENERV FACIAL TRIGEM BARBARA (06/29/2022 3:45 PM CDT) Narrative [facility] - 06/29/2022 3:45 PM CDT Genevieve Kingston APRN, C.N.PMert, M.S.N. ? 06/29/2022 ??3:38 PM Botox for Chronic Migraine Performed by: Genevieve Kingston APRN, C.N.PMert, M.S.N. Authorized by: Jsutin Lovell M.D., M.P.H. ?? Care team members present 1. Genevieve Kingston APRN, C.N.PMert, M.S.N. 2. Cecily Ascencio R.N. PROCEDURE DETAILS ?? Pre-procedure pain score: 7/10 Injection of: ??100 Units onabotulinumtoxinA 100 unit; 50 Units onabotulinumtoxinA 100 unit Needle gauge: 30 Needle length: 0.5 in Injection site details Retail Administrative Assistant / Procerus muscle(s): 5 units into the left racing car driver muscle, 5 units into the right racing car driver muscle ??and 5 units into the procerus [...] documented as of this encounter Care Teams Route Carrier Relationship Specialty Start Date End Date [place] [phone] PCP - General Family Medicine 05/21/17 documented as of this encounter
--- OUTSIDE RECORDS SUMMARY | 2023-02-14 21:43 | XMS_ITS | Encounter Summary ---
Author Name Unknown Organization [facility] Address [address] [place] [address] Care Team Providers Care Gas Prover Name Role Phone Jamal Butt M.D. Primary Care Provider [phone] Encounter Details Date Type Department Care Team (Late st Contact Info) Description 02/22/2018 [facility] [address] [place] [address] Willard Shahid M.D. [address], [place] [address] Social History Tobacco Use Types Packs/Day Years Used Date Smoking Tobacco: Every Day Cigarettes 0.8 5 Started: 07/25/1998 Smokeless Tobacco: Never Alcohol Use Standard Drinks/Week Comments Yes 0 (1 standard drink = 0.6 oz pur e alcohol) beer socially Sex and Gender Information Value Date Recorded Sex Assigned at Female 03/06/2017 10:16 AM GATE AGENT Gender Identity Female 03/06/2017 10:16 AM GATE AGENT Sexual Orientation Straight 03/06/2017 10 :16 AM GATE AGENT documented as of this encounter Plan of Treatment Upcoming Encounters Date Type Department Care Team (Late st Contact Info) Description 04/26/2023 10:00 AM CDT Office Visit Department of Neurology in [address] [phone] Patel Martell M.B., .B. [address] [place] [address] Discharge Disposition: Home or Self Care documented [...] Pending 01/12/2020 01/12/2020 01/13/2020 4 :11 AM GATE AGENT COVID19 Pending 02/13/2020 02/13/2020 02/14/2020 1 :05 AM GATE AGENT COVID19 Pending 03/31/2020 03/31/2020 03/31/2020 1 2:19 PM GATE AGENT COVID19 Pending 03/31/2020 03/31/2020 04/01/2020 1 2:22 AM GATE AGENT Protective Environment 06/07/2022 06/07/2022 COVID19 Pending 07/06/2022 07/06/2022 07/06/2022 8 :28 PM CDT Assessment Noted Time PHQ-9 Depression Total Score: 2 12/22/19 18 2:04 PM GATE AGENT documented as of this encounter Care Teams Gas Prover Relationship Specialty Start Date End Date Jamal Butt M.D. [address] [place] [phone] PCP - General Family Medicine 05/21/17 documented as of this encounter
--- OUTSIDE RECORDS SUMMARY | 2023-02-14 21:43 | XMS_ITS | Encounter Summary ---
Author Name Unknown Organization [facility] Address [address] [place] [address] Care Team Providers Care Director Of Research Center Name Role Phone Jamal Butt M.D. Primary Care Provider [phone] Reason for Visit * Reason Comments Botulinum Toxin Injection 150 UNITS * Outpatient (Routine) - Closed Specialty Diagnoses / Procedures Referred By Contac t Referred To Contact Diagnoses Chronic Migraine Procedures Botox for Chronic Migraine Bety Chauhan APRN, DEATH CLAIM CLERK, M.S., M.S.N. [address] [place] [phone] [facility] Region Referral ID Status Reason Start Date Expiration Date Visits Re quested Visits Authorized [id number] Closed 09/22/2021 09/22/2022 1 1 Encounter Details Date Type Department Care Team (Latest Contact Info) Description 03/09/2022 3:30 PM MEDICAL HISTORIAN Procedure visit Department of Neurology in [place], [place] [address] [place] [phone] Patel Martell M.B., Ch.B. [address] [place] [phone] Migraine Headache Chronic Discharge Disposition: Home [...] any clubs o r organizations such as catholic groups, unions, fraternal or athletic groups, or [...] Answer Date Recorded PHQ-2 Score 1 12/01/2019 [facility] - Occupational Stress [...] Assigned at Female 03/06/2017 10:16 AM MEDICAL HISTORIAN Gender Identity Female 03/06/2017 10:16 AM MEDICAL HISTORIAN Sexual Orientation Straight 03/06/2017 10 :16 AM MEDICAL HISTORIAN documented as of this encounter Procedure Notes * Patel Martell M.B., Ch.B. - 03/09/2022 3:30 PM CSTAssociated Order(s): Botox for Chronic Migraine Pre-Procedure Diagnose(s): Chronic Migraine Post-Procedure Diagnose(s): Chronic Migraine Botox for Chronic Migraine Performed by: Patel Martell M.B., Ch.B. Authorized by: Bety Chauhan APRN, DEATH CLAIM CLERK, M.S., M.S.N. Care team members present 1. Patel Martell M.B., Ch.B. 2. Joan Brock RCasandra PROCEDURE DETAILS Pre-procedure pain score: 8/10 Injection of: 100 Units onabotulinumtoxinA 100 unit; 50 Units onabotulinumtoxinA 100 unit Needle gauge: 30 Needle length: 0.5 in Injection site details Leading Firefighter / Procerus muscle(s): 5 units into the left orthopedic shoes salesperson muscle, 5 units into the right orthopedic shoes salesperson muscle and 5 units into the [...] complications Nereida Hernandez, Ch.B. Board Certified Neurologist Neuro-Senior Warehouse Clerk 03/09/22 3:59 PM MEDICAL HISTORIAN CAL HISTORIAN documented in this encounter Plan of Treatment Upcoming Encounters Date Type Department Care Team (Late st Contact Info) Description 04/26/2023 10:00 AM CDT Office Visit Department of Neurology in [address] [phone] Patel Martell M.B., Ch.B. [address] [place] [phone] Discharge Disposition: Home or Self Care documented as of this encounter Procedures Procedure Name Priority Date/Time Associated Diagnosis Comments [place] CHEMODENERV FACIAL TRIGEM BARBARA Routine 03/09/2022 3:30 PM MEDICAL HISTORIAN Migraine Headache Chronic documented in this encounter Results * [place] CHEMODENERV FACIAL TRIGEM BARBARA (03/09/2022 3:30 PM MEDICAL HISTORIAN) Narrative [facility] - 03/09/2022 3:30 PM MEDICAL HISTORIAN Patel Martell M.B., Ch.B. ? 03/09/2022 ??4:00 PM Botox for Chronic Migraine Performed by: Patel Martell M.B., Ch.B. Authorized by: Bety Chauhan APRN, DEATH CLAIM CLERK, M.S., M.S.N. Care team members present 1. Patel Martell M.B., Ch.B. 2. Joan Brock RMertN. PROCEDURE DETAILS ?? Pre-procedure pain score: 8/10 Injection of: ??100 Units onabotulinumtoxinA 100 unit; 50 Units onabotulinumtoxinA 100 unit Needle gauge: 30 Needle length: 0.5 in Injection site details Leading Firefighter / Procerus muscle(s): 5 units into the left orthopedic shoes salesperson muscle, 5 units into the right orthopedic shoes salesperson muscle ??and 5 units into the [...] For 1 dose Given 03/09/2022 3:27 PM MEDICAL HISTORIAN 100 Units onabotulinumtoxinA injection 50 Units (BOTOX) 50 Units, injection, One-Time Injection, Starting on Angelique 03/09/22 at 1527, For 1 dose Given 03/09/2022 3:27 PM MEDICAL HISTORIAN 50 Units documented in this encounter Additional Health Concerns Assessment Noted Time PHQ-9 Depression Total Score: 2 12/01/19 20 6:54 AM CDT documented as of this encounter Care Teams Director Of Research Center Relationship Specialty Start Date End Date Jamal Butt M.D. [address] [place] [phone] PCP - General Family Medicine 05/21/17 documented as of this encounter
--- OUTSIDE RECORDS SUMMARY | 2023-02-14 21:43 | XMS_ITS | Encounter Summary ---
Author Name Unknown Organization [facility] Address [address] [place] [address] Care Team Providers Care Retail Analyst Name Role Phone Jamal Butt M.D. Primary Care Provider [phone] Reason for Referral * Outpatient (Routine) - Closed Specialty Diagnoses / Procedures Referred By Campbell estrada Referred To Contact Diagnoses Chronic Migraine Procedures Botox for Chronic Migraine [place] CHEMODENERV FACIAL TRIGEM BARBARA [place] INJECTION,ONABOTULINUMTOXINA Justin Lovell M.D., M.P.H. [address] [place] [phone] [facility] Region Referral ID Status Reason Start Date Expiration Date Visits Re quested Visits Authorized [id number] Closed 06/26/2022 06/26/2023 1 1 Encounter Details Date Type Department Care Team (Late st Contact Info) Description 06/26/2022 Orders Only Department of Neurology in [place], [place] [address] [place] [phone] Justin Lovell M.D., M.P.H. [address] [place] [phone] Chronic Migraine (Primary Dx) Social History [...] often do you attend chur ch or jew services? Patient declined 10/28/2020 Do you belong to any clubs o r organizations such as mu-ism groups, unions, fraternal or athletic groups, or [...] Sex Assigned at Female 03/06/2017 10:16 AM MANAGER CLINIC Gender Identity Female 03/06/2017 10:16 AM MANAGER CLINIC Sexual Orientation Straight 03/06/2017 10 :16 AM MANAGER CLINIC documented as of this encounter Plan of Treatment Upcoming Encounters Date Type Department Care Team (Late st Contact Info) Description 04/26/2023 10:00 AM CDT Office Visit Department of Neurology in [address] [phone] Patel Martell M.B., .B. [address] [place] [phone] Discharge Disposition: Home or Self Care documented as of this encounter Results * [place] CHEMODENERV FACIAL TRIGEM BARBARA (06/29/2022 3:45 PM [...] Needle length: 0.5 in Injection site details Demolitionist / Procerus muscle(s): 5 units into the left case sealer muscle, 5 units into the right case sealer muscle ??and 5 units into the procerus [...] documented as of this encounter Care Teams Retail Analyst Relationship Specialty Start Date End Date Jamal Butt M.D. NPJunior: [phone] [address] [facility] [place] [phone] PCP - General Family Medicine 05/21/17 documented as of this encounter
--- OUTSIDE RECORDS SUMMARY | 2023-02-14 21:44 | XMS_ITS | Clinical Summary ---
Author Name Unknown Organization [employer] [facility] Address [place], [place] [address] Care Team Providers Care Resources Representative Name Role Phone Willard Shahid MD Primary Care Provider [phone] Allergies Active Allergy Reactions Criticality Noted Date [...] Encounters Date Type Department Care Team Description 02/14/2023 Telephone [facility] Lung & Sleep [address] [facility] [address] [place] [phone] Cierra Lora MD Follow Up 02/03/2023 11:19 AM PAIN COORDINATOR - 02/09/2023 2:54 PM PAIN COORDINATOR Hospital Encounter [facility] [address] [place] [address] Bee Quiros MD [facility] Hospitalist Cate Montes De Oca MD Pulmonary infiltrate (Primary Dx); Hypoxia; Cough, unspecified type; Cutaneous candidiasis; Pain; Dry nose; Pneumonia of both lower lobes due to Haemophilus influenzae (HC); Immunosuppression (HC) Discharge Disposition: Home Self Care 02/03/2023 Travel 02/01/2023 10:39 AM PAIN COORDINATOR Anesthesia Event [facility] [address] [place] [address] Daphne Victor MD 02/01/2023 10:35 AM PAIN COORDINATOR - 02/01/2023 11:35 AM PAIN COORDINATOR Surgery [facility] [address] [place] [address] Checo Lujan MD BRONCHOSCOPY W BAL, BX AND BRUSH 02/01/2023 9:42 AM PAIN COORDINATOR - 02/01/2023 1:15 PM PAIN COORDINATOR Hospital Encounter [facility] [address] [place] [address] Checo Lujan MD Chronic cough (Primary Dx); [...] Comments Blood Pressure 98/57 02/09/2023 9:17 AM PAIN COORDINATOR Pulse 85 02/09/2023 9:17 AM PAIN COORDINATOR Temperature 36.6 ??C (97.8 ??F) 02/09/2023 9:17 AM CS T Respiratory Rate 16 02/09/2023 9:17 AM PAIN COORDINATOR Oxygen Saturation 91% 02/09/2023 9:17 AM PAIN COORDINATOR Inhaled Oxygen Concentration - - Weight 63.5 kg (140 lb 1.6 oz) 02/06/2023 5:11 P M PAIN COORDINATOR Height 175.3 cm (5' 9) 02/03/2023 7:58 AM PAIN COORDINATOR Body Mass Index 20.69 02/03/2023 7:58 AM PAIN COORDINATOR Plan of Treatment Upcoming Encounters Date Type Department Care Team (Late st Contact Info) Description 03/15/2023 10:20 AM PAIN COORDINATOR Office Visit [facility] Medical Specialties [address] [place] [address] Nena Gil MD [address] [place] [address] Health Maintenance Due Date Last Done Comments [...] Procedure Name Priority Date/Time Associated Diagnosis Comments SCAN CORRESP-EKG RESULTS 02/13/2023 3:00 PM PAIN COORDINATOR WHITE BLOOD COUNT Early AM 02/05/2023 8:5 4 AM PAIN COORDINATOR HEPATIC FUNCTION PANEL RODDY 02/04/2023 5:54 AM PAIN COORDINATOR WHITE BLOOD COUNT Early AM 02/04/2023 5:5 4 AM PAIN COORDINATOR CREATININE Early AM 02/04/2023 5:54 AM PAIN COORDINATOR SODIUM Early AM 02/04/2023 5:54 AM PAIN COORDINATOR IGG SUBCLASSES(1-4) Early AM 02/04/2023 5 :54 AM PAIN COORDINATOR IMMUNOGLOBULIN E,IGE Early AM 02/04/2023 5:54 AM PAIN COORDINATOR IGM Early AM 02/04/2023 5:54 AM PAIN COORDINATOR IGG Early AM 02/04/2023 5:54 AM PAIN COORDINATOR IGA Early AM 02/04/2023 5:54 AM PAIN COORDINATOR SPUTUM CULTURE, STAIN STAT 02/03/2023 5:14 PM PAIN COORDINATOR MRSA/SA PCR STAT 02/03/2023 5:14 PM PAIN COORDINATOR BLOOD CULTURE STAT 02/03/2023 1:33 PM PAIN COORDINATOR BLOOD CULTURE STAT 02/03/2023 1:[address] CHEST PE STUDY STAT 02/03/2023 11: 44 AM PAIN COORDINATOR TROPONIN T (HS) ONE TIME Timed 02/03/2023 10:55 AM PAIN COORDINATOR PROCALCITONIN STAT 02/03/2023 10:55 AM PAIN COORDINATOR LACTATE SCREEN VENOUS ISTAT W RICHARDSON STAT 02/03/2023 8:37 AM PAIN COORDINATOR XR CHEST 2 VIEWS PA AND LATERAL STAT 02/03/2023 8:36 AM PAIN COORDINATOR EKG 12 LEAD STAT 02/03/2023 8:28 AM PAIN COORDINATOR EXTRA TUBE BLUE Today 02/03/2023 8:26 AM PAIN COORDINATOR EXTRA TUBE RICHARDSON ON ICE STAT 02/03/2023 8:26 AM PAIN COORDINATOR CBC WITH AUTO DIFFERENTIAL STAT 02/03/2023 8:26 AM PAIN COORDINATOR ISTAT LACTATE SCREEN VENOUS STAT 02/03/2023 8:26 AM PAIN COORDINATOR PRO-BNP STAT 02/03/2023 8:26 AM PAIN COORDINATOR TROPONIN T (HS) ACUTE W/2HR REFLEX STAT 02/03/2023 8:26 AM PAIN COORDINATOR BASIC METABOLIC PANEL STAT 02/03/2023 8:26 AM PAIN COORDINATOR CBC WITH AUTO DIFFERENTIAL STAT 02/03/2023 8:26 AM PAIN COORDINATOR INFLUENZA A/B PCR STAT 02/03/2023 8:1 4 AM PAIN COORDINATOR COVID-19 MOLECULAR Today 02/03/2023 8: 14 AM PAIN COORDINATOR XR CHEST 1 VIEW PORTABLE RODDY 02/01/2023 12:02 PM PAIN COORDINATOR XR FLUORO BRONCHOSCOPY Routine 02/01/2023 11:20 AM PAIN COORDINATOR Pulmonary infiltrate PATH TISSUE EXAM Today 02/01/2023 11:1 1 AM PAIN COORDINATOR AFB CULTURE, STAIN Today 02/01/2023 11 :05 AM PAIN COORDINATOR BRONCHIAL CULTURE, STAIN Today 02/01/2023 11:05 AM PAIN COORDINATOR CARMEN PREP, OTHER SOURCE Today 02/01/2023 11:05 AM PAIN COORDINATOR LEGIONELLA CULT [id number] Timed 02/01/2023 11:03 AM PAIN COORDINATOR LEGIONELLA SPECIES CULTURE (NON BLOOD) Today 02/01/2023 11:03 AM PAIN COORDINATOR CHLAMYDIA PNEUMONIAE PCR Today 02/01/2023 11:03 AM PAIN COORDINATOR VIRAL CULTURE GENERAL Today 02/01/2023 11:03 AM PAIN COORDINATOR LEGIONELLA SPECIES BY RAPID PCR Today 02/01/2023 11:03 AM PAIN COORDINATOR AFB CULTURE, STAIN Today 02/01/2023 11 :03 AM PAIN COORDINATOR BRONCHIAL CULTURE, STAIN Today 02/01/2023 11:03 AM PAIN COORDINATOR BAL COUNT AND DIFF Today 02/01/2023 11 :03 AM PAIN COORDINATOR CARMEN PREP, OTHER SOURCE Today 02/01/2023 11:03 AM PAIN COORDINATOR LEGIONELLA CULT [id number] Timed 02/01/2023 11:01 AM PAIN COORDINATOR LEGIONELLA SPECIES CULTURE (NON BLOOD) Today 02/01/2023 11:01 AM PAIN COORDINATOR MYCOPLASMA PNEUMONIAE PCR Today 02/01/2023 11:01 AM PAIN COORDINATOR CHLAMYDIA PNEUMONIAE PCR Today 02/01/2023 11:01 AM PAIN COORDINATOR VIRAL CULTURE GENERAL Today 02/01/2023 11:01 AM PAIN COORDINATOR LEGIONELLA SPECIES BY RAPID PCR Today 02/01/2023 11:01 AM PAIN COORDINATOR AFB CULTURE, STAIN Today 02/01/2023 11 :01 AM PAIN COORDINATOR BRONCHIAL CULTURE, STAIN Today 02/01/2023 11:01 AM PAIN COORDINATOR CARMEN PREP, OTHER SOURCE Today 02/01/2023 11:01 AM PAIN COORDINATOR LEGIONELLA CULT [id number] Timed 02/01/2023 10:59 AM PAIN COORDINATOR LEGIONELLA SPECIES CULTURE (NON BLOOD) Today 02/01/2023 10:59 AM PAIN COORDINATOR MYCOPLASMA PNEUMONIAE PCR Today 02/01/2023 10:59 AM PAIN COORDINATOR VIRAL CULTURE GENERAL Today 02/01/2023 10:59 AM PAIN COORDINATOR LEGIONELLA SPECIES BY RAPID PCR Today 02/01/2023 10:59 AM PAIN COORDINATOR AFB CULTURE, STAIN Today 02/01/2023 10 :59 AM PAIN COORDINATOR BRONCHIAL CULTURE, STAIN Today 02/01/2023 10:59 AM PAIN COORDINATOR BAL COUNT AND DIFF Today 02/01/2023 10 :59 AM PAIN COORDINATOR CARMEN PREP, OTHER SOURCE Today 02/01/2023 10:59 AM PAIN COORDINATOR PATH NON PLASTICS ENGINEER CYTOLOGY Today 02/01/2023 10:57 AM PAIN COORDINATOR LEGIONELLA CULT [id number] Timed 02/01/2023 10:57 AM PAIN COORDINATOR LEGIONELLA SPECIES CULTURE (NON BLOOD) Today 02/01/2023 10:57 AM PAIN COORDINATOR MYCOPLASMA PNEUMONIAE PCR Today 02/01/2023 10:57 AM PAIN COORDINATOR CHLAMYDIA PNEUMONIAE PCR Today 02/01/2023 10:57 AM PAIN COORDINATOR VIRAL CULTURE GENERAL Today 02/01/2023 10:57 AM PAIN COORDINATOR LEGIONELLA SPECIES BY RAPID PCR Today 02/01/2023 10:57 AM PAIN COORDINATOR AFB CULTURE, STAIN Today 02/01/2023 10 :57 AM PAIN COORDINATOR BRONCHIAL CULTURE, STAIN Today 02/01/2023 10:57 AM PAIN COORDINATOR BAL COUNT AND DIFF Today 02/01/2023 10 :57 AM PAIN COORDINATOR CARMEN PREP, OTHER SOURCE Today 02/01/2023 10:57 AM PAIN COORDINATOR ENDOTRACHEAL TUBE Routine 02/01/2023 10: 55 AM PAIN COORDINATOR ENDOTRACHEAL TUBE Routine 02/01/2023 10: 55 AM PAIN COORDINATOR ENDOTRACHEAL TUBE Routine 02/01/2023 10: 55 AM PAIN COORDINATOR BRONCHOSCOPY WITH BIOPSY Class E Urgent 02/01/2023 10:29 AM PAIN COORDINATOR see MD note BRONCHOSCOPY 02/01/2023 10:09 AM PAIN COORDINATOR from Last 3 Months Results * SCAN CORRESP-EKG RESULTS (02/13/2023 3:00 PM PAIN COORDINATOR) Narrative 02/13/2023 3:00 PM PAIN COORDINATOR Ordered by an unspecified provider. Other Clinical Staff OTHER * (ABNORMAL) WHITE BLOOD COUNT (02/05/2023 8:54 AM PAIN COORDINATOR) Only the most recent of2 resultswithin the time period is included. WHITE BLOOD COUNT 12.4(H) 4.5 - 11.0 thou/cu mm 02/05/2023 9:07 AM PAIN COORDINATOR [facility] NRBC 0.0 % 02/05/2023 9:07 AM PAIN COORDINATOR [facility] ABS NRBC 0.0 thou /cu mm 02/05/2023 9:07 AM PAIN COORDINATOR [facility] Blood BLOOD SPECIMEN / Unknown Butterfly / Unknown 02/05/2023 8:54 AM PAIN COORDINATOR 02/05/2023 8:58 AM PAIN COORDINATOR Cate Lamb MD HEMATOLOGY [facility] SENDOUT [place]NAL ZIP [address] [address] [place] [address] * (ABNORMAL) IGG SUBCLASSES(1-4) (02/04/2023 5:54 AM PAIN COORDINATOR) IgG 513(L) 586 - 1602 mg/dL 02/07/2023 10:09 AM [facility] IgG Subclass 1 254 248 - 810 mg/dL 02/07/2023 10:09 AM [facility] IgG Subclass 2 161 130 - 555 mg/dL 02/07/2023 10:09 AM [facility] IgG Subclass 3 39 15 - 102 mg/dL 02/07/2023 10:09 AM [facility] IgG Subclass 4 3 2 - 96 mg/dL 02/07/2023 10:09 AM [facility] Blood BLOOD SPECIMEN / Unknown Non-Lab Venipuncture / Unknown 02/04/2023 5:54 AM PAIN COORDINATOR 02/04/2023 6:02 AM PAIN COORDINATOR Narrative [facility] ([facility]) - 02/07/2023 10:09 AM PAIN COORDINATOR Performed at: ??01 - [address] ??[id number] Exhibit Carpenter: John Mart MD, Phone: ??[phone] Performed at: ??02 - [address] ??[id number] Exhibit Carpenter: Jessa Nunez MD, Phone: ??[phone] Cierra Lora MD SEND OUTS [facility] ([facility]) [address] [place] [address], [place] * SODIUM (02/04/2023 5:54 AM PAIN COORDINATOR) SODIUM 141 136 - 145 mmol/L 02/04/2023 6:24 AM PAIN COORDINATOR [facility] Blood BLOOD SPECIMEN / Unknown Non-Lab Venipuncture / Unknown 02/04/2023 5:54 AM PAIN COORDINATOR 02/04/2023 6:02 AM PAIN COORDINATOR Cate Lamb MD CHEMISTRY [facility] SENDOUT INTERNAL ZIP [address] [address] [place] [address] * IGA (02/04/2023 5:54 AM PAIN COORDINATOR) IGA 109.86 84.50 - 499.00 mg/dL 02/06/2023 11:02 AM PAIN COORDINATOR [facility] Blood BLOOD SPECIMEN / Unknown Non-Lab Venipuncture / Unknown 02/04/2023 5:54 AM PAIN COORDINATOR 02/04/2023 6:02 AM PAIN COORDINATOR Cierra Lora MD CHEMISTRY [facility] [address] [place] [address], * (ABNORMAL) IGM (02/04/2023 5:54 AM PAIN COORDINATOR) IGM 19.56(L) 35.00 - 242.00 mg/dL 02/06/2023 11:02 AM PAIN COORDINATOR [facility] Blood BLOOD SPECIMEN / Unknown Non-Lab Venipuncture / Unknown 02/04/2023 5:54 AM PAIN COORDINATOR 02/04/2023 6:02 AM PAIN COORDINATOR Cierra Lora MD CHEMISTRY [facility] [address] [place] [address], [place] * (ABNORMAL) IGG (02/04/2023 5:54 AM PAIN COORDINATOR) IGG 481.69(L) 610.30 - 1,616.00 mg/dL 02/06/2023 11:02 AM PAIN COORDINATOR [facility] Blood BLOOD SPECIMEN / Unknown Non-Lab Venipuncture / Unknown 02/04/2023 5:54 AM PAIN COORDINATOR 02/04/2023 6:02 AM PAIN COORDINATOR Cierra Lora MD CHEMISTRY [facility] [address] [place], [place] [id number] [place] [address] * (ABNORMAL) CREATININE (02/04/2023 5:54 AM PAIN COORDINATOR) eGFR >90 >90 mL/min/1.7 3m2 02/04/2023 6:24 AM PAIN COORDINATOR [facility] Comment:As of 2021, eG FR is calculated by the CKD-EPI creatinine equation without race adjustment. ??eGFR can be influenced by muscle mass, exercise, and diet. ??The reported eGFR is an estimation only and is only applicable if the renal function is stable. CREATININE 0.49(L) 0.50 - 0.90 mg/dL 02/04/2023 6:24 AM PAIN COORDINATOR [facility] Blood BLOOD SPECIMEN / Unknown Non-Lab Venipuncture / Unknown 02/04/2023 5:54 AM PAIN COORDINATOR 02/04/2023 6:02 AM PAIN COORDINATOR Cate Lamb MD CHEMISTRY [facility] SENDOUT INTERNAL ZIP [address] [place] [place] [address] * (ABNORMAL) IMMUNOGLOBULIN E,IGE (02/04/2023 5:54 AM PAIN COORDINATOR) IMMUNOGLOBULIN E (IGE) 2.2(L) 22.0 - 107.0 kU/L 02/05/2023 2:44 PM PAIN COORDINATOR [facility] Blood BLOOD SPECIMEN / Unknown Non-Lab Venipuncture / Unknown 02/04/2023 5:54 AM PAIN COORDINATOR 02/04/2023 6:02 AM PAIN COORDINATOR Cierra Lora MD CHEMISTRY [facility] [address] [place] [address], [place] * (ABNORMAL) HEPATIC FUNCTION PANEL (02/04/2023 5:54 AM PAIN COORDINATOR) Pathologist [facility] [place] ALBUMIN 3.6(L) 4.0 - 4.9 g/dL 02/04/2023 1:00 PM PAIN COORDINATOR [facility] PROTEIN,TOTAL 5.5(L) 6.0 - 8.0 g/dL 02/04/2023 1:00 PM PAIN COORDINATOR [facility] BILIRUBIN,TOTAL <0.2 0.0 - 1.2 mg/dL 02/04/2023 1:00 PM PAIN COORDINATOR [facility] BILIRUBIN,DIRECT <0.2 0.0 - 0.3 mg/dL 02/04/2023 1:00 PM PAIN COORDINATOR [facility] BILIRUBIN,INDIRE CT 02/04/2023 1:00 PM PAIN COORDINATOR [facility] Comment:Unable to calculate, Direct Bili <0.2 ALK PHOSPHATASE 122(H) 35 - 104 IU/L 02/04/2023 1:00 PM PAIN COORDINATOR [facility] ALT (SGPT) 11 10 - 35 IU/L 02/04/2023 1:00 PM PAIN COORDINATOR [facility] AST (SGOT) 14 10 - 35 IU/L 02/04/2023 1:00 PM PAIN COORDINATOR [facility] Blood BLOOD SPECIMEN / Unknown Non-Lab Venipuncture / Unknown 02/04/2023 5:54 AM PAIN COORDINATOR 02/04/2023 6:02 AM PAIN COORDINATOR Nena Gil MD CHEMISTRY [facility] [address] [place] [address], [place] * MRSA/SA PCR (02/03/2023 5:14 PM PAIN COORDINATOR) Pathologist [facility] [place] MRSA DNA PCR Negative Negative 02/03/2023 11:53 PM PAIN COORDINATOR [facility] STAPHYLOCOCCUS AUREUS PCR Negative Negative 02/03/2023 11:53 PM PAIN COORDINATOR [facility] Other SPECIMEN FROM INTERNAL NOSE / Unknown Non-Blood / Unknown 02/03/2023 5:14 PM PAIN COORDINATOR 02/03/2023 5:53 PM PAIN COORDINATOR Narrative [facility] - 02/03/2023 11:53 PM PAIN COORDINATOR Test result does not preclude MRSA or SA nasal colonization. Bee Quiros MD MICROBIOLOGY [facility] [address] [place] [address], * (ABNORMAL) SPUTUM CULTURE, STAIN (02/03/2023 5:14 PM PAIN COORDINATOR) CULTURE RESULT(A) 02/05/2023 9:27 AM PAIN COORDINATOR [facility] CULTURE 3+ Haemophilus influenzae 02/05/2023 9:27 AM PAIN COORDINATOR [facility] Comment: Beta-lactamase negative. Negative beta-lactamase testing does not guarantee beta-lactam (e.g. ampicillin or amoxicillin) susceptibility, although hisx-[id number], ampicillin- resistant isolates are uncommon. CULTURE 2+ Usual Peace 02/05/2023 9:27 AM PAIN COORDINATOR [facility] GRAM STAIN 2+ PMNs 02/05/2023 9:27 AM PAIN COORDINATOR [facility] GRAM STAIN 1+ Epithelial cells 02/05/2023 9:27 AM PAIN COORDINATOR [facility] GRAM STAIN No RBCs 02/05/2023 9:27 AM PAIN COORDINATOR [facility] GRAM STAIN 1+ Gram Positive Cocci 02/05/2023 9:27 AM PAIN COORDINATOR [facility] GRAM STAIN Gram stain performed by [place], [place] 02/05/2023 9:27 AM [facility] Sputum SPUTUM SPECIMEN / Unknown Non-Blood / Unknown 02/03/2023 5:14 PM PAIN COORDINATOR 02/03/2023 5:53 PM PAIN COORDINATOR Bee Quiros MD MICROBIOLOGY [facility] [address], [place] [address], [facility] SENDOUT INTERNAL ZIP [phone] [place] [address] * BLOOD CULTURE (02/03/2023 1:33 PM PAIN COORDINATOR) Only the most recent of2 resultswithin the time period is included. CULTURE No Growth. 02/07/2023 4:29 PM PAIN COORDINATOR [facility] Blood BLOOD SPECIMEN / Unknown Non-Lab Venipuncture / Unknown 02/03/2023 1:33 PM PAIN COORDINATOR 02/03/2023 1:40 PM PAIN COORDINATOR Bee Quiros MD MICROBIOLOGY [facility] [address], [place] [address], * CT CHEST PE STUDY (02/03/2023 11:44 AM PAIN COORDINATOR) Anatomical Region Laterality Modality CHEST, THORAX, HEART Computed To mography 02/03/2023 11:4 4 AM PAIN COORDINATOR Impressions 02/03/2023 12:23 PM PAIN COORDINATOR 1. ??No pulmonary embolism. 2. ??Focal consolidation in the right lower lobe with fairly extensive infiltrates throughout both lungs, more marked on the left consistent with infectious/inflammatory process. Bronchial inflammation with mucous plugging, most marked in the lower lobes. 3. ??Dilatation of the right and left ventricle. Narrative 02/03/2023 12:23 PM PAIN COORDINATOR For Patients: As a result of the 21st Century Cures Act, medical imaging exams and procedure reports are released immediately into your electronic medical record. You may view this report before your referring provider. If you have questions, please contact your health care provider. EXAM: CT CHEST PE STUDY LOCATION: [facility] MEDICAL IMAGING DATE: 02/03/2023 INDICATION: Shortness [...] provider. EXAM: CT CHEST PE STUDY LOCATION: [facility] MEDICAL IMAGING DATE: 02/03/2023 INDICATION: Shortness [...] T (HS) ONE TIME (02/03/2023 10:55 AM PAIN COORDINATOR) TROPONIN T HS 7 6-10 ng/L ng/L 02/03/2023 11:19 AM PAIN COORDINATOR [facility] Blood BLOOD SPECIMEN / Unknown Non-Lab Venipuncture / Unknown 02/03/2023 10:55 AM PAIN COORDINATOR 02/03/2023 10:59 AM PAIN COORDINATOR Bee Quiros MD CHEMISTRY [facility] SENDOUT INTERNAL ZIP [phone] [place] [id number] * PROCALCITONIN (02/03/2023 10:55 AM PAIN COORDINATOR) Pathologist [facility] [place] PROCALCITONIN 0.08 ng/ml 02/03/2023 11:31 AM PAIN COORDINATOR [facility] Blood BLOOD SPECIMEN / Unknown Non-Lab Venipuncture / Unknown 02/03/2023 10:55 AM PAIN COORDINATOR 02/03/2023 10:59 AM PAIN COORDINATOR Narrative [facility] - 02/03/2023 11:31 AM PAIN COORDINATOR Procalcitonin for initial assessment of Lower Respiratory [...] are obtained. Bee Quiros MD SEND OUTS [facility] SENDOUT INTERNAL ZIP [phone] [place] [place] [address] * LACTATE SCREEN VENOUS ISTAT W RICHARDSON (02/03/2023 8:37 AM PAIN COORDINATOR) Pathologist [facility] [place] LACTATE VENOUS SCREEN ISTAT <1.8 <=2.0 02/03/2023 8:41 AM PAIN COORDINATOR [facility] LACTATE SCREEN VENOUS POCT 0.8 <=2.0 02/03/2023 8:41 AM PAIN COORDINATOR [facility] Blood BLOOD SPECIMEN / Unknown 02/03/2023 8:37 AM PAIN COORDINATOR 02/03/2023 8:41 AM PAIN COORDINATOR Bee Quiros MD LABORATORY [facility] SENDOUT INTERNAL ZIP [phone] [place] [address] * XR CHEST 2 VIEWS PA AND LATERAL (02/03/2023 8:36 AM PAIN COORDINATOR) Anatomical Region Laterality Modality CHEST, THORAX, Lung, HEART Compu melissa Radiography 02/03/2023 8:36 AM PAIN COORDINATOR Impressions 02/03/2023 8:48 AM PAIN COORDINATOR Linear fibrosis or atelectasis in the right upper lung, stable. Patchy infiltrates in the left mid and lower lung, mildly improved. No new infiltrates or effusion. Narrative 02/03/2023 8:48 AM PAIN COORDINATOR For Patients: As a result of the [...] * EKG 12 LEAD (02/03/2023 8:28 AM PAIN COORDINATOR) Interpretation Sinus tachycardia Possible Left atrial enlargement Rightward axis Possible Anterior infarct , age undetermined Abnormal ECG No previous ECGs available BEYOND NOW Ventricular Rate 122 BPM BEYOND NOW Atrial Rate 122 BPM BEYOND NOW P-R Interval 150 ms BEYOND NOW QRS Duration 88 ms BEYOND NOW QT 308 ms BEYOND NOW QTc 438 ms BEYOND NOW P [place] 71 degrees BEYOND NOW R [place] 90 degrees BEYOND NOW T [place] 78 degrees BEYOND NOW 02/03/2023 8:28 AM PAIN COORDINATOR 02/06/2023 2:13 PM PAIN COORDINATOR Bee Quiros MD EKG ORD BEYOND NOW [place], [place] * TROPONIN T (HS) ACUTE W/2HR REFLEX (02/03/2023 8:26 AM PAIN COORDINATOR) TROPONIN T HS 7 6-10 ng/L ng/L 02/03/2023 9:13 AM PAIN COORDINATOR [facility] Blood BLOOD SPECIMEN / Unknown Non-Lab Venipuncture / Unknown 02/03/2023 8:26 AM PAIN COORDINATOR 02/03/2023 8:36 AM PAIN COORDINATOR Narrative [facility] - 02/03/2023 9:13 AM PAIN COORDINATOR hs-cTnT (Elecsys Troponin T Gen 5) concentration [...] department patient population. Bee Quiros MD CHEMISTRY [facility] SENDOUT INTERNAL ZIP [address] [address] [place] [address] * EXTRA TUBE RICHARDSON ON ICE (02/03/2023 8:26 AM PAIN COORDINATOR) Blood BLOOD SPECIMEN / Unknown Non-Lab Venipuncture / Unknown 02/03/2023 8:26 AM PAIN COORDINATOR 02/03/2023 8:36 AM PAIN COORDINATOR Bee Quiros MD LABORATORY Performing Organization Address City/[facility]/ZIP Co de Phone Number [facility] SENDOUT INTERNAL ZIP [address] [address] [place] [address] * (ABNORMAL) CBC WITH AUTO DIFFERENTIAL (02/03/2023 8:26 AM PAIN COORDINATOR) WHITE BLOOD COUNT 18.2(H) 4.5 - 11.0 thou/cu mm 02/03/2023 8:40 AM [facility] RED BLOOD COUNT 4.58 4.00 - 5.20 mil/cu mm 02/03/2023 8:40 AM [facility] HEMOGLOBIN 13.3 12.0 - 16.0 g/dL 02/03/2023 8:40 AM [facility] HEMATOCRIT 40.6 33.0 - 51.0 % 02/03/2023 8:40 AM [facility] MCV 89 80 - 100 fL 02/03/2023 8:40 AM [facility] MCH 29.0 26.0 - 34.0 pg 02/03/2023 8:40 AM [facility] MCHC 32.8 32.0 - 36.0 g/dL 02/03/2023 8:40 AM [facility] RDW 13.5 11.5 - 15.5 % 02/03/2023 8:40 AM [facility] PLATELET COUNT 436 140 - 440 thou/cu mm 02/03/2023 8:40 AM [facility] MPV 7.7 6.5 - 11.0 fL 02/03/2023 8:40 AM [facility] NRBC 0.0 % 02/03/2023 8:40 AM [facility] ABS NRBC 0.0 thou /cu mm 02/03/2023 8:40 AM [facility] % NEUT 91.7 % 02/03/2023 8:40 AM [facility] % LYMPH 3.2 % 02/03/2023 8:40 AM [facility] % MONO 4.3 % 02/03/2023 8:40 AM [facility] % EOS 0.2 % 02/03/2023 8:40 AM [facility] % BASO 0.3 % 02/03/2023 8:40 AM [facility] % IMMATURE GRAN (METAS,MYELOS,RI OS) 0.3 % 02/03/2023 8:40 AM [facility] ABSOLUTE NEUTROPHILS 16.7(H) 1.7 - 7.0 thou/cu mm 02/03/2023 8:40 AM [facility] ABSOLUTE LYMPHOCYTES 0.6(L) 0.9 - 2.9 thou/cu mm 02/03/2023 8:40 AM [facility] ABSOLUTE MONOCYTES 0.8 <0.9 thou/cu mm 02/03/2023 8:40 AM [facility] ABSOLUTE EOSINOPHILS 0.0 <0.5 thou/cu mm 02/03/2023 8:40 AM [facility] ABSOLUTE BASOPHILS 0.1 <0.3 thou/cu mm 02/03/2023 8:40 AM [facility] ABSOLUTE IMMATURE GRANULOCYTES(MET ,MYELOS,PROS) 0.1 <0.3 thou/cu mm 02/03/2023 8:40 AM [facility] Blood BLOOD SPECIMEN / Unknown Non-Lab Venipuncture / Unknown 02/03/2023 8:26 AM PAIN COORDINATOR 02/03/2023 8:36 AM PAIN COORDINATOR Bee Quiros MD HEMATOLOGY [facility] SENDOUT INTERNAL ZIP [id number] [place] [address] * EXTRA TUBE BLUE (02/03/2023 8:26 AM PAIN COORDINATOR) Blood BLOOD SPECIMEN / Unknown Non-Lab Venipuncture / Unknown 02/03/2023 8:26 AM PAIN COORDINATOR 02/03/2023 9:53 AM PAIN COORDINATOR Doctor Unknown LABORATORY Performing Organization Address [facility]/ZIP Co de Phone Number [facility] SENDOUT INTERNAL ZIP [id number] [address] [place] [address] * (ABNORMAL) PRO-BNP (02/03/2023 8:26 AM PAIN COORDINATOR) PRO-BNP 611(H) <125 pg/mL 02/03/2023 9:15 AM PAIN COORDINATOR [facility] Blood BLOOD SPECIMEN / Unknown Non-Lab Venipuncture / Unknown 02/03/2023 8:26 AM PAIN COORDINATOR 02/03/2023 8:36 AM PAIN COORDINATOR Narrative [facility] - 02/03/2023 9:15 AM PAIN COORDINATOR The following cut-points have been suggested for [...] failure. ? Bee Quiros MD SEND OUTS Performing Organization Address [facility]/ZIP Co de Phone Number [facility] SENDOUT [place]NAL ZIP [address] [address] [place] [address] * (ABNORMAL) BASIC METABOLIC PANEL (02/03/2023 8:26 AM [facility]) Pathologist [facility] [place] SODIUM 134(L) 136 - 145 mmol/L 02/03/2023 9:13 AM [facility] POTASSIUM 3.9 3.5 - 5.1 mmol/L 02/03/2023 9:13 AM [facility] CHLORIDE 96(L) 98 - 107 mmol/L 02/03/2023 9:13 AM [facility] CO2,TOTAL 25 22 - 29 mmol/L 02/03/2023 9:13 AM [facility] ANION GAP 13 5 - 18 02/03/2023 9:13 AM [facility] GLUCOSE 112(H) 70 - 99 mg/dL 02/03/2023 9:13 AM [facility] CALCIUM 9.3 8.6 - 10.0 mg/dL 02/03/2023 9:13 AM [facility] BUN 4(L) 6 - 20 mg/dL 02/03/2023 9:13 AM [facility] CREATININE 0.55 0.50 - 0.90 mg/dL 02/03/2023 9:13 AM [facility] BUN/CREAT RATIO 7(L) 10 - 20 9:13 AM [facility] eGFR >90 >90 mL/min/1.7 3m2 02/03/2023 9:13 AM [facility] Comment:As of 2021, eG FR is calculated by the CKD-EPI creatinine equation without race adjustment. ??eGFR can be influenced by muscle mass, exercise, and diet. ??The reported eGFR is an estimation only and is only applicable if the renal function is stable. Blood BLOOD SPECIMEN / Unknown Non-Lab Venipuncture / Unknown 02/03/2023 8:26 AM PAIN COORDINATOR 02/03/2023 8:36 AM [facility] Bee Quiros MD CHEMISTRY [facility] SENDOUT [place]NAL [place]IP [phone] [place] [address] * COVID-19 MOLECULAR (02/03/2023 8:14 AM [facility]) COVID 19 [place] MOLECULAR Negative Negative 02/03/2023 9:13 AM [facility] Comment:All PCR tests are narayan bject to false negative result due to variability in viral load and collection technique. A negative result does not rule out a SARS-CoV-2 infection. Clinical correlation required. TESTING LABORATORY [facility] 02/03/2023 9:13 AM [facility] Comment:Specimen submitted t o [facility] for testing. Other SPECIMEN FROM NASOPHARYNGEAL STRUCTURE / Unknown Non-Blood / Unknown 02/03/2023 8:14 AM PAIN COORDINATOR 02/03/2023 8:20 AM PAIN COORDINATOR Narrative [facility] - 02/03/2023 9:13 AM PAIN COORDINATOR This test has been authorized by FDA [...] or revoked sooner. Bee Quiros MD MICROBIOLOGY [facility] SENDOUT [place] ZIP [address] [address] [place] [address] * INFLUENZA A/B PCR (02/03/2023 8:14 AM PAIN COORDINATOR) INFLUENZA A PCR Negative 02/03/2023 9:13 AM [facility] INFLUENZA B PCR Negative 02/03/2023 9:13 AM [facility] Other SPECIMEN FROM NASOPHARYNGEAL STRUCTURE / Unknown Non-Blood / Unknown 02/03/2023 8:14 AM PAIN COORDINATOR 02/03/2023 8:20 AM PAIN COORDINATOR Bee Quiros MD MICROBIOLOGY [facility] SENDOUT INTERNAL ZIP [address] [address] [place] [address] * XR CHEST 1 VIEW PORTABLE (02/01/2023 12:02 PM PAIN COORDINATOR) Anatomical Region Laterality Modality HEART, THORAX, CHEST Digital Rad iography 02/01/2023 12:2 6 PM PAIN COORDINATOR Impressions 02/01/2023 12:26 PM PAIN COORDINATOR There is new linear atelectasis and patchy opacity in the right upper lobe perihilar region. There is new patchy alveolar opacity in the left lung base. No pneumothorax. Sclerotic callus is suggested associated with healing fracture of the right 7th rib. Dictated by Danny Morrow MD @ Feb 01 2023 12:26PM (Electronically Signed) Pediatric and Body Radiology [email or web address] ?? Narrative 02/01/2023 12:26 PM PAIN COORDINATOR For Patients: ??As a result of the [...] 12:26PM (Electronically Signed) Pediatric and Body Radiology [employer] Checo Lujan MD GENERAL IMAGING * XR FLUORO BRONCHOSCOPY (02/01/2023 11:20 AM PAIN COORDINATOR) Anatomical Region Laterality Modality CHEST Other Narrative 02/01/2023 10:42 AM PAIN COORDINATOR 1 minute 43 seconds fluoroscopy time was provided. ??See operative/procedure report for further information. Checo Lujan MD FLUOROSCOPY * PATH TISSUE EXAM (02/01/2023 11:11 AM PAIN COORDINATOR) Case Report Pathology Report ?Case: [id number] ? Authorizing Provider: ??Checo Lujan MD ?? Collected: ? 02/01/2023 1111 ? Ordering Location: ? [facility] ?Received: ?02/01/2023 1239 ? Hospital ? Pathologist: ? Gregoria Reese, DO ? Specimen: ?Left Upper Lobe Lung Biopsy ? 3 2:36 PM [facility] Final Diagnosis A) LUNG, LEFT UPPER [...] limited alveolar tissue present 3 2:36 PM [facility] Comment Given the presence o f abundant acute inflammation, correlation with the pending bronchial culture studies is recommended. Case seen in consultation with Dr. Bullard. 3 2:36 PM [facility] Clinical Information The patient is a [...] therapy and is productive. 3 2:36 PM [facility] Gross Description A) Received in formalin, [...] 72 hours. JOVANNI 02/01/2023 3 2:36 PM [facility] Microscopic Description The final diagnosis is [...] situ hybridization tests that were performed by [facility] and whose performance characteristics were evaluated by [...] complexity clinical laboratory testing. 3 2:36 PM PAIN COORDINATOR [facility] Additional Information Interpreted at [facility] - [address] [place] [id number] 3 2:36 PM PAIN COORDINATOR [facility] Biopsy (Left Upper Lobe Lung Biopsy) 02/01/2023 11:11 AM PAIN COORDINATOR 02/01/2023 12:39 PM PAIN COORDINATOR Checo Lujan MD PATHOLOGY/CYTOLOG Y [facility] [address] [place] [address], * (ABNORMAL) BRONCHIAL CULTURE, STAIN (02/01/2023 11:05 AM PAIN COORDINATOR) Only the most recent of5 resultswithin the time period is included. CULTURE RESULT(A) 02/03/2023 12:44 PM PAIN COORDINATOR [facility] CULTURE 1+ Haemophilus influenzae 02/03/2023 12:44 PM PAIN COORDINATOR [facility] GRAM STAIN 1+ Epithelial cells 02/03/2023 12:44 PM PAIN COORDINATOR [facility] GRAM STAIN 2+ RBCs 02/03/2023 12:44 PM PAIN COORDINATOR [facility] GRAM STAIN 1+ PMNs 02/03/2023 12:44 PM PAIN COORDINATOR [facility] GRAM STAIN No organisms seen 02/03/2023 12:44 PM PAIN COORDINATOR [facility] Bronchial Brushing (Left Upper Lobe Lung Bronchial Brushing) Non-Blood / Unknown 02/01/2023 11:05 AM PAIN COORDINATOR 02/01/2023 12:44 PM PAIN COORDINATOR Checo Lujan MD MICROBIOLOGY Performing Organization Address [facility]/ZIP Co de Phone Number [facility] [address] [place] [address], * CARMEN PREP, OTHER SOURCE (02/01/2023 11:05 AM PAIN COORDINATOR) Only the most recent of5 resultswithin the time period is included. OBSERVATION No fungal elements seen 02/01/2023 1:40 PM PAIN COORDINATOR [facility] Bronchial Brushing (Left Upper Lobe Lung Bronchial Brushing) Non-Blood / Unknown 02/01/2023 11:05 AM PAIN COORDINATOR 02/01/2023 12:44 PM PAIN COORDINATOR Checo Lujan MD MICROBIOLOGY Performing Organization Address [facility] de Phone Number [facility] [address] [place] [address], * LEGIONELLA CULT [id number] (02/01/2023 11:03 AM PAIN COORDINATOR) Only the most recent of4 resultswithin the time period is included. Legion Spec 1 Comment 02/13/2023 5:07 PM PAIN COORDINATOR [facility] Comment: Culture Report: No Legionella species isolated. Bronchoalveolar Lavage (Left Upper Lobe Lung Bronchoalveolar Lavage) Non-Blood / Unknown 02/01/2023 11:03 AM PAIN COORDINATOR 02/01/2023 1:08 PM PAIN COORDINATOR Narrative [facility] - 02/13/2023 5:07 PM PAIN COORDINATOR Performed at: ??01 - [facility] [place] [address] [place] [address], [place], [place] ??[id number] Exhibit Carpenter: John Mart MD, Phone: ??[phone] Checo Lujan MD SEND OUTS Performing Organization Address [facility]/ZIP Co de Phone Number [facility] ([facility]) [address] [place] [address] * LEGIONELLA SPECIES CULTURE (NON BLOOD) (02/01/2023 11:03 AM PAIN COORDINATOR) Only the most recent of4 resultswithin the time period is included. Pathologist [facility] [place] Legion Cult Status Final report 02/13/2023 5:07 PM PAIN COORDINATOR [facility] ([facility]) Bronchoalveolar Lavage (Left Upper Lobe Lung Bronchoalveolar Lavage) Non-Blood / Unknown 02/01/2023 11:03 AM PAIN COORDINATOR 02/01/2023 1:08 PM PAIN COORDINATOR Narrative [facility] ([facility]) - 02/13/2023 5:07 PM PAIN COORDINATOR Performed at: ??01 - [facility] [place] [address] ??[id number] Exhibit Carpenter: John Mart MD, Phone: ??[phone] Checo Lujan MD SEND OUTS Performing Organization Address [facility] de Phone Number [facility] ([facility]) [address] [place] [address] * CHLAMYDIA PNEUMONIAE PCR (02/01/2023 11:03 AM PAIN COORDINATOR) Only the most recent of3 resultswithin the time period is included. Pathologist [facility] [place] Chlamydia pneumoniae, PCR Negative Negative 02/06/2023 2:07 PM PAIN COORDINATOR [facility] ([facility]) Comment: No Chlamydia pneumoniae DNA detected. This test was developed and its performance characteristics determined by [facility]. ??It has not been cleared or approved by the Food and Drug Administration. ??The FDA has determined that such clearance or approval is not necessary. Bronchoalveolar Lavage (Left Upper Lobe Lung Bronchoalveolar Lavage) Non-Blood / Unknown 02/01/2023 11:03 AM PAIN COORDINATOR 02/01/2023 1:08 PM PAIN COORDINATOR Narrative [facility] ([facility]) - 02/06/2023 2:07 PM PAIN COORDINATOR Performed at: ??[address] ??[id number] Exhibit Carpenter: Jessa Nunez MD, Phone: ??[phone] Checo Lujan MD SEND OUTS Performing Organization Address [facility] de Phone Number [facility] ([facility]) [address] [place] [address] * VIRAL CULTURE GENERAL (02/01/2023 11:03 AM PAIN COORDINATOR) Only the most recent of4 resultswithin the time period is included. Pathologist [facility] [place] Viral Culture Gen No virus isolated. 02/09/2023 1:09 PM PAIN COORDINATOR [facility] ([facility]) Bronchoalveolar Lavage (Left Upper Lobe Lung Bronchoalveolar Lavage) Non-Blood / Unknown 02/01/2023 11:03 AM PAIN COORDINATOR 02/01/2023 1:08 PM PAIN COORDINATOR [facility] ([facility]) - 02/09/2023 1:09 PM PAIN COORDINATOR Performed at: ??[address] ??[id number] Exhibit Carpenter: Jessa Nunez MD, Phone: ??[phone] Checo Lujan MD SEND OUTS Performing Organization Address [facility] de Phone Number [facility] ([facility]) [address] [place] [address], * LEGIONELLA SPECIES BY RAPID PCR (02/01/2023 11:03 AM PAIN COORDINATOR) Only the most recent of4 resultswithin the time period is included. Pathologist [facility] [place] LEGIONELLA PCR SOURCE Left Upper Lobe BAL 02/03/2023 8:40 AM PAIN COORDINATOR [facility] LEGIONELLA SP BY RAPID PCR Negative Not Applicable 02/03/2023 8:40 AM PAIN COORDINATOR [facility] Comment: This test was developed and its performance characteristics determined by [facility] in a manner consistent with CLIA requirements. This test has not been cleared or approved by the U.S. Food and Drug Administration. Test Performed by: [place] [address] [place] [address] Exhibit Carpenter: Malick Varela M.D. Ph.D.; CLIA# [id number] Bronchoalveolar Lavage (Left Upper Lobe Lung Bronchoalveolar Lavage) Non-Blood / Unknown 02/01/2023 11:03 AM PAIN COORDINATOR 02/01/2023 1:08 PM PAIN COORDINATOR Checo Lujan MD SEND OUTS [address] [address], * BAL COUNT AND DIFF (02/01/2023 11:03 AM PAIN COORDINATOR) Only the most recent of3 resultswithin the time period is included. BODY FLUID SOURCE Bronchoalveolar Lavage 02/01/2023 8:10 PM PAIN COORDINATOR [facility] Comment:Left Upper Lobe BAL COLOR Colorless 02/01/2023 8:10 PM PAIN COORDINATOR [employer] BAL CLARITY Turbid 02/01/2023 8:10 PM PAIN COORDINATOR [facility] TOTAL NUCLEATED CELLS, BF 9,410 /cu mm 02/01/2023 8:10 PM PAIN COORDINATOR [facility] % NEUTROPHILS, BODY FLUID 76 % 02/01/2023 8:10 PM PAIN COORDINATOR [facility] % LYMPHOCYTES, BODY FLUID 8 % 02/01/2023 8:10 PM PAIN COORDINATOR [employer] [facility] % MONO/MACRO, BAL 11 % 02/01/2023 8:10 PM PAIN COORDINATOR [employer] [facility] % EOSINOPHILS, BODY FLUID 5 % 02/01/2023 8:10 PM PAIN COORDINATOR [facility] BRONCH EPITHELIAL None 02/01/2023 8:10 PM PAIN COORDINATOR [facility] Bronchoalveolar Lavage (Left Upper Lobe Lung Bronchoalveolar Lavage) Non-Blood / Unknown 02/01/2023 11:03 AM PAIN COORDINATOR 02/01/2023 1:08 PM PAIN COORDINATOR Checo Lujan MD BODY FLUID Performing Organization Address City/[facility]/ZIP Co de Phone Number [facility] [address] [place] [phone], * MYCOPLASMA PNEUMONIAE PCR (02/01/2023 11:01 AM PAIN COORDINATOR) Only the most recent of3 resultswithin the time period is included. [facility] M pneumo PCR Negative Negative 02/09/2023 3:09 PM PAIN COORDINATOR [facility] ([facility]) Comment: No Mycoplasma pneumoniae DNA detected. This test was developed and its performance characteristics determined by [facility]. ??It has not been cleared or approved by the Food and Drug Administration. ??The FDA has determined that such clearance or approval is not necessary. Bronchoalveolar Lavage (Right Upper Lobe Lung Bronchoalveolar Lavage) Non-Blood / Unknown 02/01/2023 11:01 AM PAIN COORDINATOR 02/01/2023 1:03 PM PAIN COORDINATOR Narrative [facility] ([facility]) - 02/09/2023 3:09 PM PAIN COORDINATOR Performed at: ??01 - [address] ??[id number] Exhibit Carpenter: Jessa Nunez MD, Phone: ??[phone] Checo Lujan MD BODY FLUID Performing Organization Address [facility] de Phone Number [facility] ([facility]) [address] [place] [address], * PATH NON PLASTICS ENGINEER CYTOLOGY (02/01/2023 10:57 AM PAIN COORDINATOR) [facility] Case Report Medical Cytology Report ? Case: [id number] ? Authorizing Provider: ??Checo Lujan MD ?? [...] Brushing, JACKY Brushing ? 02/06/2023 10:35 AM PAIN COORDINATOR [employer] Final Diagnosis A) LUNG, [...] Negative for viral inclusions 02/06/2023 10:35 AM [facility] [employer] [facility] Comment B & C) Rare atypical pneumocytes are seen which are favored to be reactive given the presence of acute inflammation and radiologic findings of extensive bilateral infiltrates. Dr. Bullard interpreted the GMS histochemical stains. Dr. Reese interpreted the remainder of the case. 02/06/2023 10:35 AM [facility] [employer] [facility] Clinical Information The patient [...] therapy and is productive. 02/06/2023 10:35 AM PAIN COORDINATOR [employer] [facility] Gross Description A) SOURCE: [...] GMS stained ThinPrep slides 02/06/2023 10:35 AM [facility] [employer] [facility] Microscopic Description Specimen adequacy: Adequate for interpretation. All slides were reviewed. The microscopic appearance substantiates the diagnosis. 02/06/2023 10:35 AM PAIN COORDINATOR [facility] Additional Information Cytology is screened at [facility], [facility] Laboratory - [address] [address] and [facility] - [address], [place] [address] and [facility] - [address] [place] [address] Interpreted at [facility], [facility] Laboratory - [address] [address] 02/06/2023 10:35 AM [facility] Bronchoalveolar Lavage (Left Upper Lobe Lung Bronchoalveolar Lavage) 02/01/2023 10:57 AM PAIN COORDINATOR 02/01/2023 12:50 PM PAIN COORDINATOR Bronchoalveolar lavage fluid specimen (specimen) (Left Lower Lobe Lung Bronchoalveolar Lavage) 02/01/2023 10:59 AM PAIN COORDINATOR 02/01/2023 12:54 PM PAIN COORDINATOR Bronchoalveolar lavage fluid specimen (specimen) (Right Upper Lobe Lung Bronchoalveolar Lavage) 02/01/2023 11:01 AM PAIN COORDINATOR 02/01/2023 1:02 PM PAIN COORDINATOR Bronchoalveolar lavage fluid specimen (specimen) (Left Upper Lobe Lung Bronchoalveolar Lavage) 02/01/2023 11:03 AM PAIN COORDINATOR 02/01/2023 1:07 PM PAIN COORDINATOR Bronchial brushings specimen (specimen) (Left Upper Lobe Lung Bronchial Brushing) 02/01/2023 11:05 AM PAIN COORDINATOR 02/01/2023 12:43 PM PAIN COORDINATOR Checo Lujan MD PATHOLOGY/CYTOLOG Y Performing Organization Address City/State/[facility] Co de Phone Number [facility] LAB[facility] [address] [place], [place] [id number], * HCHG TUBE PR1, HCHG STYLET PR1, HCHG MOUTHPIECE PR1 (02/01/2023 10:55 AM PAIN COORDINATOR) Narrative Jamal Vivar CRNA - 02/01/2023 10:55 AM PAIN COORDINATOR Jamal Vivar CRNA ? 02/01/2023 10:55 AM [...] OTE ORDERABLES * BRONCHOSCOPY (02/01/2023 10:09 AM PAIN COORDINATOR) 02/01/2023 10:0 9 AM PAIN COORDINATOR Narrative Transcriptions Checo Lujan MD - 02/01/2023 11:29 AM [facility] Patient Name: Jessy Vega Procedure Date: 02/01/2023 Gender: Female Date of : 1985 Admit Type: Ambulatory Instrument Name: BRONCH [id number] Procedure: Bronchoscopy Proceduralist: Checo Lujan Indications/Pre-Op Diagnosis: Diffuse infiltrate Procedure Description: Flexible bronchoscopy with therapeutic aspiration, BAL, brushing, transbronchial biopsy. The endoscope [id number] was used. Estimated Blood Loss & Specimen: [...] Code Status Discussion: Reviewed Preferences Care Teams Resources Representative Relationship Specialty Start Date End Date Willard Shahid MD [address] [place] [address] PCP - General Family Practice 10/18/17
== END 2023-02-14 21:40 | disposition left against medical advice (07) ==
LOC: ED 21:40
PROVIDERS: Emergency Provider Emergency Medicine Emergency Medical Services; PCP Family Medicine
DX: Z53.21 Procedure and treatment not carried out due to patient leaving prior to being seen by health care provider (principal)

== ENCOUNTER 2023-02-17 04:06 | Outpatient (CLI) | payer BC, SELFPAY ==
--- OUTSIDE RECORDS SUMMARY | 2023-02-20 12:17 | XMS_ITS | Clinical Summary ---
Author Name Unknown Organization [facility] Address [address] [place] [address] Care Team Providers Care Room Cooler Installer Name Role Phone Stanton, Primary Care Provider [...] age to complete this topic Care Teams Room Cooler Installer Relationship Specialty Start Date End Date None, PCP - General 11/11/17 None, PCP - Primary Care Clinic 11/11/17
--- OUTSIDE RECORDS SUMMARY | 2023-02-20 12:17 | XMS_ITS | Referral Summary ---
Author Name Unknown Organization [facility] Address [address] [place] [address] Care Team Providers Care Secondary Spanish Teacher Name Role Phone Stanton, Primary Care Provider [...] of Treatment Not on file Care Teams Secondary Spanish Teacher Relationship Specialty Start Date End Date None, PCP - General 11/11/17 None, PCP - Primary Care Clinic 11/11/17
--- OUTSIDE RECORDS SUMMARY | 2023-02-20 12:17 | XMS_ITS | Clinical Summary ---
Author Name Unknown Organization [facility] Address [address] [facility] [place] [address] Care Team Providers Care Court Advocate Name Role Phone [facility], [facility] Primary Care Provider [phone] Allergies Active Allergy Reactions Criticality Noted Date [...] = 0.6 oz pur e alcohol) SOCIALLY Adolescent Education Answer Date Record ed Getting School Help Needed Not on file 02/20 Sex and Gender Information Value Date Recorded [...] 08/26/2016 9:38 AM CDT Plan of Treatment Health Maintenance Due Date Last Done Comments ADVANCE CARE PLANNING 1985 ANNUAL REVIEW OF HM ORDERS 1985 HEPATITIS B IMMUNIZATION (1 of 3 - 3-dose series) 1985 YEARLY PREVENTIVE VISIT 1985 COVID-19 Vaccine (#1) 02/04/1984 HIV SCREENING 08/04/1998 HEPATITIS C SCREENING 08/04/2001 PAP 08/04/2004 DTAP/TDAP/TD IMMUNIZATION (1 - Tdap) 08/04/2008 Pneumococcal Vaccine: Pediatrics (0 to 5 Years) and At-Risk Patients (6 to 64 Years) (2 of 2 - PCV) 05/09/2018 05/09/2017 INFLUENZA VACCINE (#1) 2022 9, 12/13/2015 PHQ-2 (once per calendar year) 2023 HPV IMMUNIZATION Aged Out No longer e ligible based on patient's age to complete this topic IPV IMMUNIZATION Aged Out No longer e ligible based on patient's age to complete this topic MENINGITIS IMMUNIZATION Aged Out No l onger eligible based on patient's age to complete this topic RSV MONOCLONAL ANTIBODY Aged Out No l onger eligible based on patient's age to complete this topic Care Teams Court Advocate Relationship Specialty Start Date End Date [facility], [facility] [address] [place] [address] PCP - General 07/28/16
--- OUTSIDE RECORDS SUMMARY | 2023-02-20 12:17 | XMS_ITS | Clinical Summary ---
Author Name Unknown Organization [facility] Address [address] [place] [address] Care Team Providers Care Sprinkling System Installer Name Role Phone Estella Kamara APRN, DOPE POURER Primary Care Provider Source Comments You are receiving this document as you are listed as the primary care provider,follow-up provider, or the patient has been referred to you for consultation.This is in compliance with the Medicare andNationwide Children'S Hospitalcaid EHR Incentive Program,which states Providers who transition their patient to another setting of careor provider of care or refers their patient to another provider of care shouldprovide summary care record for each transition of care or referral. [facility] Allergies Active Allergy Reactions Criticality Noted Date [...] Formerly on Rituxan. Is seen at the [facility] by neurology TIM (generalized anxiety disorder) 07/11/2016 [...] age to complete this topic Care Teams Sprinkling System Installer Relationship Specialty Start Date End Date Estella Kamara, COPYRIGHT MANAGER, DOPE POURER [address] [place] Gupta [address] PCP - General Nurse Practitioner 09/07/16
--- OUTSIDE RECORDS SUMMARY | 2023-02-20 12:17 | XMS_ITS | Referral Summary ---
Author Name Unknown Organization [facility] Address [address] [facility] [address] Care Team Providers Care Junior Brand Manager Name Role Phone [facility] Primary Care Provider [phone] Allergies Active Allergy Reactions Criticality Noted Date [...] of Treatment Not on file Care Teams Junior Brand Manager Relationship Specialty Start Date End Date [facility] [address] [place], [place] [phone] PCP - General 07/28/16
--- OUTSIDE RECORDS SUMMARY | 2023-02-20 12:18 | XMS_ITS | Encounter Summary ---
Author Name Unknown Organization [facility] Address [address] [place] [address] Care Team Providers Care Spacer Type Bar And Segment Name Role Phone Jamal Butt M.D. Primary Care Provider [phone] Encounter Details Date Type Department Care Team (Late st Contact Info) Description 02/08/2023 Clinical Communication Department of Neurology in [place], [place] [address] [place] [phone] Patel Martell M.B., Ch.B. [address] [place] [phone] Social History Tobacco Use Types Packs/Day Years [...] declined 10/28/2020 How often do you attend [facility] or restorationism services? Patient declined 10/28/2020 Do you belong to any clubs o r organizations such as baptism groups, unions, fraternal or athletic groups, or [...] Sex Assigned at Female 03/06/2017 10:16 AM READING INSTRUCTOR Gender Identity Female 03/06/2017 10:16 AM READING INSTRUCTOR Sexual Orientation Straight 03/06/2017 10 :16 AM READING INSTRUCTOR documented as of this encounter Miscellaneous Notes * Telephone Encounter - Patel Martell M.B., Ch.B. - 02/13/2023 8:34 AM READING INSTRUCTOR Had extensive discussion with her pulmonology, patient [...] schedule for follow- up visit in April ING INSTRUCTOR * Telephone Encounter - Sally Moraes - 02/08/2023 9:[address] Cierra Lora, a Pulmonology doctor from [facility], is calling and requestingto have Dr Martell call her back. Her call back number is [phone] and states she can be reachedanytime on Sunday after 3pm. 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 Please call the provider back when able. Thank you! ING INSTRUCTOR documented in this encounter Plan of Treatment Upcoming Encounters Date Type Department Care Team (Late st Contact Info) Description 04/26/2023 10:00 AM CDT Office Visit Department of Neurology in [address] [phone] Patel Martell M.B., Ch.B. [address] [place] [phone] Discharge Disposition: Home or Self Care documented as of this encounter Visit Diagnoses Not on filedocumented in this encounter Additional Health Concerns Infection Onset Date Last Indicated Resolved Time Protective Environment 06/07/2022 06/07/2022 Assessment Noted Time PHQ-9 Depression Total Score: 2 12/01/19 20 6:54 AM CDT documented as of this encounter Care Teams Spacer Type Bar And Segment Relationship Specialty Start Date End Date Jamal Butt M.D. [address] [place] [phone] PCP - General Family Medicine 05/21/17 documented as of this encounter
--- OUTSIDE RECORDS SUMMARY | 2023-02-20 12:18 | XMS_ITS | Encounter Summary ---
Author Name Unknown Organization [facility] Address [address] [place] [address] Care Team Providers Care Water Softener Installer Name Role Phone Jamal Butt M.D. Primary Care Provider [phone] Reason for Referral * Outpatient (Routine) - Authorized Specialty Diagnoses / Procedures Referred By Campbell t Referred To Contact Neurology Patel Martell M.B., Ch.B. [address] [place] [phone] [facility] Referral ID Status Reason Start Date Expiration Date V isits Requested Visits Authorized [id number] Authorized 02/13/2023 02/12/2026 1 1 KEEPING CLERK Encounter Details Date Type Department Care Team (Late st Contact Info) Description 02/13/2023 Orders Only Department of Neurology in [place], [place] [address] [place] [phone] Patel Martell M.B., Ch.B. [address] [place] [phone] Social History Tobacco Use Types Packs/Day [...] How often do you attend chur or advent services? Patient declined 10/28/2020 Do you belong to any clubs o r organizations such as jehovah's witness groups, unions, fraternal or athletic groups, or [...] Answer Date Recorded PHQ-2 Score 1 12/01/2019 [facility] Questionnaire Answer Date Recorded [...] Sex Assigned at Female 03/06/2017 10:16 AM BOOKKEEPING CLERK Gender Identity Female 03/06/2017 10:16 AM BOOKKEEPING CLERK Sexual Orientation Straight 03/06/2017 10 :16 AM BOOKKEEPING CLERK documented as of this encounter Plan of Treatment Upcoming Encounters Date Type Department Care Team (Late st Contact Info) Description 04/26/2023 10:00 AM CDT Office Visit Department of Neurology in [address] [phone] Patel Martell M.B., Ch.B. [address] [place], [place] [phone] Discharge Disposition: Home or Self Care Scheduled [...] documented as of this encounter Care Teams Water Softener Installer Relationship Specialty Start Date End Date [place] [phone] PCP - General Family Medicine 05/21/17 documented as of this encounter
--- OUTSIDE RECORDS SUMMARY | 2023-02-20 12:18 | XMS_ITS | Encounter Summary ---
Author Name Unknown Organization [facility] Address [address] [place] [address] Care Team Providers Care Reserves Clerk Name Role Phone Jamal Butt M.D. Primary Care Provider [phone] Reason for Visit * Reason Comments Botulinum Toxin Injection 150 units * Outpatient (Routine) - Authorized Specialty Diagnoses / Procedures Referred By Contac t Referred To Contact Diagnoses Chronic Migraine Procedures Botox for Chronic Migraine Genevieve Kingston APRN C.N.P., M.S.N. [address] [place] [phone] [facility] Region Referral ID Status Reason Start Date Expiration Date V isits Requested Visits Authorized [id number] Authorized 06/29/2022 06/29/2023 4 4 Encounter Details Date Type Department Care Team (Latest Contact Info) Description 01/19/2023 9:45 AM NURSE PRACTITIONER MANAGER Procedure visit Department of Neurology in [place], [place] [address] [place] [phone] Genevieve Kingston APRN, C.N.P., M.S.N. [address] [place] [phone] Chronic Migraine Discharge Disposition: Home or [...] How often do you attend chur or adventism services? Patient declined 10/28/2020 Do you belong [...] Answer Date Recorded PHQ-2 Score 1 12/01/2019 [facility] - [...] place to sleep or slept in a residential (including now)? No 10/28/2020 Depression Answer Date [...] Sex Assigned at Female 03/06/2017 10:16 AM NURSE PRACTITIONER MANAGER Gender Identity Female 03/06/2017 10:16 AM NURSE PRACTITIONER MANAGER Sexual Orientation Straight 03/06/2017 10 :16 AM NURSE PRACTITIONER MANAGER documented as of this encounter Procedure Notes [...] Needle length: 0.5 in Injection site details Line Closer / Procerus muscle(s): 5 units into the left deputy court clerk muscle, 5 units into the right deputy court clerk muscle and 5 units into the procerus [...] since starting Botox? All of the above E PRACTITIONER MANAGER documented in this encounter Plan of Treatment Upcoming Encounters Date Type Department Care Team (Late st Contact Info) Description 04/26/2023 10:00 AM CDT Office Visit Department of Neurology in [place], [place] [address] [place] [phone] Patel Martell M.B., .B. [address] [place] [phone] Discharge Disposition: Home or Self Care documented as of this encounter Procedures Procedure Name Priority Date/Time Associated Diagnosis Comments [place] CHEMODENERV FACIAL TRIGEM BARBARA Routine 01/19/2023 9:45 AM NURSE PRACTITIONER MANAGER Chronic Migraine documented in this encounter Results * NV CHEMODENERV FACIAL TRIGEM BARBARA (01/19/2023 9:45 AM NURSE PRACTITIONER MANAGER) Narrative MMODAL - 01/19/2023 9:45 AM NURSE PRACTITIONER MANAGER Genevieve Kingston APRN C.N.P., M.S.N. ? 01/19/2023 [...] Needle length: 0.5 in Injection site details Line Closer / Procerus muscle(s): 5 units into the left deputy court clerk muscle, 5 units into the right deputy court clerk muscle ??and 5 units into the procerus [...] For 1 dose Given 01/19/2023 9:45 AM NURSE PRACTITIONER MANAGER 100 Units onabotulinumtoxinA injection 50 Units (BOTOX) 50 Units, injection, One-Time Injection, Starting on Sun01/19/23 at 0945, For 1 dose Given 01/19/2023 9:45 AM NURSE PRACTITIONER MANAGER 50 Units documented in this encounter Additional Health Concerns Infection Onset Date Last Indicated Resolved Time Protective Environment 06/07/2022 06/07/2022 Assessment Noted Time PHQ-9 Depression Total Score: 2 12/01/19 20 6:54 AM CDT documented as of this encounter Care Teams Reserves Clerk Relationship Specialty Start Date End Date Jamal [place]t [place] [phone] PCP - General Family Medicine 05/21/17 documented as of this encounter
--- OUTSIDE RECORDS SUMMARY | 2023-02-20 12:18 | XMS_ITS | Clinical Summary ---
Author Name Unknown Organization [facility] Address [address] [place] [address] Care Team Providers Care Conche Operator Name Role Phone Jamal Butt M.D. Primary Care Provider [phone] Source Comments Patient records contain information from all sites at [facility]. For routine questions regarding patient records, call [phone] during business hours, M-F 8:00 AM - 5:00 PM Central Time. Record requests for emergency care only can be directed to [phone] at any time.[facility] Allergies Active Allergy Reactions Criticality Noted [...] Active Problems Problem Noted Date Diagnosed Date [facility] Current Use Of Immunosuppressive Biolo gic 09/26/2022 [...] 02/13/2023 Orders Only Department of Neurology in [address] [phone] Patel Martell M.B., Ch.B. 02/08/2023 Clinical Communication Department of Neurology in [address] [phone] Patel Martell M.B., Ch.B. 01/19/2023 9:45 AM CELLOPHANER Procedure visit Department of Neurology in [address] [phone] Genevieve Knigston APRN, C.N.P., M.S.N. Chronic Migraine Discharge Disposition: Home or Self Care 01/11/2023 1:45 PM CELLOPHANER Office Visit Department of Neurology in [address] [phone] Genevieve Kingston APRN, C.N.P., M.S.N. Chronic Migraine (Primary Dx) Discharge Disposition: Home or Self Care 11/28/2022 Nurse Triage Department of Family Medicine in [place], [place] [address] [place] [phone] Anna Marie Samaniego RCasandra Shortness of Breath 11/27/2022 9:07 AM CDT - 11/27/2022 11:59 PM CDT Hospital Encounter Department of Radiology, [facility], in [address] [phone] Patel Martell M.B., Ch.B. Multiple Sclerosis (HCC) [...] zuniga Depression Mother xavier zuniga Migraines Mother xavire zuniga Psychiatric Mother xavier zuniga Seizures Mother [...] How often do you attend chur or episcopalian services? Patient declined 10/28/2020 Do [...] Answer Date Recorded PHQ-2 Score [facility] Questionnaire Answer Date [...] Sex Assigned at Female 03/06/2017 10:16 AM CELLOPHANER Gender Identity Female 03/06/2017 10:16 AM CELLOPHANER Sexual Orientation Straight 03/06/2017 10 :16 AM CELLOPHANER Last Filed Vital Signs Vital Sign Reading Time Taken Comments Blood Pressure 98/65 01/11/2023 12:59 PM CELLOPHANER Pulse 111 01/11/2023 12:59 PM CELLOPHANER Temperature 36.6 ??C (97.9 ??F) 08/28/2022 9:03 AM CD T Respiratory Rate 16 08/28/2022 9:03 AM CDT Oxygen Saturation 96% 08/28/2022 9:03 AM CDT Inhaled Oxygen Concentration - - Weight 67 kg (147 lb 11.3 oz) 01/11/2023 12:59 P M CELLOPHANER Height 175.3 cm (5' 9) 07/06/2022 7:02 PM CDT Body Mass Index 21.81 07/06/2022 7:02 PM CDT Plan of Treatment Upcoming Encounters Date Type Department Care Team (Late st Contact Info) Description 04/26/2023 10:00 AM CDT Office Visit Department of Neurology in [place], [place] [address] [place] [phone] Patel Martell M.B., Ch.B. [address] [place] [phone] Discharge Disposition: Home or Self Care [...] Procedure Name Priority Date/Time Associated Diagnosis Comments [place] CHEMODENERV FACIAL TRIGEM BARBARA Routine 01/19/2023 9:45 AM CELLOPHANER Chronic Migraine MR BRAIN WITHOUT AND WITH IV CONTRAST RAD - Routine (most inpatients and all outpatients) 11/27/2022 10:08 AM CDT Multiple Sclerosis (HCC) from Last 3 Months Results * [place] CHEMODENERV FACIAL TRIGEM BARBARA (01/19/2023 9:45 AM CELLOPHANER) Narrative MMODAL - 01/19/2023 9:45 AM CELLOPHANER Genevieve Kingston APRN, C.N.PMert, M.S.N. ? 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 [phone] PCP - General Family Medicine 05/21/17
--- OUTSIDE RECORDS SUMMARY | 2023-02-20 12:18 | XMS_ITS | Clinical Summary ---
Author Name Unknown Organization [facility] Address [place], [place] [address] Care Team Providers Care Willow Worker Name Role Phone Willard Shahid MD Primary Care Provider [phone] Allergies Active Allergy Reactions Criticality Noted Date [...] Type Department Care Team Description 02/14/2023 Telephone [facility] [address] [facility] [address] [place] [phone] Cierra Lora MD Follow Up 02/03/2023 11:19 AM BACK HOE OPERATOR - 02/09/2023 2:54 PM BACK HOE OPERATOR Hospital Encounter [facility] [address] [place] [address] Bee Quiros MD [facility] Hospitalist Cate Montes De Oca MD Pulmonary infiltrate (Primary Dx); Hypoxia; Cough, unspecified type; Cutaneous candidiasis; Pain; Dry nose; Pneumonia of both lower lobes due to Haemophilus influenzae (HC); Immunosuppression (HC) Discharge Disposition: Home Self Care 02/03/2023 Travel 02/01/2023 10:39 AM BACK HOE OPERATOR Anesthesia Event [facility] [address] [place] [address] Daphne Victor MD 02/01/2023 10:35 AM BACK HOE OPERATOR - 02/01/2023 11:35 AM BACK HOE OPERATOR Surgery [facility] [address] [place] [address] Checo Lujan MD BRONCHOSCOPY W BAL, BX AND BRUSH 02/01/2023 9:42 AM BACK HOE OPERATOR - 02/01/2023 1:15 PM BACK HOE OPERATOR Hospital Encounter [facility] [address] [place] [address] Checo Lujan MD Chronic cough (Primary Dx); [...] Comments Blood Pressure 98/57 02/09/2023 9:17 AM BACK HOE OPERATOR Pulse 85 02/09/2023 9:17 AM BACK HOE OPERATOR Temperature 36.6 ??C (97.8 ??F) 02/09/2023 9:17 AM CS T Respiratory Rate 16 02/09/2023 9:17 AM BACK HOE OPERATOR Oxygen Saturation 91% 02/09/2023 9:17 AM BACK HOE OPERATOR Inhaled Oxygen Concentration - - Weight 63.5 kg (140 lb 1.6 oz) 02/06/2023 5:11 P M BACK HOE OPERATOR Height 175.3 cm (5' 9) 02/03/2023 7:58 AM BACK HOE OPERATOR Body Mass Index 20.69 02/03/2023 7:58 AM BACK HOE OPERATOR Plan of Treatment Upcoming Encounters Date Type Department Care Team (Late st Contact Info) Description 03/15/2023 10:20 AM BACK HOE OPERATOR Office Visit [facility] Medical Specialties [address] [place] [address] Nena Gil MD [address] [place] [address] Health Maintenance Due Date Last Done Comments [...] Comments SCAN CORRESP-EKG RESULTS 02/13/2023 3:00 PM BACK HOE OPERATOR WHITE BLOOD COUNT Early AM 02/05/2023 8:5 4 AM BACK HOE OPERATOR HEPATIC FUNCTION PANEL RODDY 02/04/2023 5:54 AM BACK HOE OPERATOR WHITE BLOOD COUNT Early AM 02/04/2023 5:5 4 AM BACK HOE OPERATOR CREATININE Early AM 02/04/2023 5:54 AM BACK HOE OPERATOR SODIUM Early AM 02/04/2023 5:54 AM BACK HOE OPERATOR IGG SUBCLASSES(1-4) Early AM 02/04/2023 5 :54 AM BACK HOE OPERATOR IMMUNOGLOBULIN E,IGE Early AM 02/04/2023 5:54 AM BACK HOE OPERATOR IGM Early AM 02/04/2023 5:54 AM BACK HOE OPERATOR IGG Early AM 02/04/2023 5:54 AM BACK HOE OPERATOR IGA Early AM 02/04/2023 5:54 AM BACK HOE OPERATOR SPUTUM CULTURE, STAIN STAT 02/03/2023 5:14 PM BACK HOE OPERATOR MRSA/SA PCR STAT 02/03/2023 5:14 PM BACK HOE OPERATOR BLOOD CULTURE STAT 02/03/2023 1:33 PM BACK HOE OPERATOR BLOOD CULTURE STAT 02/03/2023 1:[address] CHEST PE STUDY STAT 02/03/2023 11: 44 AM BACK HOE OPERATOR TROPONIN T (HS) ONE TIME Timed 02/03/2023 10:55 AM BACK HOE OPERATOR PROCALCITONIN STAT 02/03/2023 10:55 AM BACK HOE OPERATOR LACTATE SCREEN VENOUS ISTAT W RICHARDSON STAT 02/03/2023 8:37 AM BACK HOE OPERATOR XR CHEST 2 VIEWS PA AND LATERAL STAT 02/03/2023 8:36 AM BACK HOE OPERATOR EKG 12 LEAD STAT 02/03/2023 8:28 AM BACK HOE OPERATOR EXTRA TUBE BLUE Today 02/03/2023 8:26 AM BACK HOE OPERATOR EXTRA TUBE RICHARDSON ON ICE STAT 02/03/2023 8:26 AM BACK HOE OPERATOR CBC WITH AUTO DIFFERENTIAL STAT 02/03/2023 8:26 AM BACK HOE OPERATOR ISTAT LACTATE SCREEN VENOUS STAT 02/03/2023 8:26 AM BACK HOE OPERATOR PRO-BNP STAT 02/03/2023 8:26 AM BACK HOE OPERATOR TROPONIN T (HS) ACUTE W/2HR REFLEX STAT 02/03/2023 8:26 AM BACK HOE OPERATOR BASIC METABOLIC PANEL STAT 02/03/2023 8:26 AM BACK HOE OPERATOR CBC WITH AUTO DIFFERENTIAL STAT 02/03/2023 8:26 AM BACK HOE OPERATOR INFLUENZA A/B PCR STAT 02/03/2023 8:1 4 AM BACK HOE OPERATOR COVID-19 MOLECULAR Today 02/03/2023 8: 14 AM BACK HOE OPERATOR XR CHEST 1 VIEW PORTABLE RODDY 02/01/2023 12:02 PM BACK HOE OPERATOR XR FLUORO BRONCHOSCOPY Routine 02/01/2023 11:20 AM BACK HOE OPERATOR Pulmonary infiltrate PATH TISSUE EXAM Today 02/01/2023 11:1 1 AM BACK HOE OPERATOR AFB CULTURE, STAIN Today 02/01/2023 11 :05 AM BACK HOE OPERATOR BRONCHIAL CULTURE, STAIN Today 02/01/2023 11:05 AM BACK HOE OPERATOR CARMEN PREP, OTHER SOURCE Today 02/01/2023 11:05 AM BACK HOE OPERATOR LEGIONELLA CULT [id number] Timed 02/01/2023 11:03 AM BACK HOE OPERATOR LEGIONELLA SPECIES CULTURE (NON BLOOD) Today 02/01/2023 11:03 AM BACK HOE OPERATOR CHLAMYDIA PNEUMONIAE PCR Today 02/01/2023 11:03 AM BACK HOE OPERATOR VIRAL CULTURE GENERAL Today 02/01/2023 11:03 AM BACK HOE OPERATOR LEGIONELLA SPECIES BY RAPID PCR Today 02/01/2023 11:03 AM BACK HOE OPERATOR AFB CULTURE, STAIN Today 02/01/2023 11 :03 AM BACK HOE OPERATOR BRONCHIAL CULTURE, STAIN Today 02/01/2023 11:03 AM BACK HOE OPERATOR BAL COUNT AND DIFF Today 02/01/2023 11 :03 AM BACK HOE OPERATOR CARMEN PREP, OTHER SOURCE Today 02/01/2023 11:03 AM BACK HOE OPERATOR LEGIONELLA CULT [id number] Timed 02/01/2023 11:01 AM BACK HOE OPERATOR LEGIONELLA SPECIES CULTURE (NON BLOOD) Today 02/01/2023 11:01 AM BACK HOE OPERATOR MYCOPLASMA PNEUMONIAE PCR Today 02/01/2023 11:01 AM BACK HOE OPERATOR CHLAMYDIA PNEUMONIAE PCR Today 02/01/2023 11:01 AM BACK HOE OPERATOR VIRAL CULTURE GENERAL Today 02/01/2023 11:01 AM BACK HOE OPERATOR LEGIONELLA SPECIES BY RAPID PCR Today 02/01/2023 11:01 AM BACK HOE OPERATOR AFB CULTURE, STAIN Today 02/01/2023 11 :01 AM BACK HOE OPERATOR BRONCHIAL CULTURE, STAIN Today 02/01/2023 11:01 AM BACK HOE OPERATOR CARMEN PREP, OTHER SOURCE Today 02/01/2023 11:01 AM BACK HOE OPERATOR LEGIONELLA CULT [id number] Timed 02/01/2023 10:59 AM BACK HOE OPERATOR LEGIONELLA SPECIES CULTURE (NON BLOOD) Today 02/01/2023 10:59 AM BACK HOE OPERATOR MYCOPLASMA PNEUMONIAE PCR Today 02/01/2023 10:59 AM BACK HOE OPERATOR VIRAL CULTURE GENERAL Today 02/01/2023 10:59 AM BACK HOE OPERATOR LEGIONELLA SPECIES BY RAPID PCR Today 02/01/2023 10:59 AM BACK HOE OPERATOR AFB CULTURE, STAIN Today 02/01/2023 10 :59 AM BACK HOE OPERATOR BRONCHIAL CULTURE, STAIN Today 02/01/2023 10:59 AM BACK HOE OPERATOR BAL COUNT AND DIFF Today 02/01/2023 10 :59 AM BACK HOE OPERATOR CARMEN PREP, OTHER SOURCE Today 02/01/2023 10:59 AM BACK HOE OPERATOR PATH NON OUTPATIENT ADMITTING CLERK CYTOLOGY Today 02/01/2023 10:57 AM BACK HOE OPERATOR LEGIONELLA CULT [id number] Timed 02/01/2023 10:57 AM BACK HOE OPERATOR LEGIONELLA SPECIES CULTURE (NON BLOOD) Today 02/01/2023 10:57 AM BACK HOE OPERATOR MYCOPLASMA PNEUMONIAE PCR Today 02/01/2023 10:57 AM BACK HOE OPERATOR CHLAMYDIA PNEUMONIAE PCR Today 02/01/2023 10:57 AM BACK HOE OPERATOR VIRAL CULTURE GENERAL Today 02/01/2023 10:57 AM BACK HOE OPERATOR LEGIONELLA SPECIES BY RAPID PCR Today 02/01/2023 10:57 AM BACK HOE OPERATOR AFB CULTURE, STAIN Today 02/01/2023 10 :57 AM BACK HOE OPERATOR BRONCHIAL CULTURE, STAIN Today 02/01/2023 10:57 AM BACK HOE OPERATOR BAL COUNT AND DIFF Today 02/01/2023 10 :57 AM BACK HOE OPERATOR CARMEN PREP, OTHER SOURCE Today 02/01/2023 10:57 AM BACK HOE OPERATOR ENDOTRACHEAL TUBE Routine 02/01/2023 10: 55 AM BACK HOE OPERATOR ENDOTRACHEAL TUBE Routine 02/01/2023 10: 55 AM BACK HOE OPERATOR ENDOTRACHEAL TUBE Routine 02/01/2023 10: 55 AM BACK HOE OPERATOR BRONCHOSCOPY WITH BIOPSY Class E Urgent 02/01/2023 10:29 AM BACK HOE OPERATOR see MD note BRONCHOSCOPY 02/01/2023 10:09 AM BACK HOE OPERATOR from Last 3 Months Results * SCAN CORRESP-EKG RESULTS (02/13/2023 3:00 PM BACK HOE OPERATOR) Narrative 02/13/2023 3:00 PM BACK HOE OPERATOR Ordered by an unspecified provider. Other Clinical Staff OTHER * (ABNORMAL) WHITE BLOOD COUNT (02/05/2023 8:54 AM BACK HOE OPERATOR) Only the most recent of2 resultswithin the time period is included. WHITE BLOOD COUNT 12.4(H) 4.5 - 11.0 thou/cu mm 02/05/2023 9:07 AM BACK HOE OPERATOR [facility] NRBC 0.0 % 02/05/2023 9:07 AM BACK HOE OPERATOR [facility] ABS NRBC 0.0 thou /cu mm 02/05/2023 9:07 AM BACK HOE OPERATOR [facility] Blood BLOOD SPECIMEN / Unknown Butterfly / Unknown 02/05/2023 8:54 AM BACK HOE OPERATOR 02/05/2023 8:58 AM BACK HOE OPERATOR Cate Lamb MD HEMATOLOGY [facility] SENDOUT INTERNAL ZIP [phone] [place] [address] * (ABNORMAL) IGG SUBCLASSES(1-4) (02/04/2023 5:54 AM BACK HOE OPERATOR) IgG 513(L) 586 - 1602 mg/dL 02/07/2023 10:09 AM [facility] ([facility]) IgG Subclass 1 254 248 - 810 mg/dL 02/07/2023 10:09 AM [facility] (CET) IgG Subclass 2 161 130 - 555 mg/dL 02/07/2023 10:09 AM [facility] ([facility]) IgG Subclass 3 39 15 - 102 mg/dL 02/07/2023 10:09 AM [facility] ([facility]) IgG Subclass 4 3 2 - 96 mg/dL 02/07/2023 10:09 AM [facility] ([facility]) Blood BLOOD SPECIMEN / Unknown Non-Lab Venipuncture / Unknown 02/04/2023 5:54 AM BACK HOE OPERATOR 02/04/2023 6:02 AM BACK HOE OPERATOR Narrative [facility] ([facility]ET) - 02/07/2023 10:09 AM BACK HOE OPERATOR Performed at: ??01 - [address] ??[id number] Vp Integrity: John Mart MD, Phone: ??[phone] Performed at: ??02 - [address] ??[id number] [employer] Integrity: Jessa Nunez MD, Phone: ??[phone] Cierra Lora MD SEND OUTS [facility] (CET) [address] [place] [address], [place] * SODIUM (02/04/2023 5:54 AM BACK HOE OPERATOR) SODIUM 141 136 - 145 mmol/L 02/04/2023 6:24 AM BACK HOE OPERATOR [facility] Blood BLOOD SPECIMEN / Unknown Non-Lab Venipuncture / Unknown 02/04/2023 5:54 AM BACK HOE OPERATOR 02/04/2023 6:02 AM BACK HOE OPERATOR Cate Lamb MD CHEMISTRY [facility] SENDOUT INTERNAL ZIP [phone] [place] [address] * IGA (02/04/2023 5:54 AM BACK HOE OPERATOR) IGA 109.86 84.50 - 499.00 mg/dL 02/06/2023 11:02 AM BACK HOE OPERATOR [facility] Blood BLOOD SPECIMEN / Unknown Non-Lab Venipuncture / Unknown 02/04/2023 5:54 AM BACK HOE OPERATOR 02/04/2023 6:02 AM BACK HOE OPERATOR Cierra Lora MD CHEMISTRY [facility] [address] [place] [address], * (ABNORMAL) IGM (02/04/2023 5:54 AM BACK HOE OPERATOR) IGM 19.56(L) 35.00 - 242.00 mg/dL 02/06/2023 11:02 AM BACK HOE OPERATOR [facility] Blood BLOOD SPECIMEN / Unknown Non-Lab Venipuncture / Unknown 02/04/2023 5:54 AM BACK HOE OPERATOR 02/04/2023 6:02 AM BACK HOE OPERATOR Cierra Lora MD CHEMISTRY [facility] [address] [place] [address], [place] * (ABNORMAL) IGG (02/04/2023 5:54 AM BACK HOE OPERATOR) IGG 481.69(L) 610.30 - 1,616.00 mg/dL 02/06/2023 11:02 AM BACK HOE OPERATOR [facility] Blood BLOOD SPECIMEN / Unknown Non-Lab Venipuncture / Unknown 02/04/2023 5:54 AM BACK HOE OPERATOR 02/04/2023 6:02 AM BACK HOE OPERATOR Cierra Lora MD [facility]Y [facility] [address] [place], [place] [phone] [place] [address] * (ABNORMAL) CREATININE (02/04/2023 5:54 AM BACK HOE OPERATOR) eGFR >90 >90 mL/min/1.7 3m2 02/04/2023 6:24 AM BACK HOE OPERATOR [facility] Comment:As of 2021, eG FR is calculated by the CKD-EPI creatinine equation without race adjustment. ??eGFR can be influenced by muscle mass, exercise, and diet. ??The reported eGFR is an estimation only and is only applicable if the renal function is stable. CREATININE 0.49(L) 0.50 - 0.90 mg/dL 02/04/2023 6:24 AM BACK HOE OPERATOR [facility] Blood BLOOD SPECIMEN / Unknown Non-Lab Venipuncture / Unknown 02/04/2023 5:54 AM BACK HOE OPERATOR 02/04/2023 6:02 AM BACK HOE OPERATOR Cate Lamb MD CHEMISTRY [facility] SENDOUT INTERNAL ZIP [address] [place] [address] * (ABNORMAL) IMMUNOGLOBULIN E,IGE (02/04/2023 5:54 AM BACK HOE OPERATOR) IMMUNOGLOBULIN E (IGE) 2.2(L) 22.0 - 107.0 kU/L 02/05/2023 2:44 PM BACK HOE OPERATOR [facility] Blood BLOOD SPECIMEN / Unknown Non-Lab Venipuncture / Unknown 02/04/2023 5:54 AM BACK HOE OPERATOR 02/04/2023 6:02 AM BACK HOE OPERATOR Cierra Lora MD CHEMISTRY [facility] [address] [place] [address], [place] * (ABNORMAL) HEPATIC FUNCTION PANEL (02/04/2023 5:54 AM BACK HOE OPERATOR) Pathologist [facility] ALBUMIN 3.6(L) 4.0 - 4.9 g/dL 02/04/2023 1:00 PM BACK HOE OPERATOR [facility] PROTEIN,TOTAL 5.5(L) 6.0 - 8.0 g/dL 02/04/2023 1:00 PM BACK HOE OPERATOR [facility] BILIRUBIN,TOTAL <0.2 0.0 - 1.2 mg/dL 02/04/2023 1:00 PM BACK HOE OPERATOR [facility] BILIRUBIN,DIRECT <0.2 0.0 - 0.3 mg/dL 02/04/2023 1:00 PM BACK HOE OPERATOR [facility] BILIRUBIN,INDIRE CT 02/04/2023 1:00 PM BACK HOE OPERATOR [facility] Comment:Unable to calculate, Direct Bili <0.2 ALK PHOSPHATASE 122(H) 35 - 104 IU/L 02/04/2023 1:00 PM BACK HOE OPERATOR [facility] ALT (SGPT) 11 10 - 35 IU/L 02/04/2023 1:00 PM BACK HOE OPERATOR [facility] AST (SGOT) 14 10 - 35 IU/L 02/04/2023 1:00 PM BACK HOE OPERATOR [facility] Blood BLOOD SPECIMEN / Unknown Non-Lab Venipuncture / Unknown 02/04/2023 5:54 AM BACK HOE OPERATOR 02/04/2023 6:02 AM BACK HOE OPERATOR Nena Gil MD CHEMISTRY [facility] [address] [place] [address], [place] * MRSA/SA PCR (02/03/2023 5:14 PM BACK HOE OPERATOR) Pathologist [facility] MRSA DNA PCR Negative Negative 02/03/2023 11:53 PM BACK HOE OPERATOR [facility] STAPHYLOCOCCUS AUREUS PCR Negative Negative 02/03/2023 11:53 PM BACK HOE OPERATOR [facility] Other SPECIMEN FROM INTERNAL NOSE / Unknown Non-Blood / Unknown 02/03/2023 5:14 PM BACK HOE OPERATOR 02/03/2023 5:53 PM BACK HOE OPERATOR Narrative [facility] - 02/03/2023 11:53 PM BACK HOE OPERATOR Test result does not preclude MRSA or SA nasal colonization. Bee Quiros MD MICROBIOLOGY [facility] [address] [place] [address], * (ABNORMAL) SPUTUM CULTURE, STAIN (02/03/2023 5:14 PM BACK HOE OPERATOR) CULTURE RESULT(A) 02/05/2023 9:27 AM BACK HOE OPERATOR [facility] CULTURE 3+ Haemophilus influenzae 02/05/2023 9:27 AM BACK HOE OPERATOR [facility] Comment: Beta-lactamase negative. Negative beta-lactamase testing does not guarantee beta-lactam (e.g. ampicillin or amoxicillin) susceptibility, although [id number], ampicillin- resistant isolates are uncommon. CULTURE 2+ Usual Peace 02/05/2023 9:27 AM BACK HOE OPERATOR [facility] GRAM STAIN 2+ PMNs 02/05/2023 9:27 AM BACK HOE OPERATOR [facility] GRAM STAIN 1+ Epithelial cells 02/05/2023 9:27 AM BACK HOE OPERATOR [facility] GRAM STAIN No RBCs 02/05/2023 9:27 AM BACK HOE OPERATOR [facility] GRAM STAIN 1+ Gram Positive Cocci 02/05/2023 9:27 AM BACK HOE OPERATOR [facility] GRAM STAIN Gram stain performed by [place], [place] 02/05/2023 9:27 AM [facility] Sputum SPUTUM SPECIMEN / Unknown Non-Blood / Unknown 02/03/2023 5:14 PM BACK HOE OPERATOR 02/03/2023 5:53 PM BACK HOE OPERATOR Bee Quiros MD MICROBIOLOGY [facility] [address] [address], [facility] SENDOUT INTERNAL ZIP [phone] [place] [address] * BLOOD CULTURE (02/03/2023 1:33 PM BACK HOE OPERATOR) Only the most recent of2 resultswithin the time period is included. CULTURE No Growth. 02/07/2023 4:29 PM BACK HOE OPERATOR [facility] Blood BLOOD SPECIMEN / Unknown Non-Lab Venipuncture / Unknown 02/03/2023 1:33 PM BACK HOE OPERATOR 02/03/2023 1:40 PM BACK HOE OPERATOR Bee Quiros MD MICROBIOLOGY [facility] [address], [place] [address], * CT CHEST PE STUDY (02/03/2023 11:44 AM BACK HOE OPERATOR) Anatomical Region Laterality Modality CHEST, THORAX, HEART Computed To mography 02/03/2023 11:4 4 AM BACK HOE OPERATOR Impressions 02/03/2023 12:23 PM BACK HOE OPERATOR 1. ??No pulmonary embolism. 2. ??Focal consolidation in the right lower lobe with fairly extensive infiltrates throughout both lungs, more marked on the left consistent with infectious/inflammatory process. Bronchial inflammation with mucous plugging, most marked in the lower lobes. 3. ??Dilatation of the right and left ventricle. Narrative 02/03/2023 12:23 PM BACK HOE OPERATOR For Patients: As a result of the 21st Century Cures Act, medical imaging exams and procedure reports are released immediately into your electronic medical record. You may view this report before your referring provider. If you have questions, please contact your health care provider. EXAM: CT CHEST PE STUDY LOCATION: [facility] MEDICAL IMAGING DATE: 02/03/2023 INDICATION: [...] provider. EXAM: CT CHEST PE STUDY LOCATION: [facility] MEDICAL IMAGING DATE: 02/03/2023 INDICATION: [...] T (HS) ONE TIME (02/03/2023 10:55 AM BACK HOE OPERATOR) TROPONIN T HS 7 6-10 ng/L ng/L 02/03/2023 11:19 AM BACK HOE OPERATOR [facility] Blood BLOOD SPECIMEN / Unknown Non-Lab Venipuncture / Unknown 02/03/2023 10:55 AM BACK HOE OPERATOR 02/03/2023 10:59 AM BACK HOE OPERATOR Bee Quiros MD CHEMISTRY [facility] SENDOUT INTERNAL ZIP [phone] [place] [id number] * PROCALCITONIN (02/03/2023 10:55 AM BACK HOE OPERATOR) Pathologist [facility] PROCALCITONIN 0.08 ng/ml 02/03/2023 11:31 AM BACK HOE OPERATOR [facility] Blood BLOOD SPECIMEN / Unknown Non-Lab Venipuncture / Unknown 02/03/2023 10:55 AM BACK HOE OPERATOR 02/03/2023 10:59 AM BACK HOE OPERATOR Narrative [facility] - 02/03/2023 11:31 AM BACK HOE OPERATOR Procalcitonin for initial assessment of Lower Respiratory [...] are obtained. Bee Quiros MD SEND OUTS [facility] SENDOUT INTERNAL ZIP [phone] [place] [address] * LACTATE SCREEN VENOUS ISTAT W RICHARDSON (02/03/2023 8:37 AM BACK HOE OPERATOR) Pathologist [facility] LACTATE VENOUS SCREEN ISTAT <1.8 <=2.0 02/03/2023 8:41 AM BACK HOE OPERATOR [facility] LACTATE SCREEN VENOUS POCT 0.8 <=2.0 02/03/2023 8:41 AM BACK HOE OPERATOR [facility] Blood BLOOD SPECIMEN / Unknown 02/03/2023 8:37 AM BACK HOE OPERATOR 02/03/2023 8:41 AM BACK HOE OPERATOR Bee Quiros MD LABORATORY [facility] SENDOUT INTERNAL ZIP [phone] [place] [address] * XR CHEST 2 VIEWS PA AND LATERAL (02/03/2023 8:36 AM BACK HOE OPERATOR) Anatomical Region Laterality Modality CHEST, THORAX, Lung, HEART Compu melissa Radiography 02/03/2023 8:36 AM BACK HOE OPERATOR Impressions 02/03/2023 8:48 AM BACK HOE OPERATOR Linear fibrosis or atelectasis in the right upper lung, stable. Patchy infiltrates in the left mid and lower lung, mildly improved. No new infiltrates or effusion. Narrative 02/03/2023 8:48 AM BACK HOE OPERATOR For Patients: As a result of the [...] * EKG 12 LEAD (02/03/2023 8:28 AM BACK HOE OPERATOR) Interpretation Sinus tachycardia Possible Left atrial enlargement Rightward axis Possible Anterior infarct , age undetermined Abnormal ECG No previous ECGs available BEYOND NOW Ventricular Rate 122 BPM BEYOND NOW Atrial Rate 122 BPM BEYOND NOW P-R Interval 150 ms BEYOND NOW QRS Duration 88 ms BEYOND NOW QT 308 ms BEYOND NOW QTc 438 ms BEYOND NOW P Aurora 71 degrees BEYOND NOW R Aurora 90 degrees BEYOND NOW T Aurora 78 degrees BEYOND NOW 02/03/2023 8:28 AM BACK HOE OPERATOR 02/06/2023 2:13 PM BACK HOE OPERATOR Bee Quiros MD EKG ORD BEYOND NOW [place], [place] * TROPONIN T (HS) ACUTE W/2HR REFLEX (02/03/2023 8:26 AM BACK HOE OPERATOR) TROPONIN T HS 7 6-10 ng/L ng/L 02/03/2023 9:13 AM BACK HOE OPERATOR [facility] Blood BLOOD SPECIMEN / Unknown Non-Lab Venipuncture / Unknown 02/03/2023 8:26 AM BACK HOE OPERATOR 02/03/2023 8:36 AM BACK HOE OPERATOR Narrative [facility] - 02/03/2023 9:13 AM BACK HOE OPERATOR hs-cTnT (Elecsys Troponin T Gen 5) concentration [...] department patient population. Bee Quiros MD CHEMISTRY [facility] SENDOUT INTERNAL ZIP [phone] [place] [address] * EXTRA TUBE RICHARDSON ON ICE (02/03/2023 8:26 AM BACK HOE OPERATOR) Blood BLOOD SPECIMEN / Unknown Non-Lab Venipuncture / Unknown 02/03/2023 8:26 AM BACK HOE OPERATOR 02/03/2023 8:36 AM BACK HOE OPERATOR Bee Quiros MD LABORATORY Performing Organization Address City/[facility]/ZIP Co de Phone Number [facility] SENDOUT INTERNAL ZIP [address] [address] [place] [address] * (ABNORMAL) CBC WITH AUTO DIFFERENTIAL (02/03/2023 8:26 AM BACK HOE OPERATOR) WHITE BLOOD COUNT 18.2(H) 4.5 - 11.0 thou/cu mm 02/03/2023 8:40 AM [facility] RED BLOOD COUNT 4.58 4.00 - 5.20 mil/cu mm 02/03/2023 8:40 AM [facility] HEMOGLOBIN 13.3 12.0 - 16.0 g/dL 02/03/2023 8:40 AM [facility] HEMATOCRIT 40.6 33.0 - 51.0 % 02/03/2023 8:40 AM [facility] MCV 89 80 - 100 fL 02/03/2023 8:40 AM [facility] MCH 29.0 26.0 - 34.0 pg 02/03/2023 8:40 AM [facility] MCHC 32.8 32.0 - 36.0 g/dL 02/03/2023 8:40 AM [facility] RDW 13.5 11.5 - 15.5 % 02/03/2023 8:40 AM [facility] PLATELET COUNT 436 140 - 440 thou/cu mm 02/03/2023 8:40 AM [facility] MPV 7.7 6.5 - 11.0 fL 02/03/2023 8:40 AM [facility] NRBC 0.0 % 02/03/2023 8:40 AM [facility] ABS NRBC 0.0 thou /cu mm 02/03/2023 8:40 AM [facility] % NEUT 91.7 % 02/03/2023 8:40 AM [facility] % LYMPH 3.2 % 02/03/2023 8:40 AM [facility] % MONO 4.3 % 02/03/2023 8:40 AM [facility] % EOS 0.2 % 02/03/2023 8:40 AM [facility] % BASO 0.3 % 02/03/2023 8:40 AM [facility] % IMMATURE GRAN (METAS,MYELOS,SC OS) 0.3 % 02/03/2023 8:40 AM [facility] ABSOLUTE NEUTROPHILS 16.7(H) 1.7 - 7.0 thou/cu mm 02/03/2023 8:40 AM [facility] ABSOLUTE LYMPHOCYTES 0.6(L) 0.9 - 2.9 thou/cu mm 02/03/2023 8:40 AM [facility] ABSOLUTE MONOCYTES 0.8 <0.9 thou/cu mm 02/03/2023 8:40 AM [facility] ABSOLUTE EOSINOPHILS 0.0 <0.5 thou/cu mm 02/03/2023 8:40 AM [facility] ABSOLUTE BASOPHILS 0.1 <0.3 thou/cu mm 02/03/2023 8:40 AM [facility] ABSOLUTE IMMATURE GRANULOCYTES(MET ,MYELOS,PROS) 0.1 <0.3 thou/cu mm 02/03/2023 8:40 AM [facility] Blood BLOOD SPECIMEN / Unknown Non-Lab Venipuncture / Unknown 02/03/2023 8:26 AM BACK HOE OPERATOR 02/03/2023 8:36 AM BACK HOE OPERATOR Bee Quiros MD HEMATOLOGY [facility] SENDOUT [place]NAL ZIP [id number] [place] [address] * EXTRA TUBE BLUE (02/03/2023 8:26 AM BACK HOE OPERATOR) Blood BLOOD SPECIMEN / Unknown Non-Lab Venipuncture / Unknown 02/03/2023 8:26 AM BACK HOE OPERATOR 02/03/2023 9:53 AM BACK HOE OPERATOR Doctor Unknown LABORATORY Performing Organization Address [facility]/ZIP Co de Phone Number [facility] SENDOUT [place]NAL ZIP [phone] [place] [address] * (ABNORMAL) PRO-BNP (02/03/2023 8:26 AM BACK HOE OPERATOR) PRO-BNP 611(H) <125 pg/mL 02/03/2023 9:15 AM BACK HOE OPERATOR [facility] Blood BLOOD SPECIMEN / Unknown Non-Lab Venipuncture / Unknown 02/03/2023 8:26 AM BACK HOE OPERATOR 02/03/2023 8:36 AM BACK HOE OPERATOR Narrative [facility] - 02/03/2023 9:15 AM BACK HOE OPERATOR The following cut-points have been suggested for [...] Quiros MD SEND OUTS Performing Organization Address [facility]/ZIP Co de Phone Number [facility] SENDOUT [place]IP [phone] [place] [address] * (ABNORMAL) BASIC METABOLIC PANEL (02/03/2023 8:26 AM [facility]) Pathologist [facility] SODIUM 134(L) 136 - 145 mmol/L 02/03/2023 9:13 AM [facility] POTASSIUM 3.9 3.5 - 5.1 mmol/L 02/03/2023 9:13 AM [facility] CHLORIDE 96(L) 98 - 107 mmol/L 02/03/2023 9:13 AM [facility] CO2,TOTAL 25 22 - 29 mmol/L 02/03/2023 9:13 AM [facility] ANION GAP 13 5 - 18 02/03/2023 9:13 AM [facility] GLUCOSE 112(H) 70 - 99 mg/dL 02/03/2023 9:13 AM [facility] CALCIUM 9.3 8.6 - 10.0 mg/dL 02/03/2023 9:13 AM [facility] BUN 4(L) 6 - 20 mg/dL 02/03/2023 9:13 AM [facility] CREATININE 0.55 0.50 - 0.90 mg/dL 02/03/2023 9:13 AM [facility] BUN/CREAT RATIO 7(L) 10 - 20 9:13 AM [facility] eGFR >90 >90 mL/min/1.7 3m2 02/03/2023 9:13 AM [facility] Comment:As of 2021, eG FR is calculated by the CKD-EPI creatinine equation without race adjustment. ??eGFR can be influenced by muscle mass, exercise, and diet. ??The reported eGFR is an estimation only and is only applicable if the renal function is stable. Blood BLOOD SPECIMEN / Unknown Non-Lab Venipuncture / Unknown 02/03/2023 8:26 AM BACK HOE OPERATOR 02/03/2023 8:36 AM [facility] Bee Quiros MD CHEMISTRY [facility] SENDOUT [place]NAL ZIP [phone] [place] [address] * COVID-19 MOLECULAR (02/03/2023 8:14 AM [facility]) COVID 19 [place] MOLECULAR Negative Negative 02/03/2023 9:13 AM [facility] Comment:All PCR tests are narayan bject to false negative result due to variability in viral load and collection technique. A negative result does not rule out a SARS-CoV-2 infection. Clinical correlation required. TESTING LABORATORY [facility] 02/03/2023 9:13 AM [facility] Comment:Specimen submitted t o [facility] for testing. Other SPECIMEN FROM NASOPHARYNGEAL STRUCTURE / Unknown Non-Blood / Unknown 02/03/2023 8:14 AM BACK HOE OPERATOR 02/03/2023 8:20 AM BACK HOE OPERATOR Narrative [facility] - 02/03/2023 9:13 AM BACK HOE OPERATOR This test has been authorized by FDA [...] or revoked sooner. Bee Quiros MD MICROBIOLOGY [facility] SENDOUT [place]NAL [address]IP [address] [address] [place] [address] * INFLUENZA A/B PCR (02/03/2023 8:14 AM BACK HOE OPERATOR) INFLUENZA A PCR Negative 02/03/2023 9:13 AM [facility] INFLUENZA B PCR Negative 02/03/2023 9:13 AM [facility] Other SPECIMEN FROM NASOPHARYNGEAL STRUCTURE / Unknown Non-Blood / Unknown 02/03/2023 8:14 AM BACK HOE OPERATOR 02/03/2023 8:20 AM BACK HOE OPERATOR Bee Quiros MD MICROBIOLOGY [facility] SENDOUT [place]IP [phone] [place] [address] * XR CHEST 1 VIEW PORTABLE (02/01/2023 12:02 PM BACK HOE OPERATOR) Anatomical Region Laterality Modality HEART, THORAX, CHEST Digital Rad iography 02/01/2023 12:2 6 PM BACK HOE OPERATOR Impressions 02/01/2023 12:26 PM BACK HOE OPERATOR There is new linear atelectasis and patchy opacity in the right upper lobe perihilar region. There is new patchy alveolar opacity in the left lung base. No pneumothorax. Sclerotic callus is suggested associated with healing fracture of the right 7th rib. Dictated by Danny Morrow MD @ Feb 01 2023 12:26PM (Electronically Signed) [facility] [email or web address] ?? Narrative 02/01/2023 12:26 PM BACK HOE OPERATOR For Patients: ??As a result of the [...] 12:26PM (Electronically Signed) [facility] [email or web address] Checo Lujan MD GENERAL IMAGING * XR FLUORO BRONCHOSCOPY (02/01/2023 11:20 AM BACK HOE OPERATOR) Anatomical Region Laterality Modality CHEST Other Narrative 02/01/2023 10:42 AM BACK HOE OPERATOR 1 minute 43 seconds fluoroscopy time was provided. ??See operative/procedure report for further information. Checo Lujan MD FLUOROSCOPY * PATH TISSUE EXAM (02/01/2023 11:11 AM BACK HOE OPERATOR) Case Report Pathology Report ?Case: [id number] ? Authorizing Provider: ??Checo Lujan MD ?? Collected: ? 02/01/2023 1111 ? Ordering Location: ? [facility] ?Received: ?02/01/2023 1239 ? Hospital ? Pathologist: ? Gregoria Reese, DO ? Specimen: ?Left Upper Lobe Lung Biopsy ? 3 2:36 PM [facility] Final Diagnosis A) LUNG, LEFT UPPER [...] limited alveolar tissue present 3 2:36 PM [facility] Comment Given the presence o f abundant acute inflammation, correlation with the pending bronchial culture studies is recommended. Case seen in consultation with Dr. Bullard. 3 2:36 PM [facility] Clinical Information The patient is a [...] therapy and is productive. 3 2:36 PM [facility] Gross Description A) Received in formalin, [...] 72 hours. JOVANNI 02/01/2023 3 2:36 PM [facility] Microscopic Description The final diagnosis is [...] situ hybridization tests that were performed by [facility] and whose performance characteristics were evaluated by [...] complexity clinical laboratory testing. 3 2:[address] [facility] Additional Information Interpreted at [facility] - [address] [place] [id number] 3 2:[address] [facility] Biopsy (Left Upper Lobe Lung Biopsy) 02/01/2023 11:11 AM BACK HOE OPERATOR 02/01/2023 12:39 PM BACK HOE OPERATOR Checo Lujan MD PATHOLOGY/CYTOLOG Y [facility] [address] [place] [address], * (ABNORMAL) BRONCHIAL CULTURE, STAIN (02/01/2023 11:05 AM BACK HOE OPERATOR) Only the most recent of5 resultswithin the time period is included. CULTURE RESULT(A) 02/03/2023 12:44 PM BACK HOE OPERATOR [facility] CULTURE 1+ Haemophilus influenzae 02/03/2023 12:44 PM BACK HOE OPERATOR [facility] GRAM STAIN 1+ Epithelial cells 02/03/2023 12:44 PM BACK HOE OPERATOR [facility] GRAM STAIN 2+ RBCs 02/03/2023 12:44 PM BACK HOE OPERATOR [facility] GRAM STAIN 1+ PMNs 02/03/2023 12:44 PM BACK HOE OPERATOR [facility] GRAM STAIN No organisms seen 02/03/2023 12:44 PM BACK HOE OPERATOR [facility] Bronchial Brushing (Left Upper Lobe Lung Bronchial Brushing) Non-Blood / Unknown 02/01/2023 11:05 AM BACK HOE OPERATOR 02/01/2023 12:44 PM BACK HOE OPERATOR Checo Lujan MD MICROBIOLOGY Performing Organization Address [facility]/ZIP Co de Phone Number [facility] [address] [place] [address], * CARMEN PREP, OTHER SOURCE (02/01/2023 11:05 AM BACK HOE OPERATOR) Only the most recent of5 resultswithin the time period is included. OBSERVATION No fungal elements seen 02/01/2023 1:40 PM BACK HOE OPERATOR [facility] Bronchial Brushing (Left Upper Lobe Lung Bronchial Brushing) Non-Blood / Unknown 02/01/2023 11:05 AM BACK HOE OPERATOR 02/01/2023 12:44 PM BACK HOE OPERATOR Checo Lujan MD MICROBIOLOGY Performing Organization Address [facility] de Phone Number [facility] [address] [place] [address], * LEGIONELLA CULT [id number] (02/01/2023 11:03 AM BACK HOE OPERATOR) Only the most recent of4 resultswithin the time period is included. Legion Spec 1 Comment 02/13/2023 5:07 PM BACK HOE OPERATOR [facility] Comment: Culture Report: No Legionella species isolated. Bronchoalveolar Lavage (Left Upper Lobe Lung Bronchoalveolar Lavage) Non-Blood / Unknown 02/01/2023 11:03 AM BACK HOE OPERATOR 02/01/2023 1:08 PM BACK HOE OPERATOR Narrative [facility] ([facility]) - 02/13/2023 5:07 PM BACK HOE OPERATOR Performed at: ??01 - [facility] [place] [address] [place] [address], [place], [place] [id number] Vp Integrity: John Mart MD, Phone: ??[phone] Checo Lujan MD SEND OUTS Performing Organization Address [facility]/ZIP Co de Phone Number [facility] (CET) [address] [place] [address] * LEGIONELLA SPECIES CULTURE (NON BLOOD) (02/01/2023 11:03 AM BACK HOE OPERATOR) Only the most recent of4 resultswithin the time period is included. Pathologist [facility] Legion Cult Status Final report 02/13/2023 5:07 PM BACK HOE OPERATOR [facility] ([facility]) Bronchoalveolar Lavage (Left Upper Lobe Lung Bronchoalveolar Lavage) Non-Blood / Unknown 02/01/2023 11:03 AM BACK HOE OPERATOR 02/01/2023 1:08 PM BACK HOE OPERATOR Narrative [facility] (CET) - 02/13/2023 5:07 PM BACK HOE OPERATOR Performed at: ??01 - [facility] [place] [address] ??[id number] Vp Integrity: John Mart MD, Phone: ??[phone] Checo Lujan MD SEND OUTS Performing Organization Address [facility] de Phone Number [facility] ([facility]) [address] [place] [address] * CHLAMYDIA PNEUMONIAE PCR (02/01/2023 11:03 AM BACK HOE OPERATOR) Only the most recent of3 resultswithin the time period is included. Pathologist [facility] Chlamydia pneumoniae, PCR Negative Negative 02/06/2023 2:07 PM BACK HOE OPERATOR [facility] (CET) Comment: No Chlamydia pneumoniae DNA detected. This test was developed and its performance characteristics determined by [facility]. ??It has not been cleared or approved by the Food and Drug Administration. ??The FDA has determined that such clearance or approval is not necessary. Bronchoalveolar Lavage (Left Upper Lobe Lung Bronchoalveolar Lavage) Non-Blood / Unknown 02/01/2023 11:03 AM BACK HOE OPERATOR 02/01/2023 1:08 PM BACK HOE OPERATOR Narrative [facility] (CET) - 02/06/2023 2:07 PM BACK HOE OPERATOR Performed at: ??[address] ??[id number] Vp Integrity: Jessa Nunez MD, Phone: ??[phone] Checo Lujan MD SEND OUTS Performing Organization Address [facility] de Phone Number [facility] ([facility]) [address] [place] [address] * VIRAL CULTURE GENERAL (02/01/2023 11:03 AM BACK HOE OPERATOR) Only the most recent of4 resultswithin the time period is included. Pathologist [facility] Viral Culture Gen No virus isolated. 02/09/2023 1:09 PM BACK HOE OPERATOR [facility] ([facility]) Bronchoalveolar Lavage (Left Upper Lobe Lung Bronchoalveolar Lavage) Non-Blood / Unknown 02/01/2023 11:03 AM BACK HOE OPERATOR 02/01/2023 1:08 PM BACK HOE OPERATOR [facility]OT[facility]IC TESTING (CET) - 02/09/2023 1:09 PM BACK HOE OPERATOR Performed at: ??[address] ??[id number] Vp Integrity: Jessa Nunez MD, Phone: ??[phone] Checo Lujan MD SEND OUTS Performing Organization Address [facility] de Phone Number [facility] (CET) [address] [place] [address], * LEGIONELLA SPECIES BY RAPID PCR (02/01/2023 11:03 AM BACK HOE OPERATOR) Only the most recent of4 resultswithin the time period is included. Pathologist [facility] LEGIONELLA PCR SOURCE Left Upper Lobe BAL 02/03/2023 8:40 AM BACK HOE OPERATOR [facility] LEGIONELLA SP BY RAPID PCR Negative Not Applicable 02/03/2023 8:40 AM BACK HOE OPERATOR [facility] Comment: This test was developed and its performance characteristics determined by [facility] in a manner consistent with CLIA requirements. This test has not been cleared or approved by the U.S. Food and Drug Administration. Test Performed by: [place] [address] [place] [address] Vp Integrity: Malick Varela M.D. Ph.D.; CLIA# [id number] Bronchoalveolar Lavage (Left Upper Lobe Lung Bronchoalveolar Lavage) Non-Blood / Unknown 02/01/2023 11:03 AM BACK HOE OPERATOR 02/01/2023 1:08 PM BACK HOE OPERATOR Checo Lujan MD SEND OUTS [address] [address], * BAL COUNT AND DIFF (02/01/2023 11:03 AM BACK HOE OPERATOR) Only the most recent of3 resultswithin the time period is included. BODY FLUID SOURCE Bronchoalveolar Lavage 02/01/2023 8:10 PM BACK HOE OPERATOR [facility] Comment:Left Upper Lobe BAL COLOR Colorless 02/01/2023 8:10 PM BACK HOE OPERATOR [facility] BAL CLARITY Turbid 02/01/2023 8:10 PM BACK HOE OPERATOR [facility] TOTAL NUCLEATED CELLS, BF 9,410 /cu mm 02/01/2023 8:10 PM BACK HOE OPERATOR [facility] % NEUTROPHILS, BODY FLUID 76 % 02/01/2023 8:10 PM BACK HOE OPERATOR [facility] % LYMPHOCYTES, BODY FLUID 8 % 02/01/2023 8:10 PM BACK HOE OPERATOR [facility] % MONO/MACRO, BAL 11 % 02/01/2023 8:10 PM BACK HOE OPERATOR [facility] % EOSINOPHILS, BODY FLUID 5 % 02/01/2023 8:10 PM BACK HOE OPERATOR [facility] BRONCH EPITHELIAL None 02/01/2023 8:10 PM BACK HOE OPERATOR [facility] Bronchoalveolar Lavage (Left Upper Lobe Lung Bronchoalveolar Lavage) Non-Blood / Unknown 02/01/2023 11:03 AM BACK HOE OPERATOR 02/01/2023 1:08 PM BACK HOE OPERATOR Checo Lujan MD BODY FLUID Performing Organization Address City/[facility]/ZIP Co de Phone Number [facility] [address] [place] [phone], * MYCOPLASMA PNEUMONIAE PCR (02/01/2023 11:01 AM BACK HOE OPERATOR) Only the most recent of3 resultswithin the time period is included. [facility] M pneumo PCR Negative Negative 02/09/2023 3:09 PM BACK HOE OPERATOR [facility] ([facility]) Comment: No Mycoplasma pneumoniae DNA detected. This test was developed and its performance characteristics determined by [facility]. ??It has not been cleared or approved by the Food and Drug Administration. ??The FDA has determined that such clearance or approval is not necessary. Bronchoalveolar Lavage (Right Upper Lobe Lung Bronchoalveolar Lavage) Non-Blood / Unknown 02/01/2023 11:01 AM BACK HOE OPERATOR 02/01/2023 1:03 PM BACK HOE OPERATOR Narrative [facility] ([facility]ET) - 02/09/2023 3:09 PM BACK HOE OPERATOR Performed at: ??01 - [address] ??[id number] Vp Integrity: Jessa Nunez MD, Phone: ??[phone] Checo Lujan MD BODY FLUID Performing Organization Address [facility] de Phone Number [facility] ([facility]ET) [address] [place] [address], * PATH NON OUTPATIENT ADMITTING CLERK CYTOLOGY (02/01/2023 10:57 AM BACK HOE OPERATOR) [facility] Case Report Medical Cytology Report ? Case: [id number] ? Authorizing Provider: ??Checo Lujan MD ?? [...] Brushing, JACKY Brushing ? 02/06/2023 10:35 AM BACK HOE OPERATOR [facility] Final Diagnosis A) LUNG, [...] Negative for viral inclusions 02/06/2023 10:35 AM [facility] Comment B & C) Rare atypical pneumocytes are seen which are favored to be reactive given the presence of acute inflammation and radiologic findings of extensive bilateral infiltrates. Dr. Bullard interpreted the GMS histochemical stains. Dr. Reese interpreted the remainder of the case. 02/06/2023 10:35 AM [facility] Clinical Information The patient [...] therapy and is productive. 02/06/2023 10:35 AM BACK HOE OPERATOR [facility] Gross Description A) SOURCE: [...] GMS stained ThinPrep slides 02/06/2023 10:35 AM [facility] EN[facility]AL LABORATORY Microscopic Description Specimen adequacy: Adequate for interpretation. All slides were reviewed. The microscopic appearance substantiates the diagnosis. 02/06/2023 10:35 AM BACK HOE OPERATOR [facility] Additional Information Cytology is screened at [facility], Central Laboratory - [address], [place] [address] and [facility] - [address], [place] [address] and [facility] - [address] [place] [address] Interpreted at [facility], [facility] - [address], [place] [address] 02/06/2023 10:35 AM [facility] LAB[facility]ATORY Bronchoalveolar Lavage (Left Upper Lobe Lung Bronchoalveolar Lavage) 02/01/2023 10:57 AM BACK HOE OPERATOR 02/01/2023 12:50 PM BACK HOE OPERATOR Bronchoalveolar lavage fluid specimen (specimen) (Left Lower Lobe Lung Bronchoalveolar Lavage) 02/01/2023 10:59 AM BACK HOE OPERATOR 02/01/2023 12:54 PM BACK HOE OPERATOR Bronchoalveolar lavage fluid specimen (specimen) (Right Upper Lobe Lung Bronchoalveolar Lavage) 02/01/2023 11:01 AM BACK HOE OPERATOR 02/01/2023 1:02 PM BACK HOE OPERATOR Bronchoalveolar lavage fluid specimen (specimen) (Left Upper Lobe Lung Bronchoalveolar Lavage) 02/01/2023 11:03 AM BACK HOE OPERATOR 02/01/2023 1:07 PM BACK HOE OPERATOR Bronchial brushings specimen (specimen) (Left Upper Lobe Lung Bronchial Brushing) 02/01/2023 11:05 AM BACK HOE OPERATOR 02/01/2023 12:43 PM BACK HOE OPERATOR Checo Lujan MD PATHOLOGY/CYTOLOG Y Performing Organization Address City/State/[facility] Co de Phone Number [facility]AL LABORATORY [address] [place], [place] [id number], * HCHG TUBE PR1, HCHG STYLET PR1, HCHG MOUTHPIECE PR1 (02/01/2023 10:55 AM BACK HOE OPERATOR) Narrative Jamal Vivar CRNA - 02/01/2023 10:55 AM BACK HOE OPERATOR Jamal Vivar CRNA ? 02/01/2023 10:55 AM [...] OTE ORDERABLES * BRONCHOSCOPY (02/01/2023 10:09 AM BACK HOE OPERATOR) 02/01/2023 10:0 9 AM BACK HOE OPERATOR Narrative Transcriptions Checo Lujan MD - 02/01/2023 11:29 AM [facility] Patient Name: Jessy Vega Procedure Date: 02/01/2023 Gender: Female Date of : 1985 Admit Type: Ambulatory Instrument Name: BRONCH [id number] Procedure: Bronchoscopy Proceduralist: Checo Lujan Indications/Pre-Op Diagnosis: Diffuse infiltrate Procedure Description: Flexible bronchoscopy with therapeutic aspiration, BAL, brushing, transbronchial biopsy. The endoscope [id number] was used. Estimated Blood Loss & Specimen: [...] Code Status Discussion: Reviewed Preferences Care Teams Willow Worker Relationship Specialty Start Date End Date Willard Shahid MD [address] [place] [phone] PCP - General Family Practice 10/18/17
--- OUTSIDE RECORDS SUMMARY | 2023-02-20 12:18 | XMS_ITS | Referral Summary ---
Author Name Unknown Organization [facility] Address [address] [place] [address] Care Team Providers Care Table Top Tile Setter Name Role Phone Jamal Butt M.D. Primary Care Provider [phone] Source Comments Patient records contain information from all sites at [facility]. For routine questions regarding patient records, call [phone] during business hours, M-F 8:00 AM - 5:00 PM Central Time. Record requests for emergency care only can be directed to [phone] at any time.[facility] Encounters Date Type Department Care Team Description 02/13/2023 Orders Only Department of Neurology in [address] [phone] Patel Martell M.B., Ch.B. 02/08/2023 Clinical Communication Department of Neurology in [address] [phone] Patel Martell M.B., Ch.B. 01/19/2023 9:45 AM REPAIRER CONTROLLER TESTER Procedure visit Department of Neurology in [address] [phone] Genevieve Kingston APRN, C.N.P., M.S.N. Chronic Migraine Discharge Disposition: Home or Self Care 01/11/2023 1:45 PM REPAIRER CONTROLLER TESTER Office Visit Department of Neurology in [address] [phone] Genevieve Kingston, CRISTOPHER, C.N.P., M.S.N. Chronic Migraine (Primary Dx) Discharge Disposition: Home or Self Care 11/28/2022 Nurse Triage Department of Family Medicine in [place], [place] [address] [place] [address] Anna Marie Samaniego R.N. Shortness of Breath 11/27/2022 9:07 AM CDT - 11/27/2022 11:59 PM CDT Hospital Encounter Department of Radiology, [facility], in [address] [phone] Patel Martell M.B., Ch.B. 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 Patient declined 10/28/2020 Do [...] Date Recorded PHQ-2 Score 1 12/01/2019 [facility] of Occupat ional Health - [...] Sex Assigned at Female 03/06/2017 10:16 AM REPAIRER CONTROLLER TESTER Gender Identity Female 03/06/2017 10:16 AM REPAIRER CONTROLLER TESTER Sexual Orientation Straight 03/06/2017 10 :16 AM REPAIRER CONTROLLER TESTER Last Filed Vital Signs Vital Sign Reading Time Taken Comments Blood Pressure 98/65 01/11/2023 12:59 PM REPAIRER CONTROLLER TESTER Pulse 111 01/11/2023 12:59 PM REPAIRER CONTROLLER TESTER Temperature 36.6 ??C (97.9 ??F) 08/28/2022 9:03 AM CD T Respiratory Rate 16 08/28/2022 9:03 AM CDT Oxygen Saturation 96% 08/28/2022 9:03 AM CDT Inhaled Oxygen Concentration - - Weight 67 kg (147 lb 11.3 oz) 01/11/2023 12:59 P M REPAIRER CONTROLLER TESTER Height 175.3 cm (5' 9) 07/06/2022 7:02 PM CDT Body Mass Index 21.81 07/06/2022 7:02 PM CDT Plan of Treatment Upcoming Encounters Date Type Department Care Team (Late st Contact Info) Description 04/26/2023 10:00 AM CDT Office Visit Department of Neurology in [place], [place] [address] [place] [address] Patel Martell M.B., Ch.B. [address] [place] [phone] Discharge Disposition: Home or Self Care Procedures Procedure Name Priority Date/Time Associated Diagnosis Comments DE CHEMODENERV FACIAL TRIGEM BARBARA Routine 01/19/2023 9:45 AM REPAIRER CONTROLLER TESTER Chronic Migraine MR BRAIN WITHOUT AND WITH IV CONTRAST RAD - Routine (most inpatients and all outpatients) 11/27/2022 10:08 AM CDT Multiple Sclerosis (HCC) from Last 3 Months Results * DE CHEMODENERV FACIAL TRIGEM BARBARA (01/19/2023 9:45 AM REPAIRER CONTROLLER TESTER) Narrative MMODAL - 01/19/2023 9:45 AM REPAIRER CONTROLLER TESTER Genevieve Kingston APRN C.N.P., M.S.N. ? 01/19/2023 [...] Needle length: 0.5 in Injection site details Lead Technician / Procerus muscle(s): 5 units into the left rn staffing muscle, 5 units into the right rn staffing muscle ??and 5 units into the procerus [...] a study of 07/12/2020. Patel Padron, BMert [facility] [place] PROC EDURES from Last 3 Months Additional Health Concerns Infection Onset Date Last Indicated Protective Environment 06/07/2022 3 Advance Directives For more information, please contact: [phone] Documents on File Type Date Recorded Patient Window Shade Cloth Sewer Expl anation Advance Directives 03/19/2019 4:22 PM [...] Alternate Health Car e Agent Care Teams Table Top Tile Setter Relationship Specialty Start Date End Date Jamal Butt M.D. [address] [place] [phone] PCP - General Family Medicine 05/21/17
--- OUTSIDE RECORDS SUMMARY | 2023-02-20 12:18 | XMS_ITS ---
Author Name Unknown Organization [facility] Address [address] [place] [address] Care Team Providers Care Timber Surveyor Name Role Phone Unavailable Unavailable Unavailable Surgery Details Not on file Complications Check Surgery Details section. Procedure Estimated Blood Loss Check Surgery Details section. Procedure Findings Check Surgery Details section. Procedure Specimens Taken Check Surgery Details section.
--- OUTSIDE RECORDS SUMMARY | 2023-02-20 12:18 | XMS_ITS | Encounter Summary ---
Author Name Unknown Organization [facility] Address [address] [place] [address] Care Team Providers Care Cryptanalyst Name Role Phone Jamal Butt M.D. Primary Care Provider [phone] Reason for Visit * Reason Comments Multiple Sclerosis Migraine F/U Encounter Details Date Type Department Care Team (Late st Contact Info) Description 01/11/2023 1:45 PM REGIONAL WILDLIFE AGENT Office Visit Department of Neurology in [place], [place] [address] [place] [phone] Genevieve Kingston, CRISTOPHER, C.N.P., M.S.N. [address] [place] [phone] Chronic Migraine (Primary Dx) Discharge Disposition: Home [...] any clubs o r organizations such as spiritism groups, unions, fraternal or athletic groups, or [...] 1 12/01/2019 [facility] of Occupat ional Health - Occupational [...] Sex Assigned at Female 03/06/2017 10:16 AM REGIONAL WILDLIFE AGENT Gender Identity Female 03/06/2017 10:16 AM REGIONAL WILDLIFE AGENT Sexual Orientation Straight 03/06/2017 10 :16 AM REGIONAL WILDLIFE AGENT documented as of this encounter Last Filed Vital Signs Vital Sign Reading Time Taken Comments Blood Pressure 98/65 01/11/2023 12:59 PM REGIONAL WILDLIFE AGENT Pulse 111 01/11/2023 12:59 PM REGIONAL WILDLIFE AGENT Temperature - - Respiratory Rate - - Oxygen Saturation - - Inhaled Oxygen Concentration - - Weight 67 kg (147 lb 11.3 oz) 01/11/2023 12:59 P M REGIONAL WILDLIFE AGENT Height - - Body Mass Index 21.81 [...] the patient expressed understanding of the content. ONAL WILDLIFE AGENT documented in this encounter Plan of Treatment Upcoming Encounters Date Type Department Care Team (Late st Contact Info) Description 04/26/2023 10:00 AM CDT Office Visit Department of Neurology in [address] [phone] Patel Martell M.B., .B. [address] [place] [phone] Discharge Disposition: Home or Self Care documented as of this encounter Visit Diagnoses Diagnosis Chronic Migraine- Primary documented in this encounter Additional Health Concerns Infection Onset Date Last Indicated Resolved Time Protective Environment 06/07/2022 06/07/2022 Assessment Noted Time PHQ-9 Depression Total Score: 2 12/01/19 20 6:54 AM CDT documented as of this encounter Care Teams Cryptanalyst Relationship Specialty Start Date End Date Jamal Butt M.D. [address] [place] [phone] PCP - General Family Medicine 05/21/17 documented as of this encounter
--- OUTSIDE RECORDS SUMMARY | 2023-02-20 12:19 | XMS_ITS | Encounter Summary ---
Author Name Unknown Organization [facility] Address [address] [place] [address] Care Team Providers Care Data Sme Name Role Phone Jamal Butt M.D. Primary Care Provider [phone] Reason for Referral * MRI/CAT/PET Scan (Routine) - Closed Specialty Diagnoses / Procedures Referred By Contac t Referred To Contact Radiology Diagnoses Multiple Sclerosis (HCC) Procedures MR Brain without and with IV Contrast Patel Martell M.B., Ch.B. [address] [place] [phone] [facility] Region Referral ID Status Reason Start Date Expiration Date Visits Re quested Visits Authorized [id number] Closed 09/26/2022 09/26/2023 1 1 Reason for Visit * MRI/CAT/PET Scan (Routine) - Closed Specialty Diagnoses / Procedures Referred By Contac t Referred To Contact Radiology Diagnoses Multiple Sclerosis (HCC) Procedures MR Brain without and with IV Contrast Patel Martell M.B., Ch.B. [address] [place] [phone] [facility] Region Referral ID Status Reason Start Date Expiration Date Visits Re quested Visits Authorized [id number] Closed 09/26/2022 09/26/2023 1 1 Encounter Details Date Type Department Care Team (Latest Contact Info) Description 11/27/2022 9:07 AM CDT - 11/27/2022 11:59 PM CDT Hospital Encounter Department of Radiology, [facility], in [place], [place] [address] [place] [phone] Patel Martell M.B., .B. [address] [place] [phone] Multiple Sclerosis (HCC) Discharge Disposition: [...] often do you attend chur ch or christianity services? Patient declined 10/28/2020 Do you belong to any clubs o r organizations such as druze groups, unions, fraternal or athletic groups, or [...] Answer Date Recorded PHQ-2 Score 1 12/01/2019 [facility] of Occupat ional [facility] - Occupational Stress Questionnaire Answer Date [...] place to sleep or slept in a penitentiary (including now)? No 10/28/2020 Depression Answer Date [...] Sex Assigned at Female 03/06/2017 10:16 AM DESK ASSISTANT Gender Identity Female 03/06/2017 10:16 AM DESK ASSISTANT Sexual Orientation Straight 03/06/2017 10 :16 AM DESK ASSISTANT documented as of this encounter Medications at [...] CDT Office Visit Department of Neurology in [place], [place] [address] [place] [phone] Patel Martell M.B., Ch.B. [address] [place] [phone] Discharge Disposition: Home or Self Care documented [...] documented as of this encounter Care Teams Data Sme Relationship Specialty Start Date End Date Jamal Butt M.D. [address] [place] [phone] PCP - General Family Medicine 05/21/17 documented as of this encounter
--- OUTSIDE RECORDS SUMMARY | 2023-02-20 12:19 | XMS_ITS | Encounter Summary ---
Author Name Unknown Organization [facility] Address [address] [place] [address] Care Team Providers Care Client Operations Manager Name Role Phone Jamal Butt M.D. Primary Care Provider [phone] Reason for Visit * Reason Onset Date Comments Shortness of Breath 11/28/2022 Encounter Details Date Type Department Care Team (Late st Contact Info) Description 11/28/2022 Nurse Triage Department of Family Medicine in [place], [place] [address] [place] [phone] Anna Marie Samaniego RCasandra [address] [place] [phone] Shortness of Breath Social History Tobacco Use [...] declined 10/28/2020 How often do you attend [facility] or nondenominational services? Patient declined 10/28/2020 Do you belong [...] Answer Date Recorded PHQ-2 Score 1 12/01/2019 [facility] of Occupat ional [facility] - Occupational Stress Questionnaire Answer Date [...] Sex Assigned at Female 03/06/2017 10:16 AM SENIOR APPLICATION PROGRAMMER Gender Identity Female 03/06/2017 10:16 AM SENIOR APPLICATION PROGRAMMER Sexual Orientation Straight 03/06/2017 10 :16 AM SENIOR APPLICATION PROGRAMMER documented as of this encounter Miscellaneous Notes [...] CDT Office Visit Department of Neurology in [place], [place] [address] [place] [phone] Patel Martell M.B., Ch.B. [address] [place] [phone] Discharge Disposition: Home or Self Care documented as of this encounter Visit Diagnoses Not on filedocumented in this encounter Additional Health Concerns Infection Onset Date Last Indicated Resolved Time Protective Environment 06/07/2022 06/07/2022 Assessment Noted Time PHQ-9 Depression Total Score: 2 12/01/19 20 6:54 AM CDT documented as of this encounter Care Teams Client Operations Manager Relationship Specialty Start Date End Date Jamal Butt M.D. [address] [place] [phone] PCP - General Family Medicine 05/21/17 documented as of this encounter
--- OUTSIDE RECORDS SUMMARY | 2023-02-20 12:19 | XMS_ITS | Encounter Summary ---
Author Name Unknown Organization [facility] Address [address] [place] [address] Care Team Providers Care Protein Specialist Name Role Phone Jamal Butt M.D. Primary Care Provider [phone] Reason for Visit * Reason Comments Allergic Reaction Patient is coming in for allergies to mold. She started a new job roughly 4 months ago and has been exposed to mold and in the last couple days has developed this congestion, troubles breathing and body aches. Has attempted taking allergy medications but no relief. Encounter Details Date Type Department Care Team ([facility] st Contact Info) Description 07/06/2022 7:25 PM CDT - 07/06/2022 9:40 PM CDT Emergency [facility] [address] [place] [phone] Joan Swanson D.O. [address] [place] [phone] Pneumonia (Primary Dx) Discharge Disposition: Home or [...] often do you attend chur ch or yazdanism services? Patient declined 10/28/2020 Do you belong to any clubs o r organizations such as yazidi groups, unions, fraternal or athletic groups, or [...] Answer Date Recorded PHQ-2 Score 1 12/01/2019 [facility] of Occupat ional [facility] - Occupational Stress Questionnaire Answer [...] Sex Assigned at Female 03/06/2017 10:16 AM PHLEBOTOMY PROGRAM COORDINATOR Gender Identity Female 03/06/2017 10:16 AM PHLEBOTOMY PROGRAM COORDINATOR Sexual Orientation Straight 03/06/2017 10 :16 AM PHLEBOTOMY PROGRAM COORDINATOR documented as of this encounter Last Filed [...] through Care Everywhere. * Community-Acquired Pneumonia Adult [id number]-[id number] (Bulgarian) documented in this encounter Medications at Time [...] Swanson D.O. 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 She saw her inside sales engineer last week and reports she was prescribed [...] General [address] [place] [phone] Next Steps: Follow up Instructions: Follow up in 7-10 days for reevaluation. Yovana Covarrubias Sarah, D.O. 07/07/22 0037 documented in this encounter Plan of Treatment Upcoming Encounters Date Type Department Care Team (Late st Contact Info) Description 04/26/2023 10:00 AM CDT Office Visit Department of Neurology in [address] [phone] Patel Martell M.B., Ch.B. [facility] [place] [phone] Discharge Disposition: Home or Self Care documented [...] 8:09 PM CDT 07/06/2022 8:29 PM CDT [facility] LAB POCT ORDERABLES - DEVICE Performing Organization Address City/[facility]/ZIP Co de Phone Number [facility] [address] [place] [address], [facility] NPRG [address] [address] * Influenza A/B and RSV, PCR, Point of Care (07/06/2022 7:53 PM CDT) Influenza A, B, RSV, PCR, POCT Collected DEFAULT 07/06/2022 8:04 PM CDT [facility] Swab (Nasopharynx) 07/06/2022 7:53 PM CDT 07/06/2022 8:04 PM CDT Joan Swanson D.O. LAB POCT ORDERABLES - DEVICE Performing Organization Address City/[facility]/ZIP Co de Phone Number [facility] [address] [place] [address], [facility] NPRG [address] [address] * SARS Coronavirus 2, PCR Rapid, V [...] at the following links: For Healthcare Providers: https://www.fda.gov/media/437998/download For Patients: https://www.fda.gov/media/829298/download SARS Coronavirus 2, Source, Rapid Swab, Nasopharynx 07/06/2022 8:04 PM CDT [facility] Swab (Nasopharynx) 07/06/2022 7:53 PM CDT 07/06/2022 8:04 PM CDT Joan Swanson D.O. LAB MICROBIOLOGY - G ENERAL ORDERABLES [facility] [address] [place] [address], [facility] [address] [address] * CK (Creatine Kinase) (07/06/2022 7:23 PM CDT) Creatine Kinase, P 126 26 - 192 U/L 07/06/2022 8:06 PM CDT [facility] Blood (Blood, Venous) 07/06/2022 7:23 PM CDT 07/06/2022 7:42 PM CDT Joan Swanson D.O. LAB BLOOD ADD-ON [facility] [address] [place] [address], [facility] [address] [place] [address] * (ABNORMAL) Comprehensive Metabolic Panel (07/06/2022 7:23 [...] CDT Joan Swanson D.O. LAB BLOOD ADD-ON [facility] [address] [place] [address], [facility] NPRG [facility] [address] [place] [address] * (ABNORMAL) CBC with Differential, Blood (07/06/2022 [...] CDT Joan Swanson D.O. LAB BLOOD ADD-ON [facility] [address] [place] [address], [facility] NPRG [facility] [address] [place] [address] documented in this encounter Visit Diagnoses Diagnosis [...] documented as of this encounter Care Teams Protein Specialist Relationship Specialty Start Date End Date Jamal Butt M.D. [address] [facility] [place] [phone] PCP - General Family Medicine 05/21/17 documented as of this encounter
--- OUTSIDE RECORDS SUMMARY | 2023-02-20 12:19 | XMS_ITS | Encounter Summary ---
Author Name Unknown Organization [facility] Address [address] [place] [address] Care Team Providers Care Cycle Counter Name Role Phone Jamal Butt M.D. Primary Care Provider [phone] Reason for Referral * Outpatient (Routine) - Authorized Specialty Diagnoses / Procedures Referred By Contac t Referred To Contact Neurology Patel Martell M.B., Ch.B. [facility] [place] [phone] [facility] Referral ID Status Reason Start Date Expiration Date V isits Requested Visits Authorized [id number] Authorized 09/26/2022 09/25/2025 1 1 * MRI/CAT/PET Scan (Routine) - Closed Specialty Diagnoses / Procedures Referred By Contayla t Referred To Contact Radiology Diagnoses Multiple Sclerosis (HCC) Procedures MR Brain without and with IV Contrast Patel Martell M.B., Ch.B. [address] [place] [phone] [facility] Region Referral ID Status Reason Start Date Expiration Date Visits Re quested Visits Authorized [id number] Closed 09/26/2022 09/26/2023 1 1 Reason for Visit * Reason Comments Headache * Appointment Request (Routine) - Closed Specialty Diagnoses / Procedures Referred By Campbell estrada Referred To Contact Neurology Referral ID Status Reason Start Date Expiration Date Visits Re quested Visits Authorized [id number] Closed 06/21/2022 06/21/2023 1 1 Encounter Details Date Type Department Care Team (Latest Contact Info) Description 09/26/2022 10:00 AM CDT Office Visit Department of Neurology in [address] [phone] Patel Martell M.B., Ch.B. [address] [place] [phone] Multiple Sclerosis (HCC) (Primary Dx); Chronic [...] declined 10/28/2020 How often do you attend [facility] or catholic services? Patient declined 10/28/2020 Do you belong to any clubs o r organizations such as muslim groups, unions, fraternal or athletic groups, or [...] Answer Date Recorded PHQ-2 Score 1 12/01/2019 [facility] of Occupat ional Health - Occupational [...] place to sleep or slept in a group home (including now)? No 10/28/2020 Depression Answer [...] Sex Assigned at Female 03/06/2017 10:16 AM PAINT ROLLER ASSEMBLER Gender Identity Female 03/06/2017 10:16 AM PAINT ROLLER ASSEMBLER Sexual Orientation Straight 03/06/2017 10 :16 AM PAINT ROLLER ASSEMBLER documented as of this encounter Last Filed [...] andchronic migraine headaches who, presented at the [facility] on 09/26/2022 for [...] to previous 2020 study: Multiple bilateral unchanged [id number] lesions within the periventricular white matter consistent with the patient's known MS. The brainstem, cerebellum and visualized optic nerves remain free of disease process, and there are no newly identified lesions. There is no enhancement of any of the lesions on the current study. Prior history: Initial evaluation 11/04/2020, Jessy presented for establishment of care with [place] [facility], she was initially seen by [place] [facility], she carries a diagnosis of multiple sclerosis diagnosed 01/31/2012, after bout of optic neuritis involving the right eye, she was diagnosed in [place], and chronic headaches. She states she was [...] 2019, when she transferred her care from [place] to [place]. In 2013 she underwent a stem cell [...] did not respond to any treatment, including [id number] pain med and triptans. On today's presentation, she is reestablishing care, she was initially seen as [place] but due toproximity effect would preferred to seen in [place], she is due for her Botox injections, she is also due for Ocrevus infusion, of note she is having difficulty with having the Ocrevus approved by insurance company, this is been worked out with her previous neurologist in [place] who has sent in a n appeal. [...] include both face to face and non wzqb-vq-rjtx time, of this about 15 minutes or so were spent in education, counseling and coordinating future care across multiple specialties. The decision-making was highly complex. Advance Care Planning : On file PATIENT EDUCATION Ready to learn, no apparent learning barriers were identified; learning preferences include listening. Explained diagnosis and treatment plan; patient expressed understanding of the content. Nereida Hernandez, Ch.B. Board Certified Neurologist Neuro-Chore Tender 09/26/22 10:00 AM CDT documented in this [...] CDT Office Visit Department of Neurology in [address] [phone] Patel Martell M.B., Ch.B. [address] [place] [phone] Discharge Disposition: Home or Self Care Scheduled [...] a study of 07/12/2020. Patel Padron Ch.B. [facility] MRI PROC EDURES documented in this encounter [...] documented as of this encounter Care Teams Cycle Counter Relationship Specialty Start Date End Date Jamal Butt M.D. [address] [place] [phone] PCP - General Family Medicine 05/21/17 documented as of this encounter
--- OUTSIDE RECORDS SUMMARY | 2023-02-20 12:19 | XMS_ITS | Encounter Summary ---
Author Name Unknown Organization [facility] Address [address] [place] [address] Care Team Providers Care Dairy Cattle Farm Manager Name Role Phone Jamal Butt M.D. Primary Care Provider [phone] Reason for Referral * Outpatient (Routine) - Authorized Specialty Diagnoses / Procedures Referred By Campbell estrada Referred To Contact Diagnoses Chronic Migraine Procedures Botox for Chronic Migraine Genevieve Kingston APRN, C.N.Randi., M.S.N. [address] [place] [address] [facility] Referral ID Status Reason Start Date Expiration Date V isits Requested Visits Authorized [id number] Authorized 06/29/2022 06/29/2023 4 4 Reason for Visit * Reason Comments Procedure Botox 150 units * Outpatient (Routine) - Closed Specialty Diagnoses / Procedures Referred By Contac t Referred To Contact Diagnoses Chronic Migraine Procedures Botox for Chronic Migraine HI CHEMODENERV FACIAL TRIGEM BARBARA HI INJECTION,ONABOTULINUMTOXINA Justin Lovell M.D., M.P.H. [address] [place] [address] [facility] [place] [facility] Referral ID Status Reason Start Date Expiration Date Visits Re quested Visits Authorized [id number] Closed 06/26/2022 06/26/2023 1 1 Encounter Details Date Type Department Care Team (Latest Contact Info) Description 06/29/2022 3:45 PM CDT Procedure visit Department of Neurology in [place], [place] [address] [place] [phone] Genevieve Kingston APRN, C.N.P., M.S.N. [address] [place] [phone] Chronic Migraine Discharge Disposition: Home or Self [...] any clubs o r organizations such as restorationism groups, unions, fraternal or athletic groups, or [...] 1 12/01/2019 [facility] - Occupational Stress Questionnaire Answer [...] Sex Assigned at Female 03/06/2017 10:16 AM RETAIL SALES CONSULTANT Gender Identity Female 03/06/2017 10:16 AM RETAIL SALES CONSULTANT Sexual Orientation Straight 03/06/2017 10 :16 AM RETAIL SALES CONSULTANT documented as of this encounter Procedure Notes [...] Needle length: 0.5 in Injection site details Mcat Instructor / Procerus muscle(s): 5 units into the left senior data scientist muscle, 5 units into the right senior data scientist muscle and 5 units into the procerus [...] CDT Office Visit Department of Neurology in [place], [place] [address] [place] [phone] Patel Martell M.B., .B. [address] [place] [phone] Discharge Disposition: Home or Self Care Scheduled Orders Name Type Priority Associated Diagnoses Orde r Schedule Botox for Chronic Migraine Procedures Routine Migraine Headache Chronic 12 for 4 Occurrences starting 06/29/2022 until 09/30/2023, 2 completed documented as of this encounter Procedures Procedure Name Priority Date/Time Associated Diagnosis Comments HI CHEMODENERV FACIAL TRIGEM BARBARA Routine 06/29/2022 3:45 PM CDT Chronic Migraine documented in this encounter Results * HI CHEMODENERV FACIAL TRIGEM BARBARA (01/19/2023 9:45 AM RETAIL SALES CONSULTANT) Narrative MMODAL - 01/19/2023 9:45 AM RETAIL SALES CONSULTANT Genevieve Kingston APRN C.N.P., M.S.N. ? 01/19/2023 [...] Needle length: 0.5 in Injection site details Mcat Instructor / Procerus muscle(s): 5 units into the left senior data scientist muscle, 5 units into the right senior data scientist muscle ??and 5 units into the procerus [...] M.S.N. NEURO LOGY ORDERABLES Performing Organization Address City/State/[facility] Co ok Phone Number MMODAL NA * HI CHEMODENERV FACIAL TRIGEM BARBARA (09/26/2022 9:30 AM [...] Needle length: 0.5 in Injection site details Mcat Instructor / Procerus muscle(s): 5 units into the left senior data scientist muscle, 5 units into the right senior data scientist muscle ??and 5 units into the procerus [...] M.S.N. NEURO LOGY ORDERABLES Performing Organization Address City/State/[facility] Co de Phone Number [facility] NA * HI CHEMODENERV FACIAL TRIGEM BARBARA (06/29/2022 3:45 PM [...] Needle length: 0.5 in Injection site details Mcat Instructor / Procerus muscle(s): 5 units into the left senior data scientist muscle, 5 units into the right senior data scientist muscle ??and 5 units into the procerus [...] documented as of this encounter Care Teams Dairy Cattle Farm Manager Relationship Specialty Start Date End Date [place] [phone] PCP - General Family Medicine 05/21/17 documented as of this encounter
--- OUTSIDE RECORDS SUMMARY | 2023-02-20 12:19 | XMS_ITS | Encounter Summary ---
Author Name Unknown Organization [facility] Address [address] [place] [address] Care Team Providers Care Crop Duster Name Role Phone Jamal Butt M.D. Primary Care Provider Reason for Visit * Reason Comments Outpatient Infusion * Episode Based Medications (Routine) - Authorized Specialty Diagnoses / Procedures Referred By Contac t Referred To Contact Diagnoses Multiple Sclerosis (HCC) Procedures WV OCRELIZUMAB 1 MG INJ Patel Martell M.B., Ch.B. [address] [place] [address] [facility] Region Referral ID Status Reason Start Date Expiration Date V isits Requested Visits Authorized [id number] Authorized 02/16/2022 08/24/2023 3 3 Encounter Details Date Type Department Care Team (Late st Contact Info) Description 08/28/2022 9:00 AM CDT Infusion Department of Infusion Therapy in [place], [place] [address] [place] [phone] Patel Martell M.B., Ch.B. [address] [place] [phone] Multiple Sclerosis (HCC) (Primary Dx) Social History [...] How often do you attend chur or jehovah's witness services? Patient declined 10/28/2020 Do you belong to any clubs o r organizations such as yazidism groups, unions, fraternal or athletic groups, or [...] Recorded PHQ-2 Score 1 12/01/2019 [facility] - Occupational [...] place to sleep or slept in a intermediate (including now)? No 10/28/2020 Depression Answer Date [...] Sex Assigned at Female 03/06/2017 10:16 AM WIRE STRANDER Gender Identity Female 03/06/2017 10:16 AM WIRE STRANDER Sexual Orientation Straight 03/06/2017 10 :16 AM WIRE STRANDER documented as of this encounter Last Filed [...] CDT Office Visit Department of Neurology in [place], [place] [address] [place] [phone] Patel Martell M.B., Ch.B. [address] [place] [phone] Discharge Disposition: Home or Self [...] documented as of this encounter Care Teams Crop Duster Relationship Specialty Start Date End Date Jamal Butt M.D. [address] [place] [phone] PCP - General Family Medicine 05/21/17 documented as of this encounter
--- OUTSIDE RECORDS SUMMARY | 2023-02-20 12:19 | XMS_ITS | Encounter Summary ---
Author Name Unknown Organization [facility] Address [address] [place] [address] Care Team Providers Care Sheep Or Calf Grader Name Role Phone Jamal Butt M.D. Primary Care Provider [phone] Reason for Visit * Reason Onset Date Comments Communication 03/27/2022 Encounter Details Date Type Department Care Team (Late st Contact Info) Description 03/27/2022 Clinical Communication Department of Neurology in [address] [phone] Patel Martell M.B., Ch.B. [address] [place] [phone] Communication Social History Tobacco Use Types Packs/Day [...] declined 10/28/2020 How often do you attend [facility] or sikh services? Patient declined 10/28/2020 Do you belong [...] Answer Date Recorded PHQ-2 Score 1 12/01/2019 [facility] - Occupational Stress Questionnaire Answer Date [...] Sex Assigned at Female 03/06/2017 10:16 AM INTERNET MANAGER Gender Identity Female 03/06/2017 10:16 AM INTERNET MANAGER Sexual Orientation Straight 03/06/2017 10 :16 AM INTERNET MANAGER documented as of this encounter Miscellaneous Notes * Telephone Encounter - Cecily Ascencio RMertN. - 04/04/2022 9:11 AM CST RN contacted Jessy and informed her about the Ocrevus being denied to be given at [facility]. Shehas the options to go to [facility], [facility] or [facility]. She is due for her infusion in August 2022. Jessy will contact us in July 2022 to let us know where she would like the Ocrevusinfusion. Number left to call [phone]. RNET MANAGER * Telephone Encounter - Cecily Ascencio R.N. - 03/28/2022 11:00 AM INTERNET MANAGER LVM for Jessy.. Left number [phone] to return call RNET MANAGER * Telephone Encounter - Cecily Ascencio R.N. - 03/27/2022 12:11 PM INTERNET MANAGER Images from the original note were not included. Angelika Leigh George S, M.B., Ch.B.; P [facility] Nurse Cc: Lionel [place] [facility] is not denying patients Ocrevus, however, as of 04/10/22, they will no longer let her have it in a hospital setting, which is how [facility] bills. (So does [facility]) Please assist patient in finding a new site of care for her next dose. [facility] & [facility] will both bill as a clinic - or [facility] in [place] will also bill as a clinic. The other option would be home infusion. A copy of the SOC denial will be uploaded to the media tab in patients chart. Thanks, Angelika Allred Auth Called and [facility] baylee Jiménez to contact Neurology about the denial for the Ocrevus to be done at [facility] and left number [phone] to return call. RNET MANAGER documented in this encounter Plan of Treatment Upcoming Encounters Date Type Department Care Team ([facility] st Contact Info) Description 04/26/2023 10:00 AM CDT Office Visit Department of Neurology in [place], [place] [address] [place] [phone] Patel Martell M.B., Ch.B. [address] [place] [phone] Discharge Disposition: Home or Self Care documented as of this encounter Visit Diagnoses Not on filedocumented in this encounter Additional Health Concerns Assessment Noted Time PHQ-9 Depression Total Score: 2 12/01/19 20 6:54 AM CDT documented as of this encounter Care Teams Sheep Or Calf Grader Relationship Specialty Start Date End Date Jamal Butt M.D. [address] [place] [phone] PCP - General Family Medicine 05/21/17 documented as of this encounter
--- OUTSIDE RECORDS SUMMARY | 2023-02-20 12:19 | XMS_ITS | Encounter Summary ---
Author Name Unknown Organization [facility] Address [address] [place] [address] Care Team Providers Care Corporate Sales Representative Name Role Phone Jamal Butt M.D. Primary Care Provider [phone] Reason for Referral * Outpatient (Routine) - Closed Specialty Diagnoses / Procedures Referred By Campbell estrada Referred To Contact Diagnoses Chronic Migraine Procedures Botox for Chronic Migraine ND CHEMODENERV FACIAL TRIGEM BARABRA ND INJECTION,ONABOTULINUMTOXINA Justin Lovell M.D., M.P.H. [address] [place] [phone] [facility] Region Referral ID Status Reason Start Date Expiration Date Visits Re quested Visits Authorized [id number] Closed 06/26/2022 06/26/2023 1 1 Encounter Details Date Type Department Care Team (Late st Contact Info) Description 06/26/2022 Orders Only Department of Neurology in [place], [place] [address] [place] [address] Justin Lovell M.D., M.P.H. [address] [place] [phone] Chronic Migraine (Primary Dx) Social History [...] often do you attend chur ch or hinduism services? Patient declined 10/28/2020 Do you belong to any clubs o r organizations such as yarsanism groups, unions, fraternal or athletic groups, or [...] Answer Date Recorded PHQ-2 Score 1 12/01/2019 [facility] - Occupational [...] Sex Assigned at Female 03/06/2017 10:16 AM DRYING RACK CHANGER Gender Identity Female 03/06/2017 10:16 AM DRYING RACK CHANGER Sexual Orientation Straight 03/06/2017 10 :16 AM DRYING RACK CHANGER documented as of this encounter Plan of Treatment Upcoming Encounters Date Type Department Care Team (Late st Contact Info) Description 04/26/2023 10:00 AM CDT Office Visit Department of Neurology in [address] [phone] Patel Martell M.B., .B. [address] [place] [phone] Discharge Disposition: Home or Self Care documented as of this encounter Results * ND CHEMODENERV FACIAL TRIGEM BARBARA (06/29/2022 3:45 PM [...] Needle length: 0.5 in Injection site details Nurse Rn Bsn / Procerus muscle(s): 5 units into the left mission worker muscle, 5 units into the right mission worker muscle ??and 5 units into the procerus [...] documented as of this encounter Care Teams Corporate Sales Representative Relationship Specialty Start Date End Date Jamal Butt M.D. NPJunior: [phone] [address] [facility] [facility] [place] [address] PCP - General Family Medicine 05/21/17 documented as of this encounter
--- OUTSIDE RECORDS SUMMARY | 2023-02-20 12:19 | XMS_ITS | Encounter Summary ---
Author Name Unknown Organization [facility] Address [address] [place] [address] Care Team Providers Care Queen Producer Name Role Phone Jamal Butt M.D. Primary Care Provider [phone] Reason for Visit * Reason Comments Headache * Outpatient (Routine) - Authorized Specialty Diagnoses / Procedures Referred By Contac t Referred To Contact Diagnoses Chronic Migraine Procedures Botox for Chronic Migraine Genevieve Kingston APRN C.N.P., M.S.N. [address] [place] [address] [facility] Region Referral ID Status Reason Start Date Expiration Date V isits Requested Visits Authorized [id number] Authorized 06/29/2022 06/29/2023 4 4 Encounter Details Date Type Department Care Team (Latest Contact Info) Description 09/26/2022 9:30 AM CDT Procedure visit Department of Neurology in [place], [place] [address] [place] [address] Patel Martell M.B., Ch.B. [address] [place] [phone] Chronic Migraine Discharge Disposition: Home or [...] How often do you attend chur or faith services? Patient declined 10/28/2020 Do you belong to any clubs o r organizations such as denominational groups, unions, fraternal or athletic groups, or [...] Answer Date Recorded PHQ-2 Score 1 12/01/2019 [facility]at ional [facility] - Occupational Stress Questionnaire Answer Date [...] Sex Assigned at Female 03/06/2017 10:16 AM HAND MEXICAN FOOD MAKER Gender Identity Female 03/06/2017 10:16 AM HAND MEXICAN FOOD MAKER Sexual Orientation Straight 03/06/2017 10 :16 AM HAND MEXICAN FOOD MAKER documented as of this encounter Procedure Notes [...] Needle length: 0.5 in Injection site details Watch Band Assembler / Procerus muscle(s): 5 units into the left head baggage porter muscle, 5 units into the right head baggage porter muscle and 5 units into the [...] complications Nereida Hernandez, Ch.B. Board Certified Neurologist Neuro-Visual Education Director 09/26/22 10:15 AM CDT documented in this encounter Plan of Treatment Upcoming Encounters Date Type Department Care Team (Late st Contact Info) Description 04/26/2023 10:00 AM CDT Office Visit Department of Neurology in [address] [phone] Patel Martell M.B., Ch.B. [address] [place] [phone] Discharge Disposition: Home or Self Care documented as of this encounter Procedures Procedure Name Priority Date/Time Associated Diagnosis Comments CO CHEMODENERV FACIAL TRIGEM BARBARA Routine 09/26/2022 9:30 AM CDT Chronic Migraine documented in this encounter Results * CO CHEMODENERV FACIAL TRIGEM BARBARA (09/26/2022 9:30 AM [...] Needle length: 0.5 in Injection site details Watch Band Assembler / Procerus muscle(s): 5 units into the left head baggage porter muscle, 5 units into the right head baggage porter muscle ??and 5 units into the [...] documented as of this encounter Care Teams Queen Producer Relationship Specialty Start Date End Date Jamal Butt M.D. NPJunior: [phone] [place] [phone] PCP - General Family Medicine 05/21/17 documented as of this encounter
--- OUTSIDE RECORDS SUMMARY | 2023-02-20 12:20 | XMS_ITS | Encounter Summary ---
Author Name Unknown Organization [facility] Address [address] [place] [address] Care Team Providers Care Industrial Education Teacher Name Role Phone Jamal Butt M.D. Primary Care Provider [phone] Encounter Details Date Type Department Care Team (Late st Contact Info) Description 02/22/2018 [facility] [address] [place] [address] Willard Shahid M.D. [address], [place] [address] Social History Tobacco Use Types Packs/Day Years Used Date Smoking Tobacco: Every Day Cigarettes 0.8 5 Started: 07/25/1998 Smokeless Tobacco: Never Alcohol Use Standard Drinks/Week Comments Yes 0 (1 standard drink = 0.6 oz pur e alcohol) beer socially Sex and Gender Information Value Date Recorded Sex Assigned at Female 03/06/2017 10:16 AM ROASTERMAN Gender Identity Female 03/06/2017 10:16 AM ROASTERMAN Sexual Orientation Straight 03/06/2017 10 :16 AM ROASTERMAN documented as of this encounter Plan of Treatment Upcoming Encounters Date Type Department Care Team (Late st Contact Info) Description 04/26/2023 10:00 AM CDT Office Visit Department of Neurology in [address] [phone] Patel Martell M.B., .B. [address] [place] [address] Discharge Disposition: Home or Self Care documented [...] Pending 01/12/2020 01/12/2020 01/13/2020 4 :11 AM ROASTERMAN COVID19 Pending 02/13/2020 02/13/2020 02/14/2020 1 :05 AM ROASTERMAN COVID19 Pending 03/31/2020 03/31/2020 03/31/2020 1 2:19 PM ROASTERMAN COVID19 Pending 03/31/2020 03/31/2020 04/01/2020 1 2:22 AM ROASTERMAN Protective Environment 06/07/2022 06/07/2022 COVID19 Pending 07/06/2022 07/06/2022 07/06/2022 8 :28 PM CDT Assessment Noted Time PHQ-9 Depression Total Score: 2 12/22/19 18 2:04 PM ROASTERMAN documented as of this encounter Care Teams Industrial Education Teacher Relationship Specialty Start Date End Date Jamal Btut M.D. [address] [place] [address] PCP - General Family Medicine 05/21/17 documented as of this encounter
--- OUTSIDE RECORDS SUMMARY | 2023-02-20 12:20 | XMS_ITS | Encounter Summary ---
Author Name Unknown Organization [facility] Address [address] [place] [address] Care Team Providers Care Professor Of Practice Name Role Phone Jamal Butt M.D. Primary Care Provider [phone] Encounter Details Date Type Department Care Team (Latest Contact Info) Description 02/25/2018 [facility] [address] [place] [address] Willard Shahid M.D. [address] [phone] Fasciculation (Primary Dx) Social History Tobacco Use Types Packs/Day Years Used Date Smoking Tobacco: Every Day Cigarettes 0.8 5 Started: 07/25/1998 Smokeless Tobacco: Never Alcohol Use Standard Drinks/Week Comments Yes 0 (1 standard drink = 0.6 oz pur e alcohol) beer socially Sex and Gender Information Value Date Recorded Sex Assigned at Female 03/06/2017 10:16 AM POKER ROOM MANAGER Gender Identity Female 03/06/2017 10:16 AM POKER ROOM MANAGER Sexual Orientation Straight 03/06/2017 10 :16 AM POKER ROOM MANAGER documented as of this encounter Plan of Treatment Upcoming Encounters Date Type Department Care Team (Late st Contact Info) Description 04/26/2023 10:00 AM CDT Office Visit Department of Neurology in [address] [phone] Patel Martell M.B., .B. [address] [place] [address] Discharge Disposition: Home or Self Care documented [...] Pending 01/12/2020 01/12/2020 01/13/2020 4 :11 AM POKER ROOM MANAGER COVID19 Pending 02/13/2020 02/13/2020 02/14/2020 1 :05 AM POKER ROOM MANAGER COVID19 Pending 03/31/2020 03/31/2020 03/31/2020 1 2:19 PM POKER ROOM MANAGER COVID19 Pending 03/31/2020 03/31/2020 04/01/2020 1 2:22 AM POKER ROOM MANAGER Protective Environment 06/07/2022 06/07/2022 COVID19 Pending 07/06/2022 07/06/2022 07/06/2022 8 :28 PM CDT Assessment Noted Time PHQ-9 Depression Total Score: 2 12/22/19 18 2:04 PM POKER ROOM MANAGER documented as of this encounter Care Teams Professor Of Practice Relationship Specialty Start Date End Date Jamal Butt M.D. [address] [place], [place] [address] [place] [address] PCP - General Family Medicine 05/21/17 documented as of this encounter
--- OUTSIDE RECORDS SUMMARY | 2023-02-20 12:20 | XMS_ITS | Encounter Summary ---
Author Name Unknown Organization [facility] Address [address] [place] [address] Care Team Providers Care Pharmacy District Manager Name Role Phone Jamal Butt M.D. Primary Care Provider [phone] Encounter Details Date Type Department Care Team (Late st Contact Info) Description 05/31/2016 Historical Ophthalmology [facility] Eileen Alicia M.D. Social History Tobacco Use Types Packs/Day Years Used Date Smoking Tobacco: Never Assessed Sex and Gender Information Value Date Recorded Sex Assigned at Female 03/06/2017 10:16 AM BEHAVIORIST Gender Identity Female 03/06/2017 10:16 AM BEHAVIORIST Sexual Orientation Straight 03/06/2017 10 :16 AM BEHAVIORIST documented as of this encounter Progress Notes [...] left eye. CD Reports - EYEGEN Id: [id number] Status: Fnl documented in this encounter Plan of Treatment Upcoming Encounters Date Type Department Care Team (Late st Contact Info) Description 04/26/2023 10:00 AM CDT Office Visit Department of Neurology in [place], [place] [address] [place] [phone] Patel Martell M.B., Ch.B. [address] [place] [phone] Discharge Disposition: Home or Self Care documented [...] Pending 01/12/2020 01/12/2020 01/13/2020 4 :11 AM BEHAVIORIST COVID19 Pending 02/13/2020 02/13/2020 02/14/2020 1 :05 AM BEHAVIORIST COVID19 Pending 03/31/2020 03/31/2020 03/31/2020 1 2:19 PM BEHAVIORIST COVID19 Pending 03/31/2020 03/31/2020 04/01/2020 1 2:22 AM BEHAVIORIST Protective Environment 06/07/2022 06/07/2022 COVID19 Pending 07/06/2022 07/06/2022 07/06/2022 8 :28 PM CDT documented as of this encounter Care Teams Pharmacy District Manager Relationship Specialty Start Date End Date Jamal Butt M.D. [address] [place] [address] PCP - General Family Medicine 05/21/17 documented as of this encounter
--- OUTSIDE RECORDS SUMMARY | 2023-02-20 12:20 | XMS_ITS | Encounter Summary ---
Author Name Unknown Organization [facility] Address [address] [place] [address] Care Team Providers Care Infantry Weapons Officer Name Role Phone Jamal Butt M.D. Primary Care Provider [phone] Reason for Visit * Reason Comments Communication Paper work from [facility] Encounter Details Date Type Department Care Team (Latest Contact Info) Description 03/01/2022 Clinical Communication Department of Neurology in [address] [phone] Patel Martell M.B., Ch.B. [address] [place] [phone] Communication (Paper work from [facility]) Social History Tobacco Use Types Packs/Day [...] How often do you attend [facility] or shinto services? Patient declined 10/28/2020 Do you belong to any clubs o r organizations such as latter-day groups, unions, fraternal or athletic groups, or [...] Answer Date Recorded PHQ-2 Score 1 12/01/2019 [facility] - Occupational Stress Questionnaire Answer Date [...] Sex Assigned at Female 03/06/2017 10:16 AM DOCUMENTATION SPEC Gender Identity Female 03/06/2017 10:16 AM DOCUMENTATION SPEC Sexual Orientation Straight 03/06/2017 10 :16 AM DOCUMENTATION SPEC documented as of this encounter Miscellaneous Notes * Telephone Encounter - Ceciyl Ascencio R.N. - 03/15/2022 8:35 AM CST RN had Dr. Martell sign the letter for Jm Chu. For the site of care for IVIG to be reveiwed for patient to keep her site at [place]. Faxed to [phone] Scanned paperwork to chart MENTATION SPEC * Telephone Encounter - Cecily Ascencio R.N. [...] or have home infusion. Contacted Barry at [facility] to let him know that Dr. Martell would write a letter first to see if she could continue having the Ocrevus at [facility]. MENTATION SPEC * Telephone Encounter - Cecily Ascencio R.N. - 03/01/2022 10:41 AM DOCUMENTATION SPEC Received paperwork from [facility] [phone] Asking necessary for this member ro continue receiving infusions at the [facility] infusion center. Paperwork placed on Dr. Martell's desk. MENTATION SPEC documented in this encounter Plan of Treatment Upcoming Encounters Date Type Department Care Team (Late st Contact Info) Description 04/26/2023 10:00 AM CDT Office Visit Department of Neurology in [address] [phone] Patel Martell M.B., Ch.B. [address] [place] [phone] Discharge Disposition: Home or Self Care documented as of this encounter Visit Diagnoses Not on filedocumented in this encounter Additional Health Concerns Assessment Noted Time PHQ-9 Depression Total Score: 2 12/01/19 20 6:54 AM CDT documented as of this encounter Care Teams Infantry Weapons Officer Relationship Specialty Start Date End Date Jamal Butt M.D. [address] [place] [address] PCP - General Family Medicine 05/21/17 documented as of this encounter
--- OUTSIDE RECORDS SUMMARY | 2023-02-20 12:20 | XMS_ITS | Encounter Summary ---
Author Name Unknown Organization [facility] Address [address] [place] [address] Care Team Providers Care Information Assurance Specialist Name Role Phone Jamal Butt M.D. Primary Care Provider [phone] Reason for Referral * Outpatient (Routine) - Authorized Specialty Diagnoses / Procedures Referred By Contac t Referred To Contact Neurology Patel Martell M.B., Ch.B. [address] [place] [phone] [facility] Referral ID Status Reason Start Date Expiration Date V isits Requested Visits Authorized [id number] Authorized 03/09/2022 03/08/2025 1 1 UE INSTRUCTOR Reason for Visit * Reason Comments Follow-up Migraines * Outpatient (Routine) - Closed Specialty Diagnoses / Procedures Referred By Contac t Referred To Contact Neurology Patel Martell M.B., Ch.B. [address] [place] [address] [facility] Referral ID Status Reason Start Date Expiration Date Visits Re quested Visits Authorized [id number] Closed 04/27/2021 04/27/2022 1 1 Encounter Details Date Type Department Care Team ([facility] st Contact Info) Description 03/08/2022 1:45 PM RESCUE INSTRUCTOR Office Visit Department of Neurology in [place], [place] [address] [place] [phone] Patel Martell M.B., Ch.B. [address] [place] [phone] Multiple Sclerosis (HCC) (Primary Dx); [...] declined 10/28/2020 How often do you attend [facility] or yarsani services? Patient declined 10/28/2020 Do you belong to any clubs o r organizations such as uatsdin groups, unions, fraternal or athletic groups, or [...] Answer Date Recorded PHQ-2 Score 1 12/01/2019 [facility] - Occupational Stress [...] Sex Assigned at Female 03/06/2017 10:16 AM RESCUE INSTRUCTOR Gender Identity Female 03/06/2017 10:16 AM RESCUE INSTRUCTOR Sexual Orientation Straight 03/06/2017 10 :16 AM RESCUE INSTRUCTOR documented as of this encounter Last Filed Vital Signs Vital Sign Reading Time Taken Comments Blood Pressure 129/80 03/08/2022 1:25 PM RESCUE INSTRUCTOR Pulse 97 03/08/2022 1:25 PM RESCUE INSTRUCTOR Temperature - - Respiratory Rate - - Oxygen Saturation - - Inhaled Oxygen Concentration - - Weight 70.3 kg (155 lb) 03/08/2022 1:25 PM RESCUE INSTRUCTOR Height 175.3 cm (5' 9) 03/08/2022 1:25 PM RESCUE INSTRUCTOR Body Mass Index 22.89 03/08/2022 1:25 PM RESCUE INSTRUCTOR documented in this encounter Consult Notes * Patel Martlel M.B., Ch.B. - 03/08/2022 1:45 PM CST SUBJECTIVE Referring Provider: Patel Martell M.B., Ch.B. CHIEF COMPLAINT / REASON FOR VISIT Jessy Vega is a 36 y.o. female who presents for evaluation of Consults HISTORY OF PRESENT ILLNESS Jessy Vega is a 36 y.o. female with medical history significant for multiple sclerosis, andchronic migraine headaches who presented at the [facility] on 03/08/2022 as a [...] to previous 2019 study: Multiple bilateral unchanged [id number] lesions within the periventricular white matter consistent with the patient's known MS. The brainstem, cerebellum and visualized optic nerves remain free of disease process, and there are no newly identified lesions. There is no enhancement of any of the lesions on the current study. Prior history: Initial evaluation 11/04/2020, Jessy presented for establishment of care with [facility], she was initially seen by [place] [facility], she carries a diagnosis of multiple sclerosis diagnosed 01/31/2012, after bout of optic neuritis involving the right eye, she was diagnosed in [place], and chronic headaches. She states she was [...] 2019, when she transferred her care from [place] to [place]. In 2013 she underwent a stem cell [...] did not respond to any treatment, including hthi-[id number]-[id number] pain med and triptans. On today's presentation, she is reestablishing care, she was initially seen as [place] but due toproximity effect would preferred to seen in [place], she is due for her Botox injections, she is also due for Ocrevus infusion, of note she is having difficulty with having the Ocrevus approved by insurance company, this is been worked out with her previous neurologist in [place] who has sent in a n appeal. [...] include both face to face and non ylgz-tc-zbhr time, of this about 15 minutes or so were spent in education, counseling and coordinating future care. PATIENT EDUCATION Ready to learn, no apparent learning barriers were identified; learning preferences include listening. Explained diagnosis and treatment plan; patient expressed understanding of the content. Arabella Hernandez., Ch.B. Board Certified Neurologist Neuro-Boiler Tube Reamer 03/08/22 1:45 PM RESCUE INSTRUCTOR UE INSTRUCTOR documented in this encounter Miscellaneous Notes * Addendum Note - Patel Martell M.B., Ch.B. - 03/08/2022 1:45 PM CSTAddended by: PATEL MARTELL on: 03/09/2022 08:46 AM Modules accepted: Level of Service UE INSTRUCTOR documented in this encounter Plan of Treatment Upcoming Encounters Date Type Department Care Team (Late st Contact Info) Description 04/26/2023 10:00 AM CDT Office Visit Department of Neurology in [address] [phone] Patel Martell M.B., Ch.B. [address] [place] [phone] Discharge Disposition: Home or Self Care Scheduled [...] documented as of this encounter Care Teams Information Assurance Specialist Relationship Specialty Start Date End Date Jamal Butt M.D. [address] [place] [phone] PCP - General Family Medicine 05/21/17 documented as of this encounter
--- OUTSIDE RECORDS SUMMARY | 2023-02-20 12:20 | XMS_ITS | Encounter Summary ---
Author Name Unknown Organization [facility] Address [address] [place] [address] Care Team Providers Care Material Disposition Inspector Name Role Phone Jamal Butt M.D. Primary Care Provider [phone] Reason for Visit * Reason Comments Outpatient Infusion Ocrevus * Episode Based Medications (Routine) - Authorized Specialty Diagnoses / Procedures Referred By Contayla t Referred To Contact Diagnoses Multiple Sclerosis (HCC) Procedures DC OCRELIZUMAB 1 MG INJ Patel Martell M.B., Ch.B. [address] [place] [address] [facility] Region Referral ID Status Reason Start Date Expiration Date V isits Requested Visits Authorized [id number] Authorized 02/16/2022 08/24/2023 3 3 Encounter Details Date Type Department Care Team (Late st Contact Info) Description 02/24/2022 8:30 AM GARBAGE MAN Infusion Department of Infusion Therapy in [place], [place] [address] [place] [phone] Patel Mratell M.B., Ch.B. [address] [place] [phone] Multiple Sclerosis (HCC) (Primary Dx) Social History [...] How often do you attend chur or shinto services? Patient declined 10/28/2020 Do you belong to any clubs o r organizations such as protestant groups, unions, fraternal or athletic groups, or [...] Date Recorded PHQ-2 Score 1 12/01/2019 [facility] - Occupational [...] Sex Assigned at Female 03/06/2017 10:16 AM GARBAGE MAN Gender Identity Female 03/06/2017 10:16 AM GARBAGE MAN Sexual Orientation Straight 03/06/2017 10 :16 AM GARBAGE MAN documented as of this encounter Last Filed Vital Signs Vital Sign Reading Time Taken Comments Blood Pressure 120/70 02/24/2022 10:06 AM GARBAGE MAN Pulse 88 02/24/2022 10:06 AM GARBAGE MAN Temperature 36.6 ??C (97.9 ??F) 02/24/2022 10:[address] Respiratory Rate 14 02/24/2022 10:06 AM GARBAGE MAN Oxygen Saturation 97% 02/24/2022 10:06 AM GARBAGE MAN Inhaled Oxygen Concentration - - Weight - - Height - - Body Mass Index - - documented in this encounter Plan of Treatment Upcoming Encounters Date Type Department Care Team (Late st Contact Info) Description 04/26/2023 10:00 AM CDT Office Visit Department of Neurology in [place], [place] [address] [place] [phone] Patel Martell M.B., Ch.B. [address] [place] [phone] Discharge Disposition: Home or Self [...] For 1 dose Given 02/24/2022 8:50 AM GARBAGE MAN 650 mg diphenhydrAMINE capsule 25 mg (BENADRYL) 25 mg, oral, Once, On Sun02/24/22 at 0845, For 1 dose Given 02/24/2022 8:50 AM GARBAGE MAN 25 mg methylPREDNISolone sod succinate (PF) injection 100 mg (SOLU-Medrol) 100 mg, intravenous, Once, On Sun02/24/22 at 0845, For 1 dose, Activate vial to a final concentration of 62.5 mg/mL Given 02/24/2022 8:50 AM GARBAGE MAN 100 mg ocrelizumab 600 mg in NaCl [...] infusion authorized. Rate/Dose Change 02/24/2022 10:06 AM GARBAGE MAN 300 mL/hr Rate/Dose Change 02/24/2022 9:36 AM GARBAGE MAN 250 mL/ hr Rate/Dose Change 02/24/2022 9:20 AM GARBAGE MAN 200 mL/ hr documented in this encounter Additional Health Concerns Assessment Noted Time PHQ-9 Depression Total Score: 2 12/01/19 6:54 AM CDT documented as of this encounter Care Teams Material Disposition Inspector Relationship Specialty Start Date End Date Jamal Butt M.D. NPJunior: [phone] [place] [address] PCP - General Family Medicine 05/21/17 documented as of this encounter
--- OUTSIDE RECORDS SUMMARY | 2023-02-20 12:20 | XMS_ITS | Encounter Summary ---
Author Name Unknown Organization [facility] Address [address] [place] [address] Care Team Providers Care Sprinkler Fitter Apprentice Name Role Phone Jamal Butt M.D. Primary Care Provider [phone] Reason for Visit * Reason Comments Botulinum Toxin Injection 150 UNITS * Outpatient (Routine) - Closed Specialty Diagnoses / Procedures Referred By Contac t Referred To Contact Diagnoses Chronic Migraine Procedures Botox for Chronic Migraine Bety Chauhan APRN, BOOTH CASHIER, M.S., M.S.N. [address] [place] [phone] [facility] Region Referral ID Status Reason Start Date Expiration Date Visits Re quested Visits Authorized [id number] Closed 09/22/2021 09/22/2022 1 1 Encounter Details Date Type Department Care Team (Latest Contact Info) Description 03/09/2022 3:30 PM MOPPER Procedure visit Department of Neurology in [place], [place] [address] [place] [phone] Patel Martell M.B., Ch.B. [address] [place] [phone] Migraine Headache Chronic Discharge Disposition: Home [...] How often do you attend chur or mormon services? Patient declined 10/28/2020 Do you belong to any clubs o r organizations such as voodoo groups, unions, fraternal or athletic groups, or [...] Sex Assigned at Female 03/06/2017 10:16 AM MOPPER Gender Identity Female 03/06/2017 10:16 AM MOPPER Sexual Orientation Straight 03/06/2017 10 :16 AM MOPPER documented as of this encounter Procedure Notes * Patel Martell M.B., Ch.B. - 03/09/2022 3:30 PM CSTAssociated Order(s): Botox for Chronic Migraine Pre-Procedure Diagnose(s): Chronic Migraine Post-Procedure Diagnose(s): Chronic Migraine Botox for Chronic Migraine Performed by: Patel Martell M.B., Ch.B. Authorized by: Bety Chauhan APRN, BOOTH CASHIER, M.S., M.S.N. Care team members present 1. Patel Martell M.B., Ch.B. 2. Joan Brock RCasandra PROCEDURE DETAILS Pre-procedure pain score: 8/10 Injection of: 100 Units onabotulinumtoxinA 100 unit; 50 Units onabotulinumtoxinA 100 unit Needle gauge: 30 Needle length: 0.5 in Injection site details Collector Of Port / Procerus muscle(s): 5 units into the left roll tension tester muscle, 5 units into the right roll tension tester muscle and 5 units into the procerus [...] complications Nereida Hernandez, Ch.B. Board Certified Neurologist Neuro-Regional Business Development Manager 03/09/22 3:59 PM MOPPER ER documented in this encounter Plan of Treatment Upcoming Encounters Date Type Department Care Team (Late st Contact Info) Description 04/26/2023 10:00 AM CDT Office Visit Department of Neurology in [address] [phone] Patel Martell M.B., Ch.B. [address] [place] [phone] Discharge Disposition: Home or Self Care documented as of this encounter Procedures Procedure Name Priority Date/Time Associated Diagnosis Comments [place] CHEMODENERV FACIAL TRIGEM BARBARA Routine 03/09/2022 3:30 PM MOPPER Migraine Headache Chronic documented in this encounter Results * [place] CHEMODENERV FACIAL TRIGEM BARBARA (03/09/2022 3:30 PM MOPPER) Narrative MMODAL - 03/09/2022 3:30 PM MOPPER Patel Martell M.B., Ch.B. ? 03/09/2022 ??4:00 PM Botox for Chronic Migraine Performed by: Patel Martell M.B., Ch.B. Authorized by: Bety Chauhan APRN, BOOTH CASHIER, M.S., M.S.N. Care team members present 1. Patel Martell M.B., Ch.B. 2. Joan Brock RMertN. PROCEDURE DETAILS ?? Pre-procedure pain score: 8/10 Injection of: ??100 Units onabotulinumtoxinA 100 unit; 50 Units onabotulinumtoxinA 100 unit Needle gauge: 30 Needle length: 0.5 in Injection site details Collector Of Port / Procerus muscle(s): 5 units into the left roll tension tester muscle, 5 units into the right roll tension tester muscle ??and 5 units into the procerus [...] For 1 dose Given 03/09/2022 3:27 PM MOPPER 100 Units onabotulinumtoxinA injection 50 Units (BOTOX) 50 Units, injection, One-Time Injection, Starting on Angelique 03/09/22 at 1527, For 1 dose Given 03/09/2022 3:27 PM MOPPER 50 Units documented in this encounter Additional Health Concerns Assessment Noted Time PHQ-9 Depression Total Score: 2 12/01/19 20 6:54 AM CDT documented as of this encounter Care Teams Sprinkler Fitter Apprentice Relationship Specialty Start Date End Date Jamal Butt M.D. [address] [place] [phone] PCP - General Family Medicine 05/21/17 documented as of this encounter
--- OUTSIDE RECORDS SUMMARY | 2023-02-20 12:20 | XMS_ITS | Encounter Summary ---
Author Name Unknown Organization [facility] Address [address] [place] [address] Care Team Providers Care Insert Molding Operator Name Role Phone Jamal Butt M.D. Primary Care Provider [phone] Encounter Details Date Type Department Care Team (Late st Contact Info) Description 08/09/2017 [facility] [address] [place] [address] Willard Shahid M.D. [address], [place] [phone] Pain Elbow Right (Primary Dx); Neuropathy Ulnar Right Social History Tobacco Use Types Packs/Day Years Used Date Smoking Tobacco: Every Day Cigarettes 0.8 5 Started: 07/25/1998 Smokeless Tobacco: Never Alcohol Use Standard Drinks/Week Comments Yes 0 (1 standard drink = 0.6 oz pur e alcohol) beer socially Sex and Gender Information Value Date Recorded Sex Assigned at Female 03/06/2017 10:16 AM INTERNATIONAL SALES MANAGER Gender Identity Female 03/06/2017 10:16 AM INTERNATIONAL SALES MANAGER Sexual Orientation Straight 03/06/2017 10 :16 AM INTERNATIONAL SALES MANAGER documented as of this encounter Plan of Treatment Upcoming Encounters Date Type Department Care Team (Late st Contact Info) Description 04/26/2023 10:00 AM CDT Office Visit Department of Neurology in [address] [phone] Patel Martell M.B., .B. [address] [place] [phone] Discharge Disposition: Home or Self Care documented [...] Pending 01/12/2020 01/12/2020 01/13/2020 4 :11 AM INTERNATIONAL SALES MANAGER COVID19 Pending 02/13/2020 02/13/2020 02/14/2020 1 :05 AM INTERNATIONAL SALES MANAGER COVID19 Pending 03/31/2020 03/31/2020 03/31/2020 1 2:19 PM INTERNATIONAL SALES MANAGER COVID19 Pending 03/31/2020 03/31/2020 04/01/2020 1 2:22 AM INTERNATIONAL SALES MANAGER Protective Environment 06/07/2022 06/07/2022 COVID19 Pending 07/06/2022 07/06/2022 07/06/2022 8 :28 PM CDT Assessment Noted Time PHQ-9 Depression Total Score: 17 04 018 10:52 AM CDT documented as of this encounter Care Teams Insert Molding Operator Relationship Specialty Start Date End Date Jamal Butt M.D. [address] [place] [phone] PCP - General Family Medicine 05/21/17 documented as of this encounter
== END 2023-02-17 04:07 | disposition home or self-care (01) ==
LOC: AMB 02-20 11:42
PROVIDERS: PCP Family Medicine; Visit Provider Internal Medicine
DX: R41.82 Altered mental status, unspecified (principal)

== ENCOUNTER 2023-02-23 14:30 | Outpatient (RCR) | payer BC, SELFPAY ==
[2023-02-15 15:30] LABS: Basophils Absolute Auto 0.05 K/uL (0.00-0.30); Eosinophils Percent Auto 9.5 % (0.0-7.0); Hematocrit 40.6 % (33.0-51.0); Hemoglobin* 12.9 gm/dL (12.0-16.0); Immature Granulocytes Abs Auto 0.01 K/uL (0.00-0.30); Immature Granulocytes Pct Auto 0.2 %; Lymphocytes Absolute Auto 0.99 K/uL (0.90-2.90); Lymphocytes Percent Auto 20.1 % (20-44); Mean Corpuscular HGB Conc 32 gm/dL (32-36); Mean Corpuscular Hemoglobin 29 pg (26-34); Mean Corpuscular Volume 91 fL (80-100); Monocytes Percent Auto 12.6 % (0.0-11.0); Neutrophils Absolute Auto 2.79 K/uL (1.7-7.0); Neutrophils Percent Auto 56.6 % (42.0-72.0); Platelet Count* 360 K/uL (140-440); RDW Coefficient of Variation % 13.3 % (11.5-15.5); Red Blood Count 4.47 m/uL (4.00-5.20); White Blood Count* 4.93 K/uL (4.50-11.00)
[2023-02-15 15:34] LABS: Chloride* 106 mmol/L (96-114); Sodium* 138 mmol/L (135-149)
[2023-02-15 15:35] LABS: Potassium* 4.4 mmol/L (3.6-5.1)
[2023-02-15 15:37] LABS: Anion Gap 7 mEq/L (7-15); Blood Urea Nitrogen* 12 mg/dL (5-24); Carbon Dioxide* 25 mmol/L (20-32); Creatinine* 0.5 mg/dL (0.5-1.5); Estimated Glomerular Filt Rate 122 ml/min
[2023-02-15 15:38] LABS: Calcium* 8.6 mg/dL (8.4-10.6); Glucose* 90 mg/dL (60-115)
[2023-02-15 16:00] LABS: Slide Review Reflex No
--- NOTE | 2023-02-23 14:43 | ONC.NURNOTE ---
picc midline pulled without any difficult. tip intact. pressure applied with sterile dressing. pt monitored for 30 minutes. then discharged. roge well.
== END 2023-08-14 23:59 | disposition home or self-care (01) ==
LOC: CCIC 14:30
PROVIDERS: PCP Family Medicine; Referring Provider Family Medicine; Visit Provider Clinical Nurse Specialist
DX: J18.9 Pneumonia, unspecified organism (principal); D84.821 Immunodeficiency due to drugs; Z79.899 Other long term (current) drug therapy
CPT/HCPCS: 36415; 36589; 80048; 85025; A4221

== ENCOUNTER 2024-04-10 00:27 | Outpatient (CLI) | payer OTHER, SELFPAY | END 2024-04-10 00:28 | disposition home or self-care (01) | LOC: AMB 04-11 09:21 | PROVIDERS: PCP Family Medicine; Visit Provider Family Medicine | DX: R06.09 Other forms of dyspnea (principal) | CPT/HCPCS: A0425; A0427 ==

== ENCOUNTER 2024-04-10 01:08 | Emergency (ER) | payer OTHER, SELFPAY ==
--- OUTSIDE RECORDS SUMMARY | 2024-04-10 01:10 | XMS_ITS | Clinical Summary ---
Author Organization [facility] Address [address] [place] [address] Care Team Providers Care Logistics Planner Name Role Phone Jamal Butt M.D. Primary Care Provider [phone] Source Comments Patient records contain information from all sites at [facility]. For routine questions regarding patient records, call [phone] during business hours, M-F 8:00 AM - 5:00 PM Central Time. Record requests for emergency care only can be directed to [phone] at any time.[facility] Allergies Active Allergy Reactions Criticality Noted Date Comments Glatiramer (Copolymer 1) Anaphylaxis High 03/04/2017 Glatiramer Acetate Anaphylaxis High 09/20/2016 Mold Anaphylaxis High 08/31/2022 Bupropion Hcl Other (see comments) Low 03/04/2017 Burning sensation. Intolerance. Medications * This document contains information received from the source organization and may not represent a complete record from that organization. traZODone (for_DESYREL) 100 mg tablet Take 200 mg by mouth at bedtime. Active riTUXimab in NaCl solution IVPB (for_RITUXAN) Infuse 1,000 mg into a venous catheter every 6 (six) months. 7 Active METHYLPREDNISOL ONE ACETATE INJ Inject as directed as directed. Dose: 125 mg IVP, premed for Rituxan infusion. Every 6-months 7 Active diphenhydrAMINE (BENADRYL) 25 mg capsule Take 1 capsule by mouth as directed. Premed for Rituxan infusion. 7 Active beclomethasone (for_QVAR) 40 mcg/actuation inhaler Inhale 2 puffs as needed. 7 Active albuterol (for_PROVENTIL HFA,VENTOLIN HFA) 90 mcg/actuation inhaler Inhale 1-2 puffs every other day. 7 Active dextroamphetami ne-amphetamine (ADDERALL) 30 mg tablet Take 1 tablet (30 mg total) by mouth daily. 30 tablet 8 Active Additional Information Patient taking differently:30 mg oral Daily,30 mg in am, 15 mg in the afternoon and 15 mg at night, Informant: Self, Reported on 06/29/2022 clonazePAM (KlonoPIN) 1 mg tablet Take 1 mg by mouth 2 (two) times a day as needed for anxiety. States she takes it as needed. Active acetaminophen (TYLENOL) 500 mg tablet Take 1,000 mg by mouth as directed. Premed for Rituxan. Active cloNIDine (CATAPRES) 0.1 mg tablet Take 0.1 mg by mouth as needed. 3 9 Active FLOVENT HFA 110 mcg/actuation inhaler Inhale 1 puff as needed. 3 9 Active fluconazole (DIFLUCAN) 200 mg tablet Take 200 mg by mouth at bedtime. 9 Active ketoconazole (NIZORAL) 2 % cream at bedtime. 9 Active montelukast (SINGULAIR) 10 mg tablet Take 10 mg by mouth at bedtime. 9 Active B complex-vitamin s (BALANCE B-50) tablet Take 1 tablet by mouth daily. Active ascorbic acid, vitamin C, (VITAMIN C) 250 mg tablet Take 250 mg by mouth daily. Active ferrous sulfate 325 mg (65 mg iron) DR tablet Take 65 mg of iron by mouth daily. Iron Active zinc gluconate 50 mg tablet Take 50 mg by mouth daily with breakfast. Zinc Active pregabalin (LYRICA) 100 mg capsule 2 (two) times a day. 0 Active cyanocobalamin (VITAMIN B12) 1,000 mcg tablet Take 1,000 mcg by mouth daily. 0 Active riTUXimab (RITUXAN) 10 mg/mL injection every 6 (six) months. Active fluticasone propionate (FLONASE) 50 mcg/actuation nasal spray Administer 2 sprays into each nostril 2 (two) times a day. Active dextroamphetami ne-amphetamine (ADDERALL) 20 mg tablet Take 3 tablets by mouth 3 (three) times a day. 1 Active cholecalciferol , vitamin D3, 25 mcg (1,000 Unit) tablet Take 1 tablet (1,000 units) by mouth daily 3 Active lamoTRIgine (LaMICtaL) 200 mg tablet 3 Active lamoTRIgine (LaMICtaL) 25 mg tablet 3 Active nystatin (NYSTOP) 100,000 unit/gram powder Apply 1 Application topically 2 (two) times a day. 4 Active benzonatate (TESSALON) 200 mg capsule Take 200 mg by mouth 3 (three) times a day as needed. 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 Colitis Ulcerative Proctitis 05/09/2017 Overview (05/09/2017): With consitpation Major Depressive Disorder, Recurrent, Unspecifie d 07/11/2016 Generalized anxiety disorder 07/11/2016 Deficiency Vitamin B12 07/11/2016 Multiple Sclerosis 05/26/2016 Overview (05/09/2017): History of stem cell transplant. Currently on rituximab. Resolved Problems Problem Noted Date Diagnosed Date Resolved Date Depression Major Recurrent Moderate 08/07/2016 05/09/2017 Personal History Of Other Sp ecified Conditions 07/11/2016 05/09/2017 Overview (05/09/2017): Sober for 10 years, ecstasy and cocaine Encounters Date Type Department Care Team Description 03/11/2024 Orders Only [facility] Jamal Butt M.D. Screening Lipid from Last 3 Months Immunizations Immunization Administration Dates Next Due Influenza Split 12/13/2015,12/13/2015 PPSV23 05/09/2017 SARS-COV-2 (COVID-19) - PFIZ ER (Discontinued)(12 years or older) 07/14/2020,06/10/2020 Tdap 05/09/2017 Family History Medical History [...] Years Used Date Smoking Tobacco: Former Cigarettes 0.5 25.7 S tarted: 07/25/1998 Smokeless Tobacco: Current Chew Tobacco Cessation:Ready to Q uit: Not Asked; Counseling Given: Not Answered Alcohol Use Standard Drinks/Week Comments Yes 1 (1 standard drink = 0.6 oz pur [...] declined 10/28/2020 How often do you attend [facility] or jainism services? Patient declined 10/28/2020 Do you belong to any clubs o r organizations such as jewish groups, unions, fraternal or athletic groups, or [...] Answer Date Recorded PHQ-2 Score 1 12/01/2019 [facility] - Occupational [...] Dental Answer Date Recorded Dental: Regular Dentist Unknown 10/29/19 Employment Answer Date Recorded Employment status Unemployed/not in th e paid workforce but seeking employment 10/28/2020 Education Answer Date Recorded What is the highest level of school you have completed or the highest degree you have received? Associate degree: occupational, technical, or vocational program 12/01/2019 Comments No Sex and Gender Information Value Date Recorded Sex Assigned at Female 03/06/2017 10:16 AM FERRYBOAT OPERATOR CABLE Legal Sex Female 4:48 PM CDT Gender Identity Female 03/06/2017 10:16 AM FERRYBOAT OPERATOR CABLE Sexual Orientation Straight 03/06/2017 10 :16 AM FERRYBOAT OPERATOR CABLE Last Filed Vital Signs Vital Sign Reading Time Taken Comments Blood Pressure 120/80 04/26/2023 9:58 AM CDT Pulse 98 04/26/2023 9:58 AM CDT Temperature 36.6 C (97.9 F) 08/28/2022 9:03 AM CDT Respiratory Rate 16 08/28/2022 9:03 AM CDT Oxygen Saturation 96% 08/28/2022 9:03 AM CDT Inhaled Oxygen Concentration - - Weight 66.6 kg (146 lb 13.2 oz) 04/26/2023 9:58 AM CDT Height 175.3 cm (5' 9) 07/06/2022 7:02 PM CDT Body Mass Index 21.68 07/06/2022 7:02 PM CDT Plan of Treatment Health Maintenance Due Date Last Done Comments Depression Monitoring (PHQ-9) 1983 HIV Screening 1983 Hepatitis C Screening 1983 Lipid (Cholesterol) Screening 1983 Mammogram 1983 Tobacco Cessation counseling 1983 Hepatitis B Vaccines (1 of 3 - 19+ 3-dose series) 08/04/2002 Zoster Vaccines (1 of 2) 08/04/2002 HPV Vaccines (1 - Risk 3-dos e SCDM series) 08/04/2010 Pneumococcal vaccine (0-49 years) (2 of 2 - PCV) 05/09/2018 05/09/2017 COVID-19 Vaccine (3 - Pfizer risk series) 08/11/2020 07/14/2020, 06/10/2020 Influenza Vaccine (#1) 2023 9, 12/13/2015, 12/13/2015 Depression Monitoring (PHQ-9 for quality tracking) 02/06/2024 DTaP,Tdap,and Td Vaccines (2 - Td or Tdap) 05/10/2027 05/09/2017, 07/17/2016 Hepatitis B Screening Completed 08/16/2017 IPV Vaccines Aged Out No longer eligi ble based on patient's age to complete this topic Procedures Procedure Name Priority Date/Time Associated Diagnosis Comments HEPATITIS B SURFACE ANTIGEN Routine 08/16/2017 9:47 AM CDT Multiple Sclerosis (HCC) from Last 3 Months or Most Recently Relevant to Health Maintenance Results * Hepatitis B Surface Antigen (08/16/2017 9:47 AM CDT) HBs Antigen, S Negative Negative 08/16/2017 2:56 PM CDT [facility] Blood 08/16/2017 9:47 AM CDT 08/16/2017 12:20 PM CDT us Alexandr Shaikh M.D. 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 [address] [place] [phone] PCP - General Family Medicine 05/21/17
--- OUTSIDE RECORDS SUMMARY | 2024-04-10 01:10 | XMS_ITS | Encounter Summary ---
Author Organization [facility] Address [address] [place] [address] Care Team Providers Care Assistant Production Editor Name Role Phone Jamal Butt M.D. Primary Care Provider Encounter Details Date Type Department Care Team (Late st Contact Info) Description 03/11/2024 Orders Only [facility] Jamal Butt M.D. [address] [place] [address] Screening Lipid Social History Tobacco Use Types Packs/Day Years Used Date Smoking Tobacco: Former Cigarettes 0.5 25.7 S tarted: 07/25/1998 Smokeless Tobacco: Current Chew Alcohol Use Standard Drinks/Week Comments Yes 1 [...] How often do you attend [facility] or muslim services? Patient declined 10/28/2020 Do you belong [...] Sex Assigned at Female 03/06/2017 10:16 AM MANNEQUIN MAKER Legal Sex Female 4:48 PM CDT Gender Identity Female 03/06/2017 10:16 AM MANNEQUIN MAKER Sexual Orientation Straight 03/06/2017 10 :16 AM MANNEQUIN MAKER documented as of this encounter Plan of Treatment Scheduled Orders Name Type Priority Associated Diagnoses Orde r Schedule Lipid Panel Lab Routine Screening Lipid Expected: 03/25/2024, Expires: 08/28/2024 documented as of this encounter Visit Diagnoses Diagnosis Screening Lipid documented in this encounter Additional Health Concerns Infection Onset Date Last Indicated Resolved Time Protective Environment 06/07/2022 06/07/2022 Assessment Noted Time PHQ-9 Depression Total Score: 2 12/01/19 20 6:54 AM CDT documented as of this encounter Care Teams Assistant Production Editor Relationship Specialty Start Date End Date Jamal Butt M.D. [address] [place] [phone] PCP - General Family Medicine 05/21/17 documented as of this encounter
--- OUTSIDE RECORDS SUMMARY | 2024-04-10 01:10 | XMS_ITS | Encounter Summary ---
Author Organization [facility] Address [address] [place] [address] Care Team Providers Care File Drawer Finisher Name Role Phone Jamal Butt M.D. Primary Care Provider [phone] Encounter Details Date Type Department Care Team (Late st Contact Info) Description 05/31/2016 Historical Ophthalmology [facility] Eileen Alicia M.D. Social History Tobacco Use Types Packs/Day Years Used Date Smoking Tobacco: Never Assessed Comments Unknown Sex and Gender Information Value Date Recorded Sex Assigned at Female 03/06/2017 10:16 AM POWER SAW OPERATOR Legal Sex Female 4:48 PM CDT Gender Identity Female 03/06/2017 10:16 AM POWER SAW OPERATOR Sexual Orientation Straight 03/06/2017 10 :16 AM POWER SAW OPERATOR documented as of this encounter Progress [...] right eye, few paracentral defects left eye. CDM Reports - EYEGEN Id: [id number] Status: Fnl documented in this encounter Plan of Treatment Not on file documented as of this encounter Visit Diagnoses Not on filedocumented in this encounter Additional Health Concerns Infection Onset Date Last Indicated Resolved Time COVID19 Pending 09/11/2019 09/11/2019 09/12/2019 4 :17 AM CDT COVID19 Pending 11/18/2019 11/18/2019 11/19/2019 1 2:28 PM CDT COVID19 Pending 11/20/2019 11/20/2019 11/20/2019 1 0:17 PM CDT COVID19 Pending 01/12/2020 01/12/2020 01/13/2020 4 :11 AM POWER SAW OPERATOR COVID19 Pending 02/13/2020 02/13/2020 02/14/2020 1 :05 AM POWER SAW OPERATOR COVID19 Pending 03/31/2020 03/31/2020 03/31/2020 1 2:19 PM POWER SAW OPERATOR COVID19 Pending 03/31/2020 03/31/2020 04/01/2020 1 2:22 AM POWER SAW OPERATOR Protective Environment 06/07/2022 06/07/2022 COVID19 Pending 07/06/2022 07/06/2022 07/06/2022 8 :28 PM CDT documented as of this encounter Care Teams File Drawer Finisher Relationship Specialty Start Date End Date Jamal Butt M.D. [address] [place] [phone] PCP - General Family Medicine 05/21/17 documented as of this encounter
--- OUTSIDE RECORDS SUMMARY | 2024-04-10 01:10 | XMS_ITS | Referral Summary ---
Author Organization [facility] Address [address] [facility] [place] [address] Care Team Providers Care Roll Cutter Name Role Phone Stanton, Primary Care Provider Unavailabl e NoneMd Unavailable Unavailable Allergies Active Allergy Reactions Criticality Noted Date Comments Bupropion Hcl 03/04/2017 Other reaction(s): Other (see comments) Burning sensation. Intolerance. Other reaction(s): Intolerance-Can't Take Glatiramer Acetate Anaphylaxis High 09/20/2016 Medications dextroamphetamin e-amphetamine (ADDERALL) 30 mg oral tablet Take 1 tablet (30 mg total) by mouth daily. 07/05/19 18 Active acetaminophen (TYLENOL) 500 mg oral tablet Take 1,000 mg by mouth as directed. Premed for Rituxan. Active traMADol (ULTRAM) 50 mg oral tablet Take 1-2 tablets (50-100 mg total) by mouth every 6 (six) hours as needed for pain. 09/08/19 18 Active riTUXimab (RITUXAN) 10 mg/mL IV Conc Administer intravenously once. Active clonazePAM (KLONOPIN) 1 mg oral tablet Take 1 mg by mouth 2 (two) times a day. States she takes it as needed. Active gabapentin (NEURONTIN) 300 mg oral capsule Take 1 capsule (300 mg total) by mouth 3 (three) times a day. 06/16/19 18 Active lamoTRIgine (LAMICTAL) 25 mg oral tablet Weeks 1 and 2: 25 mg once daily; Weeks 3 and 4: 50 mg once daily; Week 5: 100 mg once daily; Week 6 and maintenance: 200 mg once daily 09/21/19 17 Active diphenhydrAMINE (BENADRYL) 25 mg oral capsule Take 1 capsule by mouth as directed. Premed for Rituxan infusion. 09/14/19 17 Active albuterol HFA (PROVENTIL;AMELIA FRED HFA) 90 mcg/actuation Inhl inhaler Inhale 1-2 puffs. 11/03/19 17 Active beclomethasone dipropionate 40mcg/puff (QVAR) 40 mcg/actuation Inhl Aerosol inhaler Inhale 2 puffs. 11/03/19 17 Active traZODone (DESYREL) 100 mg oral tablet Take 200 mg by mouth at bedtime. Active venlafaxine (EFFEXOR) 37.5 mg oral tablet Take 37.5 mg by mouth daily. Active METHYLPREDNISOLO NE ACETATE INJECTION Inject as directed as directed. Dose: 125 mg IVP, premed for Rituxan infusion. 09/14/19 17 Active cyclobenzaprine (FLEXERIL) 5 mg oral tabletIndication s:Tear of right biceps muscle, initial encounter Take 1-2 tablets (5-10 mg) by mouth three times a day as needed. 30 tablet 11/12/19 18 Active Social History Tobacco Use Types Packs/Day Years Used Date Smoking Tobacco: Every Day Cigarettes Smokeless Tobacco: Never Alcohol Use Standard Drinks/Week Comments Yes 0 (1 standard drink = 0.6 oz pur e alcohol) Comments No Sex and Gender Information Value Date Recorded Sex Assigned at Not on file Legal Sex Female 6:47 PM CDT Gender Identity Not on file Sexual Orientation Not on file Last Filed Vital Signs Vital Sign Reading Time Taken Comments Blood Pressure 132/83 11/11/2017 6:59 PM CDT Pulse 86 11/11/2017 6:59 PM CDT Temperature 37 C (98.6 F) 11/11/2017 6:59 PM CDT Respiratory Rate 18 11/11/2017 6:59 PM CDT Oxygen Saturation 98% 11/11/2017 6:59 PM CDT Inhaled Oxygen Concentration - - Weight 72.6 kg (160 lb) 11/11/2017 6:59 PM CDT Height 170.2 cm (5' 7) 11/11/2017 6:59 PM CDT Body Mass Index 25.06 11/11/2017 6:59 PM CDT Plan of Treatment Not on file Insurance [address] [place] [id number] [address] [place] [id number] [facility] Care Teams Roll Cutter Relationship Specialty Start Date End Date None, PCP - General 11/11/17 None, PCP - Primary Care Clinic 11/11/17
--- OUTSIDE RECORDS SUMMARY | 2024-04-10 01:10 | XMS_ITS | Clinical Summary ---
Author Organization [facility] Address [address] [place] [id number] Care Team Providers Care Seismic Computer Name Role Phone Willard Shahid MD Primary Care Provider [phone] Allergies Active Allergy Reactions Criticality Noted Date Comments Glatiramer (Copolymer 1) Vomiting,Anaphylaxis High 0 03/04/2017 Mold Shortness Of Breath 01/31/2023 Bupropion Hcl Intolerance-Can't Take 07/27/2017 Medications Amphetamine-Dextr oamphetamine (ADDERALL) 30 mg tablet Take 30 mg by mouth before breakfast. 8 Active etodolac (LODINE) 300 mg capsule Take 300 mg by mouth once daily. Active METHYLPREDNISOLON E ACETATE INJ by Continuous Infusion route EVERY 6 MONTHS. 7 Active clonazePAM (KLONOPIN) 1 mg tablet Take 1 tablet by mouth 2 times daily. 0 Active VITAMIN B COMPLEX ORAL Take 1 Tab by mouth once daily. Active traZODone (DESYREL) 100 mg tablet Take 2 tablets by mouth once daily. 0 Active montelukast (SINGULAIR) 10 mg tablet Take 10 mg by mouth once daily. 0 Active minocycline (MINOCIN) 100 mg capsule Take 100 mg by mouth once daily. 9 Active lamoTRIgine (LAMICTAL) 100 mg tablet Take 225 mg by mouth once daily. 0 Active ferrous sulfate 325 mg delayed release tablet Take 1 tablet by mouth once daily. Active albuterol HFA 90 mcg/actuation inhaler Inhale 2 Puffs by mouth every 4 hours if needed. 7 Active cyanocobalamin 1,000 mcg tablet Take 1 tablet by mouth once daily. 0 0 Active PREGABALIN ORAL Take 100 mg by mouth two times daily. Active benzonatate (TESSALON) 200 mg capsuleIndication s:Chronic cough Take 1 Capsule (200 mg) by mouth 3 times daily if needed for Cough. 90 Capsule 1 02/01/2023 12:20 PM CYBER SECURITY ARCHITECT 3 Active alteplase (ACTIVASE; CATHFLO) injectionIndicati ons:Pulmonary infiltrate 2 mg by Intra-Catheter route each time if needed for Catheter Clearance. Instill 2 mg into catheter and allow to dwell for 30 minutes. If unable to aspirate blood, allow to dwell for a total of 120 minutes. 4 Active guaiFENesin 100 mg/5 mL liquidIndications :Cough, unspecified type Take 5 mL (100 mg) by mouth every 4 hours if needed for Expectoration. 236 mL 02/09/2023 2:11 PM CYBER SECURITY ARCHITECT 4 Active nystatin powder (MYCOSTATIN) powderIndications :Cutaneous candidiasis Apply topically to affected area(s) three times daily. 60 g 02/09/2023 2:11 PM CYBER SECURITY ARCHITECT 4 Active oxyCODONE (ROXICODONE) 5 mg immediate release tabletIndications :Pain Take 1 Tablet (5 mg) by mouth every 4 hours if needed for moderate to severe pain. 15 Tablet 02/09/2023 2:11 PM CYBER SECURITY ARCHITECT 4 Active sodium chloride (OCEAN) 0.65 % nasal solutionIndicatio ns:Dry nose Inhale 2 Sprays into affected nostril(s) two times daily. 44 mL 02/09/2023 2:11 PM CYBER SECURITY ARCHITECT 4 Active albuterol (PROVENTIL) 0.083 % neb solutionIndicatio ns:Pneumonia of both lower lobes due to Haemophilus influenzae Inhale 3 mL (2.5 mg) via a nebulizer two times daily. 75 mL 02/09/2023 2:11 PM CYBER SECURITY ARCHITECT 4 Active sodium chloride 3% nebulization 3 % nebulizer solutionIndicatio ns:Pulmonary infiltrate Use one vial via neb twice daily 400 mL 02/09/2023 2:11 PM CYBER SECURITY ARCHITECT 4 Active NebulizerIndicati ons:Pulmonary infiltrate,Hypoxi a,Cough, unspecified type,Pneumonia of both lower lobes due to Haemophilus influenzae Nebulizer, disposable neb kit x 4, reuseable neb kit x 1, mask x 1, filters x 1. Frequency of use: daily; Medication: albuterol and hypertonic saline, Length of need: 24 months 1 Each 4 Active nebulizer and compressor (DeVilbiss PulmoNeb LT Comp-Neb) Nebulizer, disposable neb kit x 4, reuseable neb kit x 1, mask x 1, filters x 1. Frequency of use: daily; Medication: albuterol and hypertonic saline, Length of need: 24 months 1 Each 02/09/2023 2:11 PM CYBER SECURITY ARCHITECT 4 Active rx amoxicillin-clavu lanate (AUGMENTIN) 875-125 mg tablet (ED DC MED) Take 875 mg by mouth two times daily with meals. Active Active Problems Problem Noted Date Diagnosed Date Immunosuppression 02/09/2023 Pneumonia 02/03/2023 Hypoxia 02/03/2023 Multiple sclerosis 02/03/2023 Depression 02/03/2023 Anxiety 02/03/2023 ACP (advance care planning) 02/03/2023 Overview (02/03/2023): Patient has identified Health Care Agent(s): Yes Add Health Care Agents: Patient has Advance Care Plan Documents (Health Care Directive, POLST): no Patient has identified Specific Treatment Preferences: Yes How have preferences been verified: verbal Specific Treatment Preferences: a.) Code Status: CPR/Attempt Resuscitation Adhesive capsulitis of right shoulder 03/12/2018 Right biceps muscle strain 03/12/2018 Numbness and tingling in right hand 03/12/2018 Family History Medical History Relation Name Comments Lupus Father Relation Name Status Comments Father Social History Tobacco Use Types Packs/Day Years Used Date Smoking Tobacco: Former Cigarettes Smokeless Tobacco: Former Tobacco Cessation:Counseling Given: No Comments:Quit 12/01/22 Alcohol Use Standard Drinks/Week Comments Yes 0 (1 standard drink = 0.6 oz pur e alcohol) 2-3 drinks/week Social Connections Answer Date Recorded Do you often feel lonely or isolated from those around you? 0 02/04/2023 Financial Resource Strain Answer Date R ecorded Difficulty of Paying Living Expenses 1 02/04/2023 Difficulty of Paying Living Expenses 2 02/04/2023 Food Insecurity Answer Date Recorded Do you worry your food will run out before you are able to buy more? 2 02/04/2023 Transportation Needs Answer Date Record ed Does lack of transportation keep you from medica l appointments? 1 02/04/2023 Does lack of transportation keep you from work, meetings or getting things that you need? 1 02/04/2023 Housing Stability Answer Date Recorded What is your housing situation today? 1 02/04/2023 Interpersonal Safety Answer Date Record ed Are you being hit, kicked, p ushed or yelled at (see row info)? No 02/03/2023 Interpersonal Safety Abuse 12 - 18 Not on file 02/03/2023 Interpersonal Safety Ambulatory Vulnerability No t on file 02/03/2023 Utilities Answer Date Recorded Do you have trouble paying f or utilities (for example, heat, electricity, water, phone)? 1 02/04/2023 Comments No Sex and Gender Information Value Date Recorded Sex Assigned at Not on file Legal Sex Female 4:22 PM CDT Gender Identity Not on file Sexual Orientation Not on file Obstetrics History Last Filed Vital Signs Vital Sign Reading Time Taken Comments Blood Pressure 102/62 03/15/2023 10:39 AM CYBER SECURITY ARCHITECT Pulse 101 03/15/2023 10:39 AM CYBER SECURITY ARCHITECT Temperature 36.6 C (97.8 F) 03/15/2023 10:39 AM CYBER SECURITY ARCHITECT Respiratory Rate 16 03/15/2023 10:39 AM CYBER SECURITY ARCHITECT Oxygen Saturation 91% 02/09/2023 9:17 AM CYBER SECURITY ARCHITECT Inhaled Oxygen Concentration - - Weight 68 kg (149 lb 14.4 oz) 03/15/2023 10:39 A M CYBER SECURITY ARCHITECT Height 175.3 cm (5' 9) 02/03/2023 7:58 AM CYBER SECURITY ARCHITECT Body Mass Index 22.14 02/03/2023 7:58 AM CYBER SECURITY ARCHITECT Plan of Treatment Health Maintenance Due Date Last Done Comments Tdap 08/04/1994 Depression screening for age 12+ 1995 HIV for age 15-65 08/04/1998 Hepatitis C screening for age 18-79 08/04/2001 Pneumococcal series for age 6-49 (1 of 2 - PCV) 08/04/2002 Tetanus booster 2003 Pap test for age 21-65 08/04/2004 BMI (ht and wt on same day) for age 18+ 07/27/2018 0 07/27/2017 COVID-19 vaccine series (3 - Pfizer risk series) 08/11/2020 07/14/2020, 06/10/2020 Influenza for age 9-49 10/07/2023 Insurance [facility] [address] [place] [id number] [facility] [address] [place] [id number] [facility] CL[facility] ID #[id number] [address] [address] [place] [address] Advance Directives * Full Code (Latest Code Status on File) Date Activated Date Inactivated Comments 02/03/2023 4:27 PM 02/09/2023 5:05 PM Question Answer Comments Code Status Discussion: Reviewed Preferences * Full Code Date Activated Date Inactivated Comments 02/01/2023 10:00 AM 02/01/2023 3:21 PM Question Answer Comments Code Status Discussion: Unable to Assess Preferences, Provider to review later * Full Code Date Activated Date Inactivated Comments 10/04/2022 12:45 PM 10/05/2022 2:30 AM Question Answer Comments Code Status Discussion: Reviewed Preferences Care Teams Seismic Computer Relationship Specialty Start Date End Date Willard Shahid MD [address] [place] [phone] PCP - General Family Practice 10/18/17
--- OUTSIDE RECORDS SUMMARY | 2024-04-10 01:11 | XMS_ITS | Encounter Summary ---
Author Organization [facility] Address [address] [place] [address] Care Team Providers Care Animal Therapist Name Role Phone Jamal Butt M.D. Primary Care Provider [phone] Encounter Details Date Type Department Care Team (Late st Contact Info) Description 08/09/2017 [facility] [address] [place] [address] Willard Shahid M.D. [address], [place] [phone] Pain Elbow Right (Primary Dx); Neuropathy Ulnar Right Social History Tobacco Use Types Packs/Day Years Used Date Smoking Tobacco: Every Day Cigarettes 0.8 25.7 Started: 07/25/1998 Smokeless Tobacco: Never Alcohol Use Standard Drinks/Week Comments Yes 0 (1 standard drink = 0.6 oz pur e alcohol) beer socially Comments No Sex and Gender Information Value Date Recorded Sex Assigned at Female 03/06/2017 10:16 AM MODEL ARTISTS' Legal Sex Female 4:48 PM CDT Gender Identity Female 03/06/2017 10:16 AM MODEL ARTISTS' Sexual Orientation Straight 03/06/2017 10 :16 AM MODEL ARTISTS' documented as of this encounter Plan of Treatment Not on [...] Pending 01/12/2020 01/12/2020 01/13/2020 4 :11 AM MODEL ARTISTS' COVID19 Pending 02/13/2020 02/13/2020 02/14/2020 1 :05 AM MODEL ARTISTS' COVID19 Pending 03/31/2020 03/31/2020 03/31/2020 1 2:19 PM MODEL ARTISTS' COVID19 Pending 03/31/2020 03/31/2020 04/01/2020 1 2:22 AM MODEL ARTISTS' Protective Environment 06/07/2022 06/07/2022 COVID19 Pending 07/06/2022 07/06/2022 07/06/2022 8 :28 PM CDT Assessment Noted Time PHQ-9 Depression Total Score: 17 018 10:52 AM CDT documented as of this encounter Care Teams Animal Therapist Relationship Specialty Start Date End Date Jamal Butt M.D. [address] [place] [phone] PCP - General Family Medicine 05/21/17 documented as of this encounter
--- OUTSIDE RECORDS SUMMARY | 2024-04-10 01:11 | XMS_ITS | Encounter Summary ---
Author Organization [facility] Address [address] [place] [address] Care Team Providers Care Otr Truck Driver Name Role Phone Jamal Butt M.D. Primary Care Provider Encounter Details Date Type Department Care Team (Late st Contact Info) Description 02/22/2018 [facility] [address] [place] [address] Willard Shahid M.D. [address], [place] [phone] Social History Tobacco Use Types Packs/Day Years Used Date Smoking Tobacco: Every Day Cigarettes 0.8 25.7 Started: 07/25/1998 Smokeless Tobacco: Never Alcohol Use Standard Drinks/Week Comments Yes 0 (1 standard drink = 0.6 oz pur e alcohol) beer socially Comments No Sex and Gender Information Value Date Recorded Sex Assigned at Female 03/06/2017 10:16 AM TIRE AND TUBE REPAIRER Legal Sex Female 4:48 PM CDT Gender Identity Female 03/06/2017 10:16 AM TIRE AND TUBE REPAIRER Sexual Orientation Straight 03/06/2017 10 :16 AM TIRE AND TUBE REPAIRER documented as of this encounter Plan of [...] Pending 01/12/2020 01/12/2020 01/13/2020 4 :11 AM TIRE AND TUBE REPAIRER COVID19 Pending 02/13/2020 02/13/2020 02/14/2020 1 :05 AM TIRE AND TUBE REPAIRER COVID19 Pending 03/31/2020 03/31/2020 03/31/2020 1 2:19 PM TIRE AND TUBE REPAIRER COVID19 Pending 03/31/2020 03/31/2020 04/01/2020 1 2:22 AM TIRE AND TUBE REPAIRER Protective Environment 06/07/2022 06/07/2022 COVID19 Pending 07/06/2022 07/06/2022 07/06/2022 8 :28 PM CDT Assessment Noted Time PHQ-9 Depression Total Score: 2 12/22/19 18 2:04 PM TIRE AND TUBE REPAIRER documented as of this encounter Care Teams Otr Truck Driver Relationship Specialty Start Date End Date Jamal Butt M.D. [address] [place] [phone] PCP - General Family Medicine 05/21/17 documented as of this encounter
--- OUTSIDE RECORDS SUMMARY | 2024-04-10 01:11 | XMS_ITS | Clinical Summary ---
Author Organization [facility] Address [address] [place] [address] Care Team Providers Care Steamfitter Name Role Phone Stanton, Primary Care Provider [...] Last Done Comments Hepatitis C Screening 1983 Lipid Screening 1983 Mammogram Screening 1983 Pap Smear 1983 Anxiety Screening (TIM-2) 08/04/1984 Depression Assessment (PHQ-2) 08/04/1984 COVID-19 Vaccine (2023-2 5 season) 2023 Influenza Vaccine (#1) 2023 12/13/2015 Adult Tetanus Booster 05/10/2027 05/09/2017 RSV Vaccines (1 - 1-dose 75+ series) 08/04/2058 Pneumococcal Vaccine Aged Out 05/09/2017 No long er eligible based on patient's age to complete this topic Insurance [address] [place] [id number] [place] [address] [facility] Care Teams Steamfitter Relationship Specialty Start Date End Date None, PCP - General 11/11/17 None, PCP - Primary Care Clinic 11/11/17
--- OUTSIDE RECORDS SUMMARY | 2024-04-10 01:11 | XMS_ITS | Clinical Summary ---
Author Organization [facility] Address [address] [place] [address] Care Team Providers Care Quality Nurse Name Role Phone Estella Kamara APRN, LINEN MANAGER Primary Care Provider Source Comments You are receiving this document as you are listed as the primary care provider,follow-up provider, or the patient has been referred to you for consultation.This is in compliance with the Medicare and[facility] Hospital[facility] EHR Incentive Program,which states Providers who transition their patient to another setting of careor provider of care or refers their patient to another provider of care shouldprovide summary care record for each transition of care or referral. [employer] Allergies Active Allergy Reactions Criticality Noted Date Comments Glatiramer Acetate Anaphylaxis High 09/20/2016 Bupropion 07/11/2016 ineffective Medications etodolac (LODINE) 300 MG capsule Take 300 mg by mouth every 8 hours. Active riTUXimab (RITUXAN) injection Administer intravenously once. Active oxybutynin (DITROPAN) 5 MG tablet Take 5 mg by mouth daily. Active clonazePAM (KLONOPIN) 2 MG tabletIndicatio ns:TIM (generalized anxiety disorder) (HRC) Take 1 Tab by mouth two times daily as needed for Anxiety. 30 Tab 7 Active lamoTRIgine (LAMICTAL) 100 MG tabletIndicatio ns:Severe single current episode of major depressive disorder, without psychotic features (HRC),TIM (generalized anxiety disorder) (HRC) Take 1 Tab by mouth daily. 30 Tab 11 7 Active Additional Information Patient taking differently:100 mg OralBID, Reported on 10/04/2016 lamoTRIgine (LAMICTAL) 25 MG tabletIndicatio ns:Severe single current episode of major depressive disorder, [...] to 100 mg tablet. 120 Tab 1 7 Active gabapentin (NEURONTIN) 300 MG capsule Take 1 Cap by mouth three times a day. 270 Cap 3 7 Active lamoTRIgine (LAMICTAL) 25 MG tabletIndicatio ns:Severe episode of recurrent major depressive disorder, without psychotic features (HRC) Weeks 1 and 2: 25 mg once daily; Weeks 3 and 4: 50 mg once daily; Week 5: 100 mg once daily; Week 6 and maintenance: 200 mg once daily 28 Tab 7 Active amphetamine-dex troamphetamine (ADDERALLXR) 30 MG 24 hour release capsuleIndicati ons:Multiple sclerosis (HRC) Take 1 Cap by mouth daily. 30 Cap 7 Active benzonatate (TESSALON) 200 MG capsuleIndicati ons:Acute bronchitis, unspecified organism Take 1 Cap by mouth three times a day as needed for Cough. 30 Cap 7 Active guaifenesin-cod eine (ROBITUSSINAC) 100-10 MG/5ML solutionIndicat ions:Acute bronchitis, unspecified organism Take 5 mL by mouth every 4 hours as needed. 120 mL 7 Active beclomethasone (QVAR) 40 MCG/ACT inhalerIndicati ons:Acute bronchitis, unspecified organism Inhale 2 Puffs two times a day for 14 days. Rinse mouth/gargle after use 8.7 g 7 Active ALBUterol sulfate HFA 108 (90 BASE) MCG/ACT inhalerIndicati ons:Acute bronchitis, unspecified organism Inhale 1-2 Puffs every 4 hours as needed for Wheezing. 8.5 g 7 Active traZODone (DESYREL) 100 MG tabletIndicatio ns:Chronic insomnia Take 2 Tabs by mouth daily at bedtime. Taking 200 mg 180 Tab 3 7 Active Active Problems Problem Noted Date Diagnosed Date Controlled substance agreement signed 09/20/2016 Overview (09/20/2016): For adderall rx on 09/20/16 Depression, major, recurrent 07/11/2016 Overview (07/11/2016): Manic depressive. No known history of bipolar disorder History of drug abuse 07/11/2016 Overview (07/11/2016): Sober for 10 years, ecstasy and cocaine Multiple sclerosis 07/11/2016 Overview (07/11/2016): Primary progressive. Formerly on Rituxan. Is seen at the [facility] by neurology TIM (generalized anxiety disorder) 07/11/2016 Vitamin B12 deficiency 07/11/2016 Resolved Problems Problem Noted Date Diagnosed Date Resolved Date Anxiety 07/11/2016 07/11/2016 Social History Tobacco Use Types Packs/Day Years Used Date Smoking Tobacco: Every Day Cigarettes Smokeless Tobacco: Former Chew Alcohol Use Standard Drinks/Week Comments Yes 3 (1 standard drink = 0.6 oz pur e alcohol) weekends Comments Unknown Sex and Gender Information Value Date Recorded Sex Assigned at Not on file Legal Sex Female 2:42 PM CDT Gender Identity Not on file Sexual Orientation Not on file Last Filed Vital Signs Vital Sign Reading Time Taken Comments Blood Pressure 122/78 11/02/2016 12:55 PM CDT Pulse 88 11/02/2016 12:55 PM CDT Temperature 36.7 C (98 F) 11/02/2016 12:55 PM CDT Respiratory Rate 12 09/22/2016 8:24 AM CDT Oxygen Saturation - - Inhaled Oxygen Concentration - - Weight 81.2 kg (179 lb) 11/02/2016 12:55 PM CDT Height - - Body Mass Index - - Plan of Treatment Health Maintenance Due Date Last Done Comments Cervical Cancer Screening Due 1983 Hep C Screening (Preventive Services) 1983 Mammogram 1983 HIV Screening (Preventive Services) 1999 Adult Preventive Visit 08/04/2001 DTaP/Tdap/Td (1 - Tdap) 08/04/2002 HepB (1) 08/04/2002 COVID-19 Vaccine (1 - 2023-2 5 season) 2023 Influenza (#1) 2023 Zoster/Shingles (1 of 2) 08/04/2033 HPV Vaccine [...] on patient's age to complete this topic Meningococcal B Aged Out No longer el igible based on patient's age to complete this topic Pneumococcal Aged Out No longer eligi ble based on patient's age to complete this topic Insurance [address] [place] [address] [employer] Care Teams Quality Nurse Relationship Specialty Start Date End Date Estella Kamara, WARP DRAWER, LINEN MANAGER [address] [place] [phone] PCP - General Nurse Practitioner 09/07/16
--- OUTSIDE RECORDS SUMMARY | 2024-04-10 01:11 | XMS_ITS | Encounter Summary ---
Author Organization [facility] Address [address] [place] [address] Care Team Providers Care Plate Drying Machine Tender Name Role Phone Jamal Butt M.D. Primary Care Provider [phone] Encounter Details Date Type Department Care Team (Latest Contact Info) Description 02/25/2018 [facility] [address] [place] [address] Willard Shahid M.D. [address] [place] [phone] Fasciculation (Primary Dx) Social History Tobacco Use Types Packs/Day Years Used Date Smoking Tobacco: Every Day Cigarettes 0.8 25.7 Started: 07/25/1998 Smokeless Tobacco: Never Alcohol Use Standard Drinks/Week Comments Yes 0 (1 standard drink = 0.6 oz pur e alcohol) beer socially Comments No Sex and Gender Information Value Date Recorded Sex Assigned at Female 03/06/2017 10:16 AM LOCKER ROOM MANAGER Legal Sex Female 4:48 PM CDT Gender Identity Female 03/06/2017 10:16 AM LOCKER ROOM MANAGER Sexual Orientation Straight 03/06/2017 10 :16 AM LOCKER ROOM MANAGER documented as of this encounter [...] Pending 01/12/2020 01/12/2020 01/13/2020 4 :11 AM LOCKER ROOM MANAGER COVID19 Pending 02/13/2020 02/13/2020 02/14/2020 1 :05 AM LOCKER ROOM MANAGER COVID19 Pending 03/31/2020 03/31/2020 03/31/2020 1 2:19 PM LOCKER ROOM MANAGER COVID19 Pending 03/31/2020 03/31/2020 04/01/2020 1 2:22 AM LOCKER ROOM MANAGER Protective Environment 06/07/2022 06/07/2022 COVID19 Pending 07/06/2022 07/06/2022 07/06/2022 8 :28 PM CDT Assessment Noted Time PHQ-9 Depression Total Score: 2 12/22/19 18 2:04 PM LOCKER ROOM MANAGER documented as of this encounter Care Teams Plate Drying Machine Tender Relationship Specialty Start Date End Date Jamal Butt M.D. [address] [place] [phone] PCP - General Family Medicine 05/21/17 documented as of this encounter
--- OUTSIDE RECORDS SUMMARY | 2024-04-10 01:11 | XMS_ITS | Clinical Summary ---
Author Organization [facility] Address [address] [facility] [place] [address] Care Team Providers Care Slip Laster Name Role Phone [facility], [facility] Primary Care Provider [phone] Allergies Active Allergy Reactions Criticality Noted Date Comments Glatiramer Anaphylaxis,Unknown High 09/20/2016 Mold 12/10/2023 Bupropion 07/28/2016 Medications CLONAZEPAM PO Take 2 mg by mouth Active amphetamine-dex troamphetamine (ADDERALL XR) 10 MG per 24 hr capsule Take 10 mg by mouth daily Active LAMOTRIGINE PO Take 100 mg by mouth Active VENLAFAXINE HCL PO Take 425 mg by mouth Active TRAZODONE HCL PO Take 200 mg by mouth Active ETODOLAC PO Take 300 mg by mouth Active promethazine (PHENERGAN) 25 MG tablet Take 1 tablet (25 mg) by mouth every 6 hours as needed for nausea 15 tablet 08/26/2016 Active ondansetron (ZOFRAN ODT) 4 MG ODT tabIndications: Post-operative nausea and vomiting Place 2 tablets (8 mg) under the tongue every 8 hours as needed for nausea. 4 tablet 12/09/2023 Active pregabalin (LYRICA) 100 MG capsule Take 100 mg by mouth 3 times daily. Active Social History Tobacco Use Types Packs/Day Years Used Date Smoking Tobacco: Every Day Smokeless Tobacco: Never Alcohol Use Standard Drinks/Week Comments Yes 0 (1 standard drink = 0.6 oz pur e alcohol) SOCIALLY Adolescent Education Answer Date Record ed Getting School Help Needed Not on file 08/16 Comments No Sex and Gender Information Value Date Recorded Sex Assigned at Not on file Legal Sex Female 9:48 AM CDT Gender Identity Not on file Sexual Orientation Not on file Last Filed Vital Signs Vital Sign Reading Time Taken Comments Blood Pressure 108/69 12/10/2023 1:15 PM SCHOOL AIDE Pulse 52 12/10/2023 1:15 PM SCHOOL AIDE Temperature 36.7 C (98.1 F) 12/10/2023 12:40 PM SCHOOL AIDE Respiratory Rate 16 12/10/2023 1:15 PM SCHOOL AIDE Oxygen Saturation 100% 12/10/2023 1:15 PM SCHOOL AIDE Inhaled Oxygen Concentration - - Weight 62.6 kg (138 lb) 12/10/2023 8:55 AM SCHOOL AIDE Height 175.2 cm (5' 8.98) 11/30/2023 3:00 PM CD T Body Mass Index 20.39 11/30/2023 3:00 PM CDT Plan of Treatment Health Maintenance Due Date Last Done Comments ADVANCE CARE PLANNING 1985 ANNUAL REVIEW OF HM ORDERS 1985 MAMMO SCREENING 1985 NICOTINE/TOBACCO CESSATION COUNSELING Q 1 YR 1983 YEARLY PREVENTIVE VISIT 08/04/1986 HIV SCREENING 08/04/1998 HEPATITIS C SCREENING 08/04/2001 HEPATITIS B IMMUNIZATION (1 of 3 - 19+ 3-dose series) 08/04/2002 PAP 08/04/2004 Pneumococcal Vaccine: Pediatrics (0 to 5 Years) and At-Risk Patients (6 to 49 Years) (2 of 2 - PCV) 05/09/2018 05/09/2017 GLUCOSE 08/27/2019 08/26/2016, 07/28/2016 LIPID 2023 COVID-19 Vaccine (3 - 2023-2 5 season) 2023 07/14/2020, 06/10/2020 INFLUENZA VACCINE (#1) 2023 9, 12/13/2015 PHQ-2 (once per calendar year) 2024 DTAP/TDAP/TD IMMUNIZATION (2 - Td or Tdap) 05/10/2027 05/09/2017, 07/17/2016 ZOSTER IMMUNIZATION (1 of 2) 08/04/2033 HPV IMMUNIZATION Aged Out No longer e ligible based on patient's age to complete this topic MENINGITIS IMMUNIZATION Aged Out No l onger eligible based on patient's age to complete this topic Medical Devices Implanted Type Area School Patrol Device Identifier Shelf Expiration Date Model / Serial / Lot Allergan Natrella 68lp 600cc Implanted:Qty: 1 on 12/10/2023 by Gomez Leonard MD at [employer] Left: Breast [id number] 01/06/2027 68LP-600 / [id number] / Allergan Naterlla 68lp-600cc Implanted:Qty: 1 on 12/10/2023 by Gomez Leonard MD at [employer] Right: Breast 09/30/2026 68LP-600 / [id number] / Explanted Type Area School Patrol Device Identifier Shelf Expiration Date Model / Serial / Lot Natrelle [id number]-450cc Explanted:Qty: 1 on 12/10/2023 by Gomez Leonard MD at [employer] Left: Breast 68LP-450 / / [id number] Allergan 68lp- 480cc Explanted:Qty: 1 on 12/10/2023 by Gomez Leonard MD at [employer] Right: Breast 68LP- 480CC / / [id number] Procedures Procedure Name Priority Date/Time Associated Diagnosis Comments BASIC METABOLIC PANEL STAT 08/26/2016 9:52 AM CDT from Last 3 Months or Most Recently Relevant to Health Maintenance Results * (ABNORMAL) Basic metabolic panel (BMP) (08/26/2016 9:52 AM CDT) Sodium 140 133 - 144 mmol/L [facility] Potassium 3.6 3.4 - 5.3 mmol/L [facility] Chloride 111(H) 94 - 109 mmol/L [facility] Carbon Dioxide 25 20 - 32 mmol/L [facility] Anion Gap 4 3 - 14 mmol/L [facility] Glucose 83 70 - 99 mg/dL [facility] Urea Nitrogen 5(L) 7 - 30 mg/dL [facility] Creatinine 0.71 0.52 - 1.04 mg/dL [facility] GFR Estimate >90 Non GFR Calc >60 mL/min/1. 7m2 [facility] GFR Estimate If Black >90 GFR Calc >60 mL/min/1. 7m2 [facility] Calcium 8.9 8.5 - 10.1 mg/dL [facility] Blood specimen (specimen) 08/26/2016 9:52 AM CDT 08/26/2016 10:06 AM CDT us Joseph Can MD LAB - BLOOD ORDERABLES Fi nal Result [facility] [address] [place] [address], [facility] [phone] from Last 3 Months or Most Recently Relevant to Health Maintenance Insurance [address] [place] [address] [place] [address] [place] [address] [employer] [facility] Care Teams Slip Laster Relationship Specialty Start Date End Date [facility], [facility] [address] [place] [address] PCP - General 07/28/16
[2024-04-10 01:14] VITALS: BP 132/84; RESP 20; TEMP 36.4; O2SAT 95; BMI 22.9
--- NOTE | 2024-04-10 01:37 | CRLHL7_ITS ---
For Patients: As a result of the Century Cures Act, medical imaging exams and procedure reports are released immediately into your electronic medical record. You may view this report before your referring provider. If you have questions, please contact your health care provider. INDICATION: Shortness of breath, cough for few weeks. TECHNIQUE: Chest 2 views. COMPARISON: None. FINDINGS: Cardiovascular and mediastinum: Heart size and vasculature are normal in caliber and appearance. Lungs and pleural spaces: Strandy opacity within and anterior upper lobe, best seen on the lateral image, possibly the right upper lobe. The lungs are otherwise clear. No pleural effusion or pneumothorax. Bones and soft tissues: Unremarkable for age. IMPRESSION: Strandy right upper lobe airspace opacity could represent atelectasis versus pneumonia. Dictated by Elijah Rincon MD @ 04/10/2024 1:59:49 AM (Electronically Signed)
--- OUTSIDE RECORDS SUMMARY | 2024-04-10 01:49 | XMS_ITS | Clinical Summary ---
Author Organization [facility] Address [address] [place] [address] Care Team Providers Care Case Management Coordinator Name Role Phone Jamal Butt M.D. Primary Care Provider [phone] Source Comments Patient records contain information from all sites at [facility]. For routine questions regarding patient records, call [phone] during business hours, M-F 8:00 AM - 5:00 PM Central Time. Record requests for emergency care only can be directed to [phone] at any time.[facility] Allergies Active Allergy Reactions Criticality Noted Date [...] Active Problems Problem Noted Date Diagnosed Date Guest Relations Executive Current Use Of Immunosuppressive Biolo gic 09/26/2022 [...] 10/28/2020 How often do you attend [facility] or [facility] services? Patient declined 10/28/2020 Do you belong to any clubs o r organizations such as mandaen groups, unions, fraternal or athletic groups, or [...] Answer Date Recorded PHQ-2 Score 1 12/01/2019 [facility] of Occupat ional Health - Occupational [...] Sex Assigned at Female 03/06/2017 10:16 AM DIGITAL MEDIA INTERN Legal Sex Female 4:48 PM CDT Gender Identity Female 03/06/2017 10:16 AM DIGITAL MEDIA INTERN Sexual Orientation Straight 03/06/2017 10 :16 AM DIGITAL MEDIA INTERN Last Filed Vital Signs Vital Sign Reading [...] S Negative Negative 08/16/2017 2:56 PM CDT [facility] Blood 08/16/2017 9:47 AM CDT 08/16/2017 12:20 PM CDT us Alexandr Shaikh M.D. LAB MICROBIOLOGY - BLOOD ORD ERABLES Final Result [facility] [address] [place] [address] from Last 3 Months or Most Recently Relevant to Health Maintenance Additional Health Concerns Infection Onset Date Last Indicated Protective Environment 06/07/2022 3 Insurance [employer] RESOURCES * Guarantor: [employer] Account Type Relation to Patient Date of Phone Billing Address Workers Comp Employer [address] [place] [phone] Advance Directives For more information, please contact: [phone] Documents on File Type Date Recorded Patient Applications Programmer Analyst Expl anation Advance Directives 03/19/2019 4:22 PM [...] Alternate Health Car e Agent Care Teams Case Management Coordinator Relationship Specialty Start Date End Date Jamal Butt M.D. [address] [place] [place] [phone] PCP - General Family Medicine 05/21/17
--- OUTSIDE RECORDS SUMMARY | 2024-04-10 01:49 | XMS_ITS | Clinical Summary ---
Author Organization [facility] Address [address] [place] [address] Care Team Providers Care Digital Associate Name Role Phone Willard Shahid MD Primary Care Provider [phone] Allergies Active Allergy Reactions Criticality Noted Date [...] Cough. 90 Capsule 1 02/01/2023 12:20 PM METAL BENCH PATTERNMAKER 3 Active alteplase (ACTIVASE; CATHFLO) injectionIndicati ons:Pulmonary [...] for Expectoration. 236 mL 02/09/2023 2:11 PM METAL BENCH PATTERNMAKER 4 Active nystatin powder (MYCOSTATIN) powderIndications :Cutaneous candidiasis Apply topically to affected area(s) three times daily. 60 g 02/09/2023 2:11 PM METAL BENCH PATTERNMAKER 4 Active oxyCODONE (ROXICODONE) 5 mg immediate release tabletIndications :Pain Take 1 Tablet (5 mg) by mouth every 4 hours if needed for moderate to severe pain. 15 Tablet 02/09/2023 2:11 PM METAL BENCH PATTERNMAKER 4 Active sodium chloride (OCEAN) 0.65 % nasal solutionIndicatio ns:Dry nose Inhale 2 Sprays into affected nostril(s) two times daily. 44 mL 02/09/2023 2:11 PM METAL BENCH PATTERNMAKER 4 Active albuterol (PROVENTIL) 0.083 % neb solutionIndicatio ns:Pneumonia of both lower lobes due to Haemophilus influenzae Inhale 3 mL (2.5 mg) via a nebulizer two times daily. 75 mL 02/09/2023 2:11 PM METAL BENCH PATTERNMAKER 4 Active sodium chloride 3% nebulization 3 % nebulizer solutionIndicatio ns:Pulmonary infiltrate Use one vial via neb twice daily 400 mL 02/09/2023 2:11 PM METAL BENCH PATTERNMAKER 4 Active NebulizerIndicati ons:Pulmonary infiltrate,Hypoxi a,Cough, unspecified [...] 24 months 1 Each 02/09/2023 2:11 PM METAL BENCH PATTERNMAKER 4 Active rx amoxicillin-clavu lanate (AUGMENTIN) 875-125 [...] Comments Blood Pressure 102/62 03/15/2023 10:39 AM METAL BENCH PATTERNMAKER Pulse 101 03/15/2023 10:39 AM METAL BENCH PATTERNMAKER Temperature 36.6 C (97.8 F) 03/15/2023 10:39 AM METAL BENCH PATTERNMAKER Respiratory Rate 16 03/15/2023 10:39 AM METAL BENCH PATTERNMAKER Oxygen Saturation 91% 02/09/2023 9:17 AM METAL BENCH PATTERNMAKER Inhaled Oxygen Concentration - - Weight 68 kg (149 lb 14.4 oz) 03/15/2023 10:39 A M METAL BENCH PATTERNMAKER Height 175.3 cm (5' 9) 02/03/2023 7:58 AM METAL BENCH PATTERNMAKER Body Mass Index 22.14 02/03/2023 7:58 AM METAL BENCH PATTERNMAKER Plan of Treatment Health Maintenance Due Date [...] 06/10/2020 Influenza for age 9-49 10/07/2023 Insurance [facility] [address] [place] [id number] [facility] [address] [place] [id number] [facility] ID #[id number] [address] [address] [place] [address] Advance Directives * Full Code (Latest Code [...] Code Status Discussion: Reviewed Preferences Care Teams Digital Associate Relationship Specialty Start Date End Date Willard Shahid MD [address] [place] [address] PCP - General Family Practice 10/18/17
--- OUTSIDE RECORDS SUMMARY | 2024-04-10 01:49 | XMS_ITS | Encounter Summary ---
Author Organization [facility] Address [address] [place] [address] Care Team Providers Care Plastering Supervisor Name Role Phone Jamal Butt M.D. Primary Care Provider Encounter Details Date Type Department Care Team (Late st Contact Info) Description 05/31/2016 Historical Ophthalmology [facility] Eileen Alicia M.D. Social History Tobacco Use Types Packs/Day Years Used Date Smoking Tobacco: Never Assessed Comments Unknown Sex and Gender Information Value Date Recorded Sex Assigned at Female 03/06/2017 10:16 AM X RAY SERVICE ENGINEER Legal Sex Female 4:48 PM CDT Gender Identity Female 03/06/2017 10:16 AM X RAY SERVICE ENGINEER Sexual Orientation Straight 03/06/2017 10 :16 AM X RAY SERVICE ENGINEER documented as of this encounter Progress Notes [...] left eye. CDM Reports - EYEGEN Id: [id number] Status: Fnl documented in this encounter Plan [...] Pending 01/12/2020 01/12/2020 01/13/2020 4 :11 AM X RAY SERVICE ENGINEER COVID19 Pending 02/13/2020 02/13/2020 02/14/2020 1 :05 AM X RAY SERVICE ENGINEER COVID19 Pending 03/31/2020 03/31/2020 03/31/2020 1 2:19 PM X RAY SERVICE ENGINEER COVID19 Pending 03/31/2020 03/31/2020 04/01/2020 1 2:22 AM X RAY SERVICE ENGINEER Protective Environment 06/07/2022 06/07/2022 COVID19 Pending 07/06/2022 07/06/2022 07/06/2022 8 :28 PM CDT documented as of this encounter Care Teams Plastering Supervisor Relationship Specialty Start Date End Date Jamal Butt M.D. [address] [place] [address] PCP - General Family Medicine 05/21/17 documented as of this encounter
--- OUTSIDE RECORDS SUMMARY | 2024-04-10 01:49 | XMS_ITS | Clinical Summary ---
Author Organization [facility] Address [address] [place] [address] Care Team Providers Care Geographical Historian Name Role Phone Stanton, Primary Care Provider [...] this topic Insurance [address] [place] [id number] [place] [id number] [facility] Care Teams Geographical Historian Relationship Specialty Start Date End Date None, PCP - General 11/11/17 None, PCP - Primary Care Clinic 11/11/17
--- OUTSIDE RECORDS SUMMARY | 2024-04-10 01:49 | XMS_ITS | Clinical Summary ---
Author Organization [facility] Address [address] [facility] [place] [address] Care Team Providers Care Lens And Frames Prescription Clerk Name Role Phone [facility], [facility] Primary Care Provider [phone] Allergies Active Allergy Reactions Criticality Noted Date [...] Comments Blood Pressure 108/69 12/10/2023 1:15 PM AUTOMOTIVE ELECTRICIAN HELPER Pulse 52 12/10/2023 1:15 PM AUTOMOTIVE ELECTRICIAN HELPER Temperature 36.7 C (98.1 F) 12/10/2023 12:40 PM AUTOMOTIVE ELECTRICIAN HELPER Respiratory Rate 16 12/10/2023 1:15 PM AUTOMOTIVE ELECTRICIAN HELPER Oxygen Saturation 100% 12/10/2023 1:15 PM AUTOMOTIVE ELECTRICIAN HELPER Inhaled Oxygen Concentration - - Weight 62.6 kg (138 lb) 12/10/2023 8:55 AM AUTOMOTIVE ELECTRICIAN HELPER Height 175.2 cm (5' 8.98) 11/30/2023 3:00 [...] this topic Medical Devices Implanted Type Area Nut Culler Device Identifier Shelf Expiration Date Model / Serial / Lot Allergan Natrella 68lp 600cc Implanted:Qty: 1 on 12/10/2023 by Gomez Leonard MD at [facility] Left: Breast [id number] 01/06/2027 68LP-600 / [id number] / Allergan Naterlla 68lp-600cc Implanted:Qty: 1 on 12/10/2023 by Gomez Leonard MD at [facility] Right: Breast 09/30/2026 68LP-600 / [id number] / Explanted Type Area Nut Culler Device Identifier Shelf Expiration Date Model / Serial / Lot Natrelle [id number]-450cc Explanted:Qty: 1 on 12/10/2023 by Gomez Leonard MD at [facility] Left: Breast 68LP-450 / / [id number] Allergan 68lp- 480cc Explanted:Qty: 1 on 12/10/2023 by Gomez Leonard MD at [facility] Right: Breast 68LP- 480CC / / [id number] Procedures Procedure Name Priority Date/Time Associated Diagnosis Comments BASIC METABOLIC PANEL STAT 08/26/2016 9:52 AM CDT from Last 3 Months or Most Recently Relevant to Health Maintenance Results * (ABNORMAL) Basic metabolic panel (BMP) (08/26/2016 9:52 AM CDT) Sodium 140 133 - 144 mmol/L [facility] Potassium 3.6 3.4 - 5.3 mmol/L [facility] Chloride 111(H) 94 - 109 mmol/L [facility] Carbon Dioxide 25 20 - 32 mmol/L [facility] Anion Gap 4 3 - 14 mmol/L [facility] Glucose 83 70 - 99 mg/dL [facility] Urea Nitrogen 5(L) 7 - 30 mg/dL [facility] Creatinine 0.71 0.52 - 1.04 mg/dL [facility] GFR Estimate >90 Non GFR Calc >60 mL/min/1. 7m2 [facility] GFR Estimate If Black >90 GFR Calc >60 mL/min/1. 7m2 [facility] Calcium 8.9 8.5 - 10.1 mg/dL [facility] Blood specimen (specimen) 08/26/2016 9:52 AM CDT 08/26/2016 10:06 AM CDT us Joseph Can MD LAB - BLOOD ORDERABLES Fi nal Result [facility] [address] [place] [address], [facility] [phone] from Last 3 Months or Most Recently Relevant to Health Maintenance Insurance [address] [place] [address] [place] [address] [place] [address] [employer] [facility] Care Teams Lens And Frames Prescription Clerk Relationship Specialty Start Date End Date [facility], [facility] [address] [place] [address] PCP - General 07/28/16
--- OUTSIDE RECORDS SUMMARY | 2024-04-10 01:49 | XMS_ITS | Encounter Summary ---
Author Organization [facility] Address [address] [place] [address] Care Team Providers Care Direct Support Specialist Name Role Phone Jamal Butt M.D. Primary Care Provider [phone] Encounter Details Date Type Department Care Team (Late st Contact Info) Description 03/11/2024 Orders Only [facility] PCP [facility] Jamal Butt M.D. [address] [place] [address] Screening Lipid Social History Tobacco [...] Recorded PHQ-2 Score 1 12/01/2019 [facility] of Occupat ional Health - Occupational Stress [...] Sex Assigned at Female 03/06/2017 10:16 AM CAN FEEDER Legal Sex Female 4:48 PM CDT Gender Identity Female 03/06/2017 10:16 AM CAN FEEDER Sexual Orientation Straight 03/06/2017 10 :16 AM CAN FEEDER documented as of this encounter Plan of [...] documented as of this encounter Care Teams Direct Support Specialist Relationship Specialty Start Date End Date Jamal Butt M.D. [address] [place] [phone] PCP - General Family Medicine 05/21/17 documented as of this encounter
--- OUTSIDE RECORDS SUMMARY | 2024-04-10 01:49 | XMS_ITS | Clinical Summary ---
Author [email or web address] Address [address] [place] [address] Care Team Providers Care Parachute Rigger Name Role Phone Estella Kamara APRN, VENDOR REPRESENTATIVES Primary Care Provider Source Comments You are receiving this document as you are listed as the primary care provider,follow-up provider, or the patient has been referred to you for consultation.This is in compliance with the Medicare and[facility] Hospital[facility] EHR Incentive Program,which states Providers who transition their patient to another setting of careor provider of care or refers their patient to another provider of care shouldprovide summary care record for each transition of care or referral. [employer] Allergies Active Allergy Reactions Criticality Noted Date [...] Rituxan. Is seen at the [facility] by neurology TIM (generalized anxiety disorder) [...] topic Insurance [address] [place] [address] [employer] Care Teams Parachute Rigger Relationship Specialty Start Date End Date Estella Kamara, SIZE MARKER, VENDOR REPRESENTATIVES [address] [place] [id number] PCP - General Nurse Practitioner 09/07/16
--- OUTSIDE RECORDS SUMMARY | 2024-04-10 01:49 | XMS_ITS | Encounter Summary ---
Author Organization [facility] Address [address] [place] [address] Care Team Providers Care Vacuum Form Operator Name Role Phone Jamal Butt M.D. Primary Care Provider [phone] Encounter Details Date Type Department Care Team (Latest Contact Info) Description 02/25/2018 [facility] [address] [place] [address] Willard Shahid M.D. [address] [place] [phone] Fasciculation (Primary Dx) Social History Tobacco Use Types Packs/Day Years Used Date Smoking Tobacco: Every Day Cigarettes 0.8 25.7 Started: 07/25/1998 Smokeless Tobacco: Never Alcohol Use Standard Drinks/Week Comments Yes 0 (1 standard drink = 0.6 oz pur e alcohol) beer socially Comments No Sex and Gender Information Value Date Recorded Sex Assigned at Female 03/06/2017 10:16 AM COMPUTER LABORATORY TECHNICIAN Legal Sex Female 4:48 PM CDT Gender Identity Female 03/06/2017 10:16 AM COMPUTER LABORATORY TECHNICIAN Sexual Orientation Straight 03/06/2017 10 :16 AM COMPUTER LABORATORY TECHNICIAN documented as of this encounter Plan of [...] Pending 01/12/2020 01/12/2020 01/13/2020 4 :11 AM COMPUTER LABORATORY TECHNICIAN COVID19 Pending 02/13/2020 02/13/2020 02/14/2020 1 :05 AM COMPUTER LABORATORY TECHNICIAN COVID19 Pending 03/31/2020 03/31/2020 03/31/2020 1 2:19 PM COMPUTER LABORATORY TECHNICIAN COVID19 Pending 03/31/2020 03/31/2020 04/01/2020 1 2:22 AM COMPUTER LABORATORY TECHNICIAN Protective Environment 06/07/2022 06/07/2022 COVID19 Pending 07/06/2022 07/06/2022 07/06/2022 8 :28 PM CDT Assessment Noted Time PHQ-9 Depression Total Score: 2 12/22/19 18 2:04 PM COMPUTER LABORATORY TECHNICIAN documented as of this encounter Care Teams Vacuum Form Operator Relationship Specialty Start Date End Date Jamal Butt M.D. [address] [place] [phone] PCP - General Family Medicine 05/21/17 documented as of this encounter
--- OUTSIDE RECORDS SUMMARY | 2024-04-10 01:49 | XMS_ITS | Encounter Summary ---
Author Organization [facility] Address [address] [place] [address] Care Team Providers Care Lead Care Manager Name Role Phone Jamal Butt M.D. Primary Care Provider Encounter Details Date Type Department Care Team (Late st Contact Info) Description 02/22/2018 [facility] [address] [place] [address] Willard Shahid M.D. [address], [place] [phone] Social History Tobacco Use Types Packs/Day Years Used Date Smoking Tobacco: Every Day Cigarettes 0.8 25.7 Started: 07/25/1998 Smokeless Tobacco: Never Alcohol Use Standard Drinks/Week Comments Yes 0 (1 standard drink = 0.6 oz pur e alcohol) beer socially Comments No Sex and Gender Information Value Date Recorded Sex Assigned at Female 03/06/2017 10:16 AM FLIGHT INSTRUCTOR Legal Sex Female 4:48 PM CDT Gender Identity Female 03/06/2017 10:16 AM FLIGHT INSTRUCTOR Sexual Orientation Straight 03/06/2017 10 :16 AM FLIGHT INSTRUCTOR documented as of this encounter Plan [...] Pending 01/12/2020 01/12/2020 01/13/2020 4 :11 AM FLIGHT INSTRUCTOR COVID19 Pending 02/13/2020 02/13/2020 02/14/2020 1 :05 AM FLIGHT INSTRUCTOR COVID19 Pending 03/31/2020 03/31/2020 03/31/2020 1 2:19 PM FLIGHT INSTRUCTOR COVID19 Pending 03/31/2020 03/31/2020 04/01/2020 1 2:22 AM FLIGHT INSTRUCTOR Protective Environment 06/07/2022 06/07/2022 COVID19 Pending 07/06/2022 07/06/2022 07/06/2022 8 :28 PM CDT Assessment Noted Time PHQ-9 Depression Total Score: 2 12/22/19 18 2:04 PM FLIGHT INSTRUCTOR documented as of this encounter Care Teams Lead Care Manager Relationship Specialty Start Date End Date Jamal Butt M.D. [address] [place] [phone] PCP - General Family Medicine 05/21/17 documented as of this encounter
--- OUTSIDE RECORDS SUMMARY | 2024-04-10 01:49 | XMS_ITS | Encounter Summary ---
Author Organization [facility] Address [address] [place] [address] Care Team Providers Care Loss Prevention Agent Name Role Phone Jamal Butt M.D. Primary Care Provider [phone] Encounter Details Date Type Department Care Team (Late st Contact Info) Description 08/09/2017 [facility] [address] [place] [address] Willard Shahid M.D. [address] [id number] Pain Elbow Right (Primary Dx); Neuropathy Ulnar Right Social History Tobacco Use Types Packs/Day Years Used Date Smoking Tobacco: Every Day Cigarettes 0.8 25.7 Started: 07/25/1998 Smokeless Tobacco: Never Alcohol Use Standard Drinks/Week Comments Yes 0 (1 standard drink = 0.6 oz pur e alcohol) beer socially Comments No Sex and Gender Information Value Date Recorded Sex Assigned at Female 03/06/2017 10:16 AM HIDE AND SKIN PROCESSING WORKER Legal Sex Female 4:48 PM CDT Gender Identity Female 03/06/2017 10:16 AM HIDE AND SKIN PROCESSING WORKER Sexual Orientation Straight 03/06/2017 10 :16 AM HIDE AND SKIN PROCESSING WORKER documented as of this encounter Plan of [...] Pending 01/12/2020 01/12/2020 01/13/2020 4 :11 AM HIDE AND SKIN PROCESSING WORKER COVID19 Pending 02/13/2020 02/13/2020 02/14/2020 1 :05 AM HIDE AND SKIN PROCESSING WORKER COVID19 Pending 03/31/2020 03/31/2020 03/31/2020 1 2:19 PM HIDE AND SKIN PROCESSING WORKER COVID19 Pending 03/31/2020 03/31/2020 04/01/2020 1 2:22 AM HIDE AND SKIN PROCESSING WORKER Protective Environment 06/07/2022 06/07/2022 COVID19 Pending 07/06/2022 07/06/2022 07/06/2022 8 :28 PM CDT Assessment Noted Time PHQ-9 Depression Total Score: 17 018 10:52 AM CDT documented as of this encounter Care Teams Loss Prevention Agent Relationship Specialty Start Date End Date Jamal Butt M.D. [address] [place] [address] PCP - General Family Medicine 05/21/17 documented as of this encounter
--- OUTSIDE RECORDS SUMMARY | 2024-04-10 01:49 | XMS_ITS | Referral Summary ---
Author Organization [facility] Address [address] [facility] [place] [address] Care Team Providers Care Private Investigator Surveillance Name Role Phone Stanton, Primary Care Provider [...] on file Insurance [address] [place] [id number] [address] [place] [id number] [facility] Care Teams Private Investigator Surveillance Relationship Specialty Start Date End Date None, PCP - General 11/11/17 None, PCP - Primary Care Clinic 11/11/17
[2024-04-10] MEDS: IPRAT-ALBUT 0.5-2.5 MG/3 ML NEB 1 NEB IH (01:51)
[2024-04-10] MEDS: METHYLPREDNISOLONE SOD SUCC 62.5 MG/ML (125) 125 MG IVP (01:51)
[2024-04-10 02:16] VITALS: BP 122/83; PULSE 82; RESP 18; O2SAT 95
--- NOTE | 2024-04-10 02:46 | ED.SOB ---
HPI - SOB/Dyspnea General Date Seen: 04/10/24 Chief Complaint: Shortness of Breath/Dyspnea Stated Complaint: respiratory distress Time Seen by Provider: 04/10/24 01:09 Source: patient Mode of arrival: EMS Limitations: no limitations History of Present Illness HPI Narrative: Patient is a 38-year-old female who comes in by EMS with complaints of shortness of breath. She was out drinking this evening and came back home and had fairly sudden onset of shortness of breath. Her father is a chain smoker and cigarette smoke triggers her asthma. She has previously been on a steroid inhaler but is now just using albuterol. She has done fairly well recently and just saw her gas appliance adjuster. She was started on Augmentin due to a respiratory infection and has completed that. She has no ongoing fevers or chills. She is a former smoker. She felt better upon arrival as she received a neb on route. No fevers or chills. Related Data Home Medications ?Medication ?Instructions ?Recorded ?Confirmed cholecalciferol (vitamin D3) 25 1,000 unit PO DAILY 12/09/21 03/05/24 mcg (1,000 unit) tablet acetaminophen 325 mg tablet 325 - 650 mg PO Q6H PRN 02/13/23 03/05/24 lamotrigine 25 mg tablet 25 mg PO DAILY 02/13/23 03/05/24 nystatin 100,000 unit/gram topical 1 applic topical BID-TID PRN 03/08/23 03/05/24 powder sodium chloride 3 % for ml inhalation .QD PRN 03/08/23 03/05/24 nebulization dextroamphetamine-amphetamine 5 mg 1 tab PO DAILY PRN 11/26/23 03/05/24 tablet fluticasone propionate 220 1 inh inhalation BID PRN 11/26/23 03/05/24 mcg/actuation HFA aerosol inhaler (Flovent HFA) montelukast 10 mg tablet 10 mg PO QHS PRN 11/26/23 03/05/24 (Singulair) sodium chloride 0.65 % nasal spray 1 spray intranasal QHS PRN 11/26/23 03/05/24 aerosol (Deep Sea Nasal) Previous Rx's ?Medication ?Instructions ?Recorded albuterol sulfate 5 mg/mL(0.5 %) 2.5 mg (0.5 mL) inhalation Q4H 08/31/22 solution for nebulization #100 mL albuterol sulfate 90 mcg/actuation 2 puff inhalation Q6H PRN 08/31/22 aerosol inhaler (Ventolin HFA) shortness of breath or wheezing #6.7 grams pregabalin 100 mg capsule 100 mg PO QHS #30 caps 12/21/22 lamotrigine 200 mg tablet 200 mg PO QHS #30 tabs 03/14/23 clonidine HCl 0.1 mg tablet 0.1 mg PO QHS #90 tabs 03/15/23 trazodone 100 mg tablet 100 mg PO QHS #90 tabs 03/15/23 dextroamphetamine-amphetamine 30 30 mg PO BID #60 tabs 03/27/23 mg tablet (Adderall) azithromycin 250 mg tablet See Rx Instructions PO .COMPLEX #6 01/16/24 (Zithromax Z-Josesito) tabs prednisone 20 mg tablet 20 mg PO BID #10 tabs 01/16/24 Allergies Allergy/AdvReac Type Severity Reaction Status Date / Time glatiramer (copolymer 1) Allergy Severe Anaphylaxis Verified 03/05/24 17:16 (From Copaxone) mannitol Allergy Severe Anaphylaxis Verified 03/05/24 17:16 azithromycin (From Zithromax) Allergy Mild Vomiting Verified 03/05/24 17:16 mold Allergy Unknown Hives, Verified 03/05/24 17:16 Congestion, Sneezing, Cough bupropion (From Wellbutrin) Allergy Verified 03/05/24 17:16 Review of Systems Narrative: She has MS which has been stable. She takes Adderall for ADHD. She has been on prednisone in the past but does not tolerate the side effects well. Her mental health has been stable. Review of systems in all other areas is noted to be negative. [facility] Medical History (Updated 04/10/24 @ 02:45 by Cali Lemon MD) Ulcerative proctitis (2007) ?K51.20 - Ulcerative (chronic) proctitis without complications (ICD-10) Nocturnal enuresis ?N39.44 - Nocturnal enuresis (ICD-10) Cobalamin deficiency ?E53.8 - Deficiency of other specified B group vitamins (ICD-10) Surgical History History of breast augmentation (07/2021) ?Z98.82 - Breast implant status (ICD-10) History of stem cell transplant ?Z94.84 - Stem cells transplant status (ICD-10) History of mastoidectomy ?Z90.89 - Acquired absence of other organs (ICD-10) History of hysterectomy (2008) ?Z90.710 - Acquired absence of both cervix and uterus (ICD-10) History of colonoscopy (04/03/15) ?Z98.890 - Other specified postprocedural states (ICD-10) Family History Father High blood pressure Mother Depression Alcohol dependence Social History (Updated 04/10/24 @ 02:45 by Cali Lemon MD) Narrative: 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 HEENT: Conjunctiva clear. Tympanic membranes are pearly white bilaterally. Posterior pharynx is clear without erythema or exudate. Neck is supple without adenopathy. Lungs: Her voice is hoarse. Her lungs are coarse and congested with expiratory wheezes. No tachypnea or accessory muscle use. Heart: Regular rate and rhythm without murmur. Abdomen: Soft and nontender. No guarding, rigidity, rebound. Bowel sounds are normal. No palpable masses. Extremities: No cyanosis or edema. Good distal pulses. Skin: No abnormalities noted of the exposed skin. She is heavily tattooed. She has abrasions of her left wrist, right elbow, right hip from a fall earlier this evening. She can move all of these areas without significant difficulty. Neurologic: Awake, alert, fully oriented. Neurologic exam is nonfocal. Const: Vital Signs, click to edit/add: Vital Signs - 24 hr 04/10/24 01:14 04/10/24 02:16 Temperature 97.5 F L Pulse Rate [Pulse Oximeter] 82 Respiratory Rate 20 18 Blood Pressure [Ri t Upper Arm] 132/84 122/83 Pulse Oximetry 95 95 Oxygen Delivery Me thod Room Air Room Air Course Course ED Course: Patient seen and examined. Chest x-ray is unremarkable other than a chronic band of atelectasis in the right upper lobe. IV is established and should receive Solu-Medrol 125 mg IV. She was given a DuoNeb. Following these treatments her breathing was significantly improved. She was never hypoxic. Reevaluation(s) Reevaluation #1: Prior to discharge we discussed whether not she needs to go back on a maintenance inhaler. Prior to tonmari's episode she has not had issues with her breathing quite sometimes we opted against that. She would certainly benefit from a course of prednisone but does not tolerate that well and declines. She feels well enough to be at home. Vital Signs Vital signs: Initial Vital Signs Temperature 97.5 F L 04/10/24 01:14 Temperature Source Temporal Artery Scan 04/10/24 01:14 Pulse Rhythm Regular 04/10/24 01:14 Respiratory Rate 20 04/10/24 01:14 Blood Pressure 132/84 04/10/24 01:14 Blood Pressure Mean 100 04/10/24 01:14 Blood Pressure Position Supine 04/10/24 01:14 Pulse Oximetry 95 04/10/24 01:14 Oxygen Delivery Method Room Air 04/10/24 01:14 Vital Signs Temperature 97.5 F L 04/10/24 01:14 Respiratory Rate 20 04/10/24 01:14 Blood Pressure 132/84 04/10/24 01:14 Pulse Oximetry 95 04/10/24 01:14 Oxygen Delivery Method Room Air 04/10/24 01:14 Temperature 97.5 F L 04/10/24 01:14 Pulse Rate 82 04/10/24 02:16 Respiratory Rate 18 04/10/24 02:16 Blood Pressure 122/83 04/10/24 02:16 Pulse Oximetry 95 04/10/24 02:16 Oxygen Delivery Method Room Air 04/10/24 02:16 Medications Administered Medications: Discontinued Medications Generic Name Dose Route Start Last Admin Trade Name Freq PRN Reason Stop Dose Admin Albuterol/Ipratropium 1 neb 04/10/24 01:37 04/10/24 01:51 Iprat-Albut 0.5-2.5 Mg/3 Ml Neb IH 04/10/24 01:38 1 neb ONCE ONE Administration Methylprednisolone Sodium Succinate 125 mg 04/10/24 01:37 04/10/24 01:51 Methylprednisolone Sod Succ 62.5 Mg/Ml (125) IVP 04/10/24 01:38 125 mg ONCE ONE Administration Discharge Plan Discharge Clinical Impression: Asthma exacerbation Patient Disposition: Home, Self-Care Condition: Improved Additional Instructions: Albuterol every 4 hours as needed. Avoid asthma triggers. If wheezing worsens follow up with your PCP to discuss additional inhaler or steroid. Prescriptions: No Action cholecalciferol (vitamin D3) 25 mcg (1,000 unit) tablet 1,000 unit PO DAILY Patient Comments: Take 1 tablet (1,000 units) by mouth daily fluticasone propionate [Flovent HFA] 220 mcg/actuation HFA aerosol inhaler 1 inh inhalation BID PRN acetaminophen 325 mg tablet 325 - 650 mg PO Q6H PRN lamotrigine 25 mg tablet 25 mg PO DAILY nystatin 100,000 unit/gram powder 1 applic topical BID-TID PRN sodium chloride 3 % solution for nebulization inhalation .QD PRN Deep Sea Nasal 0.65 % aerosol,spray 1 spray intranasal QHS PRN Patient Comments: [NO ORIGINAL SIG] prednisone 20 mg tablet 20 mg PO BID Qty: 10 0RF azithromycin [Zithromax Z-Josesito] 250 mg tablet See Rx Instructions PO .COMPLEX Qty: 6 0RF Rx Instructions: For 250 mg dose pack: take 500 mg today (day 1), then 250 mg for 4 days (days 2-5) PO pregabalin 100 mg capsule 100 mg PO QHS Qty: 30 0RF montelukast [Singulair] 10 mg tablet 10 mg PO QHS PRN dextroamphetamine-amphetamine 5 mg tablet 1 tab PO DAILY PRN albuterol sulfate 5 mg/mL solution for nebulization 2.5 mg inhalation Q4H Qty: 100 3RF albuterol sulfate [Ventolin HFA] 90 mcg/actuation HFA aerosol inhaler 2 puff inhalation Q6H PRN (Reason: shortness of breath or wheezing) Qty: 6.7 0RF lamotrigine 200 mg tablet 200 mg PO QHS Qty: 30 0RF trazodone 100 mg tablet 100 mg PO QHS Qty: 90 1RF clonidine HCl 0.1 mg tablet 0.1 mg PO QHS Qty: 90 1RF dextroamphetamine-amphetamine [Adderall] 30 mg tablet 30 mg PO BID Qty: 60 0RF Follow Up/Referrals: Willard Shahid MD [Primary Care Provider] - Stand Alone Forms: [employer] Info Instructions
== END 2024-04-10 03:00 | disposition home or self-care (01) ==
PROVIDERS: Emergency Provider Family Medicine; PCP Family Medicine
DX: J45.901 Unspecified asthma with (acute) exacerbation (principal)
CPT/HCPCS: 71046; 96374; 99282; 99284; J2919

== ENCOUNTER 2024-07-05 01:58 | Emergency (ER) | payer OTHER, SELFPAY ==
--- OUTSIDE RECORDS SUMMARY | 2024-07-05 02:00 | XMS_ITS | Clinical Summary ---
Author Organization [facility] Address [address] [place] [address] Care Team Providers Care Burglar Alarm Superintendent Name Role Phone Willard Shahid MD Primary Care Provider Allergies Active Allergy Reactions Criticality Noted Date [...] Cough. 90 Capsule 1 02/01/2023 12:20 PM END MAKER 3 Active alteplase (ACTIVASE; CATHFLO) injectionIndicati ons:Pulmonary [...] for Expectoration. 236 mL 02/09/2023 2:11 PM END MAKER 4 Active nystatin powder (MYCOSTATIN) powderIndications :Cutaneous candidiasis Apply topically to affected area(s) three times daily. 60 g 02/09/2023 2:11 PM END MAKER 4 Active oxyCODONE (ROXICODONE) 5 mg immediate release tabletIndications :Pain Take 1 Tablet (5 mg) by mouth every 4 hours if needed for moderate to severe pain. 15 Tablet 02/09/2023 2:11 PM END MAKER 4 Active sodium chloride (OCEAN) 0.65 % nasal solutionIndicatio ns:Dry nose Inhale 2 Sprays into affected nostril(s) two times daily. 44 mL 02/09/2023 2:11 PM END MAKER 4 Active albuterol (PROVENTIL) 0.083 % neb solutionIndicatio ns:Pneumonia of both lower lobes due to Haemophilus influenzae Inhale 3 mL (2.5 mg) via a nebulizer two times daily. 75 mL 02/09/2023 2:11 PM END MAKER 4 Active sodium chloride 3% nebulization 3 % nebulizer solutionIndicatio ns:Pulmonary infiltrate Use one vial via neb twice daily 400 mL 02/09/2023 2:11 PM END MAKER 4 Active NebulizerIndicati ons:Pulmonary infiltrate,Hypoxi a,Cough, unspecified [...] 24 months 1 Each 02/09/2023 2:11 PM END MAKER 4 Active rx amoxicillin-clavu lanate (AUGMENTIN) 875-125 [...] Encounters Date Type Department Care Team Description 06/25/2024 Telephone [facility] [address] [facility] [address] [place] [address] Willard Shahid MD Screening (TB/COUGH) 06/18/2024 Transcribe Orders [facility] [address] [place] [address] Willard Shahid MD from Last 3 Months Family History Medical [...] Comments Blood Pressure 102/62 03/15/2023 10:39 AM END MAKER Pulse 101 03/15/2023 10:39 AM END MAKER Temperature 36.6 C (97.8 F) 03/15/2023 10:39 AM END MAKER Respiratory Rate 16 03/15/2023 10:39 AM END MAKER Oxygen Saturation 91% 02/09/2023 9:17 AM END MAKER Inhaled Oxygen Concentration - - Weight 68 kg (149 lb 14.4 oz) 03/15/2023 10:39 A M END MAKER Height 175.3 cm (5' 9) 02/03/2023 7:58 AM END MAKER Body Mass Index 22.14 02/03/2023 7:58 AM END MAKER Plan of Treatment Upcoming Encounters Date Type Department Care Team (Late st Contact Info) Description 08/27/2024 3:30 PM CDT Office Visit [facility] [address] [place] [phone] Napoleon Duarte MBBS [address] [place] [address] Health Maintenance Due Date Last Done Comments Tdap 08/04/1994 Depression screening for age 12+ 1995 HIV for age 15-65 08/04/1998 Hepatitis C screening for age 18-79 08/04/2001 Hepatitis B series for 19+ ( 1 of 3 - 19+ 3-dose series) 08/04/2002 Pneumococcal series for age 6-49 (1 of 2 - PCV) 08/04/2002 Tetanus booster 2003 Pap test for age 21-65 08/04/2004 BMI (ht and wt on same day) for age 18+ 07/27/2018 0 07/27/2017 COVID-19 vaccine series (3 - Pfizer risk series) 08/11/2020 07/14/2020, 06/10/2020 Influenza Vaccine (Season Ended) 2024 Insurance [facility] [address] [place] [id number] [facility] [address] [place] [id number] [address] [place] [id number] [place] [address] [facility] Member Subscriber Plan / Payer (Ef fective 2022-Present) Name:Jessy Curtis Relation to Subscriber:Employee Name:JESSY CURTIS Date of :1985 (Home) Address: [address] [facility] [place] [address] Payer ID:Not on file Group ID:Not on file Type:Not on file Address: [address] [place] [address] A/P CLINIC ID #[id number] [address] [address] [place] [address] Advance Directives * Full Code (Latest Code [...] Code Status Discussion: Reviewed Preferences Care Teams Burglar Alarm Superintendent Relationship Specialty Start Date End Date Willard Shahid MD [address] [place] [phone] PCP - General Family Practice 10/18/17
--- OUTSIDE RECORDS SUMMARY | 2024-07-05 02:00 | XMS_ITS | Clinical Summary ---
Author Organization [facility] Address [address] [place] [address] Care Team Providers Care National Opelint Analyst Name Role Phone Jamal Butt M.D. Primary Care Provider [phone] Source Comments Patient records contain information from all sites at [facility]. For routine questions regarding patient records, call [phone] during business hours, M-F 8:00 AM - 5:00 PM Central Time. Record requests for emergency care only can be directed to [phone] at any time.[facility] Allergies Active Allergy Reactions Criticality [...] Active Problems Problem Noted Date Diagnosed Date Half-Way Current Use Of Immunosuppressive Biolo gic 09/26/2022 [...] Encounters Date Type Department Care Team Description 06/10/2024 Orders Only [facility] Jamal Butt M.D. Screening Mammogram Breast Cancer from Last 3 Months Immunizations Immunization Administration [...] Used Date Smoking Tobacco: Former Cigarettes 0.5 25.9 S tarted: 07/25/1998 Smokeless Tobacco: Current Chew [...] How often do you attend [facility] or restorationist services? Patient declined 10/28/2020 Do you belong to any clubs o r organizations such as jainism groups, unions, fraternal or athletic groups, or [...] Answer Date Recorded PHQ-2 Score 1 12/01/2019 [facility] - Occupational [...] Sex Assigned at Female 03/06/2017 10:16 AM SQL SSRS DEVELOPER Legal Sex Female 4:48 PM CDT Gender Identity Female 03/06/2017 10:16 AM SQL SSRS DEVELOPER Sexual Orientation Straight 03/06/2017 10 :16 AM SQL SSRS DEVELOPER Last Filed Vital Signs Vital Sign Reading [...] 1985 Lipid (Cholesterol) Screening 1985 Mammogram 1985 Hepatitis B Vaccines (1 of 3 - 19+ 3-dose series) 08/04/2002 Zoster Vaccines (1 of 2) 08/04/2002 HPV Vaccines (1 - Risk 3-dose SCDM series) 08/04/2010 Pneumococcal vaccine (0-49 years) (2 of 2 - PCV) 05/09/2018 05/09/2017 COVID-19 Vaccine (3 - Pfizer risk series) 08/11/2020 07/14/2020, 06/10/2020 Influenza Vaccine (#1) 2023 9, 12/13/2015, 12/13/2015 Depression Monitoring (PHQ-9 for quality tracking) 02/06/2024 DTaP,Tdap,and Td Vaccines (2 - Td or Tdap) 05/10/2027 05/09/2017, 07/17/2016 Hepatitis B Screening Discontinued 08/16/2017 IPV Vaccines Aged Out No longer [...] Negative Negative 08/16/2017 2:56 PM CDT [facility] Blood 08/16/2017 9:47 AM CDT 08/16/2017 12:20 PM CDT us Alexandr Shaikh M.D. LAB MICROBIOLOGY - BLOOD ORD ERABLES Final Result [facility] [address] [place] [address] from Last 3 Months or Most Recently Relevant to Health Maintenance Additional Health Concerns Infection Onset Date Last Indicated Protective Environment 06/07/2022 3 Insurance [facility] * Guarantor: [employer] Account Type Relation to Patient Date of Phone Billing Address Workers Comp Employer [address] [place] [phone] Advance Directives For more information, please contact: [phone] Documents on File Type Date Recorded Patient Agricultural Service Technician Expl anation Advance Directives 03/19/2019 4:22 PM [...] Alternate Health Car e Agent Care Teams National Opelint Analyst Relationship Specialty Start Date End Date Jamal Butt M.D. [address] [place] [address] PCP - General Family Medicine 05/21/17
--- OUTSIDE RECORDS SUMMARY | 2024-07-05 02:00 | XMS_ITS | Referral Summary ---
Author Organization [facility] Address [address] [place] [address] Care Team Providers Care Windows Vmware Engineer Name Role Phone Stanton, Primary Care Provider [...] on file Insurance [address] [place] [id number] [address] [place] [id number] [place] [address] Care Teams Windows Vmware Engineer Relationship Specialty Start Date End Date None, PCP - General 11/11/17 None, PCP - Primary Care Clinic 11/11/17
--- OUTSIDE RECORDS SUMMARY | 2024-07-05 02:00 | XMS_ITS | Encounter Summary ---
Author Organization [facility] Address [address] [place] [address] Care Team Providers Care Law Tutor Name Role Phone Jamal Butt M.D. Primary Care Provider Encounter Details Date Type Department Care Team (Late st Contact Info) Description 05/31/2016 Historical Ophthalmology [facility] Eileen Alicia M.D. Social History Tobacco Use Types Packs/Day Years Used Date Smoking Tobacco: Never Assessed Comments Unknown Sex and Gender Information Value Date Recorded Sex Assigned at Female 03/06/2017 10:16 AM DETONATOR MAKER Legal Sex Female 4:48 PM CDT Gender Identity Female 03/06/2017 10:16 AM DETONATOR MAKER Sexual Orientation Straight 03/06/2017 10 :16 AM DETONATOR MAKER documented as of this encounter Progress Notes [...] left eye. CDM Reports - EYEGEN Id: [id number] Status: Fnl documented in this encounter Plan [...] Pending 01/12/2020 01/12/2020 01/13/2020 4 :11 AM DETONATOR MAKER COVID19 Pending 02/13/2020 02/13/2020 02/14/2020 1 :05 AM DETONATOR MAKER COVID19 Pending 03/31/2020 03/31/2020 03/31/2020 1 2:19 PM DETONATOR MAKER COVID19 Pending 03/31/2020 03/31/2020 04/01/2020 1 2:22 AM DETONATOR MAKER Protective Environment 06/07/2022 06/07/2022 COVID19 Pending 07/06/2022 07/06/2022 07/06/2022 8 :28 PM CDT documented as of this encounter Care Teams Law Tutor Relationship Specialty Start Date End Date Jamal Butt M.D. [address] [place] [address] PCP - General Family Medicine 05/21/17 documented as of this encounter
--- OUTSIDE RECORDS SUMMARY | 2024-07-05 02:00 | XMS_ITS | Encounter Summary ---
Author Organization [facility] Address [address] [place] [address] Care Team Providers Care Planer Offbearer Name Role Phone Jamal Butt M.D. Primary Care Provider [phone] Reason for Referral * Outpatient (Routine) - Authorized Specialty Diagnoses / Procedures Referred By Contac t Referred To Contact Diagnoses Screening Mammogram Breast Cancer Procedures BI Breast Screening Bilateral with Tomosynthesis Jamal Butt M.D. [address] [place] [address] Phone: tel: fax: [facility] Referral ID Status Reason Start Date Expiration Date V isits Requested Visits Authorized [id number] Authorized 06/10/2024 09/10/2025 1 1 Encounter Details Date Type Department Care Team (Late st Contact Info) Description 06/10/2024 Orders Only [facility] PCP [facility] MNT Jamal Butt M.D. [address] [place] [phone] Screening Mammogram Breast Cancer Social History Tobacco Use Types Packs/Day Years [...] How often do you attend chur or christian services? Patient declined 10/28/2020 Do you belong [...] Answer Date Recorded PHQ-2 Score 1 12/01/2019 [facility] - Occupational Stress Questionnaire Answer Date [...] Date Recorded Dental: Regular Dentist Unknown 10/29/19 24 Employment Answer Date Recorded Employment status Unemployed/not in th e paid workforce but seeking employment 10/28/2020 Education Answer Date Recorded What is the highest level of school you have completed or the highest degree you have received? Associate degree: occupational, technical, or vocational program 12/01/2019 Comments No Sex and Gender Information Value Date Recorded Sex Assigned at Female 03/06/2017 10:16 AM VENEER MATCHER Legal Sex Female 4:48 PM CDT Gender Identity Female 03/06/2017 10:16 AM VENEER MATCHER Sexual Orientation Straight 03/06/2017 10 :16 AM VENEER MATCHER documented as of this encounter Plan of Treatment Scheduled Orders Name Type Priority Associated Diagnoses Order Schedule BI Breast Screening Bilateral with Tomosynthesis Imaging RAD - Routine (most inpatients and all outpatients) Screening Mammogram Breast Cancer Expected: 06/24/2024, Expires: 11/27/2024 documented as of this encounter Visit Diagnoses Diagnosis Screening Mammogram Breast Cancer documented in this encounter Additional Health Concerns Infection Onset Date Last Indicated Resolved Time Protective Environment 06/07/2022 06/07/2022 Assessment Noted Time PHQ-9 Depression Total Score: 2 12/01/19 20 6:54 AM CDT documented as of this encounter Care Teams Planer Offbearer Relationship Specialty Start Date End Date Jamal Butt M.D. [address] [place] [address] PCP - General Family Medicine 05/21/17 documented as of this encounter
--- OUTSIDE RECORDS SUMMARY | 2024-07-05 02:01 | XMS_ITS | Clinical Summary ---
Author Organization [place] Address [address] [facility] [place] [address] Care Team Providers Care Neurodiagnostic Technician Name Role Phone [facility] Primary Care Provider [phone] Allergies Active Allergy Reactions Criticality Noted Date [...] Comments Blood Pressure 108/69 12/10/2023 1:15 PM MERCHANDISE SUPPORT ASSOCIATE Pulse 52 12/10/2023 1:15 PM MERCHANDISE SUPPORT ASSOCIATE Temperature 36.7 C (98.1 F) 12/10/2023 12:40 PM MERCHANDISE SUPPORT ASSOCIATE Respiratory Rate 16 12/10/2023 1:15 PM MERCHANDISE SUPPORT ASSOCIATE Oxygen Saturation 100% 12/10/2023 1:15 PM MERCHANDISE SUPPORT ASSOCIATE Inhaled Oxygen Concentration - - Weight 62.6 kg (138 lb) 12/10/2023 8:55 AM MERCHANDISE SUPPORT ASSOCIATE Height 175.2 cm (5' 8.98) 11/30/2023 3:00 PM CD T Body Mass Index 20.39 11/30/2023 3:00 PM CDT Plan of Treatment Health Maintenance Due Date Last Done Comments ADVANCE CARE PLANNING 1985 ANNUAL REVIEW OF HM ORDERS 1985 MAMMO SCREENING 1985 NICOTINE/TOBACCO CESSATION COUNSELING Q 1 YR 1983 YEARLY PREVENTIVE VISIT 08/04/1986 HIV SCREENING 08/04/1998 HEPATITIS C SCREENING 08/04/2001 HEPATITIS B VACCINE (1 of 3 - 19+ 3-dose series) 08/04/2002 PAP 08/04/2004 PNEUMOCOCCAL VACCINE: PEDIATRICS (0 to 5 YEARS) AND AT-RISK PATIENTS (6 to 49 YEARS) (2 of 2 - PCV) 05/09/2018 05/09/2017 DIABETES SCREENING 08/27/2019 08/26/2016, 07/28/2016 LIPID 2023 COVID-19 VACCINE (3 - 2023-2 5 season) 2023 07/14/2020, 06/10/2020 PHQ-2 (once per calendar year) 2024 INFLUENZA VACCINE (Season Ended) 2024 11/26/2018, 12/13/2015 DTAP/TDAP/TD VACCINE (2 - Td or Tdap) 05/10/2027 05/09/2017, 07/17/2016 ZOSTER VACCINE (1 of 2) 08/04/2033 HPV VACCINE Aged Out No longer eligi ble based on patient's age to complete this topic MENINGITIS VACCINE Aged Out No longer eligible based on patient's age to complete this topic Medical Devices Implanted Type Area Bed Machine Operator Device Identifier Shelf Expiration Date Model / Serial / Lot Allergan Natrella 68lp 600cc Implanted:Qty: 1 on 12/10/2023 by Gomez Leonard MD at [facility] Left: Breast [id number] 01/06/2027 68LP-600 / [id number] / Allergan Naterlla 68lp-600cc Implanted:Qty: 1 on 12/10/2023 by Gomez Leonard MD at [facility] Right: Breast 09/30/2026 68LP-600 / [id number] / Explanted Type Area Bed Machine Operator Device Identifier Shelf Expiration Date Model / Serial / Lot Natrelle [id number]-450cc Explanted:Qty: 1 on 12/10/2023 by Gomez Leonard MD at [facility] Left: Breast 68LP-450 / / [id number] Allergan 68lp- 480cc Explanted:Qty: 1 on 12/10/2023 by Gomez Leonard MD at [facility] Right: Breast 68LP- 480CC / / [id number] Procedures Procedure Name Priority Date/Time Associated Diagnosis Comments BASIC METABOLIC PANEL STAT 08/26/2016 9:52 AM CDT from Last 3 Months or Most Recently Relevant to Health Maintenance Results * (ABNORMAL) Basic metabolic panel (BMP) (08/26/2016 9:52 AM CDT) Sodium 140 133 - 144 mmol/L [facility] Potassium 3.6 3.4 - 5.3 mmol/L [facility] Chloride 111(H) 94 - 109 mmol/L [facility] Carbon Dioxide 25 20 - 32 mmol/L [facility] Anion Gap 4 3 - 14 mmol/L [facility] Glucose 83 70 - 99 mg/dL [facility] Urea Nitrogen 5(L) 7 - 30 mg/dL [facility] Creatinine 0.71 0.52 - 1.04 mg/dL [facility] GFR Estimate >90 Non GFR Calc >60 mL/min/1. 7m2 [facility] GFR Estimate If Black >90 GFR Calc >60 mL/min/1. 7m2 [facility] Calcium 8.9 8.5 - 10.1 mg/dL [facility] Blood specimen (specimen) 08/26/2016 9:52 AM CDT 08/26/2016 10:06 AM CDT us Joseph Can MD LAB - BLOOD ORDERABLES Fi nal Result [facility] [address] [place] [address], [facility] [phone] from Last 3 Months or Most Recently Relevant to Health Maintenance Insurance [employer] [facility] Member Subscriber Plan / Payer (Ef fective 2023-Present) Name:Jessy Vega Relation to Subscriber:Employee Name:[id number] Date of :1985 (Home) Address: [address] [facility] [place] [address] Payer ID:[id number] Group ID:Not on file Type:Not on file Address: [facility] MEDICAL BILL REVIEW DEPT [address] [id number] [place] [phone] Care Teams Neurodiagnostic Technician Relationship Specialty Start Date End Date [facility] [address] [place] [address] PCP - General 07/28/16
--- OUTSIDE RECORDS SUMMARY | 2024-07-05 02:01 | XMS_ITS | Clinical Summary ---
[facility] Address [address] [place] [address] Care Team Providers Care Furniture Maker Name Role Phone Estella Kamara APRN, SALES AND LEASING CONSULTANT Primary Care Provider Source Comments You are receiving this document as you are listed as the primary care provider,follow-up provider, or the patient has been referred to you for consultation.This is in compliance with the Medicare and[facility] EHR Incentive Program,which states Providers who transition their patient to another setting of careor provider of care or refers their patient to another provider of care shouldprovide summary care record for each transition of care or referral. DraftMix Allergies Active Allergy Reactions Criticality Noted Date [...] Rituxan. Is seen at the [facility] by neurology TIM (generalized anxiety disorder) 07/11/2016 [...] Services) 1999 Adult Preventive Visit 08/04/2001 DTaP/Tdap/Td Vaccine (1 - Tdap) 08/04/2002 HepB Vaccine (1) 08/04/2002 COVID-19 Vaccine (1 - 2023-2 5 season) 2023 Influenza Vaccine (Season Ended) 2024 Zoster/Shingles Vaccine (1 of 2) 08/04/2033 HPV Vaccine Aged Out No longer eligi ble based on patient's age to complete this topic HepA Vaccine Aged Out No longer eligi ble based on patient's age to complete this topic Hib Vaccine Aged Out No longer eligi ble based on patient's age to complete this topic IPV (Polio) Vaccine Aged Out No longe r eligible based on patient's age to complete this topic MCV4 Vaccine Aged Out No longer eligi ble based on patient's age to complete this topic Meningococcal B Vaccine Aged Out No l onger eligible based on patient's age to complete this topic Pneumococcal Vaccine Aged Out No long er eligible based on patient's age to complete this topic Insurance [address] [place] [id number] [employer] Care Teams Furniture Maker Relationship Specialty Start Date End Date Estella Kamara, GENERAL FOREMAN, SALES AND LEASING CONSULTANT [address] [place] [address] PCP - General Nurse Practitioner 09/07/16
--- OUTSIDE RECORDS SUMMARY | 2024-07-05 02:01 | XMS_ITS | Encounter Summary ---
Author Organization [facility] Address [address] [place] [address] Care Team Providers Care Battery Charger Tester Name Role Phone Jamal Butt M.D. Primary Care Provider [phone] Encounter Details Date Type Department Care Team (Late st Contact Info) Description 08/09/2017 [facility] [address] [place] [address] Willard Shahid M.D. [address], [place] [phone] Pain Elbow Right (Primary Dx); Neuropathy Ulnar Right Social History Tobacco Use Types Packs/Day Years Used Date Smoking Tobacco: Every Day Cigarettes 0.7 25.9 Started: 07/25/1998 Smokeless Tobacco: Never Alcohol Use Standard Drinks/Week Comments Yes 0 (1 standard drink = 0.6 oz pur e alcohol) beer socially Comments No Sex and Gender Information Value Date Recorded Sex Assigned at Female 03/06/2017 10:16 AM COUNTER CLERK TRACTOR PARTS Legal Sex Female 4:48 PM CDT Gender Identity Female 03/06/2017 10:16 AM COUNTER CLERK TRACTOR PARTS Sexual Orientation Straight 03/06/2017 10 :16 AM COUNTER CLERK TRACTOR PARTS documented as of this encounter Plan of [...] Pending 01/12/2020 01/12/2020 01/13/2020 4 :11 AM COUNTER CLERK TRACTOR PARTS COVID19 Pending 02/13/2020 02/13/2020 02/14/2020 1 :05 AM COUNTER CLERK TRACTOR PARTS COVID19 Pending 03/31/2020 03/31/2020 03/31/2020 1 2:19 PM COUNTER CLERK TRACTOR PARTS COVID19 Pending 03/31/2020 03/31/2020 04/01/2020 1 2:22 AM COUNTER CLERK TRACTOR PARTS Protective Environment 06/07/2022 06/07/2022 COVID19 Pending 07/06/2022 07/06/2022 07/06/2022 8 :28 PM CDT Assessment Noted Time PHQ-9 Depression Total Score: 17 018 10:52 AM CDT documented as of this encounter Care Teams Battery Charger Tester Relationship Specialty Start Date End Date Jamal Butt M.D. [address] [place] [phone] PCP - General Family Medicine 05/21/17 documented as of this encounter
--- OUTSIDE RECORDS SUMMARY | 2024-07-05 02:01 | XMS_ITS | Encounter Summary ---
Author Organization [facility] Address [address] [place] [address] Care Team Providers Care Cna Pct Name Role Phone Jamal Butt M.D. Primary Care Provider Encounter Details Date Type Department Care Team (Late st Contact Info) Description 02/22/2018 [facility] [address] [place] [address] Willard Shahid M.D. [address], [place] [phone] Social History Tobacco Use Types Packs/Day Years Used Date Smoking Tobacco: Every Day Cigarettes 0.7 25.9 Started: 07/25/1998 Smokeless Tobacco: Never Alcohol Use Standard Drinks/Week Comments Yes 0 (1 standard drink = 0.6 oz pur e alcohol) beer socially Comments No Sex and Gender Information Value Date Recorded Sex Assigned at Female 03/06/2017 10:16 AM ADDRESSER Legal Sex Female 4:48 PM CDT Gender Identity Female 03/06/2017 10:16 AM ADDRESSER Sexual Orientation Straight 03/06/2017 10 :16 AM ADDRESSER documented as of this encounter Plan of [...] Pending 01/12/2020 01/12/2020 01/13/2020 4 :11 AM ADDRESSER COVID19 Pending 02/13/2020 02/13/2020 02/14/2020 1 :05 AM ADDRESSER COVID19 Pending 03/31/2020 03/31/2020 03/31/2020 1 2:19 PM ADDRESSER COVID19 Pending 03/31/2020 03/31/2020 04/01/2020 1 2:22 AM ADDRESSER Protective Environment 06/07/2022 06/07/2022 COVID19 Pending 07/06/2022 07/06/2022 07/06/2022 8 :28 PM CDT Assessment Noted Time PHQ-9 Depression Total Score: 2 12/22/19 18 2:04 PM ADDRESSER documented as of this encounter Care Teams Cna Pct Relationship Specialty Start Date End Date Jamal Butt M.D. [address] [place] [phone] PCP - General Family Medicine 05/21/17 documented as of this encounter
--- OUTSIDE RECORDS SUMMARY | 2024-07-05 02:01 | XMS_ITS | Clinical Summary ---
Author Organization [facility] Address [address] [place] [address] Care Team Providers Care Low Pressure Boiler Operator Name Role Phone Stanton, Primary Care Provider [...] 08/04/1984 Depression Assessment (PHQ-2) 08/04/1984 COVID-19 Vaccine ( - 2023-2 5 season) 2023 Influenza Vaccine (Season Ended) 2024 12/13/19 16 Adult Tetanus Booster 05/10/2027 05/09/2017 RSV Vaccines (1 - 1-dose 75+ series) 08/04/2058 Pneumococcal Vaccine Aged Out 05/09/2017 No long er eligible based on patient's age to complete this topic Meningococcal B Vaccine Aged Out No l onger eligible based on patient's age to complete this topic Insurance [address] [place] [id number] [address] [facility] [place] [address] [employer] Care Teams Low Pressure Boiler Operator Relationship Specialty Start Date End Date None, PCP - General 11/11/17 None, PCP - Primary Care Clinic 11/11/17
--- OUTSIDE RECORDS SUMMARY | 2024-07-05 02:01 | XMS_ITS | Encounter Summary ---
Author Organization [facility] Address [address] [place] [address] Care Team Providers Care Attorney Lawyer Name Role Phone Jamal Butt M.D. Primary Care Provider [phone] Encounter Details Date Type Department Care Team (Latest Contact Info) Description 02/25/2018 [facility] [address] [place] [address] Willard Shahid M.D. [address] [place] [phone] Fasciculation (Primary Dx) Social History Tobacco Use Types Packs/Day Years Used Date Smoking Tobacco: Every Day Cigarettes 0.7 25.9 Started: 07/25/1998 Smokeless Tobacco: Never Alcohol Use Standard Drinks/Week Comments Yes 0 (1 standard drink = 0.6 oz pur e alcohol) beer socially Comments No Sex and Gender Information Value Date Recorded Sex Assigned at Female 03/06/2017 10:16 AM HAIRSPRING SETTER Legal Sex Female 4:48 PM CDT Gender Identity Female 03/06/2017 10:16 AM HAIRSPRING SETTER Sexual Orientation Straight 03/06/2017 10 :16 AM HAIRSPRING SETTER documented as of this encounter Plan of [...] Pending 01/12/2020 01/12/2020 01/13/2020 4 :11 AM HAIRSPRING SETTER COVID19 Pending 02/13/2020 02/13/2020 02/14/2020 1 :05 AM HAIRSPRING SETTER COVID19 Pending 03/31/2020 03/31/2020 03/31/2020 1 2:19 PM HAIRSPRING SETTER COVID19 Pending 03/31/2020 03/31/2020 04/01/2020 1 2:22 AM HAIRSPRING SETTER Protective Environment 06/07/2022 06/07/2022 COVID19 Pending 07/06/2022 07/06/2022 07/06/2022 8 :28 PM CDT Assessment Noted Time PHQ-9 Depression Total Score: 2 12/22/19 18 2:04 PM HAIRSPRING SETTER documented as of this encounter Care Teams Attorney Lawyer Relationship Specialty Start Date End Date Jamal Butt M.D. [address] [place] [phone] PCP - General Family Medicine 05/21/17 documented as of this encounter
[2024-07-05 02:03] VITALS: BP 128/97; PULSE 91; RESP 16; TEMP 36.7; O2SAT 98; BMI 22.9
[2024-07-05 02:17] VITALS: TEMP 36.7
[2024-07-05] MEDS: ACETAMINOPHEN 500 MG TABLET 1000 MG PO (02:17)
[2024-07-05 02:18] VITALS: TEMP 36.7
[2024-07-05] MEDS: IBUPROFEN 200 MG TABLET 600 MG PO (02:18)
[2024-07-05] MEDS: LIDOCAINE/EPINEP/TETRACAINE 3 ML GEL..ML. TOPICAL (02:19)
[2024-07-05] MEDS: BUPIVACAINE 0.25% 30 ML INJECTION (02:22)
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
[2024-07-05] MEDS: TETANUS/DIPHTH/PERTUSSIS 0.5 ML SYRINGE IM (02:57)
[2024-07-05] MEDS: BACITRACIN OINTMENT BULK TUBE 1 APPLIC TOPICAL (03:01)
[2024-07-05 03:07] VITALS: BP 125/85; PULSE 85; RESP 16; TEMP 36.7; O2SAT 98
== END 2024-07-05 03:08 | disposition home or self-care (01) ==
PROVIDERS: Emergency Provider Family Medicine; PCP Family Medicine
DX: S51.012A Laceration without foreign body of left elbow, initial encounter (principal); Z23 Encounter for immunization; V29.108 Other motorcycle passenger injured in collision with unspecified motor vehicles in nontraffic accident
CPT/HCPCS: 12002; 90471; 90715; 99283; A9270; J0665

== ENCOUNTER 2025-01-20 09:32 | Outpatient (CLI) | payer OTHER, SELFPAY ==
[2025-01-20 14:58] LABS: Albumin* 4.3 g/dL (3.3-5.0); Chloride* 102 mmol/L (96-114)
[2025-01-20 14:59] LABS: Potassium* 4.4 mmol/L (3.6-5.1); Sodium* 136 mmol/L (135-149)
[2025-01-20 15:01] LABS: Alanine Aminotransferase* 32 U/L (4-35); Anion Gap 7 mEq/L (7-15); Aspartate Amino Transferase* 41 U/L (12-35); Blood Urea Nitrogen* 14 mg/dL (5-24); Carbon Dioxide* 27 mmol/L (20-32); Creatinine* 0.8 mg/dL (0.5-1.5); Estimated Glomerular Filt Rate 95 ml/min
[2025-01-20 15:02] LABS: Alkaline Phosphatase* 69 U/L (40-150); Bilirubin Total* 0.6 mg/dL (0.1-1.5); Calcium* 9.0 mg/dL (8.4-10.6); Glucose* 123 mg/dL (60-115); Total Protein* 6.3 g/dL (6.0-8.3)
[2025-01-22 02:21] LABS: Immunoglobulin A 84 mg/dL (68-408); Immunoglobulin G 477 mg/dL (768-1632); Immunoglobulin M 16 mg/dL (35-263)
== END 2025-01-20 09:33 | disposition home or self-care (01) ==
LOC: NPINS 09:34
PROVIDERS: PCP Family Medicine; Visit Provider Internal Medicine
DX: D83.9 Common variable immunodeficiency, unspecified (principal); Z87.01 Personal history of pneumonia (recurrent)
CPT/HCPCS: 80053